=== PATIENT | female | born 1975 | race Caucasian/White ===

== ENCOUNTER 2017-05-13 14:47 | Emergency (ER) | payer OTHER ==
[~2017-05-13] VITALS: Ht 170.2 cm; Wt 83.9 kg
[~2017-05-13 14:47] MED LIST: ALBIPROI; ALBIPROI INH; AMOCLA400S PO; AMOCLA500; AMOCLA500 PO; AMOCLA875 PO; BENZ100A; BETAINE; BUDE10.22 IH; BUTASPCAFT PO; Bactrim Ds Tab1 EACH PO; CEFU500; CHLCLI; CHLO10 PO; CHLO25; CHLO25 PO; CHLO5 PO; CIPR500 PO; CITA20; CLAR500 PO; CLIN300; CLON.1; CLON.1 PO; CLON1; CLON2; COUMADIN; CYAN500 PO; CYCL10 PO; DIAZ5; ENOX60I; FOLATE; FOLI1 PO; HYDACE10B PO; HYDACE5; HYDACE5 PO; HYDACE7.5; HYDACE7.5 PO; HYDGUAL120 PO; HYDMOR2; HYDPAM25 PO; IBUP600 PO; IBUP800 PO; LEVFLO500; LEVFLO500 PO; LORA.5 PO; LORA1; LORA2; LORA2 PO; MELO7.5 PO; METCAR500 PO; METO25 PO; METO50ER PO; MULVITA; NALT50 PO; NAPR500 PO; NYST100SU MT; Norco 5-325 Ta1 EACH PO; OXYACE5T PO; OXYACE7.5T PO; OXYCODONE 5 MG; PHENY100ER; POTPHO PO; PRAZ1 PO; PRED1; PRED20; PRED20 PO; PROM25; PROM25 PO; PYRI100 PO; PYRI50; QUET100 PO; QUET200 PO; QUET25 PO; RXHYDACE PO; RXLORA1 PO; SULTRISS PO; TRAM50; TRAM50 PO; TRAZ50; WARF10; WARF4; WARF7.5; WARFARIN; [UNRECOGNIZED DRUG - REMARK]
[2017-05-13 15:37] LABS: BASOPHILS ABSOLUTE AUTO 0.02 K/mm3 (0.00-0.23); BASOPHILS PERCENT AUTO 0 % (0-2); EOSINOPHILS ABSOLUTE AUTO 0.02 K/mm3 (0.00-0.68); EOSINOPHILS PERCENT AUTO 0 % (0-6); Hematocrit 40.6 % (33.0-51.0); Hemoglobin 14.2 g/dL (11.5-16.0); IMMATURE GRAN ABSOLUTE AUTO 0.05 K/mm3 (0.00-0.10); IMMATURE GRAN PERCENT AUTO 1 % (0-1); LYMPHOCYTES ABSOLUTE AUTO 2.45 K/mm3 (0.84-5.20); LYMPHOCYTES PERCENT AUTO 25 % (21-46); MONOCYTES ABSOLUTE AUTO 0.57 K/mm3 (0.16-1.47); MONOCYTES PERCENT AUTO 6 % (4-13); Mean Corpuscular HGB 36.7 pg (26.0-34.0); Mean Corpuscular Volume 105 fL (80-100); Mean Platelet Volume 9.4 fL (9.1-12.4); NEUTROPHILS ABSOLUTE AUTO 6.84 K/mm3 (1.96-9.15); NEUTROPHILS PERCENT AUTO 69 % (41-73); Platelet Count 154 K/mm3 (150-400); RDW Coefficient Variation 12.9 % (11.7-14.2); RDW Standard Deviation 49.6 fL (35.1-46.3); Red Blood Cell Count 3.87 M/mm3 (3.80-5.20); White Blood Cell Count 9.95 K/mm3 (4.00-11.30)
[2017-05-13 15:56] LABS: Alanine Aminotransfer (ALT/SGP 49 U/L (12-78); Albumin, Blood 3.9 g/dL (3.4-5.0); Albumin/Globulin Ratio 1.3 (0.8-1.8); Alk Phos 91 U/L (50-136); Anion Gap 9 mmol/L (6-16); Aspartate Aminotrans (AST/SGOT 25 U/L (12-37); Bilirubin, Total 0.5 mg/dL (0.1-1.0); Blood Urea Nitrogen 11 mg/dL (8-24); CO2, Blood 24 mmol/L (21-32); Calcium, Blood 8.7 mg/dL (8.5-10.1); Chloride, Blood 103 mmol/L (98-108); Creatinine, Blood 0.65 mg/dL (0.40-1.00); Ethanol (Alcohol), Blood, Med <3 mg/dL; Globulin, Blood 3.1 g/dL (2.2-4.0); Glomerular Filtration Rate >60 (60-); Glucose, Blood 102 mg/dL (70-99); Potassium, Blood 3.7 mmol/L (3.5-5.5); Sodium, Blood 136 mmol/L (136-145)
[2017-05-13] MEDS ORDERED: CHLO25 PO (17:43)
[2018-04-12] MEDS ORDERED: Amox Tr-K Clv1 EAC2 PO (14:10)
[2018-04-12] MEDS ORDERED: FLUC150A PO (14:10)
[2018-04-12] MEDS ORDERED: NYST100000 (14:10)
[2018-04-12] MEDS ORDERED: CHLO25 PO (15:51)
[2018-04-12] MEDS ORDERED: Zofran8 MG PO (15:51)
== END 2017-05-13 17:56 | disposition home or self-care (01) ==
LOC: ER 14:47
PROVIDERS: Emergency Medicine
DX: F10.239 Alcohol dependence with withdrawal, unspecified (principal); F43.10 Post-traumatic stress disorder, unspecified; F17.200 Nicotine dependence, unspecified, uncomplicated; F41.9 Anxiety disorder, unspecified; F32.9 Major depressive disorder, single episode, unspecified; Z88.8 Allergy status to other drugs, medicaments and biological substances; Z88.5 Allergy status to narcotic agent; Z79.899 Other long term (current) drug therapy
CPT/HCPCS: 36415; 80053; 85025; 96374; 96375; 99283; G0480; J2060; J2405

== ENCOUNTER 2018-02-07 12:16 | Emergency (ER) | payer OTHER ==
[~2018-02-07] VITALS: Ht 170.2 cm; Wt 86.2 kg
[2018-02-07 13:36] LABS: BASOPHILS ABSOLUTE AUTO 0.03 K/mm3 (0.00-0.23); BASOPHILS PERCENT AUTO 0 % (0-2); EOSINOPHILS ABSOLUTE AUTO 0.02 K/mm3 (0.00-0.68); EOSINOPHILS PERCENT AUTO 0 % (0-6); Hemoglobin 14.1 g/dL (11.5-16.0); IMMATURE GRAN ABSOLUTE AUTO 0.02 K/mm3 (0.00-0.10); IMMATURE GRAN PERCENT AUTO 0 % (0-1); LYMPHOCYTES ABSOLUTE AUTO 2.74 K/mm3 (0.84-5.20); LYMPHOCYTES PERCENT AUTO 37 % (21-46); MONOCYTES ABSOLUTE AUTO 0.53 K/mm3 (0.16-1.47); MONOCYTES PERCENT AUTO 7 % (4-13); Mean Corpuscular HGB 37.9 pg (26.0-34.0); Mean Corpuscular HGB Conc 35.3 g/dL (31.5-36.5); Mean Corpuscular Volume 108 fL (80-100); Mean Platelet Volume 9.3 fL (9.1-12.4); NEUTROPHILS ABSOLUTE AUTO 4.02 K/mm3 (1.96-9.15); NEUTROPHILS PERCENT AUTO 55 % (41-73); Platelet Count 159 K/mm3 (150-400); RDW Coefficient Variation 12.2 % (11.7-14.2); RDW Standard Deviation 48.1 fL (35.1-46.3); Red Blood Cell Count 3.72 M/mm3 (3.80-5.20); White Blood Cell Count 7.36 K/mm3 (4.00-11.30)
[2018-02-07 13:57] LABS: Alanine Aminotransfer (ALT/SGP 81 U/L (12-78); Albumin, Blood 3.7 g/dL (3.4-5.0); Albumin/Globulin Ratio 1.2 (0.8-1.8); Alk Phos 84 U/L (50-136); Anion Gap 8 mmol/L (6-16); Aspartate Aminotrans (AST/SGOT 49 U/L (12-37); Bilirubin, Total 0.6 mg/dL (0.1-1.0); Blood Urea Nitrogen 10 mg/dL (8-24); Bun/Creatinine Ratio 17.5 (12.0-20.0); CO2, Blood 24 mmol/L (21-32); Chloride, Blood 107 mmol/L (98-108); Creatinine, Blood 0.57 mg/dL (0.40-1.00); Ethanol (Alcohol), Blood, Med <3 mg/dL; Globulin, Blood 3.2 g/dL (2.2-4.0); Glomerular Filtration Rate >60 (60-); Glucose, Blood 98 mg/dL (70-99); Potassium, Blood 3.7 mmol/L (3.5-5.5); Sodium, Blood 139 mmol/L (136-145); Total Protein, Blood 6.9 g/dL (6.4-8.2)
[2018-02-07] MEDS ORDERED: CHLO25 PO (14:49)
== END 2018-02-07 15:07 | disposition home or self-care (01) ==
LOC: ER 12:16
PROVIDERS: Physician Assistant
DX: F10.239 Alcohol dependence with withdrawal, unspecified (principal); Z71.41 Alcohol abuse counseling and surveillance of alcoholic; F41.9 Anxiety disorder, unspecified; F32.9 Major depressive disorder, single episode, unspecified; F17.210 Nicotine dependence, cigarettes, uncomplicated; Z79.899 Other long term (current) drug therapy; Y90.0 Blood alcohol level of less than 20 mg/100 ml
CPT/HCPCS: 80053; 82607; 82746; 85025; 99284; G0480

== ENCOUNTER → 2018-12-05 | Outpatient (CLI) | payer OTHER ==
[~2018-12-05] MED LIST changes: +Amox Tr-K Clv1 EAC2 PO; +FLUC150A PO; +NYST100000; +Zofran8 MG PO
[2018-12-09 15:07] LABS: HPV 16 Negative (Negative); HPV 18 Negative (Negative); HPV OTHER HR TYPES Negative (Negative)
== END | disposition home or self-care (01) ==
LOC: LAB 13:05 → LAB SHORT 13:05
PROVIDERS: Nurse Practitioner Women's Health
DX: Z12.72 Encounter for screening for malignant neoplasm of vagina (principal); N89.8 Other specified noninflammatory disorders of vagina; Z91.89 Other specified personal risk factors, not elsewhere classified
CPT/HCPCS: 87070; 87205; 87624; G0123

== ENCOUNTER 2019-03-28 12:28 | Emergency (ER) | payer OTHER ==
[~2019-03-28] VITALS: Ht 167.6 cm; Wt 77.1 kg
[~2019-03-28 12:28] MED LIST changes: -CYCL10 PO; -METO50ER PO
[2019-03-28 15:10] LABS: BASOPHILS ABSOLUTE AUTO 0.03 K/mm3 (0.00-0.23); BASOPHILS PERCENT AUTO 0 % (0-2); EOSINOPHILS ABSOLUTE AUTO 0.01 K/mm3 (0.00-0.68); EOSINOPHILS PERCENT AUTO 0 % (0-6); Hematocrit 45.2 % (33.0-51.0); Hemoglobin 15.6 g/dL (11.5-16.0); IMMATURE GRAN ABSOLUTE AUTO 0.03 K/mm3 (0.00-0.10); IMMATURE GRAN PERCENT AUTO 0 % (0-1); LYMPHOCYTES PERCENT AUTO 25 % (21-46); MONOCYTES ABSOLUTE AUTO 0.61 K/mm3 (0.16-1.47); MONOCYTES PERCENT AUTO 6 % (4-13); Mean Corpuscular HGB 37.1 pg (26.0-34.0); Mean Corpuscular HGB Conc 34.5 g/dL (31.5-36.5); Mean Corpuscular Volume 107 fL (80-100); Mean Platelet Volume 9.5 fL (9.1-12.4); NEUTROPHILS PERCENT AUTO 68 % (41-73); Platelet Count 172 K/mm3 (150-400); RDW Standard Deviation 47.9 fL (35.1-46.3); Red Blood Cell Count 4.21 M/mm3 (3.80-5.20); White Blood Cell Count 9.58 K/mm3 (4.00-11.30)
[2019-03-28 15:25] LABS: Alanine Aminotransfer (ALT/SGP 87 U/L (12-78); Albumin, Blood 3.6 g/dL (3.4-5.0); Albumin/Globulin Ratio 1.1 (0.8-1.8); Alk Phos 115 U/L (50-136); Anion Gap 5 mmol/L (6-16); Aspartate Aminotrans (AST/SGOT 54 U/L (12-37); Bilirubin, Total 0.9 mg/dL (0.1-1.0); Blood Urea Nitrogen 7 mg/dL (8-24); CO2, Blood 26 mmol/L (21-32); Chloride, Blood 106 mmol/L (98-108); Creatinine, Blood 0.64 mg/dL (0.40-1.00); Ethanol (Alcohol), Blood, Med <3 mg/dL; Globulin, Blood 3.2 g/dL (2.2-4.0); Glomerular Filtration Rate >60 (60-); Glucose, Blood 101 mg/dL (70-99); Potassium, Blood 4.9 mmol/L (3.5-5.5); Sodium, Blood 137 mmol/L (136-145); Total Protein, Blood 6.8 g/dL (6.4-8.2)
[2019-03-28] MEDS ORDERED: Vitamin B-150 MG PO (16:23)
[2019-03-28] MEDS ORDERED: MELO7.5 PO (16:24)
[2019-03-28] MEDS ORDERED: CYCL10 PO (16:25)
[2019-03-28] MEDS ORDERED: ACYC800 PO (16:27)
[2019-03-28 17:06] LABS: Appearance, Urine Hazy (Clear); Bilirubin, Urine Neg (Neg); Blood, Urine 2+ (Neg); Color, Urine Yellow (P-Yellow); Glucose Qualitative, Urine Neg (Neg); Ketones, Urine Neg (Neg); Leukocyte Esterase, Urine 1+ (Neg); Nitrite, Urine Neg (Neg); Protein, Urine Neg (Neg); Urobilinogen, Urine NORM (Normal)
[2019-03-28 17:09] LABS: Source, Urine Clean Catch
[2019-03-28 17:16] LABS: Bacteria Many /hpf; Squamous Epithelial Cells Mod /hpf (Few)
[2019-03-28] MEDS ORDERED: CHLO25 PO (17:17)
[2019-03-28] MEDS ORDERED: ONDA4ODT MM (17:17)
[2019-03-28 17:33] LABS: U Amphetamine Screen Not Detected; U Barbituate Screen Not Detected; U Benzodiazapine Screen DETECTED; U Buprenorphine Screen Not Detected; U Cannabinoids Screen Not Detected; U Cocaine Screen Not Detected; U Methadone Screen Not Detected; U Methamphetamine Screen Not Detected; U Opiates Screen Not Detected; U Oxycodone Screen Not Detected; U Phencyclidine Screen Not Detected; U Propoxyphene Screen Not Detected
== END 2019-03-28 17:39 | disposition home or self-care (01) ==
LOC: ER 12:28
PROVIDERS: Emergency Medicine
DX: F10.239 Alcohol dependence with withdrawal, unspecified (principal); R74.8 Abnormal levels of other serum enzymes; F41.9 Anxiety disorder, unspecified; F43.10 Post-traumatic stress disorder, unspecified; F32.9 Major depressive disorder, single episode, unspecified; F17.210 Nicotine dependence, cigarettes, uncomplicated; Z86.711 Personal history of pulmonary embolism; Z88.1 Allergy status to other antibiotic agents; Z88.5 Allergy status to narcotic agent; Z88.8 Allergy status to other drugs, medicaments and biological substances; Z79.899 Other long term (current) drug therapy
CPT/HCPCS: 36415; 80053; 81001; 83690; 85025; 87077; 87086; 87186; 93005; 93010; 96365; 96366; 96375; 99285-25; G0480; J2060; J2405; J3411; J3475; J7030; J7042

== ENCOUNTER 2019-06-02 18:07 | Emergency (ER) | payer OTHER ==
[~2019-06-02] VITALS: Ht 167.6 cm; Wt 77.1 kg
[~2019-06-02 18:07] MED LIST changes: +ACYC800 PO; +CYCL10 PO; +ONDA4ODT MM; +Vitamin B-150 MG PO
[2019-06-02 19:02] LABS: Source, Urine Clean Catch
[2019-06-02 19:05] LABS: Bilirubin, Urine Neg (Neg); Blood, Urine 3+ (Neg); Glucose Qualitative, Urine Neg (Neg); Ketones, Urine Neg (Neg); Leukocyte Esterase, Urine Neg (Neg); Nitrite, Urine Neg (Neg); Protein, Urine Neg (Neg); Specific Gravity, Urine 1.005 (1.003-1.022); Urobilinogen, Urine NORM (Normal)
[2019-06-02 19:13] LABS: Appearance, Urine Clear (Clear); Color, Urine Yellow (P-Yellow)
[2019-06-02 19:14] LABS: Bacteria Few /hpf; Red Blood Cells, Urine 0-2 /hpf (0-2); Squamous Epithelial Cells Few /hpf (Few); White Blood Cells, Urine Not Seen /hpf (0-5)
[2019-06-02 19:16] LABS: U Amphetamine Screen Not Detected; U Barbituate Screen Not Detected; U Benzodiazapine Screen DETECTED; U Cocaine Screen Not Detected; U Methadone Screen Not Detected; U Methamphetamine Screen Not Detected
[2019-06-02 19:17] LABS: U Buprenorphine Screen Not Detected; U Cannabinoids Screen Not Detected; U Opiates Screen Not Detected; U Oxycodone Screen Not Detected; U Phencyclidine Screen Not Detected; U Propoxyphene Screen Not Detected
[2019-06-02 19:26] LABS: Ethanol (Alcohol), Blood, Med 197 mg/dL; Magnesium, Blood 1.5 mg/dL (1.6-2.4)
[2019-06-02 19:30] LABS: Alanine Aminotransfer (ALT/SGP 156 U/L (12-78); Albumin/Globulin Ratio 1.1 (0.8-1.8); Alk Phos 158 U/L (50-136); Anion Gap 8 mmol/L (6-16); Aspartate Aminotrans (AST/SGOT 175 U/L (12-37); Bilirubin, Total 0.7 mg/dL (0.1-1.0); Blood Urea Nitrogen 6 mg/dL (8-24); Bun/Creatinine Ratio 10.4 (12.0-20.0); CO2, Blood 24 mmol/L (21-32); Calcium, Blood 8.8 mg/dL (8.5-10.1); Chloride, Blood 107 mmol/L (98-108); Creatinine, Blood 0.58 mg/dL (0.40-1.00); Globulin, Blood 3.5 g/dL (2.2-4.0); Glomerular Filtration Rate >60 (60-); Glucose, Blood 101 mg/dL (70-99); Potassium, Blood 3.7 mmol/L (3.5-5.5); Sodium, Blood 139 mmol/L (136-145); Total Protein, Blood 7.5 g/dL (6.4-8.2)
[2019-06-02 19:39] LABS: BASOPHILS ABSOLUTE AUTO 0.02 K/mm3 (0.00-0.23); BASOPHILS PERCENT AUTO 0 % (0-2); EOSINOPHILS ABSOLUTE AUTO 0.01 K/mm3 (0.00-0.68); EOSINOPHILS PERCENT AUTO 0 % (0-6); Hematocrit 43.7 % (33.0-51.0); Hemoglobin 15.8 g/dL (11.5-16.0); IMMATURE GRAN ABSOLUTE AUTO 0.01 K/mm3 (0.00-0.10); IMMATURE GRAN PERCENT AUTO 0 % (0-1); LYMPHOCYTES ABSOLUTE AUTO 2.99 K/mm3 (0.84-5.20); LYMPHOCYTES PERCENT AUTO 44 % (21-46); MONOCYTES ABSOLUTE AUTO 0.39 K/mm3 (0.16-1.47); MONOCYTES PERCENT AUTO 6 % (4-13); Mean Corpuscular HGB 38.3 pg (26.0-34.0); Mean Corpuscular HGB Conc 36.2 g/dL (31.5-36.5); Mean Corpuscular Volume 106 fL (80-100); Mean Platelet Volume 9.7 fL (9.1-12.4); NEUTROPHILS ABSOLUTE AUTO 3.36 K/mm3 (1.96-9.15); NEUTROPHILS PERCENT AUTO 50 % (41-73); Platelet Count 141 K/mm3 (150-400); RDW Coefficient Variation 12.3 % (11.7-14.2); RDW Standard Deviation 48.5 fL (35.1-46.3); Red Blood Cell Count 4.12 M/mm3 (3.80-5.20); White Blood Cell Count 6.78 K/mm3 (4.00-11.30)
[2019-06-02] MEDS ORDERED: CHLO25 PO (20:53)
== END 2019-06-02 22:10 | disposition home or self-care (01) ==
LOC: ER 18:07
PROVIDERS: Physician Assistant
DX: F10.239 Alcohol dependence with withdrawal, unspecified (principal); Y90.6 Blood alcohol level of 120-199 mg/100 ml; F41.9 Anxiety disorder, unspecified; F32.9 Major depressive disorder, single episode, unspecified; F17.210 Nicotine dependence, cigarettes, uncomplicated; Z88.1 Allergy status to other antibiotic agents; Z88.5 Allergy status to narcotic agent; Z88.8 Allergy status to other drugs, medicaments and biological substances; Z79.899 Other long term (current) drug therapy
CPT/HCPCS: 36415; 80053; 81001; 83735; 85025; 93005; 93010; 96361; 96374; 99284-25; G0480; J2405; J7030

== ENCOUNTER → 2019-07-20 | Outpatient (CLI) | payer OTHER | END | disposition home or self-care (01) | LOC: LAB EV 14:27 → LAB SHORT 14:27 | DX: N39.0 Urinary tract infection, site not specified (principal) | CPT/HCPCS: 87077; 87086; 87186 ==

== ENCOUNTER 2019-08-24 08:49 | Emergency (ER) | payer OTHER ==
[~2019-08-24] VITALS: Ht 167.6 cm; Wt 69.8 kg
[2019-08-24 09:45] LABS: BASOPHILS ABSOLUTE AUTO 0.05 K/mm3 (0.00-0.23); BASOPHILS PERCENT AUTO 1 % (0-2); EOSINOPHILS ABSOLUTE AUTO 0.07 K/mm3 (0.00-0.68); EOSINOPHILS PERCENT AUTO 1 % (0-6); Hematocrit 43.3 % (33.0-51.0); Hemoglobin 15.2 g/dL (11.5-16.0); IMMATURE GRAN ABSOLUTE AUTO 0.04 K/mm3 (0.00-0.10); IMMATURE GRAN PERCENT AUTO 0 % (0-1); LYMPHOCYTES ABSOLUTE AUTO 1.68 K/mm3 (0.84-5.20); LYMPHOCYTES PERCENT AUTO 18 % (21-46); MONOCYTES ABSOLUTE AUTO 0.87 K/mm3 (0.16-1.47); MONOCYTES PERCENT AUTO 9 % (4-13); Mean Corpuscular HGB 39.9 pg (26.0-34.0); Mean Corpuscular HGB Conc 35.1 g/dL (31.5-36.5); Mean Corpuscular Volume 114 fL (80-100); Mean Platelet Volume 10.1 fL (9.1-12.4); NEUTROPHILS ABSOLUTE AUTO 6.68 K/mm3 (1.96-9.15); NEUTROPHILS PERCENT AUTO 71 % (41-73); Platelet Count 255 K/mm3 (150-400); RDW Coefficient Variation 12.7 % (11.7-14.2); Red Blood Cell Count 3.81 M/mm3 (3.80-5.20); White Blood Cell Count 9.39 K/mm3 (4.00-11.30)
[2019-08-24 10:11] LABS: Alanine Aminotransfer (ALT/SGP 124 U/L (12-78); Albumin, Blood 3.7 g/dL (3.4-5.0); Albumin/Globulin Ratio 1.1 (0.8-1.8); Alk Phos 324 U/L (50-136); Anion Gap 8 mmol/L (6-16); Aspartate Aminotrans (AST/SGOT 189 U/L (12-37); Bilirubin, Total 1.5 mg/dL (0.1-1.0); Blood Urea Nitrogen 9 mg/dL (8-24); Bun/Creatinine Ratio 13.8 (12.0-20.0); CO2, Blood 30 mmol/L (21-32); Calcium, Blood 9.3 mg/dL (8.5-10.1); Chloride, Blood 97 mmol/L (98-108); Creatinine, Blood 0.65 mg/dL (0.40-1.00); Globulin, Blood 3.5 g/dL (2.2-4.0); Glomerular Filtration Rate >60 (60-); Glucose, Blood 149 mg/dL (70-99); Magnesium, Blood 1.8 mg/dL (1.6-2.4); Potassium, Blood 3.5 mmol/L (3.5-5.5); Sodium, Blood 135 mmol/L (136-145); Total Protein, Blood 7.2 g/dL (6.4-8.2)
[2019-08-24] MEDS ORDERED: CHLO25 PO (10:38)
[2019-08-24] MEDS ORDERED: Diflucan150 MG PO (10:38)
[2019-08-24] MEDS ORDERED: PROM25 PO (10:38)
[2019-08-24] MEDS ORDERED: NYST100000 SS (10:38)
== END 2019-08-24 11:10 | disposition home or self-care (01) ==
LOC: ER 08:49
PROVIDERS: Emergency Medicine
DX: B37.0 Candidal stomatitis (principal); F10.10 Alcohol abuse, uncomplicated; Y90.0 Blood alcohol level of less than 20 mg/100 ml; F17.210 Nicotine dependence, cigarettes, uncomplicated; F43.10 Post-traumatic stress disorder, unspecified; F41.9 Anxiety disorder, unspecified; F32.9 Major depressive disorder, single episode, unspecified; Z88.1 Allergy status to other antibiotic agents; Z88.5 Allergy status to narcotic agent; Z88.8 Allergy status to other drugs, medicaments and biological substances; Z79.899 Other long term (current) drug therapy
CPT/HCPCS: 36415; 80053; 83690; 83735; 85025; 96361; 96374; 99284-25; A9270-GY; G0480; J2405; J7120

== ENCOUNTER 2019-09-23 21:08 | Inpatient (IN) | payer OTHER ==
[~2019-09-23] VITALS: Ht 167.6 cm; Wt 76.2 kg
[~2019-09-23 21:08] MED LIST changes: +Diflucan150 MG PO; +NYST100000 SS
[2019-09-23 21:51] LABS: BASOPHILS ABSOLUTE AUTO 0.04 K/mm3 (0.00-0.23); BASOPHILS PERCENT AUTO 0 % (0-2); EOSINOPHILS ABSOLUTE AUTO 0.01 K/mm3 (0.00-0.68); EOSINOPHILS PERCENT AUTO 0 % (0-6); Hematocrit 43.6 % (33.0-51.0); Hemoglobin 15.2 g/dL (11.5-16.0); IMMATURE GRAN ABSOLUTE AUTO 0.16 K/mm3 (0.00-0.10); IMMATURE GRAN PERCENT AUTO 1 % (0-1); LYMPHOCYTES ABSOLUTE AUTO 1.85 K/mm3 (0.84-5.20); LYMPHOCYTES PERCENT AUTO 11 % (21-46); MONOCYTES ABSOLUTE AUTO 0.78 K/mm3 (0.16-1.47); MONOCYTES PERCENT AUTO 5 % (4-13); Mean Corpuscular HGB 40.2 pg (26.0-34.0); Mean Corpuscular HGB Conc 34.9 g/dL (31.5-36.5); Mean Corpuscular Volume 115 fL (80-100); Mean Platelet Volume 9.7 fL (9.1-12.4); NEUTROPHILS PERCENT AUTO 84 % (41-73); Platelet Count 419 K/mm3 (150-400); RDW Coefficient Variation 13.8 % (11.7-14.2); RDW Standard Deviation 59.4 fL (35.1-46.3); Red Blood Cell Count 3.78 M/mm3 (3.80-5.20); White Blood Cell Count 17.44 K/mm3 (4.00-11.30)
[2019-09-23 22:06] LABS: Alanine Aminotransfer (ALT/SGP 203 U/L (12-78); Albumin, Blood 2.8 g/dL (3.4-5.0); Albumin/Globulin Ratio 0.8 (0.8-1.8); Alk Phos 373 U/L (50-136); Anion Gap 12 mmol/L (6-16); Aspartate Aminotrans (AST/SGOT 286 U/L (12-37); Bilirubin, Total 0.9 mg/dL (0.1-1.0); Blood Urea Nitrogen 7 mg/dL (8-24); Bun/Creatinine Ratio 13.9 (12.0-20.0); CO2, Blood 28 mmol/L (21-32); Chloride, Blood 96 mmol/L (98-108); Globulin, Blood 3.7 g/dL (2.2-4.0); Glomerular Filtration Rate >60 (60-); Glucose, Blood 174 mg/dL (70-99); Salicylate <1.7 mg/dL (2.8-20.0); Sodium, Blood 136 mmol/L (136-145); Total Protein, Blood 6.5 g/dL (6.4-8.2); Troponin I <0.015 ng/mL (0.000-0.040)
[2019-09-23 22:13] LABS: Ethanol (Alcohol), Blood, Med <3 mg/dL
[2019-09-23 22:14] LABS: Acetaminophen, Random <2.0 ug/mL (10.0-30.0)
[2019-09-23 23:21] LABS: Source, Urine Clean Catch
[2019-09-23 23:24] LABS: Bilirubin, Urine Neg (Neg); Blood, Urine 4+ (Neg); Glucose Qualitative, Urine Neg (Neg); Ketones, Urine 1+ (Neg); Leukocyte Esterase, Urine 1+ (Neg); Nitrite, Urine Neg (Neg); Protein, Urine 1+ (Neg); Specific Gravity, Urine 1.015 (1.003-1.022); Urobilinogen, Urine NORM (Normal)
[2019-09-23 23:26] LABS: Appearance, Urine Clear (Clear); Color, Urine Amber (P-Yellow)
[2019-09-23 23:31] LABS: Bacteria Few /hpf; Red Blood Cells, Urine 50-100 /hpf (0-2); Squamous Epithelial Cells Few /hpf (Few); Transitional Epithelial Cells Few /hpf (0-Rare); White Blood Cells, Urine 0-2 /hpf (0-5)
[2019-09-23 23:33] LABS: U Amphetamine Screen Not Detected; U Barbituate Screen Not Detected; U Benzodiazapine Screen DETECTED; U Buprenorphine Screen Not Detected; U Cannabinoids Screen Not Detected; U Cocaine Screen Not Detected; U Methadone Screen Not Detected; U Methamphetamine Screen Not Detected; U Opiates Screen Not Detected; U Oxycodone Screen Not Detected; U Phencyclidine Screen Not Detected; U Propoxyphene Screen Not Detected
--- NOTE | 2019-09-24 02:22 | NUR ---
SEIZURE PADS PLACED ON BED PER ORDERS. PT REFUSING SCD'S AT THIS TIME.
--- NOTE | 2019-09-24 04:30 | NUR ---
SHIFT SUMMARY PT NEW ED ADMIT THIS EVENING. PT VERY UNCOMFORTABLE WHEN FIRST REACHING HER ROOM FROM ED. COMPLAINING OF UPPER EPIGASTRIC PAIN 9/10 AND NAUSEA. MEDICATED W/ 0.5 MG DILAUDID AND 4 MG ZOFRAN. SHORTLY AFTER PT REPORTED FEELING SHAKEY, SWEATY, AND ANXIOUS. SHE ALSO HAD A HEADACHE. CIWA SCORE 12. MEDICATED WITH 2 MG ATIVAN. PT RESTED FOR A SHORT WHILE FOLLOWING. PT REPORTED THAT SHE HAD HER LAST DRINK DAY BEFORE YESTERDAY AND WAS DRINKING APPROX 1/2 GALLON OF VODKA EVERY 2 DAYS. VITAL SIGNS STABLE. BANANA BAG RUNNING AT THIS TIME. WILL CONTINUE TO MONITOR AND REPORT TO DAY RN.
--- NOTE | 2019-09-24 18:08 | NUR ---
NICOTINE PATCH PATIENT REQUESTING NICOTINE PATCH. INFORMED DR. PAGAN, ORDER RECEIVED FOR 7MG PATCH DAILY.
--- NOTE | 2019-09-24 18:43 | NUR ---
Shift Summary A/Ox3, very emotional but cooperative and pleasant lady. Patient has been tearful when discussing her health status as she feels she "did this to myself" referring to dx of acute pancreatitis and her alcohol addiction. C/o pain and nausea, medicated per EMAR with poor results per patient report. CIWA ranged from 10-14, medicated per EMAR. Up to bathroom independently. Able to make needs known by using call light appropriately. Seizure pads in place, no seizure-like activity this shift.
[2019-09-25 04:11] LABS: BASOPHILS ABSOLUTE AUTO 0.03 K/mm3 (0.00-0.23); BASOPHILS PERCENT AUTO 0 % (0-2); EOSINOPHILS ABSOLUTE AUTO 0.12 K/mm3 (0.00-0.68); EOSINOPHILS PERCENT AUTO 1 % (0-6); Hematocrit 33.2 % (33.0-51.0); Hemoglobin 11.3 g/dL (11.5-16.0); IMMATURE GRAN ABSOLUTE AUTO 0.12 K/mm3 (0.00-0.10); IMMATURE GRAN PERCENT AUTO 1 % (0-1); LYMPHOCYTES ABSOLUTE AUTO 2.61 K/mm3 (0.84-5.20); LYMPHOCYTES PERCENT AUTO 19 % (21-46); MONOCYTES ABSOLUTE AUTO 0.76 K/mm3 (0.16-1.47); MONOCYTES PERCENT AUTO 6 % (4-13); Mean Corpuscular HGB 40.6 pg (26.0-34.0); Mean Platelet Volume 9.6 fL (9.1-12.4); NEUTROPHILS ABSOLUTE AUTO 10.05 K/mm3 (1.96-9.15); NEUTROPHILS PERCENT AUTO 73 % (41-73); Platelet Count 160 K/mm3 (150-400); RDW Coefficient Variation 13.9 % (11.7-14.2); RDW Standard Deviation 61.8 fL (35.1-46.3); Red Blood Cell Count 2.78 M/mm3 (3.80-5.20); White Blood Cell Count 13.69 K/mm3 (4.00-11.30)
[2019-09-25 04:14] LABS: Mean Corpuscular Volume 119 fL (80-100)
[2019-09-25 04:35] LABS: Alanine Aminotransfer (ALT/SGP 98 U/L (12-78); Albumin, Blood 2.2 g/dL (3.4-5.0); Albumin/Globulin Ratio 0.8 (0.8-1.8); Alk Phos 227 U/L (50-136); Anion Gap 10 mmol/L (6-16); Aspartate Aminotrans (AST/SGOT 109 U/L (12-37); Bilirubin, Total 1.4 mg/dL (0.1-1.0); Blood Urea Nitrogen 8 mg/dL (8-24); Bun/Creatinine Ratio 13.4 (12.0-20.0); CO2, Blood 27 mmol/L (21-32); Calcium, Blood 7.8 mg/dL (8.5-10.1); Chloride, Blood 99 mmol/L (98-108); Globulin, Blood 2.9 g/dL (2.2-4.0); Glomerular Filtration Rate >60 (60-); Glucose, Blood 77 mg/dL (70-99); Sodium, Blood 136 mmol/L (136-145); Total Protein, Blood 5.1 g/dL (6.4-8.2)
--- NOTE | 2019-09-25 06:34 | NUR ---
INCREASED HEART RATE NATUROPATHIC DOCTOR ALANNA MILLIGAN NOTIFIED THIS RN OF HEART RATE INCREASING. HEART RATE HAD BEEN SLOWLY CLIMBING THROUGHOUT THE SHIFT. PT WAS NOW IN THE 120'S-130'S. NOTIFIED DR. WHITLOCK. NEW ORDERS TO RESTART PT'S HOME MED METOPROLOL TARTRATE 75 MG BID AND TO START NOW. FIRST DOSE GIVEN.
--- NOTE | 2019-09-25 06:36 | NUR ---
SHIFT SUMMARY PT CONTINUED TO HAVE UPPER ABD PAIN AND NAUSEA. MEDICATED PT PER EMAR. CIWA'S ALSO CONTINUE TO BE ELEVATED AT 10-14 BEFORE MEDICATION. ATIVAN 2 MG IV GIVEN THROUGHOUT THE SHIFT. PT REPORTED THAT SHE WAS HAVING DIFFICULTY VOIDING, ONLY VOIDING APPROX 5 ML WHEN ATTEMPTING. BLADDER SCAN DONE WITH 778 ML POST VOID. NOTIFIED AMERICA MOCK. NEW ORDER TO BLADDER SCAN PRN AND STRAIGHT CATH < 350 ML. STRAIGHT CATH'D PT WITH 750 ML OUT. PT STILL COULD NOT VOID THE REMAINDER OF THE NIGHT. ATTEMPTING AGAIN THIS AM BUT WAS UNABLE. BLADDER SCAN THIS AM 227 ML. WILL PASS ON TO DAY RN TO MONITOR. HEART RATE SLOWLY CLIMBING UP THIS SHIFT. RATE IN THE 120'S-130'S THIS AM. METOPROLOL TARTRATE GIVEN. SEE PREVIOUS NOTE. PT ANXIOUS AND EMOTIONAL AT TIMES. REASSURED PT NEEDED. ASIDE FROM ELEVATED HEART RATE THIS EVENING, VITAL SIGNS HAVE BEEN STABLE. PT RESTING IN BED AT THIS TIME. WILL CONTINUE TO MONITOR AND REPORT TO DAY RN.
--- NOTE | 2019-09-25 12:10 | NUR ---
BLADDER SCAN 467 CC BLADDER SCAN SHOWED 467 CC POST VOID, STRAIGHT CATH DONE. OUTPUT VIA STRAIGHT CATH WAS 600 CC.
--- NOTE | 2019-09-25 16:42 | NUR ---
Shift Summary A/O x 2-3 with mild confusion. In the AM, patient stepped out of her room with a confused look. When asked if patient needed help, she replied "I am looking for my mom." Patient was reminded about No Visitor Policy. Patient then stated "I'm looking for my son. He works here." referring to John Robbins. Afterward, patient became aware she was confused and went to lay down in bed. C/O headache, abdominal and back pain; medicated per EMAR x 4 this shift. Medicated for nausea x 1. CIWA has been 7-8. Straight cath x 1 this shift after post void showed 467cc, drained 600cc. Dr. Beaver notified and aware. Will continue to monitor and update tomorrow. Tele: SR leone occassional PVC's.
[2019-09-26 05:04] LABS: BASOPHILS ABSOLUTE AUTO 0.04 K/mm3 (0.00-0.23); BASOPHILS PERCENT AUTO 0 % (0-2); EOSINOPHILS ABSOLUTE AUTO 0.14 K/mm3 (0.00-0.68); EOSINOPHILS PERCENT AUTO 1 % (0-6); Hematocrit 32.1 % (33.0-51.0); Hemoglobin 10.8 g/dL (11.5-16.0); IMMATURE GRAN ABSOLUTE AUTO 0.08 K/mm3 (0.00-0.10); IMMATURE GRAN PERCENT AUTO 1 % (0-1); LYMPHOCYTES ABSOLUTE AUTO 2.72 K/mm3 (0.84-5.20); LYMPHOCYTES PERCENT AUTO 23 % (21-46); MONOCYTES ABSOLUTE AUTO 0.74 K/mm3 (0.16-1.47); MONOCYTES PERCENT AUTO 6 % (4-13); Mean Corpuscular HGB 39.7 pg (26.0-34.0); Mean Corpuscular HGB Conc 33.6 g/dL (31.5-36.5); Mean Corpuscular Volume 118 fL (80-100); NEUTROPHILS PERCENT AUTO 69 % (41-73); Platelet Count 168 K/mm3 (150-400); RDW Coefficient Variation 13.6 % (11.7-14.2); RDW Standard Deviation 58.4 fL (35.1-46.3); Red Blood Cell Count 2.72 M/mm3 (3.80-5.20); White Blood Cell Count 11.82 K/mm3 (4.00-11.30)
[2019-09-26 05:30] LABS: Alanine Aminotransfer (ALT/SGP 102 U/L (12-78); Albumin, Blood 2.3 g/dL (3.4-5.0); Albumin/Globulin Ratio 0.8 (0.8-1.8); Alk Phos 272 U/L (50-136); Anion Gap 7 mmol/L (6-16); Aspartate Aminotrans (AST/SGOT 161 U/L (12-37); Blood Urea Nitrogen 5 mg/dL (8-24); Bun/Creatinine Ratio 9.8 (12.0-20.0); CO2, Blood 27 mmol/L (21-32); Calcium, Blood 8.2 mg/dL (8.5-10.1); Chloride, Blood 102 mmol/L (98-108); Creatinine, Blood 0.51 mg/dL (0.40-1.00); Glomerular Filtration Rate >60 (60-); Glucose, Blood 59 mg/dL (70-99); Phosphorus, Blood 3.1 mg/dL (2.5-4.9); Potassium, Blood 3.8 mmol/L (3.5-5.5); Sodium, Blood 136 mmol/L (136-145); Total Protein, Blood 5.3 g/dL (6.4-8.2)
--- NOTE | 2019-09-26 06:48 | NUR ---
SHIFT SUMMARY PATIENT ALERT AND ORIENTED X3, HAD CLOUDED THINKING AT TIMES. PATIENT HAD NO SYMPTOMS THAT WARRANTED A PRN BLADDER SCAN. PATIENT MEDICATED OVERNIGHT PER EMAR FOR PAIN, NAUSEA, AND ETOH WITHDRAWL. IV PATENT AND FLUSHED. BED IN LOWEST POSITION WITH WHEELS LOCKED. CALL LIGHT WITHIN REACH. REPORT GIVEN TO ONCOMING RN.
--- NOTE | 2019-09-26 17:26 | NUR ---
PT HAS BEEN RESTING ALL DAY. CIWAS CHECKED Q4. PT IS CALM AND ABLE TO SELF SOOTHE NEEDED. PT INDEPENDENT IN THE ROOM. PAIN IS CONTROLLED WITH PAIN MEDS ORDERED. NO ACUTE CHAGNES.
--- NOTE | 2019-09-27 07:14 | NUR ---
SHIFT SUMMARY PATIENT ALERT AND ORIENTED HAD SOME ANXIETY OVERNIGHT BUT OTHERWISE HAD NO ISSUES. PATIENT MEDICATED PER EMAR FOR PAIN. IV PATENT BUT LEAKS UPON FLUSHING. BED IN LOWEST POSITION WITH WHEELS LOCKED. CALL LIGHT WITHIN REACH. REPORT GIVEN TO ONCOMING RN.
[2019-09-27 07:25] LABS: BASOPHILS ABSOLUTE AUTO 0.02 K/mm3 (0.00-0.23); BASOPHILS PERCENT AUTO 0 % (0-2); EOSINOPHILS ABSOLUTE AUTO 0.05 K/mm3 (0.00-0.68); EOSINOPHILS PERCENT AUTO 1 % (0-6); Hemoglobin 9.8 g/dL (11.5-16.0); IMMATURE GRAN ABSOLUTE AUTO 0.05 K/mm3 (0.00-0.10); IMMATURE GRAN PERCENT AUTO 1 % (0-1); LYMPHOCYTES ABSOLUTE AUTO 1.97 K/mm3 (0.84-5.20); LYMPHOCYTES PERCENT AUTO 28 % (21-46); MONOCYTES ABSOLUTE AUTO 0.64 K/mm3 (0.16-1.47); MONOCYTES PERCENT AUTO 9 % (4-13); Mean Corpuscular HGB 41.4 pg (26.0-34.0); Mean Corpuscular Volume 118 fL (80-100); NEUTROPHILS ABSOLUTE AUTO 4.28 K/mm3 (1.96-9.15); NEUTROPHILS PERCENT AUTO 61 % (41-73); Platelet Count 146 K/mm3 (150-400); RDW Coefficient Variation 14.1 % (11.7-14.2); RDW Standard Deviation 60.2 fL (35.1-46.3); Red Blood Cell Count 2.37 M/mm3 (3.80-5.20); White Blood Cell Count 7.01 K/mm3 (4.00-11.30)
[2019-09-27 07:43] LABS: Alanine Aminotransfer (ALT/SGP 130 U/L (12-78); Albumin, Blood 2.1 g/dL (3.4-5.0); Albumin/Globulin Ratio 0.7 (0.8-1.8); Alk Phos 325 U/L (50-136); Anion Gap 8 mmol/L (6-16); Aspartate Aminotrans (AST/SGOT 251 U/L (12-37); Bilirubin, Direct 1.1 mg/dL (0.0-0.3); Bilirubin, Indirect 0.5 mg/dL (0.1-0.7); Bilirubin, Total 1.6 mg/dL (0.1-1.0); Blood Urea Nitrogen 4 mg/dL (8-24); Bun/Creatinine Ratio 8.8 (12.0-20.0); CO2, Blood 24 mmol/L (21-32); Calcium, Blood 8.2 mg/dL (8.5-10.1); Chloride, Blood 107 mmol/L (98-108); Creatinine, Blood 0.46 mg/dL (0.40-1.00); Globulin, Blood 3.2 g/dL (2.2-4.0); Glomerular Filtration Rate >60 (60-); Glucose, Blood 76 mg/dL (70-99); Magnesium, Blood 1.9 mg/dL (1.6-2.4); Phosphorus, Blood 3.6 mg/dL (2.5-4.9); Potassium, Blood 3.8 mmol/L (3.5-5.5); Sodium, Blood 139 mmol/L (136-145); Total Protein, Blood 5.3 g/dL (6.4-8.2)
[2019-09-27] MEDS ORDERED: Nicoderm Cq1 EACH TOP (13:53)
--- NOTE | 2019-09-27 14:52 | NUR ---
PT TO DISCHARGE HOME. SHIRAZ REMOVED NO SS OF INFECTION NOTED. PT EDUCATED REGARDING NEW MEDS. MEDS FAXED INTO [facility]. WHEELED DOWN TO CAR.
== END 2019-09-27 14:04 | disposition home or self-care (01) | DRG 896 ==
LOC: ER 21:08 → MEDS 09-24 00:42
PROVIDERS: Emergency Medicine; Family Medicine; Student in an Organized Health Care Education/Training Program; ADMIT Internal Medicine
DX: F10.239 Alcohol dependence with withdrawal, unspecified (principal); K85.20 Alcohol induced acute pancreatitis without necrosis or infection; F32.9 Major depressive disorder, single episode, unspecified; K76.0 Fatty (change of) liver, not elsewhere classified; F43.10 Post-traumatic stress disorder, unspecified; R33.9 Retention of urine, unspecified; F17.210 Nicotine dependence, cigarettes, uncomplicated; Z88.1 Allergy status to other antibiotic agents; Z88.5 Allergy status to narcotic agent; Z88.8 Allergy status to other drugs, medicaments and biological substances; Z86.711 Personal history of pulmonary embolism
CPT/HCPCS: 36415; 74176; 76770; 80048; 80053; 80076; 81001; 82947; 83690; 83735; 84100; 84484; 85025; 87086; 93005; 93010; 96361-59; 96365; 96374-59; 96375-59; 96376-59; 99285-25; A9270-GY; G0480; J1170; J1650; J2060; J2405; J3010; J3411; J3475; J7030; J7042; J7120; P9612

== ENCOUNTER → 2020-03-09 | Outpatient (CLI) | payer OTHER ==
[~2020-03-09] MED LIST changes: +Naltrexone HCl50 MG PO; +Nicoderm Cq1 EACH TOP
== END | disposition home or self-care (01) ==
LOC: LAB SHORT 13:35 → LAB EV 13:35
DX: R35.0 Frequency of micturition (principal)
CPT/HCPCS: 87077; 87086; 87186

== ENCOUNTER → 2020-04-13 | Outpatient (CLI) | payer OTHER ==
[~2020-04-13] MED LIST changes: +B-1100 M1 PO; +Vitamin B-650 MG PO
== END | disposition home or self-care (01) ==
LOC: PLD 15:21
DX: N12 Tubulo-interstitial nephritis, not specified as acute or chronic (principal)
CPT/HCPCS: 87077; 87086; 87186

== ENCOUNTER 2020-04-25 09:26 | Emergency (ER) | payer OTHER ==
[~2020-04-25] VITALS: Ht 167.6 cm; Wt 68.0 kg
[~2020-04-25 09:26] MED LIST changes: -B-1100 M1 PO; -Vitamin B-650 MG PO
[2020-04-25 14:35] LABS: Influenza A, PCR Negative (NEGATIVE); Influenza B, PCR Negative (NEGATIVE); Resp Syncytial Virus, PCR Negative (NEGATIVE); SARS-Cov-2 (COVID-19) PCR, MMC Negative (NEGATIVE)
[2020-04-25 15:08] LABS: Anion Gap 6 mmol/L (6-16); Blood Urea Nitrogen 11 mg/dL (8-24); Bun/Creatinine Ratio 20.4 (12.0-20.0); CO2, Blood 28 mmol/L (21-32); Chloride, Blood 106 mmol/L (98-108); Creatinine, Blood 0.54 mg/dL (0.40-1.00); Glomerular Filtration Rate >60 (60-); Glucose, Blood 100 mg/dL (70-99); Potassium, Blood 4.3 mmol/L (3.5-5.5); Sodium, Blood 140 mmol/L (136-145)
[2020-04-25 15:11] LABS: Source, Urine Clean Catch
[2020-04-25 15:13] LABS: Appearance, Urine Clear (Clear); Bilirubin, Urine Neg (Neg); Blood, Urine 3+ (Neg); Color, Urine Yellow (P-Yellow); Glucose Qualitative, Urine Neg (Neg); Ketones, Urine Neg (Neg); Leukocyte Esterase, Urine Neg (Neg); Nitrite, Urine Neg (Neg); Protein, Urine 2+ (Neg); Urobilinogen, Urine NORM (Normal)
[2020-04-25 15:25] LABS: Bacteria Few /hpf; Squamous Epithelial Cells Few /hpf (Few); White Blood Cells, Urine 0-2 /hpf (0-5)
[2020-04-25] MEDS ORDERED: CHLO25 PO (15:46)
[2020-04-25] MEDS ORDERED: ONDA4ODT MM (15:46)
== END 2020-04-25 16:00 | disposition home or self-care (01) ==
LOC: ER 09:26
PROVIDERS: Emergency Medicine; Physician Assistant
DX: F10.10 Alcohol abuse, uncomplicated (principal); F41.9 Anxiety disorder, unspecified; F32.9 Major depressive disorder, single episode, unspecified; F43.10 Post-traumatic stress disorder, unspecified; F17.210 Nicotine dependence, cigarettes, uncomplicated; Z20.828 Contact with and (suspected) exposure to other viral communicable diseases; Z79.899 Other long term (current) drug therapy; Z88.5 Allergy status to narcotic agent; Z88.6 Allergy status to analgesic agent; Z88.8 Allergy status to other drugs, medicaments and biological substances; Z88.1 Allergy status to other antibiotic agents
CPT/HCPCS: 0241U; 36415; 80048; 81001; 87081; 87430; 96374; 99284-25; J2405

== ENCOUNTER 2020-06-21 22:15 | Inpatient (IN) | payer OTHER ==
[~2020-06-21] VITALS: Ht 167.6 cm; Wt 71.1 kg
[~2020-06-21 22:15] MED LIST changes: -CYAN500 PO; -CYCL10 PO; -FOLI1 PO; -Naltrexone HCl50 MG PO
[2020-06-21 22:39] LABS: BASOPHILS ABSOLUTE AUTO 0.04 K/mm3 (0.00-0.23); BASOPHILS PERCENT AUTO 0 % (0-2); EOSINOPHILS ABSOLUTE AUTO 0.03 K/mm3 (0.00-0.68); EOSINOPHILS PERCENT AUTO 0 % (0-6); Hematocrit 41.5 % (33.0-51.0); Hemoglobin 14.5 g/dL (11.5-16.0); IMMATURE GRAN ABSOLUTE AUTO 0.04 K/mm3 (0.00-0.10); IMMATURE GRAN PERCENT AUTO 0 % (0-1); LYMPHOCYTES ABSOLUTE AUTO 7.06 K/mm3 (0.84-5.20); LYMPHOCYTES PERCENT AUTO 56 % (21-46); MONOCYTES PERCENT AUTO 6 % (4-13); Mean Corpuscular HGB 37.2 pg (26.0-34.0); Mean Corpuscular HGB Conc 34.9 g/dL (31.5-36.5); Mean Corpuscular Volume 106 fL (80-100); Mean Platelet Volume 9.6 fL (9.1-12.4); NEUTROPHILS ABSOLUTE AUTO 4.57 K/mm3 (1.96-9.15); NEUTROPHILS PERCENT AUTO 37 % (41-73); NRBC ABSOLUTE 0.03 K/mm3 (0.00-0.02); NRBC Auto 0.2 /100 WBC (0.0-0.2); Platelet Count 155 K/mm3 (150-400); RDW Coefficient Variation 12.8 % (11.7-14.2); RDW Standard Deviation 49.3 fL (35.1-46.3); White Blood Cell Count 12.54 K/mm3 (4.00-11.30)
[2020-06-21 23:00] LABS: Alanine Aminotransfer (ALT/SGP 92 U/L (12-78); Albumin, Blood 4.5 g/dL (3.4-5.0); Albumin/Globulin Ratio 1.2 (0.8-1.8); Alk Phos 174 U/L (50-136); Anion Gap 10 mmol/L (6-16); Aspartate Aminotrans (AST/SGOT 138 U/L (12-37); Bilirubin, Total 0.4 mg/dL (0.1-1.0); Blood Urea Nitrogen 8 mg/dL (8-24); Bun/Creatinine Ratio 15.6 (12.0-20.0); CO2, Blood 28 mmol/L (21-32); Calcium, Blood 9.1 mg/dL (8.5-10.1); Chloride, Blood 106 mmol/L (98-108); Creatinine, Blood 0.51 mg/dL (0.40-1.00); Globulin, Blood 3.8 g/dL (2.2-4.0); Glomerular Filtration Rate >60 (60-); Glucose, Blood 121 mg/dL (70-99); Magnesium, Blood 1.6 mg/dL (1.6-2.4); Potassium, Blood 3.6 mmol/L (3.5-5.5); Sodium, Blood 144 mmol/L (136-145); Total Protein, Blood 8.3 g/dL (6.4-8.2); Troponin I <0.015 ng/mL (0.000-0.040)
[2020-06-21 23:48] LABS: Source, Urine Clean Catch
[2020-06-21 23:55] LABS: Appearance, Urine Clear (Clear); Bilirubin, Urine Neg (Neg); Blood, Urine 4+ (Neg); Color, Urine Yellow (P-Yellow); Glucose Qualitative, Urine Neg (Neg); Ketones, Urine Neg (Neg); Leukocyte Esterase, Urine 2+ (Neg); Nitrite, Urine Neg (Neg); Protein, Urine 2+ (Neg); Urobilinogen, Urine NORM (Normal)
[2020-06-22 00:05] LABS: Bacteria Many /hpf; Squamous Epithelial Cells Few /hpf (Few)
[2020-06-22 00:08] LABS: U Amphetamine Screen Not Detected; U Barbituate Screen Not Detected; U Benzodiazapine Screen Not Detected; U Buprenorphine Screen Not Detected; U Cannabinoids Screen Not Detected; U Cocaine Screen Not Detected; U Methadone Screen Not Detected; U Methamphetamine Screen Not Detected; U Opiates Screen Not Detected; U Oxycodone Screen Not Detected; U Phencyclidine Screen Not Detected; U Propoxyphene Screen Not Detected
[2020-06-22 04:40] LABS: BASOPHILS ABSOLUTE AUTO 0.03 K/mm3 (0.00-0.23); BASOPHILS PERCENT AUTO 0 % (0-2); EOSINOPHILS ABSOLUTE AUTO 0.02 K/mm3 (0.00-0.68); EOSINOPHILS PERCENT AUTO 0 % (0-6); Hematocrit 35.5 % (33.0-51.0); Hemoglobin 12.3 g/dL (11.5-16.0); IMMATURE GRAN ABSOLUTE AUTO 0.02 K/mm3 (0.00-0.10); IMMATURE GRAN PERCENT AUTO 0 % (0-1); LYMPHOCYTES ABSOLUTE AUTO 4.81 K/mm3 (0.84-5.20); LYMPHOCYTES PERCENT AUTO 60 % (21-46); MONOCYTES ABSOLUTE AUTO 0.63 K/mm3 (0.16-1.47); MONOCYTES PERCENT AUTO 8 % (4-13); Mean Corpuscular HGB 36.8 pg (26.0-34.0); Mean Corpuscular HGB Conc 34.6 g/dL (31.5-36.5); Mean Corpuscular Volume 106 fL (80-100); Mean Platelet Volume 9.7 fL (9.1-12.4); NEUTROPHILS ABSOLUTE AUTO 2.55 K/mm3 (1.96-9.15); NEUTROPHILS PERCENT AUTO 32 % (41-73); Platelet Count 104 K/mm3 (150-400); RDW Coefficient Variation 12.8 % (11.7-14.2); RDW Standard Deviation 49.4 fL (35.1-46.3); Red Blood Cell Count 3.34 M/mm3 (3.80-5.20); White Blood Cell Count 8.06 K/mm3 (4.00-11.30)
[2020-06-22 05:03] LABS: Alanine Aminotransfer (ALT/SGP 81 U/L (12-78); Albumin, Blood 3.7 g/dL (3.4-5.0); Albumin/Globulin Ratio 1.2 (0.8-1.8); Alk Phos 140 U/L (50-136); Anion Gap 9 mmol/L (6-16); Aspartate Aminotrans (AST/SGOT 122 U/L (12-37); Bilirubin, Total 0.5 mg/dL (0.1-1.0); Blood Urea Nitrogen 8 mg/dL (8-24); Bun/Creatinine Ratio 15.7 (12.0-20.0); CO2, Blood 25 mmol/L (21-32); Calcium, Blood 8.5 mg/dL (8.5-10.1); Chloride, Blood 108 mmol/L (98-108); Creatinine, Blood 0.51 mg/dL (0.40-1.00); Globulin, Blood 3.1 g/dL (2.2-4.0); Glomerular Filtration Rate >60 (60-); Glucose, Blood 98 mg/dL (70-99); Potassium, Blood 3.7 mmol/L (3.5-5.5); Sodium, Blood 142 mmol/L (136-145); Total Protein, Blood 6.8 g/dL (6.4-8.2)
--- NOTE | 2020-06-22 12:50 | NUR ---
WENT TO COMPLETE NURSE ROUNDING ON PT, PT REPORT SOME MILD SWEATING, ANXIETY, HEADACHE AND NAUSEA. CIWA SCORE CAME TO 7 AND PT WAS TREATED WITH 2 MG OF ATIVAN PER EMAR. REASSESSED PT SHORTLY AFTER AND SHE STATED SHE FELT MUCH BETTER. WILL CONTINUE TO MONITOR PT AND TREAT PRN. NEXT LIBRIUM DOSE AVAILABLE @ 1320, WILL ADMINISTER THEN.
--- NOTE | 2020-06-22 16:47 | NUR ---
SHIFT SUMMARY PT ARRIVED FROM ED THIS AM FOR ALCOHOL WITHDRAWAL. PT HAS BEEN CALM AND COOPERATIVE WITH CARE AND A&Ox4 THROUGHOUT SHIFT. HIGHEST CIWA TODAY WAS 7. PT WAS TREATED WITH ATIVAN AND LIBRIUM PER EMAR AND WITHDRAWAL SYMPTOMS PRN . SYMPTOMS PRIMARLY INCLUDE NAUSEA, SWEATS, HEADACHE, AND ANXIETY. PT WAS ALSO TREATED WITH ZOFRAN PRN. NO SEIZURES THIS SHIFT. SEIZURE PADS IN PLACE PER PROTOCOL. PT IS AWARE OF ALCOHOL WITHDRAWAL SYMPTOMS AND CALLS IF SHE NOTICES ANY WORSENING IN THESE SYMPTOMS. PT IS ON RA AND VITALS ARE STABLE. PT WAS ADVANCED TO A FULL LIQUID DIET AND IS TOLERATING IT WELL. NS RUNNING 75 ML/HR. PT IS CURRENTLY SITTING IN BED VISITING WITH HER MOTHER.
--- NOTE | 2020-06-23 04:14 | NUR ---
SHIFT SUMMARY PATIENT HAD NO ACUTE CHANGES. CIWA SCORE 6 THROUGHOUT SHIFT WITH MILD TREMORS, ANXIETY, CHRISTIAN, AND SWEATS. LIBRIUM 50 MG GIVEN X TWO AND IV ATIVAN 2 MG GIVEN FOR WITHDRAWAL SYMPTOMS. AXOX 4 AND SBA TO BR. PIV REMAINS INTACT. NS INFUSING AT 75mL/HR. EXERCISE PHYSIOLOGIST REPORTS NSR 92. PATIENT ABLE TO SLEEP AFTER IV ATIVAN GIVEN. VSS/AFEBRILE. DENIES SOB AND N/V. COOPERATIVE WITH CARE. CALL LIGHT IN REACH. BED IN LOWEST POSITION. WILL CONTINUE TO MONITOR UNTIL DAY SHIFT NURSE ASSUMES CARE.
[2020-06-23 05:44] LABS: Magnesium, Blood 1.6 mg/dL (1.6-2.4)
--- NOTE | 2020-06-23 14:11 | NUR ---
DISCHARGE SUMMARY PT LEAVING WITH BOYFRIEND BY ALF. GOT IV ATIVAN X1 THIS SHIFT AND PO LIBRIUM X1. SENT HOME WITH PAPER PRESCRIPTION FOR LIBRIUM. MEDS FAXED TO [facility] IN [place]. PAPERWORK REVIEWED WITH PT, PIV REMOVED. AWAITING RIDE
--- NOTE | 2020-06-23 17:29 | NUR ---
ADMIT:06/22/20 DISCHARGE:06/23/20 DX: Alcohol abuse CC: cpeabody ADMIT: 09/23/19 DISCHARGE: 09/27/19 DX: alchoholic pancreatitis CC: cpeabody ZAIDA CALL: Met with Beth, call her at home for zaida - 1 week follow up ZAIDA [address] BARTLETT RESIDENCE: Home CAREGIVER: self Hippa:[employer] (PARENT) DX: AlcohoI, Anxiety, see list) DME: NOT INTERESTED AT THIS TIME CCM: None HOME HEALTH:None Admit: 06/22/20- LEFT CHANGE OF PROVIDER FORM WITH PATIENT. 06/23/20 DISCHARGE HOME, LIVES WITH HER FIANCE'. HE WILL PICK HER UP AND TAKE HER TO PHARMACY NEEDED. MICHAEL IS MOBILE WITHIN HER HOME AND CAN PROVIDE ALL SELF CARE. SHE WILL REFER TO [facility] OR [facility] FOR SUPPORT AND RESOURCES. EXPECT ZAIDA CALL FROM [facility] TO FOLLOW UP IN 1 WEEK TO SEE ZAIDA ASSESSMENT: 1. 44-year-old female coming in with alcohol withdrawal seizures and alcohol withdrawal. 2. Alcohol dependence and chronic alcoholism. 3. History of posttraumatic stress disorder, anxiety, and depression. 4. History of pulmonary embolism. 5. Hyperhomocystinemia. PLAN: 1. CIWA scale with Ativan and Librium p.r.n. 2. Banana bag, then normal saline hydration. 3. Supportive measures. Ativan p.r.n. for seizures.
[2020-06-26 07:08] LABS: TRICYCLIC ANTIDEP Negative ng/mL (Cutoff=100)
== END 2020-06-23 14:29 | disposition home or self-care (01) | DRG 897 ==
LOC: ER 22:15 → ERHOLD 22:16 → MEDS 06-22 00:38
PROVIDERS: Emergency Medicine; Internal Medicine; ADMIT Internal Medicine
DX: F10.239 Alcohol dependence with withdrawal, unspecified (principal); E72.11 Homocystinuria; K70.10 Alcoholic hepatitis without ascites; F41.8 Other specified anxiety disorders; F43.10 Post-traumatic stress disorder, unspecified; D69.6 Thrombocytopenia, unspecified; F17.210 Nicotine dependence, cigarettes, uncomplicated; Z87.440 Personal history of urinary (tract) infections; Z86.718 Personal history of other venous thrombosis and embolism
CPT/HCPCS: 36415; 71045; 80053; 81001; 83690; 83735; 83880; 84075; 84484; 85025; 87077; 87086; 87186; 93005; 93010; 96365; 96372; 96375; 96376; 99285-25; A9270; G0480; G0481; J1650; J2060; J2405; J3411; J3475; J7030; J7042

== ENCOUNTER 2020-07-03 20:16 | Emergency (ER) | payer OTHER ==
[~2020-07-03] VITALS: Ht 175.3 cm; Wt 77.1 kg
[2020-07-03 20:30] LABS: BASOPHILS ABSOLUTE AUTO 0.08 K/mm3 (0.00-0.23); BASOPHILS PERCENT AUTO 1 % (0-2); EOSINOPHILS ABSOLUTE AUTO 0.02 K/mm3 (0.00-0.68); EOSINOPHILS PERCENT AUTO 0 % (0-6); Hematocrit 40.5 % (33.0-51.0); Hemoglobin 14.3 g/dL (11.5-16.0); IMMATURE GRAN ABSOLUTE AUTO 0.04 K/mm3 (0.00-0.10); IMMATURE GRAN PERCENT AUTO 0 % (0-1); LYMPHOCYTES ABSOLUTE AUTO 6.56 K/mm3 (0.84-5.20); LYMPHOCYTES PERCENT AUTO 57 % (21-46); MONOCYTES ABSOLUTE AUTO 0.91 K/mm3 (0.16-1.47); MONOCYTES PERCENT AUTO 8 % (4-13); Mean Corpuscular HGB 38.1 pg (26.0-34.0); Mean Corpuscular HGB Conc 35.3 g/dL (31.5-36.5); Mean Corpuscular Volume 108 fL (80-100); Mean Platelet Volume 8.8 fL (9.1-12.4); NEUTROPHILS ABSOLUTE AUTO 4.01 K/mm3 (1.96-9.15); NEUTROPHILS PERCENT AUTO 35 % (41-73); Platelet Count 265 K/mm3 (150-400); RDW Coefficient Variation 13.6 % (11.7-14.2); RDW Standard Deviation 54.2 fL (35.1-46.3); Red Blood Cell Count 3.75 M/mm3 (3.80-5.20); White Blood Cell Count 11.62 K/mm3 (4.00-11.30)
[2020-07-03 20:49] LABS: Alanine Aminotransfer (ALT/SGP 187 U/L (12-78); Albumin, Blood 4.5 g/dL (3.4-5.0); Albumin/Globulin Ratio 1.3 (0.8-1.8); Alk Phos 180 U/L (50-136); Anion Gap 9 mmol/L (6-16); Aspartate Aminotrans (AST/SGOT 222 U/L (12-37); Bilirubin, Total 0.4 mg/dL (0.1-1.0); Blood Urea Nitrogen 5 mg/dL (8-24); CO2, Blood 28 mmol/L (21-32); Chloride, Blood 109 mmol/L (98-108); Globulin, Blood 3.5 g/dL (2.2-4.0); Glomerular Filtration Rate >60 (60-); Glucose, Blood 115 mg/dL (70-99); Magnesium, Blood 2.2 mg/dL (1.6-2.4); Potassium, Blood 3.6 mmol/L (3.5-5.5); Sodium, Blood 146 mmol/L (136-145)
[2020-07-03] MEDS ORDERED: CHLO25 PO ×2 (20:50→22:52)
[2020-07-03] MEDS ORDERED: B-1100 M1 PO (20:51)
[2020-07-03] MEDS ORDERED: QUET200 PO (20:51)
[2020-07-03] MEDS ORDERED: METO25 PO (20:52)
[2020-07-03] MEDS ORDERED: MELO7.5 PO (20:52)
[2020-07-03] MEDS ORDERED: CYCL10 PO (20:52)
[2020-07-03] MEDS ORDERED: Naltrexone HCl50 MG PO (20:53)
[2020-07-03 21:13] LABS: Ethanol (Alcohol), Blood, Med 447 mg/dL
[2020-07-03] MEDS ORDERED: FOLI1 PO (21:29)
[2020-07-03] MEDS ORDERED: CYAN500 PO (21:30)
[2020-07-03] MEDS ORDERED: Vitamin B-650 MG PO (21:32)
[2020-07-03 21:39] LABS: U Amphetamine Screen Not Detected; U Barbituate Screen Not Detected; U Benzodiazapine Screen DETECTED; U Buprenorphine Screen Not Detected; U Cannabinoids Screen Not Detected; U Cocaine Screen Not Detected; U Methadone Screen Not Detected; U Methamphetamine Screen Not Detected; U Opiates Screen Not Detected; U Oxycodone Screen Not Detected; U Phencyclidine Screen Not Detected; U Propoxyphene Screen Not Detected
== END 2020-07-03 23:43 | disposition home or self-care (01) ==
LOC: ER 20:16
PROVIDERS: Emergency Medicine
DX: F10.129 Alcohol abuse with intoxication, unspecified (principal); K70.10 Alcoholic hepatitis without ascites; F17.210 Nicotine dependence, cigarettes, uncomplicated; Z88.1 Allergy status to other antibiotic agents; Z88.5 Allergy status to narcotic agent
CPT/HCPCS: 36415; 80053; 83735; 84703; 85025; 93005; 93010; 96374; 99285-25; A9270; G0480; J2060

== ENCOUNTER 2020-08-20 18:16 | Emergency (ER) | payer OTHER ==
[~2020-08-20] VITALS: Ht 167.6 cm; Wt 72.6 kg
[~2020-08-20 18:16] MED LIST changes: +B-1100 M1 PO; +CYAN500 PO; +CYCL10 PO; +FOLI1 PO; +Naltrexone HCl50 MG PO; +Vitamin B-650 MG PO
[2020-08-20 21:04] LABS: BASOPHILS ABSOLUTE AUTO 0.03 K/mm3 (0.00-0.23); BASOPHILS PERCENT AUTO 0 % (0-2); EOSINOPHILS PERCENT AUTO 0 % (0-6); Hematocrit 41.1 % (33.0-51.0); Hemoglobin 14.2 g/dL (11.5-16.0); IMMATURE GRAN ABSOLUTE AUTO 0.04 K/mm3 (0.00-0.10); IMMATURE GRAN PERCENT AUTO 1 % (0-1); LYMPHOCYTES ABSOLUTE AUTO 4.43 K/mm3 (0.84-5.20); LYMPHOCYTES PERCENT AUTO 64 % (21-46); MONOCYTES ABSOLUTE AUTO 0.34 K/mm3 (0.16-1.47); MONOCYTES PERCENT AUTO 5 % (4-13); Mean Corpuscular HGB 37.4 pg (26.0-34.0); Mean Corpuscular HGB Conc 34.5 g/dL (31.5-36.5); Mean Corpuscular Volume 108 fL (80-100); Mean Platelet Volume 9.4 fL (9.1-12.4); NEUTROPHILS ABSOLUTE AUTO 2.06 K/mm3 (1.96-9.15); NEUTROPHILS PERCENT AUTO 30 % (41-73); Platelet Count 133 K/mm3 (150-400); RDW Coefficient Variation 13.2 % (11.7-14.2); RDW Standard Deviation 52.8 fL (35.1-46.3)
[2020-08-20 21:17] LABS: Alanine Aminotransfer (ALT/SGP 55 U/L (12-78); Albumin, Blood 4.2 g/dL (3.4-5.0); Albumin/Globulin Ratio 1.1 (0.8-1.8); Alk Phos 134 U/L (50-136); Anion Gap 3 mmol/L (6-16); Aspartate Aminotrans (AST/SGOT 48 U/L (12-37); Bilirubin, Total 0.3 mg/dL (0.1-1.0); Blood Urea Nitrogen 9 mg/dL (8-24); Bun/Creatinine Ratio 15.4 (12.0-20.0); CO2, Blood 27 mmol/L (21-32); Calcium, Blood 9.1 mg/dL (8.5-10.1); Chloride, Blood 114 mmol/L (98-108); Creatinine, Blood 0.58 mg/dL (0.40-1.00); Globulin, Blood 3.7 g/dL (2.2-4.0); Glomerular Filtration Rate >60 (60-); Glucose, Blood 91 mg/dL (70-99); Potassium, Blood 4.5 mmol/L (3.5-5.5); Salicylate 3.9 mg/dL (2.8-20.0); Sodium, Blood 144 mmol/L (136-145); Total Protein, Blood 7.9 g/dL (6.4-8.2)
[2020-08-20 21:34] LABS: Acetaminophen, Random <2.0 ug/mL (10.0-30.0); Ethanol (Alcohol), Blood, Med 317 mg/dL
[2020-08-20] MEDS ORDERED: CHLO25 PO (22:04)
== END 2020-08-20 22:15 | disposition home or self-care (01) ==
LOC: ER 18:16
PROVIDERS: Emergency Medicine
DX: F10.229 Alcohol dependence with intoxication, unspecified (principal); F17.210 Nicotine dependence, cigarettes, uncomplicated; Z88.1 Allergy status to other antibiotic agents; Z88.5 Allergy status to narcotic agent; Z79.899 Other long term (current) drug therapy
CPT/HCPCS: 36415; 80053; 85025; 93005; 93010; 99285-25; G0480

== ENCOUNTER 2021-02-25 11:39 | Inpatient (IN) | payer OTHER ==
[~2021-02-25] VITALS: Ht 167.6 cm; Wt 74.5 kg
[2021-02-25 12:22] LABS: BASOPHILS ABSOLUTE AUTO 0.04 K/mm3 (0.00-0.23); BASOPHILS PERCENT AUTO 0 % (0-2); EOSINOPHILS ABSOLUTE AUTO 0.07 K/mm3 (0.00-0.68); EOSINOPHILS PERCENT AUTO 1 % (0-6); Hematocrit 39.8 % (33.0-51.0); Hemoglobin 14.4 g/dL (11.5-16.0); IMMATURE GRAN ABSOLUTE AUTO 0.08 K/mm3 (0.00-0.10); IMMATURE GRAN PERCENT AUTO 1 % (0-1); LYMPHOCYTES ABSOLUTE AUTO 1.73 K/mm3 (0.84-5.20); LYMPHOCYTES PERCENT AUTO 16 % (21-46); MONOCYTES ABSOLUTE AUTO 0.96 K/mm3 (0.16-1.47); MONOCYTES PERCENT AUTO 9 % (4-13); Mean Corpuscular HGB Conc 36.2 g/dL (31.5-36.5); Mean Corpuscular Volume 108 fL (80-100); Mean Platelet Volume 9.7 fL (9.1-12.4); NEUTROPHILS ABSOLUTE AUTO 8.04 K/mm3 (1.96-9.15); NEUTROPHILS PERCENT AUTO 74 % (41-73); Platelet Count 161 K/mm3 (150-400); RDW Coefficient Variation 14.6 % (11.7-14.2); RDW Standard Deviation 59.1 fL (35.1-46.3); Red Blood Cell Count 3.69 M/mm3 (3.80-5.20); White Blood Cell Count 10.92 K/mm3 (4.00-11.30)
[2021-02-25 12:41] LABS: Alanine Aminotransfer (ALT/SGP 184 U/L (12-78); Albumin, Blood 3.9 g/dL (3.4-5.0); Albumin/Globulin Ratio 1.1 (0.8-1.8); Alk Phos 219 U/L (50-136); Anion Gap 10 mmol/L (6-16); Aspartate Aminotrans (AST/SGOT 234 U/L (12-37); Bilirubin, Total 0.6 mg/dL (0.1-1.0); Blood Urea Nitrogen 6 mg/dL (8-24); Bun/Creatinine Ratio 10.8 (12.0-20.0); CO2, Blood 23 mmol/L (21-32); Calcium, Blood 9.3 mg/dL (8.5-10.1); Chloride, Blood 104 mmol/L (98-108); Creatinine, Blood 0.56 mg/dL (0.40-1.00); Ethanol (Alcohol), Blood, Med 56 mg/dL; Globulin, Blood 3.6 g/dL (2.2-4.0); Glomerular Filtration Rate >60 (60-); Glucose, Blood 157 mg/dL (70-99); Potassium, Blood 3.7 mmol/L (3.5-5.5); Sodium, Blood 137 mmol/L (136-145); Total Protein, Blood 7.5 g/dL (6.4-8.2)
[2021-02-26 04:55] LABS: BASOPHILS ABSOLUTE AUTO 0.03 K/mm3 (0.00-0.23); BASOPHILS PERCENT AUTO 0 % (0-2); EOSINOPHILS ABSOLUTE AUTO 0.02 K/mm3 (0.00-0.68); EOSINOPHILS PERCENT AUTO 0 % (0-6); Hematocrit 35.5 % (33.0-51.0); Hemoglobin 12.7 g/dL (11.5-16.0); IMMATURE GRAN ABSOLUTE AUTO 0.07 K/mm3 (0.00-0.10); IMMATURE GRAN PERCENT AUTO 1 % (0-1); LYMPHOCYTES ABSOLUTE AUTO 1.29 K/mm3 (0.84-5.20); LYMPHOCYTES PERCENT AUTO 15 % (21-46); MONOCYTES ABSOLUTE AUTO 0.54 K/mm3 (0.16-1.47); MONOCYTES PERCENT AUTO 6 % (4-13); Mean Corpuscular HGB 38.6 pg (26.0-34.0); Mean Corpuscular HGB Conc 35.8 g/dL (31.5-36.5); Mean Corpuscular Volume 108 fL (80-100); Mean Platelet Volume 9.7 fL (9.1-12.4); NEUTROPHILS ABSOLUTE AUTO 6.67 K/mm3 (1.96-9.15); NEUTROPHILS PERCENT AUTO 77 % (41-73); Platelet Count 111 K/mm3 (150-400); RDW Coefficient Variation 14.6 % (11.7-14.2); RDW Standard Deviation 58.3 fL (35.1-46.3); Red Blood Cell Count 3.29 M/mm3 (3.80-5.20); White Blood Cell Count 8.62 K/mm3 (4.00-11.30)
[2021-02-26 05:19] LABS: Anion Gap 11 mmol/L (6-16); Blood Urea Nitrogen 7 mg/dL (8-24); Bun/Creatinine Ratio 18.1 (12.0-20.0); CO2, Blood 24 mmol/L (21-32); Calcium, Blood 8.2 mg/dL (8.5-10.1); Chloride, Blood 98 mmol/L (98-108); Creatinine, Blood 0.39 mg/dL (0.40-1.00); Glomerular Filtration Rate >60 (60-); Glucose, Blood 91 mg/dL (70-99); Potassium, Blood 3.8 mmol/L (3.5-5.5); Sodium, Blood 133 mmol/L (136-145)
--- NOTE | 2021-02-26 05:43 | NUR ---
SHIFT SUMMARY PT IS A&OX4. INDEPENDENT IN ROOM. PT HAS FREQUENT C/O ABDOMINAL PAIN. DILAUDID 1MG GIVEN X3 WITH MODERATE RELIEF. DR. BACH NOTIFIED. FENTANYL 25-50MG ORDERED FOR BREAKTHROUGH PAIN PER DR. BACH. PT WAS RESTLESS AND ANXIOUS MOST OF THE SHIFT. TREMORS NOTED ON BOTH ARMS. ATIVAN 2MG ADMINISTERED PER EMAR WITH GOOD EFFECTS. ADLS PROVIDED, SAFETY MEASURES IN PLACE. WILL CONTINUE TO MONITOR.
--- NOTE | 2021-02-26 16:31 | NUR ---
SHIFT SUMMARY PATIENT IS AOX4. PATIENT IS INDEPENDENT IN ROOM. PATIENT IS WITHDRAWALING FROM ATOH. PATIENT HAS FREQUENT REQUESTS FOR PAIN MEDICATIONS WHICH HAS BEEN ALTERNATED FROM FENTANYL AND IS CURRENTLY BEING MANAGED THROUGH TORADOL Q6. PATIENT HAS BEEN RESTING AND HAS BEEN OCCASIONALLY ANXIOUS. FREQUENT DEXTOX ASSESSMENTS HAVE BEEN DONE AND MEDICATED ACCORDINGLY. PATIENT HAS BEEN PLEASENT AND COOPERATIVE WITH CARE. VITAL SIGNS REVIEWED. WILL CONTINUE TO MONITOR UNTIL END OF SHIFT.
--- NOTE | 2021-02-27 04:49 | NUR ---
PATIENT ALERTAN ORIENTED. PATIENT WAS ADMITTED FOR ACUTE ALCOHOLIC PANCREATITIS. PATIENT IS MANIFESTING WITHDRAWAL SYMPTOMS. PATIENT'S HEART RATE HAS BEEN ELEVATED AND HAS BEEN REQUIRING CONTROL OF THE HEART RATE WITH USE OF MEDICATION. DOCTOR KERRY WAS CALLED AND GOT A NOW ORDER FOR METOPROLOL 5MG IV. PATIENT WAS MEDICATED WITH METOPROLOL 5MG ORDERED BY THE DOCTOR FOR ELEVATED HEART RATE. PATIENT BLOOD PRESSURE WAS NOTED TO BE LOW AND DOCTOR APRYL WAS CALLED REPORTED, HE ORDERED THE METOPROLOL BE GIVEN, ANOTHER DOSE AFTER 30 MINUTES IF THE HEART RATES REMAINS ELEVATED. METOPROLOL WAS NOT GIVEN AFTER 30 MINUTES BLOOD PRESSURE WAS LOW. PATIENT WAS MEDICATED WITH ATIVAN 1MG IV AND CIWA SCORES HAS BEEN ELEVATED WELL. PATENT WAS MEDICATED WITH ATIVAN 2MG IV EVERY 2 HOURS FOR ELEVAED CIWA SCORE. PATIENT WAS MEDICATED WITH LIBRIUM 25 MG FOR WITH DRAWAL SYMPTOMS. PATIENTS HEART RATE CONTINUE TO REMAIN ELEVATED DESPITE ALL THE INTERVENTIONS RELATED TO WITHDRAWAL SYMTOMS. PRESSER COTTON GINNING CALELED TO REPORT ELEVATED SNR MULTIPLE TIMES, APPROPRIATE INTERVENTIONS ADMINISTERED OREDERED. FOR ANXIETY
[2021-02-27 08:35] LABS: Hematocrit 31.6 % (33.0-51.0); Hemoglobin 11.2 g/dL (11.5-16.0); Mean Corpuscular HGB 38.6 pg (26.0-34.0); Mean Corpuscular HGB Conc 35.4 g/dL (31.5-36.5); Mean Corpuscular Volume 109 fL (80-100); Mean Platelet Volume 10.8 fL (9.1-12.4); Platelet Count 86 K/mm3 (150-400); RDW Coefficient Variation 15.4 % (11.7-14.2); RDW Standard Deviation 61.7 fL (35.1-46.3); White Blood Cell Count 8.94 K/mm3 (4.00-11.30)
[2021-02-27 08:51] LABS: Alanine Aminotransfer (ALT/SGP 87 U/L (12-78); Albumin, Blood 2.5 g/dL (3.4-5.0); Albumin/Globulin Ratio 0.8 (0.8-1.8); Alk Phos 143 U/L (50-136); Anion Gap 8 mmol/L (6-16); Aspartate Aminotrans (AST/SGOT 90 U/L (12-37); Bilirubin, Total 1.8 mg/dL (0.1-1.0); Blood Urea Nitrogen 9 mg/dL (8-24); Bun/Creatinine Ratio 17.2 (12.0-20.0); CO2, Blood 27 mmol/L (21-32); Chloride, Blood 97 mmol/L (98-108); Creatinine, Blood 0.52 mg/dL (0.40-1.00); Globulin, Blood 3.2 g/dL (2.2-4.0); Glomerular Filtration Rate >60 (60-); Glucose, Blood 79 mg/dL (70-99); Magnesium, Blood 1.4 mg/dL (1.6-2.4); Phosphorus, Blood 2.6 mg/dL (2.5-4.9); Potassium, Blood 3.7 mmol/L (3.5-5.5); Sodium, Blood 132 mmol/L (136-145); Total Protein, Blood 5.7 g/dL (6.4-8.2)
[2021-02-27 09:15] LABS: BAND PERCENT MAN 8 % (0-8); BASOPHILS PERCENT MAN 0 % (0-2); EOSINOPHILS PERCENT MAN 0 % (0-6); LYMPHOCYTES ABSOLUTE MAN 1.07 K/mm3 (0.84-5.20); LYMPHOCYTES PERCENT MAN 12 % (21-46); MONOCYTES ABSOLUTE MAN 0.71 K/mm3 (0.16-1.47); MONOCYTES PERCENT MAN 8 % (4-13); NEUTROPHILS ABSOLUTE MAN 7.15 K/mm3 (1.96-9.15); SEG NEUTROPHILS PERCENT MAN 72 % (41-73); TOTAL CELLS COUNTED 100
[2021-02-27 09:53] LABS: Source, Urine Catheter
[2021-02-27 10:12] LABS: Appearance, Urine Hazy (Clear); Blood, Urine 3+ (Neg); Color, Urine Amber (P-Yellow); Glucose Qualitative, Urine Neg (Neg); Ketones, Urine 1+ (Neg); Leukocyte Esterase, Urine 1+ (Neg); Nitrite, Urine Neg (Neg); Protein, Urine 2+ (Neg); Urobilinogen, Urine 1+ (Normal)
[2021-02-27 10:50] LABS: Bacteria Many /hpf; Bilirubin, Urine 1+ (Neg); Red Blood Cells, Urine 0-2 /hpf (0-2); Squamous Epithelial Cells Few /hpf (Few); White Blood Cells, Urine 0-2 /hpf (0-5)
[2021-02-27 10:52] LABS: Transitional Epithelial Cells Rare /hpf (0-Rare)
--- NOTE | 2021-02-27 11:06 | NUR ---
Transfer, The patient is X/OX3 to person, time and place she did not know whty she was in the hospital. The patient had pulse 140 sinus tachy per television program director. He temp was 103 temporal. The patient was withdrawn but would answere questions. tHE PROVIDER WAS contacted about the pulse, temp and CIWA score, and He was informed that her last labs were taken yesterday morning. She stated she had nausea and was given zofran po. She had a CIWA score of 12 and recieved 2mg IV Atavan. The patient was transported via [facility] to PCU and report was given to the RN.
--- NOTE | 2021-02-27 15:31 | NUR ---
TRANSFER TO PCU: PATIENT ALERT AND ORIENTED X2-3. INTERMITTENT CONFUSION, ASKING WHERE SHE IS AND WHAT IS GOING ON. DENIES NUMBNESS/TINGLING. PERRLA. ABLE TO MOVE ALL EXTREMITIES IN BED. ON ROOM AIR SATING LOW 90'S. PATIENT FELL ASLEEP AND WAS SATING 87%, 1-2L O2 VIA NC IN PLACE WHEN SLEEPING. LUNGS SOUNDING CLEAR AND DIM IN BASES. NO COUGH AT THIS TIME. TELE SHOWING SINUS TACH WITH HR 120'S. DENIES CHEST PAIN/PRESSURE. BP SOFT. PPP. NO SIGNS OF EDEMA. BOWEL TONES PRESENT. ABDOMINAL PAIN WITH INTERMITTENT NAUSEA. MEDICATED PER EMAR. TEMP TRENDING IN RIGHT DIRECTION, TYLENOL VA GIVEN. POTASSIUM, MAG, AND ANTIBIOTICS INFUSED. NS RUNNING AT 150ML/HR. 1 L BOLUS GIVEN THIS AM. CAMERA AND BED ALARM ON FOR SAFETY. GREENE CATH IN PLACE DRAINING NEIL URINE. PER PATIENT MOTHER - PATIENT RECENTLY PASSED SOME KIDNEY STONES AND HAS BEEN DEALING WITH UTI'S. CALL LIGHT IN REACH, PATIENT NOT USING CALL LIGHT. WILL CONTINUE TO MONITOR.
--- NOTE | 2021-02-27 18:10 | NUR ---
SHIFT SUMMARY: PT SLEEPING AT THIS TIME. INTERMITTENT CONFUSION AND ANXIETY. MOST RECENT CIWA SCORE 6. MEDICATED ONCE WITH ATIVAN AND LIBRIUM. TELE REMAINS UNCHANGED SINUS TACH WITH HR 110-120'S. GREENE CATH DRAINING NEIL URINE, PATIENT EXPRESSING UTI SYMPTOMS OF BURNING AND URGENCY. BED ALARM AND CAMERA REMAIN ON. AT TIMES PATIENT PULLING AT GREENE. FIANCE IN TO VISIT. REMAINS ON RA. AT THIS TIME THIAMINE INFUSING. NS INFUSING AT 150 ML/HR. CALL LIGHT IN REACH. WILL CONTINUE TO MONITOR AND REPORT OFF TO ONCOMING RN.
[2021-02-28 04:21] LABS: BASOPHILS ABSOLUTE AUTO 0.01 K/mm3 (0.00-0.23); BASOPHILS PERCENT AUTO 0 % (0-2); EOSINOPHILS ABSOLUTE AUTO 0.12 K/mm3 (0.00-0.68); EOSINOPHILS PERCENT AUTO 3 % (0-6); Hematocrit 25.3 % (33.0-51.0); Hemoglobin 8.8 g/dL (11.5-16.0); IMMATURE GRAN ABSOLUTE AUTO 0.04 K/mm3 (0.00-0.10); IMMATURE GRAN PERCENT AUTO 1 % (0-1); LYMPHOCYTES ABSOLUTE AUTO 1.13 K/mm3 (0.84-5.20); LYMPHOCYTES PERCENT AUTO 23 % (21-46); MONOCYTES ABSOLUTE AUTO 0.51 K/mm3 (0.16-1.47); MONOCYTES PERCENT AUTO 11 % (4-13); Mean Corpuscular HGB 38.4 pg (26.0-34.0); Mean Corpuscular HGB Conc 34.8 g/dL (31.5-36.5); Mean Corpuscular Volume 111 fL (80-100); Mean Platelet Volume 10.4 fL (9.1-12.4); NEUTROPHILS ABSOLUTE AUTO 3.04 K/mm3 (1.96-9.15); NEUTROPHILS PERCENT AUTO 63 % (41-73); Platelet Count 69 K/mm3 (150-400); RDW Coefficient Variation 15.5 % (11.7-14.2); RDW Standard Deviation 62.3 fL (35.1-46.3); Red Blood Cell Count 2.29 M/mm3 (3.80-5.20); White Blood Cell Count 4.85 K/mm3 (4.00-11.30)
[2021-02-28 05:02] LABS: Albumin, Blood 1.9 g/dL (3.4-5.0); Anion Gap 6 mmol/L (6-16); Blood Urea Nitrogen 12 mg/dL (8-24); Bun/Creatinine Ratio 12.3 (12.0-20.0); CO2, Blood 25 mmol/L (21-32); Chloride, Blood 106 mmol/L (98-108); Creatinine, Blood 0.97 mg/dL (0.40-1.00); Glomerular Filtration Rate >60 (60-); Glucose, Blood 82 mg/dL (70-99); Phosphorus, Blood 2.3 mg/dL (2.5-4.9); Potassium, Blood 3.3 mmol/L (3.5-5.5); Sodium, Blood 137 mmol/L (136-145)
--- NOTE | 2021-02-28 05:59 | NUR ---
LOGISTICS ANALYTICS MANAGER SUMMARY PT HAS REMAINED AXO X3-4 THIS SHIFT W MOMENTS OF DISORIENTATION ABOUT TIME OR SITUATION. CIWA'S 4-9 THIS SHIFT AND PT GIVEN LIBRIUM X2 THIS SHIFT. PT REPORTING PAIN IN ABDOMEN THROUGHOUT THE SHIFT AND GIVEN PAIN MEDICATION PER EMAR. TELE SHOWING ST AT 140 SO PROVIDER CONTACTED AND IV LOPRESSOR GIVEN X1 BRINGING HR DOWN TO THE 100'S THE REMAINDER OF THE SHIFT. PT DENIED ANY NAUSEA THIS SHIFT. PEAK TEMP 100.3 THIS SHIFT. PT ONLY HAD 375ML URINE OUT PER GREENE THIS SHIFT.
[2021-02-28 10:33] LABS: Vancomycin, Trough 25.9 ug/mL (5.0-10.0)
[2021-02-28 15:38] LABS: BASOPHILS ABSOLUTE AUTO 0.01 K/mm3 (0.00-0.23); BASOPHILS PERCENT AUTO 0 % (0-2); EOSINOPHILS PERCENT AUTO 2 % (0-6); Hematocrit 26.4 % (33.0-51.0); Hemoglobin 9.3 g/dL (11.5-16.0); IMMATURE GRAN ABSOLUTE AUTO 0.02 K/mm3 (0.00-0.10); IMMATURE GRAN PERCENT AUTO 1 % (0-1); LYMPHOCYTES ABSOLUTE AUTO 0.71 K/mm3 (0.84-5.20); LYMPHOCYTES PERCENT AUTO 17 % (21-46); MONOCYTES ABSOLUTE AUTO 0.47 K/mm3 (0.16-1.47); MONOCYTES PERCENT AUTO 11 % (4-13); Mean Corpuscular HGB 39.2 pg (26.0-34.0); Mean Corpuscular HGB Conc 35.2 g/dL (31.5-36.5); Mean Corpuscular Volume 111 fL (80-100); Mean Platelet Volume 10.3 fL (9.1-12.4); NEUTROPHILS ABSOLUTE AUTO 2.99 K/mm3 (1.96-9.15); NEUTROPHILS PERCENT AUTO 70 % (41-73); Platelet Count 79 K/mm3 (150-400); RDW Coefficient Variation 15.6 % (11.7-14.2); RDW Standard Deviation 63.9 fL (35.1-46.3); Red Blood Cell Count 2.37 M/mm3 (3.80-5.20)
[2021-02-28 16:00] LABS: Anion Gap 7 mmol/L (6-16); Blood Urea Nitrogen 12 mg/dL (8-24); Bun/Creatinine Ratio 8.3 (12.0-20.0); CO2, Blood 21 mmol/L (21-32); Calcium, Blood 6.9 mg/dL (8.5-10.1); Chloride, Blood 107 mmol/L (98-108); Creatinine, Blood 1.45 mg/dL (0.40-1.00); Glomerular Filtration Rate 39 (60-); Glucose, Blood 86 mg/dL (70-99); Potassium, Blood 3.6 mmol/L (3.5-5.5); Sodium, Blood 135 mmol/L (136-145)
[2021-02-28 16:04] LABS: Phosphorus, Blood 5.4 mg/dL (2.5-4.9)
--- NOTE | 2021-02-28 17:27 | NUR ---
SHIFT SUMMARY PT ALERT AND ORIENTED X 4. PT REPORTED FEELINGS OF ANXIETY AND AGITATION DURING SHIFT. NO VISIBLE TREMORS NOTED BUT PATIENT REPORTED FEELING LIKE SHE IS "SHAKING INSIDEM," WAS MEDICATED PER EMAR AFTER CIWA SCORE COMPLETED. SHE IS PLEASANT AND COOPERATIVE W/ CARE, HAS SLEPT FOR MAJORITY OF SHIFT BUT WAKES EASILY UPON VERBAL STIMULI. PT HR HAS BEEN ST LOW 100'S (106) PER TELE REPORT, VITAL SIGNS OTHERWISE STABLE. PT HAS REPORTED PAIN DURING SHIFT IN ABD THAT RADIATES TO BACK, MEDICATED PER EMAR. PT HAS DENIED CHEST PAIN/PRESSURE. PHYSIICAL THERAPY SAW PT TODAY AND PT REPORTED THAT IT "FELT GOOD TO WALK AROUND." THIS AM PATIENT REPORTED CATHETER DISCOMFORT. THIS NURSE AND NURSE JEREMIAH Bella REPOSITIONED CATHETER WHILE AND PATIENT REPORTED IMMEDIATE RELIEF. NO OTHER ACUTE CHANGES NOTED. CALL LIGHT IN REACH. BED ALARM ON. WILL CONTINUE TO MONITOR UNTIL REPORT GIVEN.
--- NOTE | 2021-02-28 19:33 | NUR ---
Update 02/28/21: Per chart review with Dr. Siegel pt. not yet appropriate for discharge. Patient living with fiance prior to admit. Single story home with 5-6 steps to entry. Reports having some difficulty walking up steps recently. Does use hand rails for safety and support. Parents seem to be very involved in patient's care. PT recommending HH. Pt. denied previous need for home health. Plan to discuss preference of HH provider tomorrow with pt. Anticipate needs at time of discharge to include: HH referral, 4 wheeled walker (will order through [facility] if pt. is agreeable and have delivered to hospital) , and hospital F/U within 5-7 days post discharge. Plan to offer patient assistance with outpatient rehab to address alcohol addiction. Will assist as much as patient allows. At time of discharge, patient states her fiance will provide transportation.
--- NOTE | 2021-02-28 20:08 | NUR ---
PATIENT REQUESTING FLEXARIL AND MOBIC WHICH SHE STATES SHE TAKES AT HOME PRN FOR NECK PAIN. WILL CONTACT HOSPITALIST IF CURRENT DOSE OF MEDICATION ON JUL IS NOT ADEQUATE FOR HER COMFORT
--- NOTE | 2021-02-28 21:48 | NUR ---
PATIENT REQUESTING GREENE BE REMOVED TOMORROW. WILL INFORM DAYSHIFT RN
--- NOTE | 2021-03-01 04:06 | NUR ---
PATIENT BEGAN EVENING FAIRLY CALM WITHOUT COMPLAINT OF ANXIETY OR NOTED HALLUCINATIONS. THEN THE EVENING PASSED, CRYSTAL BEGAN HAVING AUDITORY AND VISUAL HALLUCINATIONS THAT SHE WAS PARTICIPATING IN BY CRAWLING REPEATEDLY OVER THE RAILS DESPITE THE ALARMS AND MEDICATION SHE HAD BEEN PRESCRIBED. FOUR RAILS AND A SYLVIA VEST WERE REQUESTED AND ORDER RECEIVED AND COMPLETED WITH THE UTMOST CARE AND EXPLANATION POSSIBLE TO REASSURE THE PATIENT THAT THE INTENTION IS HER SAFETY. OTHER THAN HER LOWER ABDOMINAL PAIN, THE PATIENT HAS BEEN COMFORTABLE ALL NIGHT. ATIVAN AND LIBRIUM HAVE BOTH BEEN GIVEN TO TREAT WITHDRAWEL AND HER BASELINE ANXIETY
[2021-03-01 05:39] LABS: BASOPHILS ABSOLUTE AUTO 0.01 K/mm3 (0.00-0.23); BASOPHILS PERCENT AUTO 0 % (0-2); EOSINOPHILS ABSOLUTE AUTO 0.05 K/mm3 (0.00-0.68); EOSINOPHILS PERCENT AUTO 2 % (0-6); Hematocrit 24.1 % (33.0-51.0); Hemoglobin 8.5 g/dL (11.5-16.0); IMMATURE GRAN ABSOLUTE AUTO 0.04 K/mm3 (0.00-0.10); IMMATURE GRAN PERCENT AUTO 1 % (0-1); LYMPHOCYTES ABSOLUTE AUTO 0.53 K/mm3 (0.84-5.20); LYMPHOCYTES PERCENT AUTO 18 % (21-46); MONOCYTES ABSOLUTE AUTO 0.43 K/mm3 (0.16-1.47); MONOCYTES PERCENT AUTO 14 % (4-13); Mean Corpuscular HGB Conc 35.3 g/dL (31.5-36.5); Mean Corpuscular Volume 111 fL (80-100); Mean Platelet Volume 10.1 fL (9.1-12.4); NEUTROPHILS ABSOLUTE AUTO 1.97 K/mm3 (1.96-9.15); NEUTROPHILS PERCENT AUTO 65 % (41-73); Platelet Count 71 K/mm3 (150-400); RDW Coefficient Variation 15.7 % (11.7-14.2); RDW Standard Deviation 63.7 fL (35.1-46.3); Red Blood Cell Count 2.18 M/mm3 (3.80-5.20); White Blood Cell Count 3.03 K/mm3 (4.00-11.30)
[2021-03-01 05:56] LABS: Albumin, Blood 1.8 g/dL (3.4-5.0); Anion Gap 6 mmol/L (6-16); Blood Urea Nitrogen 11 mg/dL (8-24); Bun/Creatinine Ratio 6.8 (12.0-20.0); CO2, Blood 21 mmol/L (21-32); Chloride, Blood 112 mmol/L (98-108); Creatinine, Blood 1.61 mg/dL (0.40-1.00); Glomerular Filtration Rate 35 (60-); Glucose, Blood 65 mg/dL (70-99); Phosphorus, Blood 4.4 mg/dL (2.5-4.9); Potassium, Blood 3.3 mmol/L (3.5-5.5); Sodium, Blood 139 mmol/L (136-145)
[2021-03-01 07:43] LABS: BASOPHILS ABSOLUTE AUTO 0.01 K/mm3 (0.00-0.23); BASOPHILS PERCENT AUTO 0 % (0-2); EOSINOPHILS ABSOLUTE AUTO 0.09 K/mm3 (0.00-0.68); EOSINOPHILS PERCENT AUTO 3 % (0-6); Hemoglobin 8.7 g/dL (11.5-16.0); IMMATURE GRAN ABSOLUTE AUTO 0.03 K/mm3 (0.00-0.10); IMMATURE GRAN PERCENT AUTO 1 % (0-1); LYMPHOCYTES ABSOLUTE AUTO 0.66 K/mm3 (0.84-5.20); LYMPHOCYTES PERCENT AUTO 21 % (21-46); MONOCYTES ABSOLUTE AUTO 0.49 K/mm3 (0.16-1.47); MONOCYTES PERCENT AUTO 15 % (4-13); Mean Corpuscular HGB 38.8 pg (26.0-34.0); Mean Corpuscular HGB Conc 34.8 g/dL (31.5-36.5); Mean Corpuscular Volume 112 fL (80-100); Mean Platelet Volume 10.1 fL (9.1-12.4); NEUTROPHILS ABSOLUTE AUTO 1.94 K/mm3 (1.96-9.15); NEUTROPHILS PERCENT AUTO 60 % (41-73); Platelet Count 74 K/mm3 (150-400); RDW Coefficient Variation 15.9 % (11.7-14.2); RDW Standard Deviation 65.6 fL (35.1-46.3); Red Blood Cell Count 2.24 M/mm3 (3.80-5.20); White Blood Cell Count 3.22 K/mm3 (4.00-11.30)
--- NOTE | 2021-03-01 10:54 | NUR ---
PT SETS OFF BED ALARM, PT FOUND WITH LEGS IN BETWEEN RAILS. PT CONFUSED AND SHOUTING OUT. PT STS THAT SHE IS ATTEMPTING TO EXIT THE BED SO SHE CAN GO OUTSIDE TO SMOKE. PT ANSWERS MOST QUESTIONS APPROPRIATELY BUT WHEN ASKED A FEW MINUTES LATER WHY SHE WAS EXITING THE BED STS "I WAS LOOKING FOR MY PHONE" AND CALLS THIS RN A LIAR WHEN REMINDED THAT SHE TOLD ME THAT SHE WAS ATTEMPTING TO GO SMOKE. PT IS MEDICATED FOR CIWA OF 14. PT ASKED TO CALL HER MOTHER PT ON PHONE WITH MOTHER STS THAT "THEY HAVE ME IN SENIOR CARE IN HERE AND THEY ARE PUTTING PILLS IN MY BUTT" IT SHOULD BE MENTIONED THAT PT HAS NOT HAD ANY MEDICATIONS OR PROCEDURES RECTALLY. PT TEARFUL AND FORGETFUL. PT PROVIDED WITH HER ENSURE PER REQUEST AND WATER. PT STS "I HAVE BEEN ADMITTED MANY MANY TIMES FOR THIS AND HAVE NEVER BEEN RESTRAINED" PT CONTINUES TO PULL AGAINST SYLVIA AND CURSING. DR DAILEY BEING CALLED NOW FOR NICOTENE PATCH AND TO ALERT HIM THAT PT HAS HAD A TOTAL OF 21MG ATIVAN IN 24HRS THAT PRECEDEX WILL BE STARTED SOON IF CIWA DOES NOT DECREASE.
--- NOTE | 2021-03-01 11:46 | NUR ---
REMOTE MONITORING CALLED THAT PT PULLING AT LINES AND ATTEMPTING TO EXIT BED. THIS RN AND CAP COVERER TO ROOM, PT ON PHONE STS THAT SHE NEEDS SCISSORS TO REMOVE HER BRIEF, PT HAS ALREADY REMOVED BRIEF BUT BELIEVES IT IS STILL IN PLACE. NICOTENE PATCH IS APPLIED, PT STS 5-6 CIGARETTES A DAY. PT IS VERY AGITATED ABOUT THE BRIEF SHE WAS WEARING WHICH WILL REMAIN OFF PT. PT STILL CONFUSED WHEN TALKING WITH MOTHER STATING THAT STAFF HAS HER IN SENIOR CARE AND WILL NOT ALLOW HER TO MAKE PHONE CALLS... SHE IS CURRENTLY TALKING ON PHONE. PT PROVIDED WITH LUNCH TRAY. WILL ATTMEPT ADMINISTRATION OF PHENOBARDITOL TO DELAY THE USE OF PRECEDEX
--- NOTE | 2021-03-01 11:58 | NUR ---
PT AGITATED AND PARANOID STS THAT STAFF IS TRYING TO MANIPULATE HER AND IS "JUST TRYING TO KEEP MY ASS DRUGGED WHEN YOU DON'T GET THE ANSWERS YOU WANT TO HEAR" STS THAT STAFF IS "TALKING OVER ME" WHEN GIVEN MANY CHANCES TO SPEAK WHILE THIS RN AND MD ARE IN THE ROOM PT WOULD NOT SPEAK. PT IS RECIEVING PHENOBARBITOL AT THIS TIME OVER 5 MINUTES VIA IVPB, SHE CONTINUES PULLING AT LINES.
--- NOTE | 2021-03-01 14:05 | NUR ---
PT AWAKENS TO VERBAL STIMULI, PT IS CONFUSED CHANGES HER ANSWERS TO QUESTIONS. PT DEMANDS TO KNOW WHY SHE IS BEING MEDICATED BUT WHEN SHE IS EDUCATED THAT SHE IS BEING MEDICATED BECAUSE SHE IS REMOVING MONITORING EQUIPMENT, GREENE STAT LOCK, AND PULLING AT GREENE SHE BEGINS SHOUTING AT THIS RN FOR "BARKING ORDERS". NO EDUCATION IS SUCCESSFUL AT PT CONTINUES TO ESCILATE AND BECOME MORE ARGUMENATIVE. MD TO ROOM DURING REPEAT MEDICATIONS ADMINISTRATION. THERE IS MORE ABD DISTENTION NOTED THIS EVENING THAN DURING MORNING ASSESSMENT, MD IS NOTIFIED AND V/O IS OBTAINED FOR SIMETHICONE
--- NOTE | 2021-03-01 14:53 | NUR ---
PT IS MEDICATED AGAIN FOR AGITATION AND CONTINUED CIWA OF 14, UPON WAKING PT PULLING GREENE, ATTEMPTS ARE BEING MADE TO NOT RETURN TO SWB BUT THEY MIGHT NEED REPLACED IF PT COTNINUES TO PULL AT LINES. IS AWARE OF CIWA
--- NOTE | 2021-03-01 15:01 | NUR ---
PT AWAKES CONTINUES TO PULL AT GREENE DECISION WAS MADE TO REPLACE THE SWB. PT STS "I DON'T UNDERSTAND WHY YOU ARE DOING THIS" PT IS EDUCATED NUMEROUS TIMES WHY THE WRIST RESTRAINTS ARE BEING REPLACED PT STS "YOU DON'T UNDERSTAND YOU GET TO GO HOME TO YOUR FAMILY AT NIGHT" BEGINS SOBBING WILDLY. PT IS ON CAMERA MONITORING, CENTRAL MONITORING ALSO CALLED TO LET THIS RN KNOW THAT PT WAS PULLING AT CATHETER, PT IS ALSO REMINDED THAT SHE WAS WITNESSED ON CAMERA PULLING AT LINES WHEN SHE STS "THIS ISN'T FAIR"
--- NOTE | 2021-03-01 18:04 | NUR ---
SHIFT NOTE PT WITH END OF SHIFT CIWA OF 8, WITH CONTINUED MEDICATION TO MANAGE CIWA. PT ENDED SHIFT WITH SWB AND POSEXY VEST IN PLACE. SWB IN PLACE PT PULLING AT GREENE, VEST IN PLACE PT ATTEMPTING TO EXIST THE GURNEY. PT IS ALERT, SHE OCCASIONALLY ANSWERS QUESTIONS APPROPRIATELY, PARANOID AND ARGUMENTIVE. AT THE BEGINING AND END OF THE SHIFT PT C/O LOW BACK PAIN WHICH WAS TREATED WITH DILAUDID. PT WAS ALTERNATED WITH ATIVAN AND PHENOBARBITOL TO CONTROL AGITATION AND ANXIETY. PT'S MOTHER WAS IN TO SEE HER TODAY AND WAS UPDATED. MOTHER ALSO STATED THAT PT'S RASH TO HER CHEST IS NOT NEW AND DOES WORSEN WITH HER ANXIETY PT ALSO CONFIRMED.
--- NOTE | 2021-03-01 22:18 | NUR ---
Assumed care of pt at 1900. Patient is alert and oriented to self, location, but confused about why she is here and the year it is. Initial CIWA was 15. Medicated with PO Librium which she took with applesauce. VSS. Bilateral SWR and christophe noted d/t patient confusion and agitation. Camera on, bed in low position, and bed alarm on, call light within reach.
--- NOTE | 2021-03-02 01:16 | NUR ---
Called Dr. Gaviria regarding patient's spreading rash, which now includes the the whole upper body down to the groin region. Discussed with Dr. Gaviria the reasoning that was placed for the patient being on Linezolid (Urosepsis), and decision was made to DC the antibiotic.
[2021-03-02 04:03] LABS: Hemoglobin 9.1 g/dL (11.5-16.0); Mean Corpuscular HGB 38.4 pg (26.0-34.0); Mean Corpuscular Volume 110 fL (80-100); Mean Platelet Volume 10.2 fL (9.1-12.4); Platelet Count 92 K/mm3 (150-400); RDW Coefficient Variation 15.5 % (11.7-14.2); RDW Standard Deviation 62.2 fL (35.1-46.3); Red Blood Cell Count 2.37 M/mm3 (3.80-5.20); White Blood Cell Count 3.48 K/mm3 (4.00-11.30)
[2021-03-02 04:15] LABS: Albumin, Blood 1.8 g/dL (3.4-5.0); Anion Gap 6 mmol/L (6-16); Blood Urea Nitrogen 9 mg/dL (8-24); Bun/Creatinine Ratio 6.1 (12.0-20.0); CO2, Blood 21 mmol/L (21-32); Chloride, Blood 111 mmol/L (98-108); Creatinine, Blood 1.47 mg/dL (0.40-1.00); Glomerular Filtration Rate 39 (60-); Glucose, Blood 70 mg/dL (70-99); Magnesium, Blood 1.8 mg/dL (1.6-2.4); Phosphorus, Blood 3.6 mg/dL (2.5-4.9); Potassium, Blood 3.3 mmol/L (3.5-5.5); Sodium, Blood 138 mmol/L (136-145)
--- NOTE | 2021-03-02 04:27 | NUR ---
PATIENT REMAINS A/O TO SELF/PLACE BUT NOTHING ELSE. INTERMITTENT CONFUSION/AGITATION. CIWA REMAINS FLUCTUATING BETWEEN 8-15. ST AT LOW 100'S. RASH TO UPPER BODY AND STOPS ABOUT PUBIC LINE. SYLVIA AND VARUN SWR D/T PATIENT PULLING AT LINES/CATHETER. WILL REPORT TO SUNDAY MEDINA.
[2021-03-02 04:48] LABS: BAND PERCENT MAN 24 % (0-8); BASOPHILS PERCENT MAN 0 % (0-2); EOSINOPHILS ABSOLUTE MAN 0.06 K/mm3 (0.00-0.68); EOSINOPHILS PERCENT MAN 2 % (0-6); LYMPHOCYTES % ATYPICAL MANUAL 1 % (0-0); LYMPHOCYTES ABSOLUTE MAN 0.69 K/mm3 (0.84-5.20); LYMPHOCYTES PERCENT MAN 19 % (21-46); MONOCYTES ABSOLUTE MAN 0.41 K/mm3 (0.16-1.47); MONOCYTES PERCENT MAN 12 % (4-13); NEUTROPHILS ABSOLUTE MAN 2.29 K/mm3 (1.96-9.15); SEG NEUTROPHILS PERCENT MAN 42 % (41-73); TOTAL CELLS COUNTED 100
--- NOTE | 2021-03-02 19:26 | NUR ---
SHIFT SUMMARY 0720-Rec'd pt this morning, aox2-3, calm and cooperative. VSS, afebrile, on RA lungs clear to diminished. Pt tolerated christophe and bilateral soft restraints well, left wrist was taken off for comfort and eating, pt remained calm. All medications administered as ordered. CIWA score of 3-6 charted. Bed in low position, call light and cell phone within her reach, pt is sleeping now, endorsed pt care to shift engineer RN.
--- NOTE | 2021-03-02 22:12 | NUR ---
PT UPDATE PT C/O PAIN AT URETHRA AND IN BLADDER. STATES IT FEELS LIKE SHE HAS A SEVERE URGE TO URINATE AND CAN'T. ON BLADDER SCAN ONLY 40-80 MLS SEEN. 900 MLS OF URINE EMPTIED FROM BAG. THIS RN FLUSHES GREENE WITH 25 MLS OF STERILE WATER. GREENE DRAINING. PT APPEARS TO FALL BACK TO SLEEP AT THIS TIME.
[2021-03-03 04:06] LABS: Hematocrit 24.8 % (33.0-51.0); Hemoglobin 8.5 g/dL (11.5-16.0); Mean Corpuscular HGB 38.3 pg (26.0-34.0); Mean Corpuscular HGB Conc 34.3 g/dL (31.5-36.5); Mean Corpuscular Volume 112 fL (80-100); Platelet Count 109 K/mm3 (150-400); RDW Coefficient Variation 15.3 % (11.7-14.2); Red Blood Cell Count 2.22 M/mm3 (3.80-5.20); White Blood Cell Count 3.36 K/mm3 (4.00-11.30)
[2021-03-03 04:21] LABS: Albumin, Blood 1.7 g/dL (3.4-5.0); Anion Gap 5 mmol/L (6-16); Blood Urea Nitrogen 7 mg/dL (8-24); Bun/Creatinine Ratio 5.3 (12.0-20.0); CO2, Blood 20 mmol/L (21-32); Calcium, Blood 7.6 mg/dL (8.5-10.1); Chloride, Blood 115 mmol/L (98-108); Creatinine, Blood 1.31 mg/dL (0.40-1.00); Glomerular Filtration Rate 44 (60-); Glucose, Blood 78 mg/dL (70-99); Magnesium, Blood 2.2 mg/dL (1.6-2.4); Phosphorus, Blood 2.8 mg/dL (2.5-4.9); Potassium, Blood 3.9 mmol/L (3.5-5.5); Sodium, Blood 140 mmol/L (136-145)
[2021-03-03 04:28] LABS: BAND PERCENT MAN 13 % (0-8); BASOPHILS PERCENT MAN 0 % (0-2); EOSINOPHILS ABSOLUTE MAN 0.06 K/mm3 (0.00-0.68); EOSINOPHILS PERCENT MAN 2 % (0-6); LYMPHOCYTES ABSOLUTE MAN 0.67 K/mm3 (0.84-5.20); LYMPHOCYTES PERCENT MAN 20 % (21-46); METAMYELOCYTE ABSOLUTE MAN 0.03 K/mm3 (0.00-0.00); METAMYELOCYTE PERCENT MAN 1 % (0-0); MONOCYTES ABSOLUTE MAN 0.57 K/mm3 (0.16-1.47); MONOCYTES PERCENT MAN 17 % (4-13); NEUTROPHILS ABSOLUTE MAN 2.01 K/mm3 (1.96-9.15); SEG NEUTROPHILS PERCENT MAN 47 % (41-73); TOTAL CELLS COUNTED 100
--- NOTE | 2021-03-03 04:38 | NUR ---
SHIFT SUMMARY PATIENT ALERT AND ORIENTED TO SELF AND TIME T/O SHIFT. CIWA 8-15 DURING NIGHT, MEDICATED WITH LIBRIUM AND ATIVAN PER EMAR. PATIENT ANXIOUS BUT EASILY DIRECTABLE. SOFT WRIST RESTRAINT REMOVED AROUND 0000 FOR TRIAL RUN, PATIENT DOING WELL UNRESTRAINED WITH GENTLE REMINDERS. PATIENT VERY COMPLIANT WHILE NOT RESTRAINED. VSS THROUGH SHIFT. PATIENT WEARING 2L NC WHEN SLEEPING, OXYGEN SATURATION ABOVE 90%. GREENE IN PLACE DRAINING YELLOW URINE. NO OTHER SIGNIFICANT CHANGES, WILL REPORT TO DAY SHIFT.
--- NOTE | 2021-03-03 14:45 | NUR ---
Visited pt. this afternoon to discuss her living situation prior to admit and plan post discharge. Pt. very lethargic and confused throughout the conversation. She did agree to services. Also agreeable to ordering a walker (placed order through [facility] and will be delivered to her sister Yaritza's house for now). Contacted patient's mother Noemi who is listed as her next of kin. We discussed previous inpatient rehab stays for alcohol treatment. Per her mother, patient has not been successful at rehab facilities locally including [facility] and [facility]. She did receive rehab several years ago at a facility in [facility]. She was sober for 3 years post discharge from facility. Her mother would love for her to go back there, but has concerns that [facility] would not approve prior auth. She also mentioned [facility] as an option. Noemi has offered Beth a room in her home as long as she is willing to stay sober. She says that offer still stands. She does not believe that her current living situation is the best for her at this point. I have reached out to Selam Wright with [facility] case management to talk about options for rehab. Alternative rehab facilities have been considered for other patients if certain criteria has been met prior to approval. I am wondering if we might be able to meet some of that criteria while patient is hospitalized. Plan to keep working on this. Patient's mother is hopeful that pt. will begin to think more clearly over the next few days. Plan to provide updates on treatment options when available.
--- NOTE | 2021-03-03 18:27 | NUR ---
SHIFT NOTES 0720-Rec'd pt this morning, calm and communicative, restraints off per nigh shift RN, pt behavior appropriate and limitations set for this shift. Pt's vital signs stable, afebrile and on RA. Energy [employer] Laboratory Director rounded with Dr. Lance on pt and plan of care for the day revised. 1730-Nursing report given to Roderick-RN, pt waiting to be transfered to meddical floor.
--- NOTE | 2021-03-03 19:41 | NUR ---
REGARDING PT'S FALL 1827-Sail Repairer noted PCT hurrying into pt's room and followed her, we both found pt with her knees on the floor, bed alarm did not go off though it was set on. Pt was last seen by publicity writer, sitting in bed with both legs crossed watching TV at 1814 when i checked on her IV Thaimine infusion. Pt was assisted to the chair by other staff, assessed VS which were stable, assessed skin for injuries which she had no injuries. Pt denies any pain or injury. Sail Repairer called Dr. Lance and made him aware of pt's fall, no orders rec'd. Informed receiving CAROL Vaughn about the fall, pt was transfered to room 350 via wheelchair with all her personal items.
[2021-03-04 04:59] LABS: BASOPHILS ABSOLUTE AUTO 0.01 K/mm3 (0.00-0.23); BASOPHILS PERCENT AUTO 0 % (0-2); EOSINOPHILS ABSOLUTE AUTO 0.09 K/mm3 (0.00-0.68); EOSINOPHILS PERCENT AUTO 3 % (0-6); Hemoglobin 8.6 g/dL (11.5-16.0); IMMATURE GRAN ABSOLUTE AUTO 0.05 K/mm3 (0.00-0.10); IMMATURE GRAN PERCENT AUTO 1 % (0-1); LYMPHOCYTES ABSOLUTE AUTO 0.84 K/mm3 (0.84-5.20); LYMPHOCYTES PERCENT AUTO 23 % (21-46); MONOCYTES ABSOLUTE AUTO 0.67 K/mm3 (0.16-1.47); MONOCYTES PERCENT AUTO 18 % (4-13); Mean Corpuscular HGB 37.9 pg (26.0-34.0); Mean Corpuscular HGB Conc 34.4 g/dL (31.5-36.5); Mean Corpuscular Volume 110 fL (80-100); Mean Platelet Volume 10.1 fL (9.1-12.4); NEUTROPHILS PERCENT AUTO 55 % (41-73); Platelet Count 125 K/mm3 (150-400); RDW Coefficient Variation 15.3 % (11.7-14.2); RDW Standard Deviation 61.6 fL (35.1-46.3); Red Blood Cell Count 2.27 M/mm3 (3.80-5.20); White Blood Cell Count 3.66 K/mm3 (4.00-11.30)
[2021-03-04 05:31] LABS: Albumin, Blood 1.8 g/dL (3.4-5.0); Anion Gap 5 mmol/L (6-16); Blood Urea Nitrogen 6 mg/dL (8-24); CO2, Blood 21 mmol/L (21-32); Calcium, Blood 8.1 mg/dL (8.5-10.1); Chloride, Blood 113 mmol/L (98-108); Glomerular Filtration Rate 49 (60-); Glucose, Blood 79 mg/dL (70-99); Magnesium, Blood 1.7 mg/dL (1.6-2.4); Phosphorus, Blood 3.6 mg/dL (2.5-4.9); Potassium, Blood 3.6 mmol/L (3.5-5.5); Sodium, Blood 139 mmol/L (136-145)
--- NOTE | 2021-03-04 06:16 | NUR ---
PATIENT IS ASLEEP LYING IN BED. PT HAS HAD LOOSE/WATERY STOOLS THROUGHOUT SHIFT. NO OTHER ACUTE CHNAGES OVERNIGHT. BED ALARM ON, BED IN LOW POSITION AND CALL LIGHT WITHIN REACH.
--- NOTE | 2021-03-04 17:25 | NUR ---
PT IS A/OX2. PERSON AND SURROUNDINGS. THE PT THOUGHT THAT SHE WAS AT [facility] THIS AFTERNOON. THE PT APPEARS TO BE BREATHING EASILY ON RA. THE PT HAS MILD WITHDRAWL SYMPTOMS AT THIS TIME. THE PT WORKED WITH THE PHYSICAL THERAPIST TODAY. SHORTLY AFTER WORKING WITH THE THERAPIST THE PT TRIED TO GET UP FROM THE CHAIR WITHOUT ASSISTANCE AND FELL BACK UP AGAINST THE WALL AND TO THE FLOOR, THE SOIL AND PLANT SCIENTIST ATTEMPTED TO CATCH AND ASSIST HER DOWN. DR. DAILEY WAS NOTIFIED. THE PT HAD NO INJURIES REPORTED OR NOTICED. THE PTS MOTHER WAS IN TO VISIT WITH HER THIS AFTERNOON. CALL LIGHT IN REACH. WILL CONTINUE TO MONITOR AND ASSESS FOR CHANGES
--- NOTE | 2021-03-05 01:41 | NUR ---
WATER PUMP OPERATOR ALERTED PT WAS ATTEMPTING TO GET OUT OF BED. ENTERED ROOM WITH OTHER RN DHARMESH, PT IS SITTING ON THE SIDE OF BED ASKING FOR HER . PT EDU IS NOT HERE. UPON ATTEMPTING TO GET PT BACK IN BED PRESCRITION BOTTLE FOR SEROQUEL OBSERVED ON BED. PER PT SHE HAS NOT TAKEN ANY OF THE PILLS. WATER PUMP OPERATOR IS UNSURE IF PT SELF-MEDICATED. 5 PILLS FELL ON THE FLOOR WHEN ATTEMPTING TO COVER PT WITH BLANKET. PILLS, PRESCRIPTION BOTTLE AND INHALER PLACED IN LOCKED CABINET OUTSIDE PT'S ROOM. PT EDUCATED ON THE DANGERS OF SELF MEDICATING WHILE IN THE HOSPITAL. INFORMED PT MEDS WILL BE RETURNED UPON DISCHARGE
--- NOTE | 2021-03-05 04:57 | NUR ---
VITAL SIGNS STABLE. A+O*2. PT IS CONFUSED AND FORGETFUL. FRQUENTLY ATTEMPTS TO GET OUT OF BED WITHOUT CALLING FOR ASSISTANCE.PT HOME MEDICATION FOUND AT BEDSIDE PLACED IN LOCKED BIN. PILLS FOUND ON BED AND FLOOR UNSURE IF PT SELF MEDICATED. PT EDUCATED THAT FACILITY WILL PROVIDE MEDS WHILE ADMITTED AND SAFTEY CONCERNS EXPLAINED.NO OTHER ISSUES NOTED. SAFETY MEASURES IN PLACE
[2021-03-05 05:09] LABS: BASOPHILS ABSOLUTE AUTO 0.02 K/mm3 (0.00-0.23); BASOPHILS PERCENT AUTO 1 % (0-2); EOSINOPHILS PERCENT AUTO 3 % (0-6); Hematocrit 25.1 % (33.0-51.0); Hemoglobin 8.8 g/dL (11.5-16.0); IMMATURE GRAN ABSOLUTE AUTO 0.02 K/mm3 (0.00-0.10); IMMATURE GRAN PERCENT AUTO 1 % (0-1); LYMPHOCYTES ABSOLUTE AUTO 0.97 K/mm3 (0.84-5.20); LYMPHOCYTES PERCENT AUTO 28 % (21-46); MONOCYTES ABSOLUTE AUTO 0.51 K/mm3 (0.16-1.47); MONOCYTES PERCENT AUTO 15 % (4-13); Mean Corpuscular HGB 38.1 pg (26.0-34.0); Mean Corpuscular HGB Conc 35.1 g/dL (31.5-36.5); Mean Corpuscular Volume 109 fL (80-100); NEUTROPHILS ABSOLUTE AUTO 1.86 K/mm3 (1.96-9.15); NEUTROPHILS PERCENT AUTO 53 % (41-73); Platelet Count 142 K/mm3 (150-400); RDW Coefficient Variation 15.4 % (11.7-14.2); RDW Standard Deviation 61.4 fL (35.1-46.3); Red Blood Cell Count 2.31 M/mm3 (3.80-5.20); White Blood Cell Count 3.48 K/mm3 (4.00-11.30)
[2021-03-05 05:29] LABS: Albumin, Blood 1.9 g/dL (3.4-5.0); Anion Gap 7 mmol/L (6-16); Blood Urea Nitrogen 7 mg/dL (8-24); Bun/Creatinine Ratio 5.6 (12.0-20.0); CO2, Blood 20 mmol/L (21-32); Calcium, Blood 8.2 mg/dL (8.5-10.1); Chloride, Blood 114 mmol/L (98-108); Creatinine, Blood 1.26 mg/dL (0.40-1.00); Glomerular Filtration Rate 46 (60-); Glucose, Blood 71 mg/dL (70-99); Magnesium, Blood 1.7 mg/dL (1.6-2.4); Phosphorus, Blood 4.4 mg/dL (2.5-4.9); Potassium, Blood 3.5 mmol/L (3.5-5.5); Sodium, Blood 141 mmol/L (136-145)
--- NOTE | 2021-03-05 17:52 | NUR ---
PT IS A/OX3, PLEASANT AND COOPERATIVE. CAN FORGET HER LIMITATIONS AT TIMES AND BECOME IRRIATABLE FROM THE SAFTEY ALARMS. PT HAD SOME N/V THIS AM WAS MEDICATED WITH ZOFRAN. PT WAS ABLE TO TAKE HER AM MEDS AFTER VOMITING. THE PT APPEARS TO BE BREATHING EASILY ON RA AT THIS TIME. PT CONTINUES TO HAVE AN UNSTEADY BALANCE WHEN UP UNASSISTED. PTS HOME SERQUEL AND INHALER MEDICATION WAS SENT HOME WITH HER MOTHER PER THE PT'S REQUEST. PTS MOTHER WAS IN TO VISIT WITH HER THIS AFTERNOON. CALL LIGHT IN REACH, WILL CONTINUE TO MONITOR FOR CHANGES
[2021-03-06 05:30] LABS: BASOPHILS ABSOLUTE AUTO 0.03 K/mm3 (0.00-0.23); BASOPHILS PERCENT AUTO 1 % (0-2); EOSINOPHILS ABSOLUTE AUTO 0.13 K/mm3 (0.00-0.68); EOSINOPHILS PERCENT AUTO 2 % (0-6); Hematocrit 26.7 % (33.0-51.0); Hemoglobin 9.3 g/dL (11.5-16.0); IMMATURE GRAN ABSOLUTE AUTO 0.04 K/mm3 (0.00-0.10); IMMATURE GRAN PERCENT AUTO 1 % (0-1); LYMPHOCYTES ABSOLUTE AUTO 1.21 K/mm3 (0.84-5.20); LYMPHOCYTES PERCENT AUTO 23 % (21-46); MONOCYTES ABSOLUTE AUTO 0.57 K/mm3 (0.16-1.47); MONOCYTES PERCENT AUTO 11 % (4-13); Mean Corpuscular HGB 38.6 pg (26.0-34.0); Mean Corpuscular HGB Conc 34.8 g/dL (31.5-36.5); Mean Corpuscular Volume 111 fL (80-100); Mean Platelet Volume 9.9 fL (9.1-12.4); NEUTROPHILS PERCENT AUTO 63 % (41-73); Platelet Count 168 K/mm3 (150-400); RDW Coefficient Variation 15.7 % (11.7-14.2); RDW Standard Deviation 64.4 fL (35.1-46.3); Red Blood Cell Count 2.41 M/mm3 (3.80-5.20); White Blood Cell Count 5.38 K/mm3 (4.00-11.30)
[2021-03-06 06:04] LABS: Albumin, Blood 2.2 g/dL (3.4-5.0); Anion Gap 5 mmol/L (6-16); Blood Urea Nitrogen 6 mg/dL (8-24); CO2, Blood 23 mmol/L (21-32); Calcium, Blood 8.9 mg/dL (8.5-10.1); Chloride, Blood 111 mmol/L (98-108); Creatinine, Blood 1.21 mg/dL (0.40-1.00); Glomerular Filtration Rate 48 (60-); Glucose, Blood 85 mg/dL (70-99); Magnesium, Blood 2.1 mg/dL (1.6-2.4); Phosphorus, Blood 4.6 mg/dL (2.5-4.9); Potassium, Blood 3.9 mmol/L (3.5-5.5); Sodium, Blood 139 mmol/L (136-145)
--- NOTE | 2021-03-06 06:11 | NUR ---
VSS. A/OX4. PT RESISTANT TO FALL PREVENTION EDUCATING/ETOH EDUCATION. PT REFUSED NON-SLIP SOCKS THROUGHOUT ENTIRE SHIFT. PT NONCOMPLIANT WITH USING CALL MOCK AND OCCASSIONALLY USING WALKER TO AMBULATE TO BR WITH ASSISTANCE. BED ALARM IN PLACE. CAMERA MONITORING UTILIZED. POC HOME W/ FAMILY VS REHAB AT DISCHARGE.
--- NOTE | 2021-03-06 09:47 | NUR ---
Update 03/06/21: Day 9 of hospital stay. 45 YOF with history of alcoholism admitted due to alcoholic pancreatitis. As mentioned in previous notes, pt. living with her fiance in [place] prior to admit. Some concerns recently with navigating the 5 steps into the home. Per patient's mother, current living situation is not helpful for patient's sobriety and she does not believe that she is well supported by fiance. Patient's mother has offered pt. a room in her home in [place], with the only stipulation being that she is not allowed to drink alcohol while living there. Patient's mother Noemi is hopeful that pt. might be willing to try inpatient rehab again with a preference of [facility] in [place]. Concern that [facility] might only allow [facility] or [facility], both facilities in which Noemi has said Beth has not been successful at. After stay at [facility], pt. was sober for 3 years. I have reached out to case management at [facility] to request assistance in the prior auth process to determine if pt. would be allowed to choose the inpatient rehab facility. All involved in patient's care agree that she is in need of inpatient rehab. Advised [facility] staff that pt. is extremely high risk for further chronic illness and/or injury relating to alcoholism. Hopeful that we will hear back today from [facility].
--- NOTE | 2021-03-06 16:18 | NUR ---
SHIFT SUMMARY PT AWAKE SINCE START OF SHIFT. A&O, SITTING UP TO EOB SETTING BED ALARM OFF. PT VERY UPSET ABOUT HAVING BED ALARM ON. ATTEMPTED TO EDU PT R/T FALL RISK AND RECENT FALL WHILE HERE. DR MINER UPDATED ON PT'S CONCERN ABOUT THE BED ALARM. P/T TO EVALUATE PT AND GIVE RECOMMENDATIONS. P/T IN TO SEE PT, REPORTING PT BEING STABLE AND ABLE TO BE INDEPENDENT IN RM. BED ALARM ON HOLD AT THIS TIME. EDU PT THAT ALARM MAY BE PUT BACK ON FOR NOC SHIFT FOR SAFETY. VERBALIZED UNDERSTANDING. PT IMPROVING, SOME MEDS BEING DECREASED. UP TO SHOWER THIS AFTERNOON. AMBULATING IN RM AT THIS TIME. CALL LT IN REACH.
--- NOTE | 2021-03-06 16:34 | NUR ---
Per case management at [facility], they will approve pt. for [facility] in [place] if pt. is willing to go and facility is able to accepted. Per chart review this am with Dr. Bobo, patient has continued to improve over the weekend and is far less confused today. Attempted to contact patient's mother Noemi to provide update regarding inpatient rehab. Left message for her to return my call. It might be best to have mother present for discussion regarding rehab with patient if possible. Alternative dischare option would be home with her mother. Patient is agreeable to that option. She advised Dr. Kaufman this am that she feels her living enviroment prior to hospital admit is not ideal for recovery. Plan to try and meet with Noemi and Beth together tomorrow to discuss discharge planning.
--- NOTE | 2021-03-07 06:23 | NUR ---
PT VSS. NO COMPLAINT OF PAIN.CALM AND COPERATIVE.NO EPISODES OF INCONTINENCE. SAFETY MEASURES IN PLACE. CALL LIGHT IN REACH
[2021-03-07 08:09] LABS: BASOPHILS ABSOLUTE AUTO 0.03 K/mm3 (0.00-0.23); BASOPHILS PERCENT AUTO 0 % (0-2); EOSINOPHILS ABSOLUTE AUTO 0.12 K/mm3 (0.00-0.68); EOSINOPHILS PERCENT AUTO 2 % (0-6); Hematocrit 26.7 % (33.0-51.0); Hemoglobin 9.2 g/dL (11.5-16.0); IMMATURE GRAN ABSOLUTE AUTO 0.05 K/mm3 (0.00-0.10); IMMATURE GRAN PERCENT AUTO 1 % (0-1); LYMPHOCYTES ABSOLUTE AUTO 1.72 K/mm3 (0.84-5.20); LYMPHOCYTES PERCENT AUTO 25 % (21-46); MONOCYTES ABSOLUTE AUTO 0.56 K/mm3 (0.16-1.47); MONOCYTES PERCENT AUTO 8 % (4-13); Mean Corpuscular HGB 38.2 pg (26.0-34.0); Mean Corpuscular HGB Conc 34.5 g/dL (31.5-36.5); Mean Corpuscular Volume 111 fL (80-100); Mean Platelet Volume 10.4 fL (9.1-12.4); NEUTROPHILS ABSOLUTE AUTO 4.52 K/mm3 (1.96-9.15); NEUTROPHILS PERCENT AUTO 65 % (41-73); Platelet Count 191 K/mm3 (150-400); RDW Coefficient Variation 15.6 % (11.7-14.2); RDW Standard Deviation 63.7 fL (35.1-46.3); Red Blood Cell Count 2.41 M/mm3 (3.80-5.20)
[2021-03-07 08:38] LABS: Albumin, Blood 2.3 g/dL (3.4-5.0); Albumin/Globulin Ratio 0.6 (0.8-1.8); Bilirubin, Total 0.4 mg/dL (0.1-1.0); Bun/Creatinine Ratio 6.7 (12.0-20.0); Calcium, Blood 8.8 mg/dL (8.5-10.1); Creatinine, Blood 1.2 mg/dL (0.40-1.00); Globulin, Blood 3.8 g/dL (2.2-4.0); Magnesium, Blood 1.5 mg/dL (1.6-2.4); Phosphorus, Blood 4.9 mg/dL (2.5-4.9); Potassium, Blood 4.5 mmol/L (3.5-5.5); Total Protein, Blood 6.1 g/dL (6.4-8.2)
[2021-03-07] MEDS ORDERED: CHLO25 PO (11:39)
[2021-03-07] MEDS ORDERED: Nicoderm Cq1 EAC1 TOP (11:41)
[2021-03-07] MEDS ORDERED: Naltrexone HCl50 MG PO (11:41)
[2021-03-07] MEDS ORDERED: MULVITA PO (11:42)
--- NOTE | 2021-03-07 13:32 | NUR ---
PT AWAKE AT START OF SHIFT, UP IN RM TO BTHRM. PT CONTINUES TO IMPROVE. P/T IN TO SEE PT, TAKING A WALK AROUND HALLS AND ENTIRE 3RD FLOOR. PT ABLE TO BE INDEPENDENT ON HER OWN IN RM AND OUTER NIEVES. DR MINER IN TO SEE PT, DISCUSSED PLAN OF CARE. PT OK TO D/C HOME AND THEN ENTER OUTPT ALCOHOL REHAB; EVEREEN MINE ENGINEERING SUPERVISOR ARRANGING DETAILS. PT TO STAY AT HER MOMS UNTIL GOING OVER TO REHAB. D/C ORDERS PLACED. MEDS FAXED TO [facility] IN [place], PER PT REQUEST. D/C INSTRUCTIONS DISCUSSED WITH PT; VERBALIZED UNDERSTANDING. ASSISTED PT OUT TO S/O FOR RIDE HOME.
== END 2021-03-07 13:36 | disposition home health service (06) | DRG 871 ==
LOC: ER 11:39 → MEDS 17:12 → PCU 02-27 08:18 → MEDS 03-03 19:00
PROVIDERS: Family Medicine; Hospitalist; Pharmacist; Physician Assistant; ADMIT Internal Medicine
DX: A41.9 Sepsis, unspecified organism (principal); K85.20 Alcohol induced acute pancreatitis without necrosis or infection; N17.9 Acute kidney failure, unspecified; N39.0 Urinary tract infection, site not specified; F10.231 Alcohol dependence with withdrawal delirium; K21.9 Gastro-esophageal reflux disease without esophagitis; K70.30 Alcoholic cirrhosis of liver without ascites; D64.9 Anemia, unspecified; Z86.711 Personal history of pulmonary embolism; Z88.1 Allergy status to other antibiotic agents; Z88.5 Allergy status to narcotic agent; Z88.8 Allergy status to other drugs, medicaments and biological substances; F32.A Depression, unspecified; F41.9 Anxiety disorder, unspecified; Z90.710 Acquired absence of both cervix and uterus; Z98.890 Other specified postprocedural states; Z79.899 Other long term (current) drug therapy; K76.0 Fatty (change of) liver, not elsewhere classified
CPT/HCPCS: 36415; 71045; 76705; 80048; 80053; 80069; 80202; 81001; 82607; 82746; 83605; 83690; 83735; 84100; 85025; 87040; 93005; 93010; 96365; 96368; 96375; 97110; 97116; 97129; 97162; 97165; 97530; 97535; 99285-25; A9270; C1751; G0480; J1170; J1650; J1885; J2020; J2060; J2405; J2543; J2550; J2560; J3370; J3411; J3475; J3480; J7030; J7050; J7060; J7120

== ENCOUNTER → 2021-03-28 | Outpatient (CLI) | payer OTHER ==
[~2021-03-28] MED LIST changes: +MULVITA PO; +Nicoderm Cq1 EAC1 TOP
== END | disposition home or self-care (01) ==
LOC: LAB SHORT 12:46
DX: R30.9 Painful micturition, unspecified (principal)
CPT/HCPCS: 87077; 87086; 87186

== ENCOUNTER 2021-08-16 15:37 | Inpatient (IN) | payer OTHER ==
[~2021-08-16] VITALS: Ht 167.6 cm; Wt 73.3 kg
[~2021-08-16 15:37] MED LIST changes: +METO50 PO
[2021-08-16 16:12] LABS: PCO2 Arterial 36.6 mmHg (35-45); PO2 Arterial 90.6 mmHg (80-100); pH Blood Arterial 7.36 (7.35-7.45)
[2021-08-16 16:31] LABS: Alanine Aminotransfer (ALT/SGP 142 U/L (12-78); Albumin, Blood 3.2 g/dL (3.4-5.0); Alk Phos 188 U/L (50-136); Anion Gap 11 mmol/L (6-16); Aspartate Aminotrans (AST/SGOT 314 U/L (12-37); Bilirubin, Total 0.3 mg/dL (0.1-1.0); Blood Urea Nitrogen 7 mg/dL (8-24); CO2, Blood 23 mmol/L (21-32); Calcium, Blood 8.3 mg/dL (8.5-10.1); Chloride, Blood 108 mmol/L (98-108); Creatinine, Blood 0.63 mg/dL (0.40-1.00); Globulin, Blood 3.2 g/dL (2.2-4.0); Glomerular Filtration Rate >60 (60-); Glucose, Blood 165 mg/dL (70-99); Potassium, Blood 3.7 mmol/L (3.5-5.5); Sodium, Blood 142 mmol/L (136-145); Total Protein, Blood 6.4 g/dL (6.4-8.2)
[2021-08-16 16:40] LABS: Ethanol (Alcohol), Blood, Med 426 mg/dL
[2021-08-16 16:50] LABS: BASOPHILS ABSOLUTE AUTO 0.04 K/mm3 (0.00-0.23); BASOPHILS PERCENT AUTO 1 % (0-2); EOSINOPHILS ABSOLUTE AUTO 0.04 K/mm3 (0.00-0.68); EOSINOPHILS PERCENT AUTO 1 % (0-6); Hematocrit 33.7 % (33.0-51.0); Hemoglobin 11.5 g/dL (11.5-16.0); IMMATURE GRAN ABSOLUTE AUTO 0.03 K/mm3 (0.00-0.10); IMMATURE GRAN PERCENT AUTO 0 % (0-1); LYMPHOCYTES ABSOLUTE AUTO 4.46 K/mm3 (0.84-5.20); LYMPHOCYTES PERCENT AUTO 57 % (21-46); MONOCYTES PERCENT AUTO 6 % (4-13); Mean Corpuscular HGB 36.7 pg (26.0-34.0); Mean Corpuscular HGB Conc 34.1 g/dL (31.5-36.5); Mean Corpuscular Volume 108 fL (80-100); Mean Platelet Volume 10.2 fL (9.1-12.4); NEUTROPHILS ABSOLUTE AUTO 2.77 K/mm3 (1.96-9.15); NEUTROPHILS PERCENT AUTO 35 % (41-73); Platelet Count 107 K/mm3 (150-400); RDW Coefficient Variation 13.4 % (11.7-14.2); RDW Standard Deviation 53.1 fL (35.1-46.3); Red Blood Cell Count 3.13 M/mm3 (3.80-5.20); White Blood Cell Count 7.84 K/mm3 (4.00-11.30)
[2021-08-16] MEDS ORDERED: METO50 PO (16:54)
[2021-08-16] MEDS ORDERED: ACYCLOVIR400 MG PO (16:55)
[2021-08-16] MEDS ORDERED: LORA.5 PO (16:55)
[2021-08-16] MEDS ORDERED: MELO7.5 PO (16:55)
[2021-08-16 17:00] LABS: U Amphetamine Screen Not Detected; U Barbituate Screen Not Detected; U Benzodiazapine Screen Not Detected; U Buprenorphine Screen Not Detected; U Cannabinoids Screen Not Detected; U Cocaine Screen Not Detected; U Methadone Screen Not Detected; U Methamphetamine Screen Not Detected; U Opiates Screen Not Detected; U Oxycodone Screen Not Detected; U Phencyclidine Screen Not Detected; U Propoxyphene Screen Not Detected
[2021-08-16 18:30] LABS: Acetaminophen, Random 3.1 ug/mL (10.0-30.0); Magnesium, Blood 1.6 mg/dL (1.6-2.4)
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
--- NOTE | 2021-08-16 21:08 | NUR ---
PT SEDATED AND INTUBATED AT THIS TIME
[2021-08-16 22:42] LABS: Alanine Aminotransfer (ALT/SGP 116 U/L (12-78); Albumin, Blood 2.8 g/dL (3.4-5.0); Alk Phos 165 U/L (50-136); Anion Gap 12 mmol/L (6-16); Aspartate Aminotrans (AST/SGOT 247 U/L (12-37); Bilirubin, Total 0.3 mg/dL (0.1-1.0); Blood Urea Nitrogen 7 mg/dL (8-24); Bun/Creatinine Ratio 12.7 (12.0-20.0); CO2, Blood 18 mmol/L (21-32); Calcium, Blood 7.1 mg/dL (8.5-10.1); Chloride, Blood 114 mmol/L (98-108); Creatinine, Blood 0.55 mg/dL (0.40-1.00); Globulin, Blood 2.8 g/dL (2.2-4.0); Glomerular Filtration Rate >60 (60-); Glucose, Blood 108 mg/dL (70-99); Salicylate 1.9 mg/dL (2.8-20.0); Sodium, Blood 144 mmol/L (136-145); Total Protein, Blood 5.6 g/dL (6.4-8.2)
[2021-08-17 00:48] LABS: Source, Urine Foley catheter
[2021-08-17 00:56] LABS: Bilirubin, Urine Neg (Neg); Blood, Urine 1+ (Neg); Glucose Qualitative, Urine Neg (Neg); Ketones, Urine Neg (Neg); Leukocyte Esterase, Urine Neg (Neg); Nitrite, Urine Neg (Neg); Protein, Urine 1+ (Neg); Specific Gravity, Urine 1.005 (1.003-1.022); Urobilinogen, Urine NORM (Normal); pH, Urine 6.5 (5.0-8.0)
[2021-08-17 01:06] LABS: Appearance, Urine Clear (Clear); Color, Urine Pale Yellow (P-Yellow)
[2021-08-17 01:07] LABS: Bacteria Not Seen /hpf; Red Blood Cells, Urine 0-2 /hpf (0-2); Squamous Epithelial Cells Not Seen /hpf (Few); White Blood Cells, Urine Not Seen /hpf (0-5)
[2021-08-17 04:35] LABS: BASOPHILS ABSOLUTE AUTO 0.01 K/mm3 (0.00-0.23); BASOPHILS PERCENT AUTO 0 % (0-2); EOSINOPHILS ABSOLUTE AUTO 0.01 K/mm3 (0.00-0.68); EOSINOPHILS PERCENT AUTO 0 % (0-6); Hematocrit 28.3 % (33.0-51.0); Hemoglobin 9.3 g/dL (11.5-16.0); IMMATURE GRAN ABSOLUTE AUTO 0.01 K/mm3 (0.00-0.10); IMMATURE GRAN PERCENT AUTO 0 % (0-1); LYMPHOCYTES ABSOLUTE AUTO 1.19 K/mm3 (0.84-5.20); LYMPHOCYTES PERCENT AUTO 26 % (21-46); MONOCYTES ABSOLUTE AUTO 0.26 K/mm3 (0.16-1.47); MONOCYTES PERCENT AUTO 6 % (4-13); Mean Corpuscular HGB 36.2 pg (26.0-34.0); Mean Corpuscular HGB Conc 32.9 g/dL (31.5-36.5); Mean Corpuscular Volume 110 fL (80-100); Mean Platelet Volume 9.5 fL (9.1-12.4); NEUTROPHILS ABSOLUTE AUTO 3.11 K/mm3 (1.96-9.15); NEUTROPHILS PERCENT AUTO 68 % (41-73); Platelet Count 65 K/mm3 (150-400); RDW Coefficient Variation 13.4 % (11.7-14.2); RDW Standard Deviation 53.5 fL (35.1-46.3); Red Blood Cell Count 2.57 M/mm3 (3.80-5.20); White Blood Cell Count 4.59 K/mm3 (4.00-11.30)
[2021-08-17 04:59] LABS: Alanine Aminotransfer (ALT/SGP 97 U/L (12-78); Albumin, Blood 2.6 g/dL (3.4-5.0); Albumin/Globulin Ratio 1.1 (0.8-1.8); Alk Phos 143 U/L (50-136); Anion Gap 11 mmol/L (6-16); Aspartate Aminotrans (AST/SGOT 181 U/L (12-37); Bilirubin, Total 0.4 mg/dL (0.1-1.0); Blood Urea Nitrogen 6 mg/dL (8-24); Bun/Creatinine Ratio 12.4 (12.0-20.0); CO2, Blood 17 mmol/L (21-32); Calcium, Blood 6.7 mg/dL (8.5-10.1); Chloride, Blood 114 mmol/L (98-108); Creatinine, Blood 0.48 mg/dL (0.40-1.00); Globulin, Blood 2.4 g/dL (2.2-4.0); Glomerular Filtration Rate >60 (60-); Glucose, Blood 142 mg/dL (70-99); Potassium, Blood 3.6 mmol/L (3.5-5.5); Sodium, Blood 142 mmol/L (136-145)
--- NOTE | 2021-08-17 06:52 | NUR ---
SHIFT SUMMARY. PT REMAINED IN BED THROUGHOUT SHIFT, SEDATED AND VENTILATED VIA ETT. VENT SETTINGS CURRENTLY 14/400/5/30%. POWERGLIDE PLACED IN PHILL DURING SHIFT, PERIPHERAL SITES REMAIN WNL. IV PUMP SETTINGS: PROPOFOL 70 MCG/KG/MIN, NS 100 MLS/HR. PRN ATIVAN AND FENTANYL REQUIRED FOR ADJUNCT SEDATION DUE TO AGITATION/RESTLESS MOVEMENT. GREENE IN PLACE, 650 MLS URINE OUT DURING SHIFT. VS STABLE, SEE SHIFT ASSESSMENT FOR FURTHER DETAILS. WILL CONTINUE TO MONITOR AND REPORT OFF TO DAYSHIFT RN.
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
--- NOTE | 2021-08-17 18:10 | NUR ---
SHIFT SUMMARY NO ACUTE EVENTS THIS SHIFT. THROUGHOUT DAY PT WAKES SPONTANEOUSLY AND WITH STIMULATION. BECAME EXTREMELY AGITATED, THRASHING IN BED, COUGHING AND GAGGING. DOES NOT FOLLOW COMMANDS. PT WAS TREATED WITH PRN FENTANYL AND ATIVAN WHICH WERE EFFECTIVE FOR SHORT PERIODS. PRECEDEX ADDED THIS AFTERNOON RESULTING IN APPROPRIATE SEDATION. MECAHINCAL VENTILATION WITH FIO2 30%, PEEP 5. SMALL AMOUNT OF LEE SECRETIONS, SPUTUM SENT. SINUS TACH TO 120S, DECREASED TO 90S WITH METOPROLOL. FEBRILE. SEE VITALS FOR TEMPERATURE TREND. 750 CC UOP THIS SHIFT. OGT TO LOW INTERMITTENT SUCTION.
--- NOTE | 2021-08-17 22:19 | NUR ---
SHIFT ASSESSMENT PT INTUBATED AND SEDATED. VENT SETTINGS- VC:16/400/30%/ PEEP-5 c O2 SATS >95%. CURRENTLY SEDATED c PROPOFOL @ 45MC/KG/MIN AND PRECEDEX @ 0.5MCG/KG/HR. DURING SEDATION VACATION PT WOULD OPEN EYES, COUGH VIGOROUSLY AND PULL ON RESTRAINTS, DID NOT FOLLOW COMMANDS. NSR ON THE CEMENT SIDE LASTER. Q6 QTC MEASUREMENTS, MOST RECENT MEASUREMENT WAS 0.49, SEE NOTES FOR UPLOADED RYTHM STRIPS. OGT TO LIS. TEMP PROBE GREENE DRAINING YELLOW/ GREEN URINE WITH SEDIMENT, CURRENT TEMP 100.7, ICE PACKS TO AXILLA ALONG WITH BEDSIDE FAN. THIS NURSE UPDATED POISON CONTROL, NO DIFFERING RECOMMENDATIONS.
[2021-08-18 03:53] LABS: Hematocrit 28.7 % (33.0-51.0); Hemoglobin 9.8 g/dL (11.5-16.0); Mean Corpuscular HGB 37.8 pg (26.0-34.0); Mean Corpuscular HGB Conc 34.1 g/dL (31.5-36.5); Mean Corpuscular Volume 111 fL (80-100); Mean Platelet Volume 10.1 fL (9.1-12.4); RDW Coefficient Variation 13.2 % (11.7-14.2); RDW Standard Deviation 52.8 fL (35.1-46.3); Red Blood Cell Count 2.59 M/mm3 (3.80-5.20); White Blood Cell Count 6.31 K/mm3 (4.00-11.30)
[2021-08-18 03:58] LABS: Platelet Count 38 K/mm3 (150-400)
[2021-08-18 04:07] LABS: Anion Gap 8 mmol/L (6-16); Blood Urea Nitrogen 4 mg/dL (8-24); Bun/Creatinine Ratio 9.2 (12.0-20.0); CO2, Blood 21 mmol/L (21-32); Calcium, Blood 6.4 mg/dL (8.5-10.1); Chloride, Blood 111 mmol/L (98-108); Creatinine, Blood 0.44 mg/dL (0.40-1.00); Glomerular Filtration Rate >60 (60-); Glucose, Blood 84 mg/dL (70-99); Potassium, Blood 3.8 mmol/L (3.5-5.5); Sodium, Blood 140 mmol/L (136-145)
--- NOTE | 2021-08-18 06:19 | NUR ---
SHIFT SUMMARY PT REMAINS INTUBATED, CURRENTLY ON SBT c VENT SETTINGS-SPONT:02/14 @ 30% c O2 SATS >95%. PROPOFOL ON SB. PRECEDEX @ 0.5MCG/KG/HR. PT AWAKENS WITH STIMULI, OPENS EYES AND SHAKES HER HEAD. UNABLE TO DETERMINE IF HEAD MOVEMENT IS IN RESPONSE TO QUESTIONS. PULLING AT RESTRAINTS BUT CALMS DOWN WITH VERBAL REDIRECTION. PT BECOMING FEBRILE WITH DECREASE IN SEDATION, MEDICATED WITH PT TYLENOL, FAN AND ICE PACKS ON PT. AM LABS c CRITICAL PLT, DR WOODS NOTIFIED. DC'D LOVENOX, RECHECK PLT SCHEDULED FOR NOON TODAY. NO OBVIOUS SIGNS OF BLEEDING. TEMP PROBE GREENE DRAINING NEIL URINE. NO BM THIS SHIFT. WILL MONITOR CLOSELY, REPORT TO BE GIVEN TO ONCOMING NURSE.
--- NOTE | 2021-08-18 07:15 | NUR ---
ASSUMED CARE OF PT, REPORT RCV'D FROM CAROL ROQUE. PT INTUBATED AND SEDATED. VENT SETTING AC 16/400/5/30%. PROPOFOL @30 MCG/KG/MIN, PRECEDEX @ 0.5 MCG/KG/HR. PT OPENS EYES TO VERBAL COMMAND. VSS. SEE FULL SHIFT ASSESSMENT.
[2021-08-18 07:33] LABS: BAND PERCENT MAN 16 % (0-8); BASOPHILS ABSOLUTE MAN 0.06 K/mm3 (0.00-0.23); BASOPHILS PERCENT MAN 1 % (0-2); EOSINOPHILS ABSOLUTE MAN 0.18 K/mm3 (0.00-0.68); EOSINOPHILS PERCENT MAN 3 % (0-6); LYMPHOCYTES ABSOLUTE MAN 1.89 K/mm3 (0.84-5.20); LYMPHOCYTES PERCENT MAN 30 % (21-46); MONOCYTES ABSOLUTE MAN 0.56 K/mm3 (0.16-1.47); MONOCYTES PERCENT MAN 9 % (4-13); NEUTROPHILS ABSOLUTE MAN 3.59 K/mm3 (1.96-9.15); SEG NEUTROPHILS PERCENT MAN 41 % (41-73); TOTAL CELLS COUNTED 100
--- NOTE | 2021-08-18 09:37 | NUR ---
PT PLACED ON SPONTANEOUS VENT SETTINGS @0800, SEDATION PLACED ON STANDBY. PT TOLERATING SBT WELL, EXTUBATED TO 2LNC 0920. PLAN TO INITIATE 2-MD HOLD AND GET PSYCH CONSULTATION.
[2021-08-18 12:26] LABS: Mean Platelet Volume 10.7 fL (9.1-12.4)
[2021-08-18 12:37] LABS: Platelet Count 34 K/mm3 (150-400)
--- NOTE | 2021-08-18 12:53 | NUR ---
BEDSIDE SWALLOW EVAL COMPLETED, NO COMPLICATIONS. PT TEARFUL, ALERT AND ORIENTEDX4. PT DENIES SI BUT STATES THAT SHE "WANTED THE PAIN TO GO AWAY", SHE REPORTS FEELING "STRESSED" DUE TO "PLAMMOMG SONS WEDDING". PT REPORTS THAT SHE TOOK UNKNOWN AMOUNT OF "SEROQUEL, CYCLOBENZAPRINE, METOPROLOL, MELOXICAM" BUT DID NOT WANT TO "KILL HERSELF", PT STATES "I KNOW MY MEDICATIONS AND IF I WANTED TO KILL MYSELF I KNOW HOW". EXPLAINED 2-MD HOLD AND NEED FOR PSYCH CONSULT. PT AGREEABLE, 1:1 SITTER REMAINS AT DOORWAY. PT'S MOTHER AT BEDSIDE, PER MOTHER, PT SEEKING ADMISSION TO [facility] FOR ETOH DETOX-NEEDS PSYCH EVAL BEFORE ACCEPTANCE.
[2021-08-18 15:19] LABS: Source, Urine Foley catheter
[2021-08-18 15:51] LABS: Appearance, Urine Clear (Clear); Bilirubin, Urine Neg (Neg); Blood, Urine 5+ (Neg); Color, Urine Yellow (P-Yellow); Glucose Qualitative, Urine Neg (Neg); Ketones, Urine 2+ (Neg); Leukocyte Esterase, Urine Neg (Neg); Nitrite, Urine Neg (Neg); Protein, Urine 1+ (Neg); Specific Gravity, Urine 1.005 (1.003-1.022); Urobilinogen, Urine NORM (Normal); pH, Urine 6.5 (5.0-8.0)
[2021-08-18 16:11] LABS: Bacteria Few /hpf; Red Blood Cells, Urine 25-50 /hpf (0-2); Squamous Epithelial Cells Few /hpf (Few); White Blood Cells, Urine 0-2 /hpf (0-5)
--- NOTE | 2021-08-18 18:27 | NUR ---
SHIFT SUMMARY PT ALERT AND ORIENTED T/O SHIFT, PT REMAINS TEARFUL BUT COOPERATIVE WITH CARE. COMPLAINS OF INTENSE RIGHT FLANK PAIN. RENAL ULTRASOUND AND URINALYSIS SENT. TREATED WITH FENTANYL NEEDED. 1800 ML URINARY OUTPUT FROM CATHETER. TMAX 101.4, PT FLUSHED AND WARM TO THE TOUCH. FAN PLACED AND PT GIVEN PO TYLENOL. 2 MD HOLD AND SUICIDE RISK LIFTED. PT EXPRESSES DESIRE TO GO HOME. ON PHONE WITH MOTHER. ENCOURAGED TO STAY UNTIL FEVER BREAKS AND MEDICALLY TRAVON. PT AGREES FOR NOW, RESTING COMFORTABLY. WILL REPORT TO ONCOMING NURSE.
--- NOTE | 2021-08-18 19:35 | NUR ---
SHIFT ASSESSMENT ASSUMED CARE OF PT @ 1900, REPORT FROM PAOLO MEDINA. PT ALERT AND ORIENTED TO PERSON, PLACE, AND SURROUNDINGS. FOLLOWING COMMANDS BUT SLOW AT TIMES. PT VERY EMOTIONAL AND SORRY ABOUT HER ACTIONS. SHE WISHES TO GO HOME TO SEE HER KIDS. ASSISTED PT WITH MULTIPLE PHONE CALLS TO HER MOTHER. PT TEARFUL BUT REMAINS COMPLIANT WITH CARE AND APOLOGETIC FOR BEING HERE. REMAINS ON ROOM AIR WITH O2 SATS >90%. PT WITH TEMP PROBE CATH DRAINING NEIL URINE, TEMP 100.5. ST ON THE BACK PADDER. BP STABLE.
[2021-08-19 03:49] LABS: BASOPHILS ABSOLUTE AUTO 0.01 K/mm3 (0.00-0.23); BASOPHILS PERCENT AUTO 0 % (0-2); EOSINOPHILS ABSOLUTE AUTO 0.06 K/mm3 (0.00-0.68); EOSINOPHILS PERCENT AUTO 1 % (0-6); Hematocrit 27.5 % (33.0-51.0); Hemoglobin 9.5 g/dL (11.5-16.0); IMMATURE GRAN ABSOLUTE AUTO 0.11 K/mm3 (0.00-0.10); IMMATURE GRAN PERCENT AUTO 2 % (0-1); LYMPHOCYTES ABSOLUTE AUTO 1.18 K/mm3 (0.84-5.20); LYMPHOCYTES PERCENT AUTO 21 % (21-46); MONOCYTES ABSOLUTE AUTO 0.34 K/mm3 (0.16-1.47); MONOCYTES PERCENT AUTO 6 % (4-13); Mean Corpuscular HGB 37.1 pg (26.0-34.0); Mean Corpuscular HGB Conc 34.5 g/dL (31.5-36.5); Mean Corpuscular Volume 107 fL (80-100); Mean Platelet Volume 11.1 fL (9.1-12.4); NEUTROPHILS ABSOLUTE AUTO 3.96 K/mm3 (1.96-9.15); NEUTROPHILS PERCENT AUTO 70 % (41-73); RDW Coefficient Variation 12.9 % (11.7-14.2); RDW Standard Deviation 50.8 fL (35.1-46.3); Red Blood Cell Count 2.56 M/mm3 (3.80-5.20); White Blood Cell Count 5.66 K/mm3 (4.00-11.30)
[2021-08-19 03:58] LABS: Platelet Count 31 K/mm3 (150-400)
[2021-08-19 04:01] LABS: International Normalized Ratio 1.21; Prothrombin Time Results 12.5 Sec (9.7-11.5)
[2021-08-19 04:05] LABS: Alanine Aminotransfer (ALT/SGP 59 U/L (12-78); Albumin, Blood 2.2 g/dL (3.4-5.0); Albumin/Globulin Ratio 0.8 (0.8-1.8); Alk Phos 124 U/L (50-136); Anion Gap 5 mmol/L (6-16); Aspartate Aminotrans (AST/SGOT 74 U/L (12-37); Bilirubin, Direct 0.6 mg/dL (0.0-0.3); Bilirubin, Indirect 0.7 mg/dL (0.1-0.7); Bilirubin, Total 1.3 mg/dL (0.1-1.0); Blood Urea Nitrogen 2 mg/dL (8-24); Bun/Creatinine Ratio 4.8 (12.0-20.0); CO2, Blood 24 mmol/L (21-32); Calcium, Blood 7.6 mg/dL (8.5-10.1); Chloride, Blood 110 mmol/L (98-108); Creatinine, Blood 0.42 mg/dL (0.40-1.00); Globulin, Blood 2.7 g/dL (2.2-4.0); Glomerular Filtration Rate >60 (60-); Glucose, Blood 96 mg/dL (70-99); Potassium, Blood 3.3 mmol/L (3.5-5.5); Sodium, Blood 139 mmol/L (136-145); Total Protein, Blood 4.9 g/dL (6.4-8.2)
--- NOTE | 2021-08-19 06:10 | NUR ---
SHIFT SUMMARY PT REMAINS ALERT AND ORIENTED, FOLLOWING COMMANDS, ADJUSTING SELF IN BED T/O NIGHT. PT CONTINUES TO SHOW SIGNS OF ETOH WITHDRAWL, TREATED WITH PRN ATIVAN AND LIBRIUM PER ABBE. PT ON RA WHILE AWAKE, ON 2-4LPM O2 VIA NC WHILE SLEEPING. PTS SKIN COLOR IMPROVING, MUCH LESS MOTTLED THAN PREVIOUS NIGHT. TEMP PROBE GREENE REMAINS IN PLACE, DRAINING LIGHT YELLOW URINE. T-MAX 101, TREATED c PRN TYLENOL AND BEDSIDE FAN. PT CONTINUES TO C/O MODERATE R FLANK PAIN, MEDICATED c PRN PAIN MEDS. AM LAB RESULT OF LOW K+, REPLENISHING NOW. WILL CONTINUE TO MONITOR CLOSELY.
--- NOTE | 2021-08-19 07:56 | NUR ---
AM NOTE.... ASSUMED CARE OF PT AT 0700, THE PT IS A&Ox3 DROWSY AND LETHARGIC WITH SLIGHT CONFUSION AT TIMES. THE PT IS IN SINUS TACH IN THE LOW 100'S, BP IS STABLE. THE PT HAS TRACE EDEMA NOTED TO HER BUE. THE PT IS ON 2L NC WHILE SLEEPING BUT IS ON RA WHILE WAKE. L/S CLEAR T/O DIM IN THE BASES RR IN THE 20'S. BT PRESENT AND HYPOACTIVE, ABD IS FIRM AND TENDER TO PALPATION. THE PT'S GREENE IS PATENT AND DRAINING TO GRAVITY. DURING AM ASSESSMENT THE PT STARTED TO C/O OF 8/10 CHEST PAIN THAT STARTED ON THE LEFT SIDE AND RADIATED DOWN ACROSS HER SIDE AND INTO HER BACK. AN EKG WAS OBTAINED. THE PT WAS ALSO C/O OF 8/10 PAIN "ALL OVER." WILL CONTINUE TO MONITOR.
--- NOTE | 2021-08-19 08:46 | NUR ---
PT UPDATE.... PER THE PT THE CHEST PAIN IS WORSE WITH DEEP BREATHS. THIS RN REVIEWED PREVIOUS DOCUMENTATION AND PER THE PREVIOUS ASSESSMENTS THE PT HAS BEEN C/O OF LEFT RIB PAIN SINCE EXTUBATION. WILL CONTINUE TO MONITOR.
--- NOTE | 2021-08-19 17:10 | NUR ---
SHIFT SUMMARY.... NO ACUTE NEGATIVE CHANGES NOTED THIS SHIFT. THE PT'S VS HAVE BEEN STABLE. PT HAS BEEN ON RA T/O THIS SHIFT WITH O2 SATS >90%. THE PT'S MENTATION HAS SLOWLY CLEARED T/O THE DAY. THE PT'S LAST CIWA SCORE WAS 6. THE PT'S MOTHER WAS AT THE BED SIDE FOR APROX 1 HOUR TODAY, THE PT WANTED TO LEAVE AMA DURING THAT TIME AND THE MOTHER LEFT. ONCE THE MOTHER LEFT THE PT FELL BACK ASLEEP. THE PT WAS GIVEN A BEDBATH THIS SHIFT. THE PT'S GREENE WAS D/C'd PER ORDERS. SHE HAS DENIED CHEST PAIN SINCE THE FIRST ASSESSMENT THIS AM. THE PT ALSO DENIES ANY SUICIDAL IDEATIONS. CALL LIGHT IN REACH WILL CONTINUE TO MONITOR UNTIL REPORT IS GIVEN TO ONCOMING RN.
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
--- NOTE | 2021-08-19 21:39 | NUR ---
ASSUMED CARE AT 1900 PATIENT IS ALERT AND ORIENTED X3, ABLE TO STATE SELF, MONTH, AND PLACE, FOLLOWS COMMANDS. UNABLE TO STATE YEAR, PATIENT THOUGHT IT WAS 2010. PATIENT IS AGITATED AND ANXIOUS ABOUT HER SITUATION. CIWA 16, PATIENT STATES HEADACHE, NAUSEA WITH DRY HEAVING, SOME CONFUSION ABOUT THE YEAR, ANXIOUS AND AGITATED, MEDICATED PER EMAR. 02 SATS 91-93% ON RA, PT REFUSING OXYGEN. LS COARSE TO DIM, PRODUCTIVE COUGH THAT PATIENT SWALLOWS. HR SR 90s-100, BP STABLE, PATIENT NOW REFUSING TO WEAR TELE MONITOR. HOSPITALIST AWARE, DC'd TELE. DENIES CP PRESSURE. UP TO TOILET SBA AND ABLE TO URINATE. BED ALARM ON D/T FORGETFULLNESS AND IMPULSIVE BEHAVIOR. PATIENT BECAME MORE AGITATED AND STATED SHE WANTED TO LEAVE, WENT TO GET HER OTHER SCRUBS TO WEAR AND PATIENT STATED SHE WAS CALLING HER MOM, AFTER TALKING ON THE PHONE THE PATIENT LAID BACK IN BED AND STATED SHE WAS STAYING. HOSPITALIST AWARE.
--- NOTE | 2021-08-19 23:11 | NUR ---
PATIENT AGITATED WANTING TO LEAVE, CALLED MOM, WHILE ON THE PHONE WITH PATIENTS MOM PATIENT CALLED POLICE. MOM AGREED TO COME GET THE PATIENT HOWEVER PATIENT DECIDED TO WALK OUT, PATIENT REFUSED TO SIGN AMA FORM, CHARGE NURSE WITNESSED. PATIENT ALLOWED ME TO PULL OUT POWERGLIDE BEFORE WALKING OUT OF THE UNIT WITH SECURITY. LEFT AT 2305.
--- NOTE | 2021-08-19 23:18 | NUR ---
HOSPITALIST AWARE OF PATIENT LEAVING AMA
== END 2021-08-19 23:08 | disposition left against medical advice (07) | DRG 917 ==
LOC: ER 15:37 → ICUW 20:03 → ICUE 20:03
PROVIDERS: Emergency Medicine; Internal Medicine Critical Care Medicine; ADMIT Internal Medicine
PROC: 0BH18EZ Insertion of Endotracheal Airway into Trachea, Via Natural or Artificial Opening Endoscopic (ICD-10-PCS; principal; 2021-08-16)
PROC: HZ2ZZZZ Detoxification Services for Substance Abuse Treatment (ICD-10-PCS; 2021-08-16)
PROC: 5A1935Z Respiratory Ventilation, Less than 24 Consecutive Hours (ICD-10-PCS; 2021-08-16)
DX: T43.592A Poisoning by other antipsychotics and neuroleptics, intentional self-harm, initial encounter (principal); J96.00 Acute respiratory failure, unspecified whether with hypoxia or hypercapnia; J69.0 Pneumonitis due to inhalation of food and vomit; A41.9 Sepsis, unspecified organism; G92.9 Unspecified toxic encephalopathy; E72.11 Homocystinuria; F10.239 Alcohol dependence with withdrawal, unspecified; F41.9 Anxiety disorder, unspecified; K70.30 Alcoholic cirrhosis of liver without ascites; F32.A Depression, unspecified; I95.9 Hypotension, unspecified; D53.9 Nutritional anemia, unspecified; E88.89 Other specified metabolic disorders; K21.9 Gastro-esophageal reflux disease without esophagitis; D69.59 Other secondary thrombocytopenia; D50.9 Iron deficiency anemia, unspecified; Y90.8 Blood alcohol level of 240 mg/100 ml or more; F17.210 Nicotine dependence, cigarettes, uncomplicated; Z88.5 Allergy status to narcotic agent; Z90.710 Acquired absence of both cervix and uterus; Z88.8 Allergy status to other drugs, medicaments and biological substances; Z79.899 Other long term (current) drug therapy; Z71.41 Alcohol abuse counseling and surveillance of alcoholic; Z86.711 Personal history of pulmonary embolism; Z98.1 Arthrodesis status; Z88.1 Allergy status to other antibiotic agents; Z79.01 Long term (current) use of anticoagulants; Z71.6 Tobacco abuse counseling
CPT/HCPCS: 31500; 31720; 36600; 51702; 71045; 76770; 80048; 80053; 80076; 81001; 82803; 82947; 83735; 85025; 85049; 85610; 87070; 87205; 93005; 93010; 94002; 94003; 94760; 94762; 96374; 99285-25; A9270; C1751; C9113; G0480; J0295; J0330; J1650; J2060; J2405; J2704; J3010; J3411; J3475; J3480; J7030; J7042; J7050

== ENCOUNTER 2021-08-20 15:45 | Inpatient (IN) | payer OTHER ==
[~2021-08-20] VITALS: Ht 170.2 cm; Wt 68.0 kg
[~2021-08-20 15:45] MED LIST changes: +ACYCLOVIR400 MG PO
[2021-08-20 16:39] LABS: Source, Urine Clean Catch
[2021-08-20 17:02] LABS: Appearance, Urine Clear (Clear); Bilirubin, Urine Neg (Neg); Blood, Urine 1+ (Neg); Color, Urine Yellow (P-Yellow); Glucose Qualitative, Urine Neg (Neg); Ketones, Urine 2+ (Neg); Leukocyte Esterase, Urine Neg (Neg); Nitrite, Urine Neg (Neg); Protein, Urine Neg (Neg); Specific Gravity, Urine 1.005 (1.003-1.022); Urobilinogen, Urine NORM (Normal)
[2021-08-20 17:09] LABS: BASOPHILS ABSOLUTE AUTO 0.02 K/mm3 (0.00-0.23); BASOPHILS PERCENT AUTO 0 % (0-2); EOSINOPHILS ABSOLUTE AUTO 0.03 K/mm3 (0.00-0.68); EOSINOPHILS PERCENT AUTO 1 % (0-6); Hematocrit 30.7 % (33.0-51.0); Hemoglobin 10.7 g/dL (11.5-16.0); IMMATURE GRAN ABSOLUTE AUTO 0.02 K/mm3 (0.00-0.10); IMMATURE GRAN PERCENT AUTO 0 % (0-1); LYMPHOCYTES ABSOLUTE AUTO 1.15 K/mm3 (0.84-5.20); LYMPHOCYTES PERCENT AUTO 22 % (21-46); MONOCYTES ABSOLUTE AUTO 0.56 K/mm3 (0.16-1.47); MONOCYTES PERCENT AUTO 11 % (4-13); Mean Corpuscular HGB Conc 34.9 g/dL (31.5-36.5); Mean Corpuscular Volume 106 fL (80-100); Mean Platelet Volume 9.6 fL (9.1-12.4); NEUTROPHILS ABSOLUTE AUTO 3.51 K/mm3 (1.96-9.15); NEUTROPHILS PERCENT AUTO 66 % (41-73); Platelet Count 71 K/mm3 (150-400); RDW Coefficient Variation 13.2 % (11.7-14.2); RDW Standard Deviation 50.3 fL (35.1-46.3); Red Blood Cell Count 2.89 M/mm3 (3.80-5.20); White Blood Cell Count 5.29 K/mm3 (4.00-11.30)
[2021-08-20 17:19] LABS: U Amphetamine Screen Not Detected; U Barbituate Screen Not Detected; U Benzodiazapine Screen DETECTED; U Buprenorphine Screen Not Detected; U Cannabinoids Screen Not Detected; U Cocaine Screen Not Detected; U Methadone Screen Not Detected; U Methamphetamine Screen Not Detected; U Opiates Screen Not Detected; U Oxycodone Screen Not Detected; U Phencyclidine Screen Not Detected; U Propoxyphene Screen Not Detected
[2021-08-20 17:35] LABS: Alanine Aminotransfer (ALT/SGP 64 U/L (12-78); Albumin, Blood 3.1 g/dL (3.4-5.0); Albumin/Globulin Ratio 0.8 (0.8-1.8); Alk Phos 172 U/L (50-136); Anion Gap 8 mmol/L (6-16); Aspartate Aminotrans (AST/SGOT 71 U/L (12-37); Bilirubin, Total 1.2 mg/dL (0.1-1.0); Blood Urea Nitrogen 3 mg/dL (8-24); Bun/Creatinine Ratio 7.2 (12.0-20.0); CO2, Blood 23 mmol/L (21-32); Calcium, Blood 9.3 mg/dL (8.5-10.1); Chloride, Blood 109 mmol/L (98-108); Creatinine, Blood 0.41 mg/dL (0.40-1.00); Globulin, Blood 3.8 g/dL (2.2-4.0); Glomerular Filtration Rate >60 (60-); Glucose, Blood 88 mg/dL (70-99); Potassium, Blood 3.3 mmol/L (3.5-5.5); Sodium, Blood 140 mmol/L (136-145)
[2021-08-20 17:36] LABS: White Blood Cells, Urine 0-2 /hpf (0-5)
[2021-08-20 17:38] LABS: Bacteria Rare /hpf; Squamous Epithelial Cells Few /hpf (Few)
[2021-08-20 17:46] LABS: Ethanol (Alcohol), Blood, Med 133 mg/dL; Salicylate <1.7 mg/dL (2.8-20.0)
[2021-08-20 17:47] LABS: Total Protein, Blood 6.9 g/dL (6.4-8.2)
[2021-08-20 18:00] LABS: Acetaminophen, Random <2.0 ug/mL (10.0-30.0)
[2021-08-20 18:31] LABS: International Normalized Ratio 1.09; Prothrombin Time Results 11.4 Sec (9.7-11.5)
--- NOTE | 2021-08-20 20:20 | NUR ---
PT ARRIVED TO ROOM VIA W/C W/MOTHER AT BEDSIDE. ARRIVED TO ROOM UPON ARRIVAL TO DISCUSS PLAN OF CARE. MOMENTS LATER PT'S MOTHER AND MD INFORMED ME PT WAS LEAVING AMA. SHE HAD ALREADY LEFT THE UNIT AND I NEVER HAD A CHANCE TO MEET OR ASSESS HER. PT'S MOM SIGNED AMA PAPERWORK STATING "SHE'S LONG GONE AND IS PROBABLY WAITING AT THE CAR". PHARMACEUTICAL SCIENTIST'S, RN DEEP AND MADE AWARE.
== END 2021-08-20 20:30 | disposition left against medical advice (07) | DRG 894 ==
LOC: ER 15:45 → MEDS 18:36
PROVIDERS: Emergency Medicine; ADMIT Internal Medicine
DX: F10.20 Alcohol dependence, uncomplicated (principal); F17.213 Nicotine dependence, cigarettes, with withdrawal; D50.9 Iron deficiency anemia, unspecified; F41.9 Anxiety disorder, unspecified; F32.A Depression, unspecified; K70.30 Alcoholic cirrhosis of liver without ascites; K76.0 Fatty (change of) liver, not elsewhere classified; R45.1 Restlessness and agitation; K21.9 Gastro-esophageal reflux disease without esophagitis; D69.59 Other secondary thrombocytopenia; Z71.6 Tobacco abuse counseling; Z90.710 Acquired absence of both cervix and uterus; Z88.1 Allergy status to other antibiotic agents; Z88.5 Allergy status to narcotic agent; Z88.8 Allergy status to other drugs, medicaments and biological substances; Z86.718 Personal history of other venous thrombosis and embolism; Z98.1 Arthrodesis status; Z90.89 Acquired absence of other organs; Z79.899 Other long term (current) drug therapy; X58.XXXA Exposure to other specified factors, initial encounter
CPT/HCPCS: 36415; 71045; 72100; 80053; 81001; 81025; 82140; 83690; 85025; 85610; 99285-25; A9270; G0480

== ENCOUNTER 2021-09-09 22:56 | Inpatient (IN) | payer OTHER ==
[~2021-09-09] VITALS: Ht 170.2 cm; Wt 69.2 kg
[2021-09-09 23:35] LABS: BASOPHILS ABSOLUTE AUTO 0.03 K/mm3 (0.00-0.23); BASOPHILS PERCENT AUTO 0 % (0-2); EOSINOPHILS ABSOLUTE AUTO 0.03 K/mm3 (0.00-0.68); EOSINOPHILS PERCENT AUTO 0 % (0-6); Hemoglobin 14.1 g/dL (11.5-16.0); IMMATURE GRAN ABSOLUTE AUTO 0.04 K/mm3 (0.00-0.10); IMMATURE GRAN PERCENT AUTO 1 % (0-1); LYMPHOCYTES ABSOLUTE AUTO 4.47 K/mm3 (0.84-5.20); LYMPHOCYTES PERCENT AUTO 62 % (21-46); MONOCYTES ABSOLUTE AUTO 0.37 K/mm3 (0.16-1.47); MONOCYTES PERCENT AUTO 5 % (4-13); Mean Corpuscular HGB 36.1 pg (26.0-34.0); Mean Corpuscular HGB Conc 34.4 g/dL (31.5-36.5); Mean Corpuscular Volume 105 fL (80-100); Mean Platelet Volume 9.7 fL (9.1-12.4); NEUTROPHILS ABSOLUTE AUTO 2.27 K/mm3 (1.96-9.15); NEUTROPHILS PERCENT AUTO 32 % (41-73); Platelet Count 137 K/mm3 (150-400); RDW Coefficient Variation 13.3 % (11.7-14.2); RDW Standard Deviation 51.2 fL (35.1-46.3); Red Blood Cell Count 3.91 M/mm3 (3.80-5.20); White Blood Cell Count 7.21 K/mm3 (4.00-11.30)
[2021-09-10 00:47] LABS: Ethanol (Alcohol), Blood, Med 455 mg/dL
[2021-09-10 00:48] LABS: Alanine Aminotransfer (ALT/SGP 91 U/L (12-78); Albumin, Blood 4.2 g/dL (3.4-5.0); Albumin/Globulin Ratio 1.1 (0.8-1.8); Alk Phos 255 U/L (50-136); Anion Gap 12 mmol/L (6-16); Aspartate Aminotrans (AST/SGOT 182 U/L (12-37); Bilirubin, Total 0.4 mg/dL (0.1-1.0); Blood Urea Nitrogen 4 mg/dL (8-24); Bun/Creatinine Ratio 7.6 (12.0-20.0); CO2, Blood 25 mmol/L (21-32); Calcium, Blood 9.3 mg/dL (8.5-10.1); Chloride, Blood 105 mmol/L (98-108); Creatinine, Blood 0.53 mg/dL (0.40-1.00); Globulin, Blood 3.7 g/dL (2.2-4.0); Glomerular Filtration Rate >60 (60-); Glucose, Blood 133 mg/dL (70-99); Potassium, Blood 3.9 mmol/L (3.5-5.5); Sodium, Blood 142 mmol/L (136-145); Total Protein, Blood 7.9 g/dL (6.4-8.2)
--- NOTE | 2021-09-10 06:06 | NUR ---
SHIFT SUMMARY TRANSFER FROM ED. WITNESSED ABSENCE SEIZURE SHORTLY AFTER ARRIVAL. NONE SINCE IV KEPPRA ADMINISTRATION. HR SR 80-90'S. BP STABLE, AFEBRILE. SATS OVER 97% ON RA. CIWA SCORE OF 19. PT C/O HEADACHE, TREMORS, NUMBNESS/TINGLING, HALLUCINATIONS, AND CONFUSION. AGITATION AT TIMES. UNSTEADY ON FEED, X1 ASSIST TO PIVOT TO BEDSIDE COMMODE. LESS WITHDRAWAL SYMPTOMS AFTER ATIVAN AND LIBRIUM. PLEASANT BUT SLEEPY THIS AM. BED ALARM ON, RESTING, WITH CALL ALARM AT SIDE. WILL CONTINUE TO MONITOR UNTIL REPORT GIVEN TO DAYSHIFT RN
--- NOTE | 2021-09-10 09:50 | NUR ---
MD NOTIFIED Pt c/o of generalized abd pain, no PRN pain meds or bowel regimen medication ordered. MD to order lactulose PO x1. Will continue to monitor.
[2021-09-10 11:49] LABS: BASOPHILS ABSOLUTE AUTO 0.02 K/mm3 (0.00-0.23); BASOPHILS PERCENT AUTO 0 % (0-2); EOSINOPHILS ABSOLUTE AUTO 0.03 K/mm3 (0.00-0.68); EOSINOPHILS PERCENT AUTO 1 % (0-6); Hematocrit 32.4 % (33.0-51.0); Hemoglobin 11.4 g/dL (11.5-16.0); IMMATURE GRAN ABSOLUTE AUTO 0.02 K/mm3 (0.00-0.10); IMMATURE GRAN PERCENT AUTO 0 % (0-1); LYMPHOCYTES ABSOLUTE AUTO 2.75 K/mm3 (0.84-5.20); LYMPHOCYTES PERCENT AUTO 43 % (21-46); MONOCYTES ABSOLUTE AUTO 0.53 K/mm3 (0.16-1.47); MONOCYTES PERCENT AUTO 8 % (4-13); Mean Corpuscular HGB 37.1 pg (26.0-34.0); Mean Corpuscular HGB Conc 35.2 g/dL (31.5-36.5); Mean Corpuscular Volume 106 fL (80-100); Mean Platelet Volume 9.8 fL (9.1-12.4); NEUTROPHILS PERCENT AUTO 47 % (41-73); Platelet Count 74 K/mm3 (150-400); RDW Coefficient Variation 13.3 % (11.7-14.2); Red Blood Cell Count 3.07 M/mm3 (3.80-5.20); White Blood Cell Count 6.35 K/mm3 (4.00-11.30)
[2021-09-10 12:06] LABS: Alanine Aminotransfer (ALT/SGP 73 U/L (12-78); Albumin, Blood 3.5 g/dL (3.4-5.0); Albumin/Globulin Ratio 1.3 (0.8-1.8); Alk Phos 195 U/L (50-136); Anion Gap 7 mmol/L (6-16); Aspartate Aminotrans (AST/SGOT 164 U/L (12-37); Bilirubin, Total 1.2 mg/dL (0.1-1.0); Blood Urea Nitrogen 7 mg/dL (8-24); Bun/Creatinine Ratio 13.9 (12.0-20.0); CO2, Blood 26 mmol/L (21-32); Calcium, Blood 8.5 mg/dL (8.5-10.1); Chloride, Blood 105 mmol/L (98-108); Globulin, Blood 2.7 g/dL (2.2-4.0); Glomerular Filtration Rate >60 (60-); Glucose, Blood 94 mg/dL (70-99); Potassium, Blood 4.1 mmol/L (3.5-5.5); Sodium, Blood 138 mmol/L (136-145); Total Protein, Blood 6.2 g/dL (6.4-8.2)
--- NOTE | 2021-09-10 18:44 | NUR ---
Shift Summary Pt remains A&Ox4. VSS. Afebrile. No c/o pain. AUO. No BM. Diet advanced- poor appetite. CIWA assessed per protocol- PRN Ativan and Librium administered per orders. Frequent rounds to ensure pt safety. Pt encouraged to reposition q2hrs and pressure points offloaded to prevent pressure ulcers, pt verbalized understanding. Pt in no apparent distress at this time. Will continue to monitor until transfer of care to oncoming RN.
[2021-09-11 04:27] LABS: BASOPHILS ABSOLUTE AUTO 0.01 K/mm3 (0.00-0.23); BASOPHILS PERCENT AUTO 0 % (0-2); EOSINOPHILS ABSOLUTE AUTO 0.02 K/mm3 (0.00-0.68); EOSINOPHILS PERCENT AUTO 1 % (0-6); Hematocrit 30.8 % (33.0-51.0); Hemoglobin 10.7 g/dL (11.5-16.0); IMMATURE GRAN PERCENT AUTO 0 % (0-1); LYMPHOCYTES ABSOLUTE AUTO 1.78 K/mm3 (0.84-5.20); LYMPHOCYTES PERCENT AUTO 58 % (21-46); MONOCYTES ABSOLUTE AUTO 0.28 K/mm3 (0.16-1.47); MONOCYTES PERCENT AUTO 9 % (4-13); Mean Corpuscular HGB 36.8 pg (26.0-34.0); Mean Corpuscular HGB Conc 34.7 g/dL (31.5-36.5); Mean Corpuscular Volume 106 fL (80-100); Mean Platelet Volume 10.3 fL (9.1-12.4); NEUTROPHILS PERCENT AUTO 32 % (41-73); Platelet Count 55 K/mm3 (150-400); RDW Coefficient Variation 13.2 % (11.7-14.2); Red Blood Cell Count 2.91 M/mm3 (3.80-5.20); White Blood Cell Count 3.09 K/mm3 (4.00-11.30)
--- NOTE | 2021-09-11 06:01 | NUR ---
SHIFT SUMMARY PT ALERT AND ORIENTED X4. CIWAS RANGING FROM 5-10. MEDICATED PER EMAR. NO HALLUCINATIONS OR SEIZURES. C/O HEADACHE, ANXIETY, TREMORS, SWEAT. WITHDRAWAL SYMPTOMS RELIEVED WITH ATIVAN AND LIBRIUM. BP STABLE. ON RA SATS OVER 95%. AFEBRILE. ASLEEP MOST OF NIGHT. PLEASANT AND COOPERATIVE TO CARE. IN BED SLEEPING WITH CALL ALARM AT SIDE. WILL CONTINUE TO MONITOR UNTIL REPORT GIVEN TO DAYSHIFT RN
--- NOTE | 2021-09-11 17:29 | NUR ---
Shift Summary Pt remains A&Ox4. CIWA assessed q4hrs- PRN Librium x1. VSS. No c/o pain. Afebrile. AUO. No BM. Poor appetite. Frequent rounds to ensure pt safety. Pt in no apparent distress at this time. Will continue to monitor until transfer of care to oncoming RN.
--- NOTE | 2021-09-11 22:36 | NUR ---
TRANSFER OF CARE: REPORT GIVEN TO CAROL PATTON ON MEDICAL FLOOR AT 2145. PATIENT TRANSFERRED INDEPENDENTLY FROM BED TO W/C AT 2200 AND WAS ACTIVE AND COHERENT. THIS RN TRANSFERRED PATIENT FROM ROOM TO MED FLOOR 345. PATIENT WAS TALKING WITH THIS RN UNTIL JUST OUTSIDE SCU DOORS WHEN PATIENT'S HEAD LOLLED BACK IF SHE HAD FALLEN ASLEEP. PATIENT WAS DIFFICULT TO AROUSE AND MINIMALLY RESPONSIVE TO COMMANDS UPON ENTRY TO ROOM. PATIENT WAS TRANSFERRED TO BED WITH FULL STAFF ASSIST.
--- NOTE | 2021-09-12 05:38 | NUR ---
SHIFT SUMMARY: PT IS A/OX4. SHE DID NOT HAVE ANY SEIZURE ACTIVITY UP ON THE FLOOR. SHE HAD A MOMENT OF FORGETFULLNESS WHEN THE NURSE WAS IN THE ROOM, BUT WAS EASILY REORIENTED. SHE HAS BEEN INDEPENDENT IN THE ROOM. VSS, RA, NO TELE. CIWAs HAVE SCORED 0-1. SHE HAS A POWERGLIDE IN HER PHILL. PRN MEDS (ATIVAN/LIBRIUM) ARE AVAILABLE FOR WITHDRAW OR SEIZURE ACTIVITY. CALL LIGHT IS WITHIN REACH AND WE'LL CONTINUE TO MONITOR.
[2021-09-12 05:41] LABS: BASOPHILS ABSOLUTE AUTO 0.01 K/mm3 (0.00-0.23); BASOPHILS PERCENT AUTO 0 % (0-2); EOSINOPHILS ABSOLUTE AUTO 0.06 K/mm3 (0.00-0.68); EOSINOPHILS PERCENT AUTO 2 % (0-6); Hemoglobin 10.2 g/dL (11.5-16.0); IMMATURE GRAN ABSOLUTE AUTO 0.01 K/mm3 (0.00-0.10); IMMATURE GRAN PERCENT AUTO 0 % (0-1); LYMPHOCYTES ABSOLUTE AUTO 1.84 K/mm3 (0.84-5.20); LYMPHOCYTES PERCENT AUTO 59 % (21-46); MONOCYTES ABSOLUTE AUTO 0.22 K/mm3 (0.16-1.47); MONOCYTES PERCENT AUTO 7 % (4-13); Mean Corpuscular HGB 36.6 pg (26.0-34.0); Mean Corpuscular Volume 108 fL (80-100); Mean Platelet Volume 10.4 fL (9.1-12.4); NEUTROPHILS ABSOLUTE AUTO 0.99 K/mm3 (1.96-9.15); NEUTROPHILS PERCENT AUTO 32 % (41-73); RDW Coefficient Variation 13.3 % (11.7-14.2); RDW Standard Deviation 52.8 fL (35.1-46.3); Red Blood Cell Count 2.79 M/mm3 (3.80-5.20); White Blood Cell Count 3.13 K/mm3 (4.00-11.30)
[2021-09-12 05:53] LABS: International Normalized Ratio 1.17; Platelet Count 47 K/mm3 (150-400); Prothrombin Time Results 12.2 Sec (9.7-11.5)
[2021-09-12 06:17] LABS: Alanine Aminotransfer (ALT/SGP 61 U/L (12-78); Albumin/Globulin Ratio 1.1 (0.8-1.8); Alk Phos 181 U/L (50-136); Anion Gap 7 mmol/L (6-16); Aspartate Aminotrans (AST/SGOT 112 U/L (12-37); Bilirubin, Total 1.1 mg/dL (0.1-1.0); Blood Urea Nitrogen 8 mg/dL (8-24); Bun/Creatinine Ratio 13.6 (12.0-20.0); CO2, Blood 23 mmol/L (21-32); Calcium, Blood 8.7 mg/dL (8.5-10.1); Chloride, Blood 108 mmol/L (98-108); Creatinine, Blood 0.59 mg/dL (0.40-1.00); Globulin, Blood 2.8 g/dL (2.2-4.0); Glomerular Filtration Rate >60 (60-); Glucose, Blood 75 mg/dL (70-99); Potassium, Blood 3.9 mmol/L (3.5-5.5); Sodium, Blood 138 mmol/L (136-145); Total Protein, Blood 5.8 g/dL (6.4-8.2)
== END 2021-09-12 11:33 | disposition home or self-care (01) | DRG 897 ==
LOC: ER 22:56 → PCU 09-10 02:08 → MEDS 09-11 22:15
PROVIDERS: Internal Medicine; Student in an Organized Health Care Education/Training Program; ADMIT Internal Medicine
DX: F10.239 Alcohol dependence with withdrawal, unspecified (principal); D61.818 Other pancytopenia; J21.9 Acute bronchiolitis, unspecified; D69.6 Thrombocytopenia, unspecified; F41.8 Other specified anxiety disorders; K21.9 Gastro-esophageal reflux disease without esophagitis; Z86.711 Personal history of pulmonary embolism; F41.9 Anxiety disorder, unspecified; F32.A Depression, unspecified; Z88.5 Allergy status to narcotic agent; Z88.8 Allergy status to other drugs, medicaments and biological substances; Z88.1 Allergy status to other antibiotic agents; Z98.890 Other specified postprocedural states
CPT/HCPCS: 36415; 80053; 83735; 85025; 85610; 93005; 93010; 96374; 96376; 99285-25; A9270; G0480; J1650; J1953; J2060; J2405; J3411; J3475; J7030; J7042

== ENCOUNTER 2021-10-06 17:35 | Emergency (ER) | payer OTHER ==
[~2021-10-06] VITALS: Ht 167.6 cm; Wt 59.0 kg
[2021-10-06 18:38] LABS: BASOPHILS PERCENT AUTO 1 % (0-2); EOSINOPHILS ABSOLUTE AUTO 0.02 K/mm3 (0.00-0.68); EOSINOPHILS PERCENT AUTO 0 % (0-6); Hematocrit 38.6 % (33.0-51.0); Hemoglobin 13.1 g/dL (11.5-16.0); IMMATURE GRAN ABSOLUTE AUTO 0.07 K/mm3 (0.00-0.10); IMMATURE GRAN PERCENT AUTO 1 % (0-1); LYMPHOCYTES ABSOLUTE AUTO 6.11 K/mm3 (0.84-5.20); LYMPHOCYTES PERCENT AUTO 55 % (21-46); MONOCYTES ABSOLUTE AUTO 0.43 K/mm3 (0.16-1.47); MONOCYTES PERCENT AUTO 4 % (4-13); Mean Corpuscular HGB 36.6 pg (26.0-34.0); Mean Corpuscular HGB Conc 33.9 g/dL (31.5-36.5); Mean Corpuscular Volume 108 fL (80-100); Mean Platelet Volume 9.6 fL (9.1-12.4); NEUTROPHILS ABSOLUTE AUTO 4.46 K/mm3 (1.96-9.15); NEUTROPHILS PERCENT AUTO 40 % (41-73); Platelet Count 132 K/mm3 (150-400); RDW Coefficient Variation 14.6 % (11.7-14.2); RDW Standard Deviation 58.8 fL (35.1-46.3); Red Blood Cell Count 3.58 M/mm3 (3.80-5.20); White Blood Cell Count 11.19 K/mm3 (4.00-11.30)
[2021-10-06 19:00] LABS: Albumin, Blood 3.9 g/dL (3.4-5.0); Bilirubin, Total 0.9 mg/dL (0.1-1.0); Bun/Creatinine Ratio 6.4 (12.0-20.0); Calcium, Blood 9.2 mg/dL (8.5-10.1); Creatinine, Blood 0.47 mg/dL (0.40-1.00); Globulin, Blood 3.8 g/dL (2.2-4.0); Potassium, Blood 3.7 mmol/L (3.5-5.5); Total Protein, Blood 7.7 g/dL (6.4-8.2)
[2021-10-06 20:44] LABS: Magnesium, Blood 1.8 mg/dL (1.6-2.4)
[2021-10-06] MEDS ORDERED: CHLO25 PO (22:00)
[2021-10-06] MEDS ORDERED: PROM25 PO (22:00)
== END 2021-10-06 22:25 | disposition home or self-care (01) ==
LOC: ER 17:35
PROVIDERS: Emergency Medicine
DX: F10.10 Alcohol abuse, uncomplicated (principal); R11.2 Nausea with vomiting, unspecified; K29.20 Alcoholic gastritis without bleeding; F17.210 Nicotine dependence, cigarettes, uncomplicated; F41.8 Other specified anxiety disorders; K21.9 Gastro-esophageal reflux disease without esophagitis; Z86.711 Personal history of pulmonary embolism
CPT/HCPCS: 36415; 80053; 83690; 83735; 85025; 96374; 96375; 99284-25; A9270; C9113; J2405; J2550; J7030

== ENCOUNTER 2021-11-23 12:45 | Inpatient (IN) | payer OTHER ==
[~2021-11-23] VITALS: Ht 167.6 cm; Wt 70.0 kg
[2021-11-23 14:41] LABS: BASOPHILS ABSOLUTE AUTO 0.05 K/mm3 (0.00-0.23); BASOPHILS PERCENT AUTO 1 % (0-2); EOSINOPHILS ABSOLUTE AUTO 0.04 K/mm3 (0.00-0.68); EOSINOPHILS PERCENT AUTO 0 % (0-6); Hemoglobin 14.4 g/dL (11.5-16.0); IMMATURE GRAN ABSOLUTE AUTO 0.07 K/mm3 (0.00-0.10); IMMATURE GRAN PERCENT AUTO 1 % (0-1); LYMPHOCYTES ABSOLUTE AUTO 2.28 K/mm3 (0.84-5.20); LYMPHOCYTES PERCENT AUTO 23 % (21-46); MONOCYTES ABSOLUTE AUTO 0.57 K/mm3 (0.16-1.47); MONOCYTES PERCENT AUTO 6 % (4-13); Mean Corpuscular HGB 37.5 pg (26.0-34.0); Mean Corpuscular HGB Conc 34.3 g/dL (31.5-36.5); Mean Corpuscular Volume 109 fL (80-100); NEUTROPHILS ABSOLUTE AUTO 6.98 K/mm3 (1.96-9.15); NEUTROPHILS PERCENT AUTO 70 % (41-73); Platelet Count 201 K/mm3 (150-400); RDW Coefficient Variation 13.8 % (11.7-14.2); RDW Standard Deviation 56.6 fL (35.1-46.3); Red Blood Cell Count 3.84 M/mm3 (3.80-5.20); White Blood Cell Count 9.99 K/mm3 (4.00-11.30)
[2021-11-23 15:12] LABS: Albumin/Globulin Ratio 1.1 (0.8-1.8); Bilirubin, Total 1.1 mg/dL (0.1-1.0); Bun/Creatinine Ratio 13.6 (12.0-20.0); Calcium, Blood 9.8 mg/dL (8.5-10.1); Creatinine, Blood 0.51 mg/dL (0.40-1.00); Globulin, Blood 3.6 g/dL (2.2-4.0); Potassium, Blood 4.9 mmol/L (3.5-5.5); Total Protein, Blood 7.6 g/dL (6.4-8.2)
[2021-11-23 17:05] LABS: Source, Urine Clean Catch
[2021-11-23 17:52] LABS: Appearance, Urine Hazy (Clear); Blood, Urine 1+ (Neg); Color, Urine Amber (P-Yellow); Glucose Qualitative, Urine Neg (Neg); Ketones, Urine 3+ (Neg); Leukocyte Esterase, Urine 1+ (Neg); Nitrite, Urine Neg (Neg); Protein, Urine 2+ (Neg); Specific Gravity, Urine 1.015 (1.003-1.022); Urobilinogen, Urine 1+ (Normal); pH, Urine 6.5 (5.0-8.0)
[2021-11-23 18:07] LABS: Bilirubin, Urine 1+ (Neg)
[2021-11-23 18:27] LABS: Bacteria Many /hpf; Red Blood Cells, Urine 0-2 /hpf (0-2); Squamous Epithelial Cells Mod /hpf (Few)
[2021-11-23 22:49] LABS: International Normalized Ratio 1.26
[2021-11-24] MEDS ORDERED: CYCL10 PO (01:46)
[2021-11-24] MEDS ORDERED: MELO7.5 PO (01:47)
[2021-11-24 04:45] LABS: Hematocrit 34.8 % (33.0-51.0); Hemoglobin 11.9 g/dL (11.5-16.0); Mean Corpuscular HGB 37.8 pg (26.0-34.0); Mean Corpuscular HGB Conc 34.2 g/dL (31.5-36.5); Mean Corpuscular Volume 111 fL (80-100); Platelet Count 90 K/mm3 (150-400); RDW Coefficient Variation 13.8 % (11.7-14.2); RDW Standard Deviation 56.1 fL (35.1-46.3); Red Blood Cell Count 3.15 M/mm3 (3.80-5.20); White Blood Cell Count 6.85 K/mm3 (4.00-11.30)
[2021-11-24 05:03] LABS: Albumin, Blood 3.1 g/dL (3.4-5.0); Albumin/Globulin Ratio 1.1 (0.8-1.8); Bilirubin, Total 1.8 mg/dL (0.1-1.0); Bun/Creatinine Ratio 21.7 (12.0-20.0); Creatinine, Blood 0.55 mg/dL (0.40-1.00); Globulin, Blood 2.7 g/dL (2.2-4.0); Total Protein, Blood 5.8 g/dL (6.4-8.2)
--- NOTE | 2021-11-24 05:09 | NUR ---
SHIFT SUMMARY: CONTINUED CIWA PROTOCOL, HIGHEST CIWA TONIGHT UP TO 12. PT PRESENTING WITH TREMEORS, NAUSEA, SWEATING, ANXIETY, HEADACHE. SIGNIFICANT IMPROVEMENT POST ADMINSTRATION IV ATIVAN. PAIN UP TO 8-9/10 ABDOMINAL- RELIEVED TO TOLERABLE LEVEL POST ADMINISTRATION OF IV FENTANYL. PT IS A/OX4, STANDBY ASSIST WHEN AMBULATING WITH IV POLE DUE TO TREMORS. PT REPORTS POST ADMINISTRATION OF MEDICATIONS SHE HAS HAD THE MOST RELIEF AND SLEEP SHES HAD IN A WEEK. NO EPISODES OF EMESIS TONIGHT. VITALS STABLE- SEIZURE PADS IN PLACE. BED IN LOW POSITION, CALL MOCK AND BELONGINGS IN REACH.
[2021-11-24 05:10] LABS: BAND PERCENT MAN 10 % (0-8); BASOPHILS ABSOLUTE MAN 0.06 K/mm3 (0.00-0.23); BASOPHILS PERCENT MAN 1 % (0-2); EOSINOPHILS ABSOLUTE MAN 0.06 K/mm3 (0.00-0.68); EOSINOPHILS PERCENT MAN 1 % (0-6); LYMPHOCYTES PERCENT MAN 41 % (21-46); MONOCYTES ABSOLUTE MAN 0.34 K/mm3 (0.16-1.47); MONOCYTES PERCENT MAN 5 % (4-13); NEUTROPHILS ABSOLUTE MAN 3.56 K/mm3 (1.96-9.15); SEG NEUTROPHILS PERCENT MAN 42 % (41-73); TOTAL CELLS COUNTED 100
--- NOTE | 2021-11-24 12:54 | NUR ---
PT IN BED SLEEPING SOUNDLY AT THIS TIME CIWA SCORE IS 0 NO SIGNS OF WITHDRAWL CURRENTLY.
--- NOTE | 2021-11-24 14:24 | NUR ---
CIWA SCORE 15- PT ALERT AND ORIENTED. PT HAD BEEN SLEEPING SOUNDLY ON ALL CARE ROUNDING. PT WOKE FROM SLEEP IN PAIN FROM HER PANCREATITIS, PT MEDICATED FOR PAIN WITH FENTANYL, MEDICATED FOR NAUSEA WITH IV REGLAN AND 50MG LIBRIUM FOR A CIWA SCORE OF 15, FOR SHAKES, HEADACHE, NAUSEA, LIGHT SENSITIVITY AND ANXIETY. PT WAS VERY NOTICABLY.
--- NOTE | 2021-11-24 18:42 | NUR ---
SHIFT SUMMARY- PT ALERT AND ORIENTED. CIWAS HAVE BEEN PERFORMED T/O THE SHIFT WITH A HIGH OF 15 AND LOW OF 5. SYMPTOMS SEEM TO BE WELL MANAGED WITH THE PO LIBRIUM, PT IS NPO FOR PANCREATITIS, SHE HAS HAD VERY FEW ICE CHIPS TODAY AMD SMALL SIPS OF WATER TO HELP HER TAKE HER MEDICATIONS. NAUSEA SEEMS WELL MANAGED THIS EVENING WITH IV REGLAN AND ZOFRAN. MEDICATED PRIOR TO SHIFT CHANGE FOR 11/19 PAIN WITH IV TORADOL, FOLLOW UP 5-10/20.
[2021-11-25 05:14] LABS: BASOPHILS ABSOLUTE AUTO 0.02 K/mm3 (0.00-0.23); BASOPHILS PERCENT AUTO 1 % (0-2); EOSINOPHILS ABSOLUTE AUTO 0.06 K/mm3 (0.00-0.68); EOSINOPHILS PERCENT AUTO 2 % (0-6); Hematocrit 29.5 % (33.0-51.0); Hemoglobin 10.1 g/dL (11.5-16.0); IMMATURE GRAN ABSOLUTE AUTO 0.01 K/mm3 (0.00-0.10); IMMATURE GRAN PERCENT AUTO 0 % (0-1); LYMPHOCYTES ABSOLUTE AUTO 1.93 K/mm3 (0.84-5.20); LYMPHOCYTES PERCENT AUTO 48 % (21-46); MONOCYTES ABSOLUTE AUTO 0.21 K/mm3 (0.16-1.47); MONOCYTES PERCENT AUTO 5 % (4-13); Mean Corpuscular HGB 38.5 pg (26.0-34.0); Mean Corpuscular HGB Conc 34.2 g/dL (31.5-36.5); Mean Corpuscular Volume 113 fL (80-100); Mean Platelet Volume 10.7 fL (9.1-12.4); NEUTROPHILS ABSOLUTE AUTO 1.82 K/mm3 (1.96-9.15); NEUTROPHILS PERCENT AUTO 45 % (41-73); Platelet Count 56 K/mm3 (150-400); RDW Coefficient Variation 13.5 % (11.7-14.2); RDW Standard Deviation 55.8 fL (35.1-46.3); Red Blood Cell Count 2.62 M/mm3 (3.80-5.20); White Blood Cell Count 4.05 K/mm3 (4.00-11.30)
[2021-11-25 05:39] LABS: Albumin, Blood 2.6 g/dL (3.4-5.0); Bilirubin, Total 1.2 mg/dL (0.1-1.0); Bun/Creatinine Ratio 19.6 (12.0-20.0); Calcium, Blood 7.1 mg/dL (8.5-10.1); Creatinine, Blood 0.51 mg/dL (0.40-1.00); Globulin, Blood 2.5 g/dL (2.2-4.0); Potassium, Blood 3.7 mmol/L (3.5-5.5); Total Protein, Blood 5.1 g/dL (6.4-8.2)
--- NOTE | 2021-11-25 17:03 | NUR ---
DAY SHIFT SUMMARY 45 YR OLD FEMALE PT WITH ACUTE ALCHOLIC PANCRATITIS, ON RA, A/O INDEPENDENT AND ABLE TO TAKE MEDS WHOLE. PT DIET CHANGED TO CLEAR LIQUIDS FROM NPO THIS SHIFT AND TOLLERATED WELL. ABBE'S PERFORMED THIS SHIFT. PT IS VERY PLEASANT AND COOPERATIVE WITH CARE. CALL LIGHT WITHIN REACH AND ABLE TO CALL APPROPRIATE.
[2021-11-26 05:29] LABS: BASOPHILS ABSOLUTE AUTO 0.01 K/mm3 (0.00-0.23); BASOPHILS PERCENT AUTO 0 % (0-2); EOSINOPHILS ABSOLUTE AUTO 0.04 K/mm3 (0.00-0.68); EOSINOPHILS PERCENT AUTO 1 % (0-6); Hematocrit 28.4 % (33.0-51.0); Hemoglobin 9.9 g/dL (11.5-16.0); IMMATURE GRAN ABSOLUTE AUTO 0.01 K/mm3 (0.00-0.10); IMMATURE GRAN PERCENT AUTO 0 % (0-1); LYMPHOCYTES ABSOLUTE AUTO 1.57 K/mm3 (0.84-5.20); LYMPHOCYTES PERCENT AUTO 46 % (21-46); MONOCYTES ABSOLUTE AUTO 0.21 K/mm3 (0.16-1.47); MONOCYTES PERCENT AUTO 6 % (4-13); Mean Corpuscular HGB 38.5 pg (26.0-34.0); Mean Corpuscular HGB Conc 34.9 g/dL (31.5-36.5); Mean Corpuscular Volume 111 fL (80-100); Mean Platelet Volume 11.1 fL (9.1-12.4); NEUTROPHILS ABSOLUTE AUTO 1.57 K/mm3 (1.96-9.15); NEUTROPHILS PERCENT AUTO 46 % (41-73); RDW Coefficient Variation 13.2 % (11.7-14.2); RDW Standard Deviation 53.2 fL (35.1-46.3); Red Blood Cell Count 2.57 M/mm3 (3.80-5.20); White Blood Cell Count 3.41 K/mm3 (4.00-11.30)
[2021-11-26 05:38] LABS: Platelet Count 47 K/mm3 (150-400)
[2021-11-26 05:46] LABS: Bun/Creatinine Ratio 13.2 (12.0-20.0); Calcium, Blood 7.2 mg/dL (8.5-10.1); Creatinine, Blood 0.38 mg/dL (0.40-1.00); Potassium, Blood 3.7 mmol/L (3.5-5.5)
[2021-11-26] MEDS ORDERED: CHLO25 PO (09:09)
[2021-11-26] MEDS ORDERED: TRAM50 PO (09:10)
--- NOTE | 2021-11-26 09:54 | NUR ---
DISCHARGE SUMMARY PT IV AND TELE REMOVED, DISCHARGE EDUCATION REVIEWED WITH AND SIGNED BY PT, MEDS FAXED TO PHARMACY AND HARD RX GIVEN TO PT WITH PACKET. PT BELONGINGS GATHERED AND TRANSPORTED ALONG WITH PT TO HER VEHICLE.
== END 2021-11-26 09:55 | disposition home or self-care (01) | DRG 439 ==
LOC: ER 12:45 → MEDS 21:16 → ER 23:16 → MEDS 23:18
PROVIDERS: Internal Medicine; Physician Assistant; Student in an Organized Health Care Education/Training Program; ADMIT Internal Medicine
PROC: HZ2ZZZZ Detoxification Services for Substance Abuse Treatment (ICD-10-PCS; principal; 2021-11-23)
DX: K85.20 Alcohol induced acute pancreatitis without necrosis or infection (principal); F10.239 Alcohol dependence with withdrawal, unspecified; K21.9 Gastro-esophageal reflux disease without esophagitis; F41.8 Other specified anxiety disorders; F17.210 Nicotine dependence, cigarettes, uncomplicated; D69.59 Other secondary thrombocytopenia; Z86.711 Personal history of pulmonary embolism; Z90.89 Acquired absence of other organs; Z90.710 Acquired absence of both cervix and uterus; Z98.890 Other specified postprocedural states; Z88.1 Allergy status to other antibiotic agents; Z88.5 Allergy status to narcotic agent; Z88.6 Allergy status to analgesic agent; Z88.8 Allergy status to other drugs, medicaments and biological substances; Z79.899 Other long term (current) drug therapy; Y90.3 Blood alcohol level of 60-79 mg/100 ml
CPT/HCPCS: 36415; 80048; 80053; 81001; 81025; 83690; 83735; 84100; 85025; 85610; 87077; 87086; 87186; 96365; 96375; 96376; 99285-25; A9270; G0480; J1200; J1885; J2060; J2405; J2765; J3010; J3411; J7030

== ENCOUNTER → 2022-03-15 | Outpatient (CLI) | payer OTHER | END | disposition home or self-care (01) | LOC: LAB SHORT 10:10 → LAB 10:10 | DX: N39.0 Urinary tract infection, site not specified (principal) | CPT/HCPCS: 87077; 87086; 87186 ==

== ENCOUNTER → 2022-09-30 | Outpatient (CLI) | payer OTHER | LOC: LAB 12:27 → LAB SHORT 12:27 | DX: N39.0 Urinary tract infection, site not specified (principal) | CPT/HCPCS: 87086 ==

== ENCOUNTER 2022-10-19 19:47 | Inpatient (IN) | payer OTHER ==
[~2022-10-19] VITALS: Ht 165.1 cm; Wt 69.7 kg
[2022-10-19 20:03] LABS: Base Excess Venous -3.7 mmol/L; Bicarbonate Venous 20.7 mmol/L (24.0-30.0); PCO2 Venous 45.1 mmHg (38-42); pH Blood Venous 7.31 (7.34-7.37)
[2022-10-19 20:12] LABS: BASOPHILS ABSOLUTE AUTO 0.04 K/mm3 (0.00-0.23); BASOPHILS PERCENT AUTO 1 % (0-2); EOSINOPHILS ABSOLUTE AUTO 0.01 K/mm3 (0.00-0.68); EOSINOPHILS PERCENT AUTO 0 % (0-6); Hematocrit 39.2 % (33.0-51.0); Hemoglobin 13.7 g/dL (11.5-16.0); Mean Corpuscular HGB 34.9 pg (26.0-34.0); Mean Corpuscular HGB Conc 34.9 g/dL (31.5-36.5); Mean Corpuscular Volume 100 fL (80-100); Mean Platelet Volume 9.4 fL (9.1-12.4); Platelet Count 186 K/mm3 (150-400); RDW Coefficient Variation 12.1 % (11.7-14.2); RDW Standard Deviation 45.1 fL (35.1-46.3); Red Blood Cell Count 3.92 M/mm3 (3.80-5.20); White Blood Cell Count 7.16 K/mm3 (4.00-11.30)
[2022-10-19 20:14] LABS: IMMATURE GRAN ABSOLUTE AUTO 0.04 K/mm3 (0.00-0.10); IMMATURE GRAN PERCENT AUTO 1 % (0-1); LYMPHOCYTES ABSOLUTE AUTO 4.37 K/mm3 (0.84-5.20); LYMPHOCYTES PERCENT AUTO 61 % (21-46); MONOCYTES ABSOLUTE AUTO 0.41 K/mm3 (0.16-1.47); MONOCYTES PERCENT AUTO 6 % (4-13); NEUTROPHILS ABSOLUTE AUTO 2.29 K/mm3 (1.96-9.15); NEUTROPHILS PERCENT AUTO 32 % (41-73)
[2022-10-19 20:21] LABS: Source, Urine Foley catheter
[2022-10-19 20:26] LABS: Bilirubin, Urine Neg (Neg); Blood, Urine Neg (Neg); Glucose Qualitative, Urine Neg (Neg); Ketones, Urine Neg (Neg); Leukocyte Esterase, Urine Neg (Neg); Nitrite, Urine Neg (Neg); Protein, Urine Neg (Neg); Specific Gravity, Urine 1.005 (1.003-1.022); Urobilinogen, Urine NORM (Normal)
[2022-10-19 20:29] LABS: Appearance, Urine Clear (Clear); Color, Urine Pale Yellow (P-Yellow)
[2022-10-19 20:41] LABS: U Amphetamine Screen Not Detected; U Barbituate Screen Not Detected; U Benzodiazapine Screen Not Detected; U Buprenorphine Screen Not Detected; U Cannabinoids Screen Not Detected; U Cocaine Screen Not Detected; U Methadone Screen Not Detected; U Methamphetamine Screen Not Detected; U Opiates Screen Not Detected; U Oxycodone Screen Not Detected; U Phencyclidine Screen Not Detected; U Propoxyphene Screen Not Detected
[2022-10-19 20:47] LABS: Salicylate 4.9 mg/dL (2.8-20.0)
[2022-10-19 20:48] LABS: Acetaminophen, Random <2.0 ug/mL (10.0-30.0); Alanine Aminotransfer (ALT/SGP 57 U/L (12-78); Albumin/Globulin Ratio 1.1 (0.8-1.8); Alk Phos 226 U/L (50-136); Anion Gap 10 mmol/L (6-16); Aspartate Aminotrans (AST/SGOT 38 U/L (12-37); Bilirubin, Total 0.4 mg/dL (0.1-1.0); Blood Urea Nitrogen 9 mg/dL (8-24); Bun/Creatinine Ratio 14.3 (12.0-20.0); CO2, Blood 22 mmol/L (21-32); Calcium, Blood 8.5 mg/dL (8.5-10.1); Chloride, Blood 106 mmol/L (98-108); Creatinine, Blood 0.63 mg/dL (0.40-1.00); Ethanol (Alcohol), Blood, Med 332 mg/dL; Globulin, Blood 3.5 g/dL (2.2-4.0); Glomerular Filtration Rate 111 (60-); Glucose, Blood 187 mg/dL (70-99); Sodium, Blood 138 mmol/L (136-145); Total Protein, Blood 7.5 g/dL (6.4-8.2)
[2022-10-19 23:00] VITALS: BP 91/56
[2022-10-19 23:17] LABS: Influenza A, PCR NEGATIVE (NEGATIVE); Influenza B, PCR NEGATIVE (NEGATIVE); Resp Syncytial Virus, PCR NEGATIVE (NEGATIVE); SARS-Cov-2 (COVID-19) PCR, MMC NEGATIVE (NEGATIVE)
[2022-10-19 23:30] VITALS: BP 94/59
[2022-10-19 23:45] VITALS: BP 111/69
[2022-10-20] VITALS (79 sets, daily range): BP systolic 93–147; BP diastolic 58–99
--- NOTE | 2022-10-20 | NUR ---
PT ADMITTED TO ROOM ICU 13 FROM ED, ARRIVING TO ROOM AT 2310. PT SLIDE TRANSFERRED TO BED FROM [facility]. PT INTUBATED AND PLACED TO VENT. PT ON LEVOPHED AT 20 MCG'S, AND PROPOFOL AT 25 MCG'S. THIS NEEDING TO BE INCREASED SECONDARY TO VERY POOR VENT COMPLIANCE. VASOPRESSIN ADDED TO IMPROVED BLOOD PRESSURES. IO TO RIGHT LOWER EXTREMITY REMOVED SECONDARY TO PT HAVING RIGHT IJ QUAD LUMEN AND IO NOT NEEDED. WILL REVIEW CHART AND PLAN OF CARE FOR THIS PT.
[2022-10-20 00:43] LABS: PCO2 Venous 34.9 mmHg (38-42); pH Blood Venous 7.34 (7.34-7.37)
[2022-10-20 00:44] LABS: Base Excess Venous -7.2 mmol/L; Bicarbonate Venous 18.9 mmol/L (24.0-30.0)
[2022-10-20] MEDS ORDERED: HYDCHL25 PO (00:49)
[2022-10-20] MEDS ORDERED: HYDHCL25 PO (00:51)
[2022-10-20] MEDS ORDERED: ACYCLOVIR400 MG PO (00:53)
--- NOTE | 2022-10-20 03:38 | NUR ---
ADMINISTERED 1 MG VERSED AND REQUIRED INCREASING PROPOFOL TO 70 MCG'S/KG/MIN SECONDARY TO PT'S VENT INTOLERANCE. PT'S THRASHING ABOUT BED HAS CALMED SOME. PT REMAINS WITHIN DIRECT OBSERVATION BY THIS RN FOR HER SAFETY.
[2022-10-20 04:53] LABS: BASOPHILS ABSOLUTE AUTO 0.02 K/mm3 (0.00-0.23); BASOPHILS PERCENT AUTO 0 % (0-2); EOSINOPHILS PERCENT AUTO 0 % (0-6); Hematocrit 30.2 % (33.0-51.0); Hemoglobin 10.5 g/dL (11.5-16.0); IMMATURE GRAN ABSOLUTE AUTO 0.08 K/mm3 (0.00-0.10); IMMATURE GRAN PERCENT AUTO 1 % (0-1); LYMPHOCYTES ABSOLUTE AUTO 2.04 K/mm3 (0.84-5.20); LYMPHOCYTES PERCENT AUTO 26 % (21-46); MONOCYTES ABSOLUTE AUTO 0.61 K/mm3 (0.16-1.47); MONOCYTES PERCENT AUTO 8 % (4-13); Mean Corpuscular HGB 34.9 pg (26.0-34.0); Mean Corpuscular HGB Conc 34.8 g/dL (31.5-36.5); Mean Corpuscular Volume 100 fL (80-100); Mean Platelet Volume 9.6 fL (9.1-12.4); NEUTROPHILS ABSOLUTE AUTO 5.03 K/mm3 (1.96-9.15); NEUTROPHILS PERCENT AUTO 65 % (41-73); Platelet Count 139 K/mm3 (150-400); RDW Coefficient Variation 12.1 % (11.7-14.2); RDW Standard Deviation 44.6 fL (35.1-46.3); Red Blood Cell Count 3.01 M/mm3 (3.80-5.20); White Blood Cell Count 7.78 K/mm3 (4.00-11.30)
[2022-10-20 05:12] LABS: Albumin, Blood 3.2 g/dL (3.4-5.0); Albumin/Globulin Ratio 1.2 (0.8-1.8); Bilirubin, Total 0.6 mg/dL (0.1-1.0); Bun/Creatinine Ratio 20.5 (12.0-20.0); Calcium, Blood 7.4 mg/dL (8.5-10.1); Creatinine, Blood 0.64 mg/dL (0.40-1.00); Globulin, Blood 2.7 g/dL (2.2-4.0); Magnesium, Blood 2.2 mg/dL (1.6-2.4); Total Protein, Blood 5.9 g/dL (6.4-8.2)
--- NOTE | 2022-10-20 06:30 | NUR ---
HAVE BEEN ABLE TO TITRATE LEVOPHED DRIP DOWN TO 10 MCG'S/MIN. HAS VASOPRESSIN AT 2.4 UNITS. BLOOD PRESSURES REMAIN WITH MAP > 60 WITH GOAL TO MAINTAIN > 65. PROPOFOL AT 70 MCG'S/KG/MIN. PT AWAKENS EASILY, AND BECOMES VERY AGITATED. ATTEMPTS AGGRESSIVELY TO GET AHOLD OF HER ETT. DR GUERRA HAS BEEN CONSULTED. WAS IN UNIT WHEN PT WAS KICKING HER LEGS ABOUT, TRYING TO SIT UPRIGHT, AND TRYING TO PULL AT HER ETT. ORDER RECEIVED FOR ATIVAN. 2 DOSES GIVEN. FIRST DOSE OF 2 MG HAD FAIR TO GOOD RESULTS FOR APPROX 1 HOUR. SECOND DOSE WAS 4 MG WHICH HAS GREATLY IMPROVED PT'S ENT TOLERANCE. WILL CONTINUE TO MONITOR PT, AND WILL REPORT OFF TO ONCOMING RN.
--- NOTE | 2022-10-20 07:00 | NUR ---
ASSUMPTION OF CARE PT IS INTUBATED WITH VENT SETTINGS AC/VC 16/400/5/30%. SHE IS RECEIVING PROPOFOL 65MCG/KG/MIN, LEVOPHED 10MCG/MIN, VASOPRESSIN AND LR 100ML/HR. SHE PULLS AGAINST WRIST RESTRAINTS AND REACHES FOR ETT AND ERRATICALLY MOVES LEGS. SHE DOES NOT FOLLOW COMMANDS AT THIS TIME. OGT TO LIS WITH LEE OUTPUT. TEMP GREENE PATENT AND DRAINING TO GRAVITY. SEE SHIFT ASSESSMENT.
--- NOTE | 2022-10-20 13:50 | NUR ---
UPDATE PT RECEIVING PROPOFOL 60MCG/KG/MIN. SHE IS OPENING HER EYES TO VERBAL COMMAND AND PULLING AGAINST RESTRAINTS AND MOVING LEGS. SHE CALMS WITH VERBAL COMMUNICATION. SHE ANSWERS A FEW QUESTIONS BY NODDING/SHAKING HEAD. EXPLAINED TO PT THAT SHE IS IN THE HOSPITAL. WHEN ASKED IF SHE KNOWS WHY SHE IS AT THE HOSPITAL SHE SHAKES HER HEAD "NO". SHE IS ABLE TO TUNG NUT GROWER WITH BOTH HANDS TO COMMAND AND WIGGLE TOES.
--- NOTE | 2022-10-20 15:09 | NUR ---
DISCUSSION WITH FAMILY HANY, PT'S MOTHER, AT BEDSIDE. SHE STS PT LIVES WITH HER MOTHER. THE PT HAS HAD MULTIPLE OVERDOSES OF MEDICATIONS SECONDARY TO CONSUMING ALCOHOL. MOTHER STS PT HAS BEEN ADMITTED SEVERAL TIMES AND HAS BEEN THROUGH MULTIPLE PROGRAMS TO ASSIST WITH ALCOHOL CESSATION. PT'S MOTHER STS SHE FOUND AN EMPTY GALLON BOTTLE AND A FIFTH OF VODKA WITH THE PILL BOTTLES. IT IS UNCERTAIN HOW MANY PILLS AND WHICH MEDICATIONS WERE TAKEN DUE TO SEVERAL BOTTLES OF CURRENT AND PRIOR PRESCRIPTION MEDICATIONS. PT'S MOTHER VERY UNDERSTANDING AND SUPPORTIVE. SHE VERBALIZES UNDERSTANDING OF SUICIDE RISK MONITORING POST-EXTUBATION.
--- NOTE | 2022-10-20 17:03 | NUR ---
SHIFT SUMMARY PT REMAINS INTUBATED WITH VENT SETTINGS AC/VC 16/400/5/30%. SHE IS RECEIVING PROPOFOL 50MCG/KG/MIN AND LR 100ML/HR. WITH PROPOFOL, PT OCCASIONALLY RESPONDS TO VERBAL STIMULI BY NODDING/SHAKING HEAD AND FOLLOWING SIMPLE COMMANDS. SINUS WITH PVCS ON MONITOR. RATE 70S. BP STABLE WITH MAP >65. LEVOPHED AND VASOPRESSIN OFF SINCE THIS MORNING. OGT TO LIS. ABDOMEN SOFT, BOWEL TONES HYPOACTIVE. GREENE PATENT AND DRAINING TO GRAVITY. MOTHER AT BEDSIDE THIS AFTERNOON.
--- NOTE | 2022-10-20 19:20 | NUR ---
ASSUMED CARE OF PT AT 1900. REPORT RECEIVED AT BEDSIDE. PT PRESENTS IN BED. INTUBATED. OFFGOING RN SUCTIONS. PT MOVES ABOUT IN BED AND RESISTS SUCTIONING. CALMS SOON AFTER PROCEDURE. WILL REVIEW CHART AND PLAN OF CARE FOR THIS PT.
[2022-10-21] VITALS (24 sets, daily range): BP systolic 115–150; BP diastolic 71–98
[2022-10-21 05:42] LABS: BASOPHILS ABSOLUTE AUTO 0.01 K/mm3 (0.00-0.23); BASOPHILS PERCENT AUTO 0 % (0-2); EOSINOPHILS ABSOLUTE AUTO 0.02 K/mm3 (0.00-0.68); EOSINOPHILS PERCENT AUTO 1 % (0-6); Hematocrit 27.1 % (33.0-51.0); Hemoglobin 9.5 g/dL (11.5-16.0); IMMATURE GRAN ABSOLUTE AUTO 0.02 K/mm3 (0.00-0.10); IMMATURE GRAN PERCENT AUTO 1 % (0-1); LYMPHOCYTES ABSOLUTE AUTO 1.45 K/mm3 (0.84-5.20); LYMPHOCYTES PERCENT AUTO 38 % (21-46); MONOCYTES ABSOLUTE AUTO 0.34 K/mm3 (0.16-1.47); MONOCYTES PERCENT AUTO 9 % (4-13); Mean Corpuscular HGB 35.4 pg (26.0-34.0); Mean Corpuscular HGB Conc 35.1 g/dL (31.5-36.5); Mean Corpuscular Volume 101 fL (80-100); Mean Platelet Volume 9.6 fL (9.1-12.4); NEUTROPHILS ABSOLUTE AUTO 1.96 K/mm3 (1.96-9.15); NEUTROPHILS PERCENT AUTO 52 % (41-73); Platelet Count 86 K/mm3 (150-400); RDW Coefficient Variation 11.9 % (11.7-14.2); RDW Standard Deviation 43.8 fL (35.1-46.3); Red Blood Cell Count 2.68 M/mm3 (3.80-5.20)
[2022-10-21 06:21] LABS: Albumin, Blood 2.8 g/dL (3.4-5.0); Bilirubin, Total 0.6 mg/dL (0.1-1.0); Bun/Creatinine Ratio 15.7 (12.0-20.0); Calcium, Blood 8.3 mg/dL (8.5-10.1); Creatinine, Blood 0.45 mg/dL (0.40-1.00); Globulin, Blood 2.8 g/dL (2.2-4.0); Magnesium, Blood 1.9 mg/dL (1.6-2.4); Phosphorus, Blood 1.6 mg/dL (2.5-4.9); Potassium, Blood 3.4 mmol/L (3.5-5.5); Total Protein, Blood 5.6 g/dL (6.4-8.2)
--- NOTE | 2022-10-21 06:30 | NUR ---
PT HAS MADE MULTIPLE ATTEMPTS TO GET AHOLD OF HER ETT. HAS MANAGED TWICE TO DISCONNECT CIRCUIT FROM ETT. SHE MOVES HERSELF DOWN IN BED AND WORKS HER WAY TOWARDS THE TUBE AND HER HAND. FULL BEDBATH DONE. PT ON 60 MCG'S PROPOFOL 4 MG ATIVAN TO HELP PROMOTE BEDBATH WITHOUT PT BECOMING OVERLY ANXIOUS. UNFORTUNATELY, PT BEGAN TO THRASH ABOUT BED, AND HIGHLY RESIST CARE. WITH TURNS, PT AGGRESSIVELY ATTEMPTS TO GET TO HER ETT. DR GUERRA AWARE, AND PLAN IS FOR POSSIBLE EXTUBATION SOMETIME THIS DAY. WILL CONTINUE TO MONITOR PT, AND WILL REPORT OFF TO ONCOMING RN.
--- NOTE | 2022-10-21 07:05 | NUR ---
ASSUMPTION OF CARE PT REMAINS INTUBATED WITH VENT SETTINGS AC/VC 16/400/5/30%. SHE IS RECEIVING PROPOFOL 60MCG/KG/MIN, TITRATED TO 50MCG/KG/MIN AND PLAN TO ATTEMPT SEDATION VACATION. SHE BEGINS TO COUGH AND PULL AGAINST RESTRAINTS WITH NOXIOUS STIMULI. SINUS RHTYHM ON MONITOR WITH RATE 70S, SBP 120S. OGT TO LIS. TEMP GREENE PATENT AND DRAINING TO GRAVITY. SEE SHIFT ASSESSMENT.
--- NOTE | 2022-10-21 10:43 | NUR ---
SEDATION VACATION PROPOFOL TITRATED DOWN THIS MORNING, SEE FLOWSHEET. PT BECOMING MORE AWAKE. SHE IS ABLE TO MAKE EYE CONTACT, NOD/SHAKE HEAD TO ANSWER QUESTIONS AND PULL AGAINST WRIST RESTRAINTS. PT FOLLOWS SOME SIMPLE COMMANDS BUT REMAINS RESTLESS, DIFFICULT TO REDIRECT, AND THRASHING IN BED. WHEN AGITATED SHE MOUTHS WORDS AND SITS UP IN BED. ATIVAN GIVEN PER EMAR BUT PT CONTINUES TO BE RESTLESS. ATTEMPTED SPONT MODE ON VENTILATOR TWICE WITH RT BUT PT UNABLE TO TOLERATE. PROPOFOL RESTARTED DUE TO CONCERN FOR ETT PROTECTION.
--- NOTE | 2022-10-21 11:30 | NUR ---
EXTUBATION SEDATION VACATION ATTEMPTED AGAIN. PT PLACED ON SPONT 8//30%. RR 12-18. PT TOLERATING WELL, FOLLOWING COMMANDS AND REMAINING CALM. DR GUERRA AT BEDSIDE AND APPROVAL FOR EXTUBATION. RT AT BEDSIDE AND EXTUBATED AT 1130. PT TOLERATED WELL. ON RA WITH SPO2 >95%. VSS AT THIS TIME. THIS RN TO STAY WITH PT FOR 1:1 MONITORING.
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
--- NOTE | 2022-10-21 16:46 | NUR ---
2MD HOLD PT PARTICIPATES IN TELEPSYCH CONSULT. PER RECOMMENDATIONS, PT PLACED ON 2MD HOLD. CIVIL RIGHTS READ, SIGNED AND COPY PROVIDED TO PT. PT VERBALIZES UNDERSTANDING. SHE IS CALM AND COOPERATIVE AT THIS TIME. MOTHER AND SISTER AT BEDSIDE. 1:[address]
--- NOTE | 2022-10-21 17:22 | NUR ---
SHIFT SUMMARY PT EXTUBATED TODAY AT 11:30, SEE PREVIOUS NOTE. SHE REMAINS ON RA WITH SPO2 >95%. SHE IS A&OX3, TEARFUL AT TIMES AND WITHDRAWN. LUNGS ARE CLEAR, DIMINISHED IN BASES. NSR ON MONTIOR WITH RATE 80S-100S. SBP 120S-140S. SHE HAS DECLINED PO INTAKE, CONTINUING TO ENCOURAGE. SHE HAS BEEN ASSISTED TO THE BEDSIDE COMMODE TWICE THIS AFTERNOON. NO BM. SHE HAS 2 PIV THAT ARE SALINE LOCKED. SHE IS CURRENTLY ON 2MD HOLD AND VERBALIZES UNDERSTANDING. BED IN LOW POSITION, 1:1 SITTER FOR SAFETY.
[2022-10-22] VITALS (11 sets, daily range): BP systolic 103–159; BP diastolic 82–104
[2022-10-22 03:30] LABS: BASOPHILS ABSOLUTE AUTO 0.02 K/mm3 (0.00-0.23); BASOPHILS PERCENT AUTO 1 % (0-2); EOSINOPHILS ABSOLUTE AUTO 0.02 K/mm3 (0.00-0.68); EOSINOPHILS PERCENT AUTO 1 % (0-6); Hematocrit 29.3 % (33.0-51.0); Hemoglobin 10.2 g/dL (11.5-16.0); IMMATURE GRAN ABSOLUTE AUTO 0.01 K/mm3 (0.00-0.10); IMMATURE GRAN PERCENT AUTO 0 % (0-1); LYMPHOCYTES ABSOLUTE AUTO 1.26 K/mm3 (0.84-5.20); LYMPHOCYTES PERCENT AUTO 44 % (21-46); MONOCYTES ABSOLUTE AUTO 0.28 K/mm3 (0.16-1.47); MONOCYTES PERCENT AUTO 10 % (4-13); Mean Corpuscular HGB 34.9 pg (26.0-34.0); Mean Corpuscular HGB Conc 34.8 g/dL (31.5-36.5); Mean Corpuscular Volume 100 fL (80-100); Mean Platelet Volume 9.6 fL (9.1-12.4); NEUTROPHILS ABSOLUTE AUTO 1.28 K/mm3 (1.96-9.15); NEUTROPHILS PERCENT AUTO 45 % (41-73); Platelet Count 81 K/mm3 (150-400); RDW Coefficient Variation 11.9 % (11.7-14.2); RDW Standard Deviation 43.3 fL (35.1-46.3); Red Blood Cell Count 2.92 M/mm3 (3.80-5.20); White Blood Cell Count 2.87 K/mm3 (4.00-11.30)
[2022-10-22 03:43] LABS: Bun/Creatinine Ratio 11.2 (12.0-20.0); Calcium, Blood 8.5 mg/dL (8.5-10.1); Creatinine, Blood 0.54 mg/dL (0.40-1.00); Magnesium, Blood 1.9 mg/dL (1.6-2.4); Phosphorus, Blood 3.8 mg/dL (2.5-4.9); Potassium, Blood 3.4 mmol/L (3.5-5.5)
--- NOTE | 2022-10-22 06:00 | NUR ---
PATIENT AOX3, CONFUSED TO SITUATION. DOES NOT HAVE ANY RECOLLECTION OF EVENTS LEADING TO HER HOSPITALIZATION. PATIENT DENIES CURRENTLY HAVING ANY SUICIDAL THOUGHTS OR PLANS. SR/ST WITH STABLE BP. ROOM AIR.
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
--- NOTE | 2022-10-22 11:55 | NUR ---
TRANSFER TO 224 PT TRANSFERRED VIA WHEELCHAIR AT THIS TIME. ALL BELONGINGS BROUGHT WITH PT'S MOTHER. 1:[address]
--- NOTE | 2022-10-22 17:17 | NUR ---
DISCHARGE SUMMARY S/P OVERDOSE AT HOME, A/OX4, VSS, TOLERATING PO, DENIES PAIN, PT SLEPT T/O MOST OF THE DAY, WAKES TO VERBAL STIMULI AND SPONTANEOUS EYE CONTACT WHEN AWAKE, USES CALL LIGHT APPROPRIATELY. DISCHARGE INSTRUCTIONS DISCUSSED WITH HER AND HER MOM INCLUDING HOME CARE, MEDICATIONS, AND FOLLOW UP APPOINTMENTS. PT HAD NO QUESTIONS AT TIME OF DISCHARGE AND APPEARED TO BE IN A GOOD MOOD. ESCORT OUT OFFERED BUT DECLINED. IV ACCESS REMOVED WITH NO DEVICES IN PLACE AT TIME OF DISCHARGE. PT LEFT AMBULATORY WITH HER MOM TO GO HOME.
== END 2022-10-22 17:16 | disposition home or self-care (01) | DRG 917 ==
LOC: ER 19:47 → ICUE 22:05 → SURS 10-22 12:01
PROVIDERS: Emergency Medicine; Internal Medicine Critical Care Medicine; ADMIT Student in an Organized Health Care Education/Training Program
PROC: 02HV33Z Insertion of Infusion Device into Superior Vena Cava, Percutaneous Approach (ICD-10-PCS; principal; 2022-10-19)
PROC: 3E033XZ Introduction of Vasopressor into Peripheral Vein, Percutaneous Approach (ICD-10-PCS; 2022-10-19)
PROC: 0DH673Z Insertion of Infusion Device into Stomach, Via Natural or Artificial Opening (ICD-10-PCS; 2022-10-20)
PROC: 5A1945Z Respiratory Ventilation, 24-96 Consecutive Hours (ICD-10-PCS; 2022-10-20)
PROC: HZ2ZZZZ Detoxification Services for Substance Abuse Treatment (ICD-10-PCS; 2022-10-20)
DX: T44.7X2A Poisoning by beta-adrenoreceptor antagonists, intentional self-harm, initial encounter (principal); J69.0 Pneumonitis due to inhalation of food and vomit; J96.00 Acute respiratory failure, unspecified whether with hypoxia or hypercapnia; E72.11 Homocystinuria; Z20.822 Contact with and (suspected) exposure to COVID-19; T42.4X2A Poisoning by benzodiazepines, intentional self-harm, initial encounter; I95.9 Hypotension, unspecified; F32.A Depression, unspecified; F41.9 Anxiety disorder, unspecified; F10.229 Alcohol dependence with intoxication, unspecified; K76.0 Fatty (change of) liver, not elsewhere classified; K21.9 Gastro-esophageal reflux disease without esophagitis; I10 Essential (primary) hypertension; F17.210 Nicotine dependence, cigarettes, uncomplicated; Y90.8 Blood alcohol level of 240 mg/100 ml or more; Z90.89 Acquired absence of other organs; Z88.1 Allergy status to other antibiotic agents; Z90.710 Acquired absence of both cervix and uterus; Z88.5 Allergy status to narcotic agent; Z88.8 Allergy status to other drugs, medicaments and biological substances; Z98.890 Other specified postprocedural states; Z86.711 Personal history of pulmonary embolism; Z79.899 Other long term (current) drug therapy; X58.XXXA Exposure to other specified factors, initial encounter
CPT/HCPCS: 0241U; 36415; 36556; 51702; 71045; 80048; 80053; 81003; 81025; 82330; 82803; 82947; 83735; 84100; 85025; 87070; 87205; 93005; 93010; 94003; 96365-59; 96366-59; 96368; 99291-25; A9270; C1751; C9113; G0480; J1650; J2060; J2250; J2370; J2704; J3411; J3475; J7030; J7060; J7120

== ENCOUNTER 2022-12-08 22:20 | Inpatient (IN) | payer OTHER ==
[~2022-12-08] VITALS: Ht 170.2 cm; Wt 68.4 kg
[~2022-12-08 22:20] MED LIST changes: +HYDCHL25 PO; +HYDHCL25 PO
[2022-12-08 22:47] LABS: BASOPHILS ABSOLUTE AUTO 0.03 K/mm3 (0.00-0.23); BASOPHILS PERCENT AUTO 1 % (0-2); EOSINOPHILS ABSOLUTE AUTO 0.03 K/mm3 (0.00-0.68); EOSINOPHILS PERCENT AUTO 1 % (0-6); Hematocrit 39.1 % (33.0-51.0); Hemoglobin 13.4 g/dL (11.5-16.0); IMMATURE GRAN ABSOLUTE AUTO 0.04 K/mm3 (0.00-0.10); IMMATURE GRAN PERCENT AUTO 1 % (0-1); LYMPHOCYTES ABSOLUTE AUTO 4.09 K/mm3 (0.84-5.20); LYMPHOCYTES PERCENT AUTO 64 % (21-46); MONOCYTES ABSOLUTE AUTO 0.34 K/mm3 (0.16-1.47); MONOCYTES PERCENT AUTO 5 % (4-13); Mean Corpuscular HGB 35.5 pg (26.0-34.0); Mean Corpuscular HGB Conc 34.3 g/dL (31.5-36.5); Mean Corpuscular Volume 104 fL (80-100); Mean Platelet Volume 8.9 fL (9.1-12.4); NEUTROPHILS ABSOLUTE AUTO 1.83 K/mm3 (1.96-9.15); NEUTROPHILS PERCENT AUTO 29 % (41-73); Platelet Count 189 K/mm3 (150-400); RDW Coefficient Variation 12.7 % (11.7-14.2); RDW Standard Deviation 48.4 fL (35.1-46.3); Red Blood Cell Count 3.77 M/mm3 (3.80-5.20); White Blood Cell Count 6.36 K/mm3 (4.00-11.30)
[2022-12-08 23:20] LABS: Free Thyroxine 0.92 ng/dL (0.70-1.60); Magnesium, Blood 1.8 mg/dL (1.6-2.4); Thyroid Stimulating Hormone 0.513 uIU/mL (0.360-4.800)
[2022-12-08 23:21] LABS: Acetaminophen, Random <2.0 ug/mL (10.0-30.0); Alanine Aminotransfer (ALT/SGP 36 U/L (12-78); Albumin, Blood 3.8 g/dL (3.4-5.0); Alk Phos 181 U/L (50-136); Anion Gap 10 mmol/L (6-16); Aspartate Aminotrans (AST/SGOT 29 U/L (12-37); Bilirubin, Total 0.1 mg/dL (0.1-1.0); Blood Urea Nitrogen 13 mg/dL (8-24); Bun/Creatinine Ratio 19.7 (12.0-20.0); CO2, Blood 22 mmol/L (21-32); Calcium, Blood 8.5 mg/dL (8.5-10.1); Chloride, Blood 115 mmol/L (98-108); Creatinine, Blood 0.66 mg/dL (0.40-1.00); Ethanol (Alcohol), Blood, Med 401 mg/dL; Globulin, Blood 3.7 g/dL (2.2-4.0); Glomerular Filtration Rate 110 (60-); Glucose, Blood 124 mg/dL (70-99); Potassium, Blood 3.9 mmol/L (3.5-5.5); Sodium, Blood 147 mmol/L (136-145); Total Protein, Blood 7.5 g/dL (6.4-8.2)
[2022-12-08 23:24] LABS: U Amphetamine Screen Not Detected; U Barbituate Screen Not Detected; U Benzodiazapine Screen Not Detected; U Buprenorphine Screen Not Detected; U Cannabinoids Screen Not Detected; U Cocaine Screen Not Detected; U Methadone Screen Not Detected; U Methamphetamine Screen Not Detected; U Opiates Screen DETECTED; U Oxycodone Screen Not Detected; U Phencyclidine Screen Not Detected; U Propoxyphene Screen Not Detected
[2022-12-08] MEDS ORDERED: CODEINE-GUAIFE120 M1 PO (23:32)
[2022-12-08] MEDS ORDERED: [UNRECOGNIZED DRUG - CODE] PO (23:32)
[2022-12-09] VITALS (76 sets, daily range): BP systolic 78–159; BP diastolic 53–110
[2022-12-09 00:12] LABS: PCO2 Arterial 30.3 mmHg (35-45); PO2 Arterial 103 mmHg (80-100); pH Blood Arterial 7.39 (7.35-7.45)
[2022-12-09 01:12] LABS: BASOPHILS ABSOLUTE AUTO 0.01 K/mm3 (0.00-0.23); BASOPHILS PERCENT AUTO 0 % (0-2); EOSINOPHILS ABSOLUTE AUTO 0.02 K/mm3 (0.00-0.68); EOSINOPHILS PERCENT AUTO 0 % (0-6); Hematocrit 36.1 % (33.0-51.0); Hemoglobin 12.5 g/dL (11.5-16.0); IMMATURE GRAN ABSOLUTE AUTO 0.03 K/mm3 (0.00-0.10); IMMATURE GRAN PERCENT AUTO 1 % (0-1); LYMPHOCYTES ABSOLUTE AUTO 3.12 K/mm3 (0.84-5.20); LYMPHOCYTES PERCENT AUTO 63 % (21-46); MONOCYTES ABSOLUTE AUTO 0.34 K/mm3 (0.16-1.47); MONOCYTES PERCENT AUTO 7 % (4-13); Mean Corpuscular HGB 35.9 pg (26.0-34.0); Mean Corpuscular HGB Conc 34.6 g/dL (31.5-36.5); Mean Corpuscular Volume 104 fL (80-100); Mean Platelet Volume 8.9 fL (9.1-12.4); NEUTROPHILS ABSOLUTE AUTO 1.44 K/mm3 (1.96-9.15); NEUTROPHILS PERCENT AUTO 29 % (41-73); Platelet Count 143 K/mm3 (150-400); RDW Coefficient Variation 12.8 % (11.7-14.2); RDW Standard Deviation 48.5 fL (35.1-46.3); Red Blood Cell Count 3.48 M/mm3 (3.80-5.20); White Blood Cell Count 4.96 K/mm3 (4.00-11.30)
[2022-12-09 01:30] LABS: Source, Urine Foley catheter
[2022-12-09 01:30] LABS: Albumin, Blood 3.6 g/dL (3.4-5.0); Bilirubin, Total 0.2 mg/dL (0.1-1.0); Bun/Creatinine Ratio 18.8 (12.0-20.0); Calcium, Blood 8.3 mg/dL (8.5-10.1); Creatinine, Blood 0.69 mg/dL (0.40-1.00); Globulin, Blood 3.5 g/dL (2.2-4.0); Potassium, Blood 3.7 mmol/L (3.5-5.5); Total Protein, Blood 7.1 g/dL (6.4-8.2)
[2022-12-09 01:39] LABS: Bilirubin, Urine Neg (Neg); Blood, Urine 1+ (Neg); Glucose Qualitative, Urine Neg (Neg); Ketones, Urine 1+ (Neg); Leukocyte Esterase, Urine Neg (Neg); Nitrite, Urine Neg (Neg); Protein, Urine 1+ (Neg); Urobilinogen, Urine NORM (Normal)
[2022-12-09 01:42] LABS: Appearance, Urine Clear (Clear); Color, Urine Yellow (P-Yellow)
[2022-12-09 02:01] LABS: Bacteria Not Seen /hpf; Red Blood Cells, Urine 0-2 /hpf (0-2); Renal Epithelial Few /hpf (0-Rare); Squamous Epithelial Cells Rare /hpf (Few); White Blood Cells, Urine 0-2 /hpf (0-5)
--- NOTE | 2022-12-09 06:46 | NUR ---
NOC SHIFT SUMMARY PT ARRIVED FROM ER AT 0023 VIA GURNEY ON A VENT ACCOMPANIED BY RT AND RN. TRANSFERRED TO ICU BED. MOTHER TO BEDSIDE, ADMISSION COMPLETED. SEDATED WITH PROPOFOL, REQUIRING HIGH DOSES TO MAINTAIN SEDATION. PRN FENTANLY ORDER RECIEVED AND GIVEN WITH GOOD ADJUNCT TO SEDATION. SR, BP SOFT R/T PROPOFOL TITRATIONS. VENT AC/VC+ 14/450/5/21%, TOLERATING SETTINGS WELL WITH MODERATE AMOUNT OF ORAL SECRETIONS. OGT TO LIS. GREENE IN PLACE, UO BORDERLINE. SKIN INTACT. PIV X4, RIGHT EJ, RIGHT FOOT, LEFT BREAST AND LEFT FOREARM. 1/2 NS AT 75 ML FOR 1 LITER. POISON CONTROL UPDATE GIVEN, NO CHANGES RECOMMENDED TO CURRENT COURSE OF CARE, CONTINUE SUPPORTIVE CARE AND MONITOR FOR QT CHANGES. RN TO CONTINUE TO FOLLOW.
[2022-12-09 09:19] LABS: Bun/Creatinine Ratio 19.6 (12.0-20.0); Calcium, Blood 8.6 mg/dL (8.5-10.1); Creatinine, Blood 0.56 mg/dL (0.40-1.00); Potassium, Blood 3.4 mmol/L (3.5-5.5)
--- NOTE | 2022-12-09 09:58 | NUR ---
JEWELRY 3 GOLD HOOP EARINGS FROM LT EAR, RING FROM LT RING FINGER, AND RING FROM RT RING FINGER REMOVED AND PLACED IN SPECIMEN CONTAINER LOCKED IN ROOM LOCK BOX.
--- NOTE | 2022-12-09 17:25 | NUR ---
SHIFT SUMMARY PATIENT REMAINS INTUBATED AND SEDATED. VENT SETTINGS 14/450/5/30% WITH SPO2 MID TO HIGH 90'S. PROPOFOL @ 75MCG/KG/MIN, PRECEDEX @ 1 MCG/KG/HR, 1/2NS @ 75ML/HR. TF STARTED TODAY JEVITY 1.2 FELICITAS @ 40 ML/HR VIA OGT. FENTANYL PRN INCREASED TO 100MCG Q1H PRN AND MEDICATED PER EMAR FOR AGITATION AND SEDATION PURPOSES. PATIENT REQUIRED ONE DOSE OF ATIVAN 4MG IV FOR INCREASED AGITATION AND ATTEMPTED SELF-EXTUBATION. GREENE PATENT AND DRAINED 240ML GREEN URINE WITH SEDIMENT TO GRAVITY. NO BM THIS SHIFT. PATIENT STILL OPENS EYES AND MOVES ALL EXTREMITIES, BUT NOT TO COMMAND. NO OTHER CHANGES DURING SHIFT.
[2022-12-10] VITALS (93 sets, daily range): BP systolic 94–167; BP diastolic 60–112
[2022-12-10 03:56] LABS: Hematocrit 33.3 % (33.0-51.0); Hemoglobin 11.7 g/dL (11.5-16.0); Mean Corpuscular HGB 36.1 pg (26.0-34.0); Mean Corpuscular HGB Conc 35.1 g/dL (31.5-36.5); Mean Corpuscular Volume 103 fL (80-100); Mean Platelet Volume 9.2 fL (9.1-12.4); Platelet Count 112 K/mm3 (150-400); RDW Coefficient Variation 12.4 % (11.7-14.2); RDW Standard Deviation 46.8 fL (35.1-46.3); Red Blood Cell Count 3.24 M/mm3 (3.80-5.20); White Blood Cell Count 4.36 K/mm3 (4.00-11.30)
[2022-12-10 04:14] LABS: Bun/Creatinine Ratio 23.3 (12.0-20.0); Calcium, Blood 8.7 mg/dL (8.5-10.1); Creatinine, Blood 0.64 mg/dL (0.40-1.00); Potassium, Blood 3.9 mmol/L (3.5-5.5)
--- NOTE | 2022-12-10 05:23 | NUR ---
NOC SHIFT SUMMARY SEDATED WITH PROPOFOL AND PRECEDEX, PRN FENTANYL GIVEN NEEDED TO ADJUNCT SEDATION AND FOR C/O PAIN. PT NODS APPROPRIATELY BUT BECOMES VERY RESTLESS WHEN SEDATION SLOWED OR STOPPED EVEN TEMPORARILY. SR, BP SLIGHTLY ELEVATED. AC/VC 14/500/5/30%. NO WEANING PLANNED THIS SHIFT PER DR. SNOWDEN. PLAN IS TO EXTUBATE TODAY AROUND 1000. PT WILL NEED SITTER AND WILL BE PLACED ON A HOLD WHEN EXTUBATED. OGT WITH JEVITY 1.2 INFUSING AT 40ML/HR (GOAL) WITH 30 ML H20 FLUSH EVERY 4 HOURS. TOLERATING WELL. GREENE IN PLACE, DARK URINE, GREEN WITH SEDIMENT, UO APPROX 20-25ML/HR. SKIN WITH SCATTERED BRUISING AND ABRASIONS. UNCHANGED. CHG BATH GIVEN. PIV X2, INFUSING AND FLUSHING. NO FAMILY AT BEDSIDE THIS SHIFT. HOURLY SAFETY ROUNDING COMPLETED. PT NOT AN IGNITION RISK WHILE INTUBATED AND SEDATED. NO IGNITION SOURCES PRESENT IN ROOM. CONTINUE TO MONITOR.
--- NOTE | 2022-12-10 14:04 | NUR ---
Upon receiving a referral for spiritual care, I visited the patient. PAtient is lying in bed and alert. Patient is intubated so communication is strained. When asked if the patient is holding up ok, she waffles her hand up and down. Patient nods her head affirmingly when asked if she would like a prayer said for her. I gladly provide prayer according to her listed Rastafarian Denominational gay. She tearful during the prayer but looks me in the eyes and nods "yes" and gives the thumbs up after the prayer. She mouths "thank you." I will continue to remain available to patient and family.
--- NOTE | 2022-12-10 15:06 | NUR ---
EXTUBATION PROPOFOL OFF AT 1336. PATIENT REMAINS ASLEEP AND NOT FOLLOWING COMMANDS OR BREATHING ON HER OWN. PRECEDEX OFF AT 1345. PATIENT REMAINS ASLEEP AND NOT FOLLOWING COMMANDS. PATIENT BEGAN OPENING EYES AND BREATHING ON HER OWN AT 1415. EXTUBATED AT 1420 AND 2L VIA NC PLACED ON PATIENT AT 1425 TO KEEP SPO2 GREATER THAN 90% PATIENT DOES NOT REMEMBER EVETNS LEADING UP TO HOSPITALIZATION AND IS NOT ORIENTED TO PLACE OR DATE. PATIENT IS TEARFUL AND APOLOGIZING TO STAFF. VSS STABLE POST EXTUBATION.
--- NOTE | 2022-12-10 15:40 | NUR ---
SEIZURE PATIENT WAS LAYING IN BED WITH EYES CLOSED WHEN PATIENT'S MOTHER REPORTED THAT THE PATIENT STATED SHE "FEELS WEIRD". UPON ARRIVAL TO BEDSIDE PATIENT WAS EXHIBITING SEIZURE ACTIVITY. DR. SNOWDEN TO BEDSIDE AND 2 MG ATIVAN IV X 1 THEN ATIVAN 4MG IV X 1. PATIENT IS NOW LAYING IN BED WITH EYES CLOSED QUIETLY WITH PATENT AIRWAY.
--- NOTE | 2022-12-10 16:00 | NUR ---
CARE ASSUMPTION/INTUBATION THIS RN ASSUMED CARE OF THE PT AND RECIEVED BEDSIDE SHIFTY REPORT FROM ALEM Forrest RN. JUST AFTER ASSSUMING CARE OF THE PT THIS RN WAS ASSESSING THE PT WHEN SHE AWOKE AND BEGAN HAVING A SEIZURE. PT WAS GIVEN 4MG ATIVAN PER DR. SNOWDEN W NO EFFECT. PT GIVEN SECOND DOSE OF 8MG ATIVAN W LITTLE TO MODERATE EFFECT. DR. SNOWDEN AT BEDSIDE ASSESSING THE PT AND MADE THE DECESION TO INTUBATE THE PT. PT INTUBATED W/O COMPLICATIONS, SEE PREVIOUS NOTES FOR DETAILS.
--- NOTE | 2022-12-10 16:24 | NUR ---
REINTUBATION TIME 1620... DR SNOWDEN AT HEAD OF BED. 60MG OF PROPOFOL IV PUSH AT 1623 50MG OF ROCURONEIUM IV PUSH AT 1623 PULSE 90 SAO2 AT 100% BP 155/119 ETT PLACED WITH GLIDESCOPE SIZE 7.5 AT 1625 22 AT TEETH, GOOD COLOR CHANGE VERBAL ORDER GIVE ANOTHER 80MG OF PROPOFOL IV PUSH NOW 1627. AUSCULATION PRESENT IN ALL LOBES.. CLEAR LUNG SOUNDS ASCULATED. X-RAY DO BE DONE TO CHECK ETT PLACEMENT. END INTUBATION TIME 1628
--- NOTE | 2022-12-10 18:52 | NUR ---
DAY SHIFT SUMMARY/UPDATE THIS RN ASSUMED CARE OF THE PT AT 1600 FROM ALEM Forrest RN. SEE PREVIOUS NOTES LEADING TO REINTUBATION. AFTER THE PT WAS INTUBATED SHE REMAINED CALM ON THE VENTILATOR UNTIL 1834 WHEN SHE BEGAN TO SIT UP IN BED COUGHING AND THEN HAD ANOTHER SEIZURE. PT WAS GIVEN 6MG ATIVAN AND SEIZURE SUBSIDED. DR. SNOWDEN NOTIFIED OF SEIZURE AND ORDER FOR KEPPRA WAS OBTAINED. DR. SNOWDEN CALLING PASSENGER INTERLINE CLERK ISSAC NOTIFYING HER THAT AFTER REVIEWING THE XRAY THE ET TUBE SHOULD BE ADVANCED 2CM, RT NOTIFIED BUT DUE TO RT SHIFT CHANGE THE ET TUBE HAS NOT BEEN ADVANCED AT THIS TIME. PT'S SPO2 >94% ON VENT 14/450/5.0 W 35% FIO2. PROPOFOL GTT RUNNING AT 60, PRECEDEX AT 1.0. BP WNL AND STABLE. MONITOR SHOWING SR 60'S. PT AFEBRILE W TEMP GREENE IN PLACE DRAINING GREEN URINE. WILL REPORT TO ONCOMING RN.
--- NOTE | 2022-12-10 20:27 | NUR ---
ASSUMED CARE OF PT AT 1915 BEDSIDE REPORT RECIEVED FROM CAROL DANIELS. PT WAS REINTUBATED 2 HOURS AFTER EXTUBATION TODAY TO PROTECT HER AIRWAY AFTER SEIZING MULTIPLE TIMES. CURRENTLY SEDATED WITH PRECEDEX AND PROPOFOL, HAS RECEIEVED MULTIPLE DOSES OF ATIVAN IVP, KEPPRA IVPB STARTED. SR, OCCASIONAL TRIGEMINAL PVC'S. BP ELEVATED AT 147/107. NO SITTER AT BEDSIDE PLANNED UNTIL PT ABLE TO BE EXTUBATED AND OFF SEDATION. VENT SETTINGS 14/450/5/35%. ETT ADVANCED 2 CM TO 24 @ TEETH PER MD ORDER. OGT CLAMPED, TF NOT RESUMED AFTER REINTUBATION. TEMP PROBE GREENE PATENT AND DRAINING DARK GREEN URINE. SKIN UNCHANGED, NO BREAKDOWN RELATED TO PRESSURE. PIV REJ SL, FLUSHES WELL. PIV LFA, INFUSING AND FLUSHING WELL. NO FAMILY AT BEDSIDE. MOTHER WENT HOME TO REST, WILL BE BACK IN AM PER REPORT. RN TO CONTINUE TO MONITOR.
[2022-12-11] VITALS (86 sets, daily range): BP systolic 84–180; BP diastolic 51–133
[2022-12-11 03:40] LABS: Hematocrit 31.7 % (33.0-51.0); Mean Corpuscular HGB Conc 34.7 g/dL (31.5-36.5); Mean Corpuscular Volume 101 fL (80-100); Mean Platelet Volume 9.6 fL (9.1-12.4); Platelet Count 116 K/mm3 (150-400); RDW Coefficient Variation 12.3 % (11.7-14.2); RDW Standard Deviation 45.4 fL (35.1-46.3); Red Blood Cell Count 3.14 M/mm3 (3.80-5.20); White Blood Cell Count 3.25 K/mm3 (4.00-11.30)
[2022-12-11 04:00] LABS: Bun/Creatinine Ratio 17.7 (12.0-20.0); Calcium, Blood 8.8 mg/dL (8.5-10.1); Creatinine, Blood 0.56 mg/dL (0.40-1.00); Magnesium, Blood 1.6 mg/dL (1.6-2.4); Phosphorus, Blood 3.8 mg/dL (2.5-4.9); Potassium, Blood 3.8 mmol/L (3.5-5.5)
--- NOTE | 2022-12-11 05:04 | NUR ---
NOC SHIFT SUMMARY NO SEIZURE ACTIVITY NOTED THIS SHIFT. MEDICATED WITH FENTANYL IVP X1 TO ADJUNCT SEDATION. CONTINUES ON PROPOFOL AND PRECEDEX. VENT SETTINGS UNCHANGED 14/450/5/30%, PT TOLERATING WELL, MINIMAL SECRETIONS FROM ETT. SR WITH OCCASIONAL TRIGEMINAL PVC'S. DIASTOLIC BP REMAINS ELEVATED AROUND 100. OGT CLAMPED. GREENE DRAINING DARK GREEN URINE. SKIN UNCHANGED, NO BREAKDOWN RELATED TO PRESSURE. PIV X2, BOTH FLUSH WELL. NO FAMILY AT BEDSIDE, UPDATED PT'S MOTHER EARLY IN SHIFT VIA PHONE. ALL QUESTIONS ANSWERED. RN TO CONTINUE TO MONITOR.
--- NOTE | 2022-12-11 07:25 | NUR ---
CARE ASSUMPTION DURING [facility] SHIFT REPORT WITH NEIL RN THE PT IS LYING SUPINE IN BED INTUBATED ON THE VENTILATOR. VENT SETTINGS ARE 14/450/5.0 W 30% FIO2. PT HAS PROPOFOL RUNNING AT 60, PRECEDEX RUNNING AT 1.0. PT APPEARS COMFORTABLE IN NO DISTRESS. BP ELEVATED 160'S/110'S. MONITOR SHOWING SR 60'S W OCCASIONAL PVC'S. PT HAS TEMP GREENE DRAINING CLEAR GREEN URINE.
--- NOTE | 2022-12-11 12:28 | NUR ---
Updated Dr Ragsdale with Assessment Findings at this time. She is reviewing his treatment plan.
--- NOTE | 2022-12-11 14:54 | NUR ---
Pt. is intubated and highly sedated. Pts. mother is present. Facilitated a life review with Pts. mother. Listen with empathy and a calming presence. Mother verbalized gratitude for the empathetic care Pt. has received, as well as the spiritual care visit. Will remain available to the Pt.
--- NOTE | 2022-12-11 16:10 | NUR ---
UPDATE AFTER RECIEVING ABED BATH THE PT WAS TURNED ONTO HER SIDE WHEN SHE VOMITITED A MODERATE AMOUNT OF BILE APPEARING LIQUID FDROM HER MOUTH. SUCTION WAS QUICKLY USED TO CLEAR RESIDULE EMSIS FROM THE PT'S MOUTH. PT'S SPO2 REMAIN AT 99% AT THIS TIME. DR. WOODS NOTIFIED. TF RATE DECREASED PER DR. WOODS AND PT MEDICATED FOR NAUSEA.
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
--- NOTE | 2022-12-11 17:40 | NUR ---
DAY SHIFT SUMMARY PT HAS REMAINED INTUBATED ON THE VENTILATOR ALL SHIFT W SETTINGS REMAINING THE SAME 14/450/5.0 W 30% FIO2. THE PT'S SEDATION HAS BEEN TURNED DOWN THIS SHIFT DUE W PROPOFOL GOING FROM 70MCG/KG/MIN TO 30 HOWEVER THE PT WILL HAVE A RASS OF -4 AND THEN W ANY STIMULUS SHE WILL THRASH IN BED ATTEMPTING TO SIT UP CAUSING HERSELF TO GAG AGAINST THE VENTILATOR. THE PT BECOMES VERY TACHYPNEIC DURING THESE EPISODES REQUIRING INCREASED SEDATION TO CALM DOWN. PROPOFOL CURRENTLY RUNNING AT 40MCG/KG/MIN. PRECEDEX RUNNING AT 1.0. PT HAS BEEN HYPERTENSIVE THIS SHIFT REQUIRING ONE DOSE OF HYDRALAZINE FOR SBP >170, BP IMPROVED THROUGHOUT THE DAY BUT HAS INCREASED THIS AFTERNOON W SBP IN THE 160'S. MONITOR SHOWING SR IN THE 60'S THIS SHIFT W OCCASIONAL PVC'S AND VERY BRIEF TRIGEMINAL PVC'S. PT ALSO HAS A FIRST DEGREE HEART BLOCK. PT HAD A BED BATH THIS SHIFT AND DURING THIS SHE HAD AN EPISODE OF EMESIS WHILE ON HER SIDE, SEE PREVIOUS NOTE FOR DETAILS. PT RESTARTED ON TUBE FEEDINGS THIS SHIFT BUT AT A REDUCED RATE AFTER THE PT VOMITTED. TF RUNNING AT 15ML/HR. PT'S GREENE PATENT AND DRAINED 650ML DARK GREEN URINE THIS SHIFT. PT'S MOTHER AT BEDSIDE AT THIS TIME. WILL REPORT TO ONCOMING RN.
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
--- NOTE | 2022-12-11 20:06 | NUR ---
CALL PLACED TO DR. WOODS RE: LOW BP PT RECEIVED HYDRALIZINE IV FOR ELEVATED SBP CAUSING LOWERED SBP IN THE 70-90'S. MAP IS CURRENTLY 64. 250ML NS BOLUS ORDERED BY MD. MEDINA TO CONTINUE TO MONITOR.
[2022-12-12] VITALS (95 sets, daily range): BP systolic 86–173; BP diastolic 54–115
[2022-12-12 03:40] LABS: BASOPHILS ABSOLUTE AUTO 0.02 K/mm3 (0.00-0.23); BASOPHILS PERCENT AUTO 0 % (0-2); EOSINOPHILS ABSOLUTE AUTO 0.08 K/mm3 (0.00-0.68); EOSINOPHILS PERCENT AUTO 2 % (0-6); Hematocrit 31.6 % (33.0-51.0); Hemoglobin 11.1 g/dL (11.5-16.0); IMMATURE GRAN ABSOLUTE AUTO 0.01 K/mm3 (0.00-0.10); IMMATURE GRAN PERCENT AUTO 0 % (0-1); LYMPHOCYTES ABSOLUTE AUTO 1.56 K/mm3 (0.84-5.20); LYMPHOCYTES PERCENT AUTO 31 % (21-46); MONOCYTES ABSOLUTE AUTO 0.28 K/mm3 (0.16-1.47); MONOCYTES PERCENT AUTO 6 % (4-13); Mean Corpuscular HGB 35.8 pg (26.0-34.0); Mean Corpuscular HGB Conc 35.1 g/dL (31.5-36.5); Mean Corpuscular Volume 102 fL (80-100); Mean Platelet Volume 9.7 fL (9.1-12.4); NEUTROPHILS ABSOLUTE AUTO 3.08 K/mm3 (1.96-9.15); NEUTROPHILS PERCENT AUTO 61 % (41-73); Platelet Count 114 K/mm3 (150-400); RDW Coefficient Variation 12.4 % (11.7-14.2); RDW Standard Deviation 46.6 fL (35.1-46.3); White Blood Cell Count 5.03 K/mm3 (4.00-11.30)
[2022-12-12 04:23] LABS: Albumin, Blood 2.8 g/dL (3.4-5.0); Albumin/Globulin Ratio 0.9 (0.8-1.8); Bilirubin, Total 0.6 mg/dL (0.1-1.0); Bun/Creatinine Ratio 20.6 (12.0-20.0); Calcium, Blood 8.5 mg/dL (8.5-10.1); Creatinine, Blood 0.54 mg/dL (0.40-1.00); Magnesium, Blood 1.4 mg/dL (1.6-2.4); Percent Saturation 20.2 % (15.0-50.0); Phosphorus, Blood 4.3 mg/dL (2.5-4.9); Potassium, Blood 3.7 mmol/L (3.5-5.5); Total Protein, Blood 5.8 g/dL (6.4-8.2)
--- NOTE | 2022-12-12 05:03 | NUR ---
END OF SHIFT SUMMARY PT RESTED WELL WITH SEDATION. ATIVAN IV GIVEN X1 TO ADJUNCT SEDATION. SR, BP WNL FOR PT, VENT SETTINGS: 14/450/5/30%, PT TOLERATED WELL. OGT WITH TF RUNNING AT 15 ML/HR, PT TOLERATING WELL WITH NO SIGNS OF VOMITING. NO BM THIS SHIFT. GREENE WITH DARK GREEN URINE, 1000 ML OUT. SKIN UNCHANGED. PIV X1 AND PG X1 BOTH FLUSH WELL. MOTHER UPDATED ON CONDITION VIA PHONE. HOURLY ROUNDING COMPLETED FOR SAFETY, NO IGNITION SOURCES IDENTIFIED, PT UNABLE TO ACCESS ANY BELONGINGS DUE TO HOLD. RN TO CONTINUE TO MONITOR.
--- NOTE | 2022-12-12 07:14 | NUR ---
Assumed care. Bedside report received from nightshift RN. Pt in bed, sedated and ventilated via ETT. Vent settings: 14/450/5/30%. Propofol infusing at 45 mcg/kg/min, precedex infusing at 1 mcg/kg/hr, NS TKO. OG tube in place, TF at 15 ml/hr. SWB restraints in place, Henry catheter in place, draining to gravity. No acute needs at time of report, will continue to monitor.
[2022-12-12 18:49] LABS: Source, Urine Foley catheter
[2022-12-12 18:54] LABS: Appearance, Urine Bloody (Clear); Bilirubin, Urine Neg (Neg); Blood, Urine 5+ (Neg); Color, Urine Red (P-Yellow); Glucose Qualitative, Urine Neg (Neg); Ketones, Urine 1+ (Neg); Leukocyte Esterase, Urine 1+ (Neg); Nitrite, Urine Pos (Neg); Protein, Urine 3+ (Neg); Specific Gravity, Urine 1.025 (1.003-1.022); Urobilinogen, Urine 1+ (Normal); pH, Urine 6.5 (5.0-8.0)
--- NOTE | 2022-12-12 19:00 | NUR ---
Shift summary. Pt remained in bed throughout shift, no changes to vent settings. Propofol infusing at 45 mcg/kg/min, precedex infusing at 1 mcg/kg/hr. No acute events this shift. See chart for details. Report given to nightshift RN.
[2022-12-12 19:08] LABS: Bacteria Many /hpf; Calcium Oxalate Crystals Few /hpf; Mucus Light (0-Heavy); Red Blood Cells, Urine TNTC /hpf (0-2); Squamous Epithelial Cells Few /hpf (Few)
[2022-12-13] VITALS (89 sets, daily range): BP systolic 94–176; BP diastolic 67–140
--- NOTE | 2022-12-13 06:08 | NUR ---
SHIFT SUMMARY: NO ACUTE CHANGES OVERNIGHT. PT REMAINS INTUBATED AND SEDATED WITH VENT SETTINGS AC/VC 14/450/5/30% AND PROPOFOL GTT @ 55 MCG AND PRECECEX GTT @ 1.2 MCG. PT TOLERATED VENT WELL THROUGHOUT THE NIGHT. PT RESPONDING TO PAIN STIMULI BUT IS NOT FOLLOWING DIRECTIONS AT THIS TIME. AT TIMES, PT BECOMES RESTLESS IN BED; PT MEDICATED PER EMAR AND CALMS DOWN. PT SR ON MONITOR WITH HR 60-70 AND SBP 140-150. HYPOACTIVE BOWEL SOUNDS IN ALL QUADRATNS; ABD SOFT, NON-TENDER. OGT IN PLACE AND PATENTL VHP INFUSING AT 25 MLS/HR WITH A GOAL RATE OF 50 MLS/HR/ PT HAS TEMP GREENE IN PLACE THAT IS DRAINING TO GRAVITY; DARK REDDISH-BROWN URINE OUTPUT. PT HAS NOT HAD A BOWEL MOVEMENT THIS SHIFT BUT BOWEL PROTOCOL INITIATED THIS SHIFT. PPP X 4, SKIN INTACT OVERALL. PT RECIEVED COMPLETED CHG BED BATH WTIH A COMPLETE LINEN CHANGE; TOLERATED WELL. HOURLY ROUNDING FOR IGNITION RISK COMPLETED. WILL CONTINUE TO MONITOR UNTIL ONCOMING RN ARRIVES.
[2022-12-13 07:00] LABS: Hematocrit 31.3 % (33.0-51.0); Hemoglobin 10.8 g/dL (11.5-16.0); Mean Corpuscular HGB 35.3 pg (26.0-34.0); Mean Corpuscular HGB Conc 34.5 g/dL (31.5-36.5); Mean Corpuscular Volume 102 fL (80-100); Mean Platelet Volume 9.9 fL (9.1-12.4); Platelet Count 108 K/mm3 (150-400); RDW Coefficient Variation 12.6 % (11.7-14.2); RDW Standard Deviation 47.3 fL (35.1-46.3); Red Blood Cell Count 3.06 M/mm3 (3.80-5.20); White Blood Cell Count 4.02 K/mm3 (4.00-11.30)
[2022-12-13 07:07] LABS: Albumin, Blood 2.7 g/dL (3.4-5.0); Albumin/Globulin Ratio 0.9 (0.8-1.8); Bilirubin, Total 0.6 mg/dL (0.1-1.0); Bun/Creatinine Ratio 21.4 (12.0-20.0); Calcium, Blood 8.2 mg/dL (8.5-10.1); Creatinine, Blood 0.52 mg/dL (0.40-1.00); Potassium, Blood 3.5 mmol/L (3.5-5.5); Total Protein, Blood 5.7 g/dL (6.4-8.2)
--- NOTE | 2022-12-13 18:47 | NUR ---
PT AGITATED AND ALARMING VENT; HIGH PEAKS/STACKING. PT MEDICATED PER PRIMARY CAROL Edmonds ATIVAN. PT'S MOTHER AT BEDSIDE.
--- NOTE | 2022-12-13 19:36 | NUR ---
CRYSTAL WAS ABLE TO BE TITRATED DOWN TO PROPOFOL OF 40MCG/KG AND GIVEN THE ATIVAN AND FENTANYL ADJUNCTS WITH GOOD RESULTS. SHE HAS BEEN TEARFUL WHEN LISTENING TO WHY SHE IS HERE AND WHAT HAS TRANSPIRED. TEARFUL WITH HER MOTHER. SHE CONTINUES WITH MINIMAL SECRETIONS, LOWER URINE OUTPUT AND TOLERATING TF. NO OTHER CHANGES.
--- NOTE | 2022-12-13 22:03 | NUR ---
ASSUMPTION OF CARE/ASSESSMENT: ASSUMED CARE OF PT AT 1900, REPORT RECIEVED FROM TINO MEDINA. PT REMAINS INTUBATED AND SEDATED WITH VENT SETTINGS AC/VC 14/450/5/35% AND PROPOFOL GTT @ 55 MCG, PRECEDEX GTT @ 1.2 MCG. PT IS RESTLESS IN BED AND ATTEMPTING TO SIT UP; PT MEDICATED WITH FENTANYL AND ATIVAN. PT OPENNING EYES TO VERBAL/PAIN STIMULI BUT IS NO FOLLOWING COMMANDS AT THIS TIME. LUNG SOUNDS ARE CLEAR WITH DIM BASES; MODERATE AMOUNT OF ORAL SECRETIONS. WHEN PT CALM SHE IS TOLERATING VENT BUT WHEN RESTLESS/AGGITATED PT VERY TACHYPNEIC INTO THE 30-40'S AND COUGHING FREQUENTLY. PT IN SR WITH HR 60-70'S AND SBP 150-160'S. PT HAS MILD ABD DISTENTION AND HYPOACTIVE BOWEL SOUNDS IN ALL QUADRANTS; OGT IN PLACE AND INFUSING VHP @ 50 MLS/HR (GOAL RATE). PT HAS TEMP GREENE IN THAT IS DRAINING TEA-COLORED URINE WITH SEDIMENTS NOTED; PT AFEBRILE AT THIS TIME. SKIN INTACT, COOL, PPP X 4. BED LOWERED, WILL CONTINUE TO MONITOR.
[2022-12-14] VITALS (93 sets, daily range): BP systolic 100–177; BP diastolic 47–143
--- NOTE | 2022-12-14 06:01 | NUR ---
SHIFT SUMMARY: NO ACUTE CHANGES THIS SHIFT. PT REMAINS INTUBATED AND SEDATED WITH VENT SETTINGS AC/VC 14/450/5/30% AND PROPOFOL GTT @ 50 MCG AND PRECEDEX GTT @ 1.2MCG. PT HAS BEEN RESTLESS ON AND OFF THROUGHOUT THE NIGHT, PRN MEDS PER EMAR TO HELP WITH VENT COMPLIANCE THIS SHIFT. PT HAD BED BATH COMPLETED. VSS THROUGHOUT THE NIGHT, ONE DOSE OF HYDRALAZINE GIVEN FOR HTN. HOURLY ROUNDING FOR IGNITION RISKS COMPLETED. BED LOWERED, WILL CONTINUE TO MONITOR UNTIL ONCOMING RN ARRIVES.
--- NOTE | 2022-12-14 08:07 | NUR ---
ASSUMED CARE OF CRYSTAL AT 0700, SHE HAS BEEN RESTLESS AND DIFFICULT TO REDIR- ECT. SHE HAS BEEN MEDICATED WITH ATIVAN AND VERBALLY ENCOURAGED, REORIENTED FREQUENTLY. CONTINUES ON PROPOFOL AND PRECEDEX GTTS
--- NOTE | 2022-12-14 10:32 | NUR ---
PT HAS CONTINUED TO BE RESTLESS AND ALL OVER THE BED. SHE NODS OR SHAKES HER HEAD WHEN "MOM VOICE" USED, BUT WILL NOT FOLLOW SIMPLE COMMANDS.
[2022-12-14 12:44] LABS: PCO2 Arterial 30.4 mmHg (35-45); PO2 Arterial 74.9 mmHg (80-100); pH Blood Arterial 7.46 (7.35-7.45)
--- NOTE | 2022-12-14 13:29 | NUR ---
PT CONTINUES TO BE ALL OVER THE BED, SHE IS RESTLESS AND NOT ABLE TO BE REDIRECTED. SHE CONTINUES ON THE PROPOFOL AND THE PRECEDEX, EFFORTS MADE TO TITRATE THE PROPOFOL AND PRECEDEX DOWN.
--- NOTE | 2022-12-14 13:45 | NUR ---
MIDAZOLAM DRIP STARTED AT 2 MCG PER RECOMMENDATION THAT IF VERSED IS NEEDED Q30" START THE DRIP. PT HAS RECEIVED 4 DOSES OF MIDAZOLAM PUSHES, SHE REMAINS ALL OVER THE PLACE, STILL TRYING TO KICK AT STAFF AND GET HER ARMS FREE. BREATHING IS TACHYPNEIC AND BECOMING MORE CONGESTED WITH HER COUGH.
--- NOTE | 2022-12-14 18:33 | NUR ---
CRYSTAL HAS BEEN AWAKE MOST OF THE SHIFT. SHE WILL SOMETIMES FOLLOW COMMANDS, SOMETIMES NOT. SHE IS ABLE TO NOD AND SHAKE HER HEAD ACCORDINGLY. SHE CONTINUES ON THE PRECEDEX @ 0.7MCG; PROPOFOL @ 30MCG/KG AND MIDAZOLAM @ 4MG/HR SHE HAS TOLERATED HER VHP @ 50ML/HR, BOWEL PROTOCOL HAS CONTINUED WITH PT AND SUPP. GREENE WITH GOOD URINE OUTPUT, REMAINS RED TINGED, BLOOD STREAKED. SHE CONTINUES TO BE ABLE TO SIT UPRIGHT IN BED AND VERBALLY REASSURANCE TO LAY BACK DOWN. SHE IS ABLE TO MOVE HER LOWER EXTREMETIES VERY WELL AND IS OFTEN REMINDED TO NOT KICK STAFF. HER LUNGS HAVE BEEN COARSE T/O TODAY AND SHE IS HAVING LARGE VOLUMES OF THICK TENACIOUS CLEAR ORAL SECRETIONS. HER TEMP MAX WAS 100.1 WITH TYLENOL GIVEN PT WITH GOOD RESULTS. HER PAIN HAS BEEN MORE DIFFICULT TO MANAGE WITH PUSHES OF FENTANYL AND A TRIAL OF TORADOL. EFFORTS TO REPOSITION FREQUENTLY EVEN WITH HER MOVEMENT. MOTHER HAS BEEN HERE AT BEDSIDE T/O THE AFTERNOON. CALMING AND REASSURING THE PATIENT.
--- NOTE | 2022-12-14 22:46 | NUR ---
ASSUMED CARE AT 1900 PT LAYING IN BED INTUBATED WITH VENT SETTINGS AC/VC+ 14/450/5/30%; SMALL AMOUNT OF SPUTUM FROM ETT. PT IS CHALLENGING TO SEDATE; SHE IS VERY RESTLESS, ATTEMPTING TO SELF EXTUBATE, KICKING AT STAFF, AND PUSHING AGAINST THE SIDE RAILS WITH HER FEET; ATTEMPTED TO REASURE PT AND REDIRECT HER WITHOUT SUCCESS; PROPOFOL TITRATED UP TO 50MCG/KG/MIN; PRECEDEX INFUSING AT 0.7MCG/KG/HR; VERSED GTT INCRWEASED TO 6MCG/HR; VERSED AND FENTANYL PUSH GIVEN TO HELP WITH THIS BEHAVIOR WITH NO RELIEF; SHE IS NOW IN 4 POINT SOFT RESTRAINTS; SHE IS SELECTIVE WITH ANSWERING Y/N QUESTIONS, SHE TRACKS, MAKES EYE CONTACT, AND WILL FOLLOW DIRECTIONS SELECTIVLY. AFEBRILE. HR 70'S. SBP 140-170'S. VHP INFUSING AT 50ML/HR (GOAL) WITH 30ML WATER FLUSHES Q4HR; NO BM SINCE ADMIT, SHE IS PASSING GAS NOW. GREENE IN [place]CE AND DRAINING TO GRAVITY. SEE SHIFT ASSESSMENT FOR FULL ASSESSMENT.
[2022-12-15] VITALS (64 sets, daily range): BP systolic 91–167; BP diastolic 50–148
--- NOTE | 2022-12-15 03:02 | NUR ---
UPDATE PT IS MORE COOPERATIVE WITH CARE. BLE RESTRAINTS REMOVED, CONT TO HAVE BUE RESTRAINTS ON.
--- NOTE | 2022-12-15 06:33 | NUR ---
END OF SHIFT SUMMARY NO ACUTE EVENTS SINCE LAST NOTE. PT CONT TO BE INTUBATED WITH VENT SETTINGS AC/VC+ 12/450/5/30%. RASS OF -2 NOW; PROPOFOL INFUSING AT 50MCG/KG/MIN; PRECEDEX INFUSING AT 0.7MCG/KG/HR; VERSED INFUSING AT 6MG/HR; NO PRN PUSHES SINCE BEGINNING OF SHIFT. AFEBRILE. HR 60-80'S. SBP 110-160'S. VHP INFUSING AT GOAL; ONLY SMALL SMEAR FOR BM. GREENE IN PLACE WITH NEIL URINE OUTPUT. WILL REPORT TO AM RN WHEN AVAILABLE.
--- NOTE | 2022-12-15 08:02 | NUR ---
ASSUMED CARE OF CRYSTAL AT 0700, BEDSIDE REPORT, PT IS SLEEPING QUIETLY BREATH- ING WITH THE VENTILATOR AT 12 RESPS/HOUR. IV PROPOFOL @ 50/PRECEDEX @ 0.7 AND MIDAZOLAM @ 6MG/HR. ORAL CARE AND CATH CARE COMPLETED WITHOUT A STIR. GREENE IRRIGATED WITH GOOD RETURN. PROPOFOL AND MIDAZ TURNED DOWN TO 25 AND 2 RESPEC- TIVELY. WILL ALLOW PT TO AWAKEN FOR TRIAL BREATHING.
--- NOTE | 2022-12-15 09:25 | NUR ---
Sitter/suicide precautions: Pt extubated and high risk suicide precautions implemented. 1:1 sitter at bedside for continous monitoring.
--- NOTE | 2022-12-15 09:52 | NUR ---
SUMMARY OF EXTUBATION: THE VERSED DRIP AND THE PROPOFOL WERE TURNED OFF, PT WAS PUT ON SPONTANEOUS. PT WAS OBEYING COMMANDS OF THE DOCTOR AND WAS BREATHING WELL, AT 0924 PT WAS EXTUBATED AND OROGASTRIC TUBE WAS REMOVED. PT WAS WITH GOOD COUGH AND GAG. SHE WAS FOLLOWING COMMANDS. GREENE CATHETER WAS REMOVED. PT WAS SHOWN HOW TO USE THE ORAL SUCTION. SHE WAS TEARFUL WHEN TOLD WHERE AND WHY SHE IS HERE. SHE IS EXPLAINING TO THAT SHE DOESN'T WANT TO KILL HERSELF, SHE JUST DRINKS TO EXCESS AND IT CAUSES HER PROBLEMS. PT IS NOW QUIETLY RESTING. PRECEDEX IS DOWN TO 0.4MCG
--- NOTE | 2022-12-15 10:44 | NUR ---
Psych eval conversation: Pt inquiring about leaving the hospital. Pt informed of circumstances regarding admission to the hospital, including suspicion for suicide attempt by alcohol intoxication. Pt states "you don't understand, my sons just got , I wasn't trying to kill myself". Pt informed that an evaluation by psychiatry would need to happen prior to discharge to ensure her safety. Pt agreeable. Offered for pt to be seen by telepsychiatry and explained the process. Pt states she prefers to wait a couple of days and see Dr. Cardenas in person on Saturday.
[2022-12-15 12:03] LABS: Hematocrit 34.7 % (33.0-51.0); Hemoglobin 12.1 g/dL (11.5-16.0); Mean Corpuscular HGB 35.8 pg (26.0-34.0); Mean Corpuscular HGB Conc 34.9 g/dL (31.5-36.5); Mean Corpuscular Volume 103 fL (80-100); Mean Platelet Volume 10.3 fL (9.1-12.4); Platelet Count 149 K/mm3 (150-400); RDW Coefficient Variation 12.3 % (11.7-14.2); RDW Standard Deviation 46.5 fL (35.1-46.3); Red Blood Cell Count 3.38 M/mm3 (3.80-5.20); White Blood Cell Count 5.55 K/mm3 (4.00-11.30)
[2022-12-15 12:08] LABS: Magnesium, Blood 1.8 mg/dL (1.6-2.4)
[2022-12-15 12:10] LABS: Bilirubin, Total 0.5 mg/dL (0.1-1.0); Bun/Creatinine Ratio 31.8 (12.0-20.0); Calcium, Blood 8.6 mg/dL (8.5-10.1); Creatinine, Blood 0.38 mg/dL (0.40-1.00); Globulin, Blood 3.1 g/dL (2.2-4.0); Potassium, Blood 4.3 mmol/L (3.5-5.5); Thyroid Stimulating Hormone 1.13 uIU/mL (0.360-4.800); Total Protein, Blood 6.1 g/dL (6.4-8.2)
--- NOTE | 2022-12-15 12:55 | NUR ---
CRYSTAL'S MOM CAME IN TO VISIT. CRYSTAL WAS DOING WELL UNTIL IT WAS MENTIONED THAT HER SON IS AWARE OF WHAT HAPPENED. SHE BECAME UPSET AND VERBALLY LASHING OUT AT HER MOTHER. HER MOTHER STEPPED OUT.
--- NOTE | 2022-12-15 15:04 | NUR ---
CRYSTAL HAS BEEN APPROPRIATE, REMORSEFUL, TEARFUL. SHE HAS BEEN ABLE TO MAKE HER NEEDS KNOWN, RECALLING PHONE NUMBERS OF FAMILY MEMBERS. THEN ABOUT 30" AGO SHE BEGAN SAYING THERE WERE BUGS AND WORMS ALL OVER. REPEATING HERSELF. ATIVAN GIVEN FOR SYMPTOM RELIEF. MOM AT BEDSIDE.
--- NOTE | 2022-12-15 15:53 | NUR ---
CRYSTAL WAS EXPERIENCING HALLUCINATIONS AND WAS TRYING TO CRAWL OUT OF BED TO GET TO THE "MONKEYS" TO HOLD THEM. ATIVAN 2MG IV GIVEN PER ORDERS. SHE CONTIN- UED TO HAVE EFFORTS OF CONVINCING US THAT THE MONKEYS WERE REAL AND THAT SHE NEEDED TO HOLD THEM. MOM WAS AT BEDSIDE, TALKING TO HER, SOOTHING HER. AFTER A FEW MOMENTS SHE BEGAN TO STARE OFF INTO SPACE. SHE WOULD NO LONGER ANSWER HER MOTHER, THIS LASTED A FEW MOMENTS AND THEN SHE FELL BACK AGAINST THE BED. EFFORTS TO ROUSE HER WERE UNSUCCESSFUL. SHE BEGAN TO HAVE A BLINK BUT REMAINED FLACCID WITH HER EXTREMETIES. SHE WAS ABLE TO COUGH AND "CLEAR" HER THROAT, BUT WASN'T ABLE TO GAG WHEN YANKAUER SUCTION PLACED IN HER MOUTH. STERNAL RUB, TRAPEZIOUS PINCH, TOENAIL GRASP ILLICIT NO RESPONSE. CALLED, ASKED FOR A CBG~116. SHE CONTINUES WITH NO RESPONSE OTHER THAN THE BLINK. SHE IS STILL PROTECTIVE OF HER EYES AND CLOSES HER EYELIDS. HERE NOW (155), SHE WAS PROTECTIVE OF HER FACE WITH THE LEFT ARM NOW.
--- NOTE | 2022-12-15 16:28 | NUR ---
CRYSTAL IS NOW MOVING HER EXTREMETIES, SHE IS SALIVATING AND REACHING UP WITH THE BLANKET TO WIPE HER MOUTH. SHE ANSWERED no TO HER MOTHER'S QUESTION. BUT IS CONTINUING TO STARE OFF.
--- NOTE | 2022-12-15 16:41 | NUR ---
CRYSTAL IS NOW SPEAKING WITH HER MOM, SHE TOLD HER MOTHER THAT SHE WAS AWARE OF WHAT WAS HAPPENING AND SHE COULDN'T MOVE OR RESPOND. SHE COMMENTED ON NOT HAVING TAKEN GABAPENTIN BEFORE, WHICH WE WERE DISCUSSING WHEN SHE WAS "OUT OF IT" FOR THE LAST HOUR.
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
--- NOTE | 2022-12-15 18:38 | NUR ---
CRYSTAL WAS EXTUBATED TO KS AT 0924 THIS AM. SHE HAS BEEN APPROPRIATE, ALERT AND COOPERATIVE FOR MOST OF THE DAY. SHE HAD THE EPISODE THIS AFTERNOON AFTER THE ATIVAN WAS GIVEN, SEE NOTES. SHE WENT TO CAT SCAN, TOLERATED WELL. SHE HAS BEEN LAUGHING AND ENGAGING WITH STAFF AND VISITORS. SHE THEN WAS VISITED BY HER S/O WHO SAID SOME THINGS TO HER THAT HAVE INCREASED HER HEART RATE AND HER BLOOD PRESSURE. SHE WAS MEDICATED WITH HYDRALAZINE FOR BP AND TORADOL FOR HER HEADACHE. SHE IS ABLE TO SWALLOW SOME WATER AND TOLERATED LIQUID ACETAMINOPHEN WITHOUT INCIDENT. SHE WAS C/O HER THROAT BEING RAW AND SORE. SHE STATED THAT AT HOME PRIOR TO HOSPITALIZATION THAT SHE HAS LONG HISTORY OF DIFFICULTY SWAL- LOWING R/T SOME CHOKING INCIDENTS WHEN SHE WAS A CHILD, SO SHE CHEWS HER MEDI- CATIONS. CONTINUING TO WORK ON HER SWALLOWING. SHE IS WITH HER MOTHER AND TRY- ING TO CALM HERSELF DOWN AT THIS TIME. OXYGEN SATS 94% ON ROOM AIR. NO DRIPS. IV TKO W/ ABX INFUSING.
--- NOTE | 2022-12-15 19:17 | NUR ---
SITTING OUTSIDE THE ROOM AND MOM ALERTS US TO A SEIZURE, IN ROOM PT IS SPRAWLED STIFFLY ACROSS THE BED, HEAD IS DIVERTED TO THE LEFT, EYES UPWARD, HANDS CONTRACTED, LEGS TIGHT, ATIVAN OBTAINED AND GIVEN, KEPPRA DOSE FROM TO- NIGHT STARTED EARLY, CALL TO JULIEN CUNNINGHAM,PROCESS DESIGN CHEMICAL ENGINEER COVERING IN HOUSE CAME TO SEE PT. HE ARRIVES PT IS COMING OUT AFTER 2ND DOSE OF ATIVAN. SEIZURE TIMED FROM [id number]. THE MANNER AT WHICH SHE WAS PRESENTING WAS JUST LIKE I HAVE SEEN IN THE LAST COUPLE OF DAYS WHILE ON THE VENTILATOR. MOM STATES SHE HAS NEVER HAD A SEIZURE LAST THIS LONG.
[2022-12-15 20:06] LABS: Magnesium, Blood 1.8 mg/dL (1.6-2.4); Prolactin 8.7 ng/mL
--- NOTE | 2022-12-15 21:00 | NUR ---
ASSUMED CARE AT 1900 AT SHIFT CHANGE PT WAS IN A 10 MINUTE SEIZURE LIKE EPISODE. HOSPITALIST JULIEN ARRIVED AT BEDSIDE AT THE END OF EPISODE, DR RODRIGUEZ CALLED AND ARRIVED AT BEDSIDE AFTER SEIZURE LIKE ACTIVITY ENDED. DURING EPISODE A TOTAL OF 4MG ATIVAN GIVEN. PT MOM HANY AT BEDSIDE. NOW THAT THE PATIENT CAN TALK TO STAFF SHE IS C/O A HEADACHE THAT "FEELS LIKE A MIGRAINE". DR RODRIGUEZ, THE PT, AND HER MOM DISCUSSED WHAT HER NORMAL MEDICATION REGIMENT IS AT HOME. NEW MEDS ADDED LIKE SEROQUEL, TRAMADOL, AND IBUPROFEN, METOPROLOL CHANGED TO 50MG BID. CONSULT MADE TO DR CALL WHO PROVIDED ORDERS FOR PROLACTIN AND INSTRUCTIONS TO VIDEO THE NEXT SEIZURE LIKE ACITIVTY AND SEND IT TO HIM. AFTER DR RODRIGUEZ LEFT BEDSIDE, TRAMADOL AND IBUPROFEN GIVEN FOR HER HEADACHE, SOME IMPROVEMENT NOTED AFTERWARDS. SHE IS A/O X4 AND COMMUNICATION HER NEEDS, SLOW TO RESPOND AT TIMES AND STATES THAT SHE FEELS LIKE SHE IS IN A "FOG"; SHE IS TEARFUL AT TIMES BUT SHE IS EASILY COMFORTED BY EITHER HER MOM OR STAFF. SPO2 >98% ON RA; OCCATIONAL COUGH THAT IS PROGRESSIVLY GETTING STRONGER. AFEBRILE. HR DURING EPISODE WAS 130-140'S, SLOWLY IT HAS COME DOWN TO HIGH 100'S. BP ELEVATED WITH SBP 150'S; SCHEDULED METOPROLOL GIVEN. SHE IS TOLERATING SIPS OF WATER WELL AND PO MEDS EITHER CRUSHED OR DISOLVED IN WATER. NO BM SINCE ADMISSION; PRN DOCUSATE NA GIVEN AND SHE IS PASSING GAS. SHE IS CONTIENENT OF URINE AND CAN AMBULATE TO TOILET IN ROOM WITH TWO PERSON ASSIST; SHE IS TREMULOUS AND UNSTEADY INDEPENDENTLY. CIWA 15. SALINE LOCKED. SEE SHIFT ASSESSMENT FOR FULL ASSESSMENT. HANY WENT HOME AROUND 2100. PT RESTING COMFORTABLY IN ROOM. SITTER AT DOORWAY.
[2022-12-16] VITALS (38 sets, daily range): BP systolic 120–163; BP diastolic 73–113
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
--- NOTE | 2022-12-16 04:25 | NUR ---
UPDATE MOST CURRENT CIWA 19, INCREASE IN AUDITORY HALLUCINATIONS. SHE IS CURRENTLY USING A TISSUE BOX A CELL PHONE AND "HAVING A CONVERSATION" WITH SOMEONE. NO DISTRESS AT THIS TIME. VITALS STABLE.
--- NOTE | 2022-12-16 06:37 | NUR ---
END OF SHIFT SUMMARY PT DID NOT SLEEP TONIGHT. SHE IS ALERT BUT DROWSY AND MOST OF THE TIME ORIENTED X4, WHEN HALLUCINATING SHE WILL FORGET WHERE SHE IS BUT IS EASILY REORIENTED; CIWA'S 15-19; CONT TO HAVE A HEADACHE, PRN'S AVAILABLE AND GIVEN WITH MINIMAL RELIEF. SPO2 >95% ON RA. AFEBRILE. HR 90-110'S. SBP 120-140'S. AMBULATING TO THE TOILET IN ROOM WITH A TWO PERSON ASSIST; PT STATED MILD BURNING NOTED WHILE URINATING. NO BM THIS SHIFT; INCREASE IN AMOUNT OF GAS PASSED. NO SEIZURE LIKE ACTIVITY THIS SHIFT. SITTER AT DOORWAY. WILL REPORT TO AM RN WHEN AVAILABLE.
[2022-12-16 07:36] LABS: BASOPHILS ABSOLUTE AUTO 0.01 K/mm3 (0.00-0.23); BASOPHILS PERCENT AUTO 0 % (0-2); EOSINOPHILS ABSOLUTE AUTO 0.03 K/mm3 (0.00-0.68); EOSINOPHILS PERCENT AUTO 1 % (0-6); Hematocrit 30.7 % (33.0-51.0); Hemoglobin 10.6 g/dL (11.5-16.0); IMMATURE GRAN ABSOLUTE AUTO 0.02 K/mm3 (0.00-0.10); IMMATURE GRAN PERCENT AUTO 1 % (0-1); LYMPHOCYTES ABSOLUTE AUTO 1.32 K/mm3 (0.84-5.20); LYMPHOCYTES PERCENT AUTO 39 % (21-46); MONOCYTES ABSOLUTE AUTO 0.44 K/mm3 (0.16-1.47); MONOCYTES PERCENT AUTO 13 % (4-13); Mean Corpuscular HGB 35.1 pg (26.0-34.0); Mean Corpuscular HGB Conc 34.5 g/dL (31.5-36.5); Mean Corpuscular Volume 102 fL (80-100); Mean Platelet Volume 9.3 fL (9.1-12.4); NEUTROPHILS ABSOLUTE AUTO 1.59 K/mm3 (1.96-9.15); NEUTROPHILS PERCENT AUTO 47 % (41-73); Platelet Count 128 K/mm3 (150-400); RDW Coefficient Variation 12.4 % (11.7-14.2); RDW Standard Deviation 46.8 fL (35.1-46.3); Red Blood Cell Count 3.02 M/mm3 (3.80-5.20); White Blood Cell Count 3.41 K/mm3 (4.00-11.30)
[2022-12-16 07:52] LABS: Bun/Creatinine Ratio 14.5 (12.0-20.0); Creatinine, Blood 0.48 mg/dL (0.40-1.00); Magnesium, Blood 1.7 mg/dL (1.6-2.4); Phosphorus, Blood 3.2 mg/dL (2.5-4.9); Potassium, Blood 3.6 mmol/L (3.5-5.5)
--- NOTE | 2022-12-16 10:03 | NUR ---
CRYSTAL IS WITHDRAWN AND VISIBLY WELL VERBALLY DEPRESSED, SHE IS VERY TIRED, SAYS SHE HASN'T SLEPT, HAS A TERRIBLE HEADACHE THAT NO MEDICATION SEEMS TO TOUCH, BP IS COMING DOWN, BEEN UP TO THE BR, GETTING READY FOR THE EEG AND CONTINUES TO HAVE THE HEADACHE. TEARFUL ON AND OFF, IRRITABLE WITH SITTER AT TIMES. COOPERATIVE WITH THIS NURSE.
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
--- NOTE | 2022-12-16 22:00 | NUR ---
ASSUMED CARE AT 1900 PT SITTING UP IN BED WATCHING TV AT SHIFT CHANGE. SHE IS IN MUCH BETTER SPIRITS TODAY; SHE IS SHOWING MORE EMOTION AND CONVERSING WITH STAFF HAPPILY; IMPROVEMENT NOTED IN DEXTERITY AND HAND-EYE COORDINATION; STILL MODERATLY UNSTEADY WHILE WALKING BUT ONLY NEEDS A ONE PERSON ASSIST. SPO2 >98% ON RA. AFEBRILE. HR 80'S. BP STABLE WITH SBP 120'S. NO BM SINCE ADMISSIONS; MILK OF MAG GIVEN THIS PM. SEE SHIFT ASSESSMENT FOR FULL ASSESSMENT.
[2022-12-17] VITALS (19 sets, daily range): BP systolic 67–165; BP diastolic 44–132
[2022-12-17 03:20] LABS: Hematocrit 31.9 % (33.0-51.0); Hemoglobin 10.9 g/dL (11.5-16.0); Mean Corpuscular HGB 35.6 pg (26.0-34.0); Mean Corpuscular HGB Conc 34.2 g/dL (31.5-36.5); Mean Corpuscular Volume 104 fL (80-100); Mean Platelet Volume 9.2 fL (9.1-12.4); Platelet Count 175 K/mm3 (150-400); RDW Coefficient Variation 12.2 % (11.7-14.2); RDW Standard Deviation 46.3 fL (35.1-46.3); Red Blood Cell Count 3.06 M/mm3 (3.80-5.20); White Blood Cell Count 4.11 K/mm3 (4.00-11.30)
[2022-12-17 03:42] LABS: Albumin, Blood 3.2 g/dL (3.4-5.0); Bilirubin, Total 0.4 mg/dL (0.1-1.0); Bun/Creatinine Ratio 18.5 (12.0-20.0); Calcium, Blood 9.2 mg/dL (8.5-10.1); Creatinine, Blood 0.49 mg/dL (0.40-1.00); Globulin, Blood 3.1 g/dL (2.2-4.0); Potassium, Blood 3.7 mmol/L (3.5-5.5); Total Protein, Blood 6.3 g/dL (6.4-8.2)
[2022-12-17 03:55] LABS: BAND PERCENT MAN 2 % (0-8); BASOPHILS ABSOLUTE MAN 0.04 K/mm3 (0.00-0.23); BASOPHILS PERCENT MAN 1 % (0-2); EOSINOPHILS ABSOLUTE MAN 0.12 K/mm3 (0.00-0.68); EOSINOPHILS PERCENT MAN 3 % (0-6); LYMPHOCYTES ABSOLUTE MAN 1.72 K/mm3 (0.84-5.20); LYMPHOCYTES PERCENT MAN 42 % (21-46); MONOCYTES ABSOLUTE MAN 0.65 K/mm3 (0.16-1.47); MONOCYTES PERCENT MAN 16 % (4-13); NEUTROPHILS ABSOLUTE MAN 1.56 K/mm3 (1.96-9.15); SEG NEUTROPHILS PERCENT MAN 36 % (41-73); TOTAL CELLS COUNTED 100
--- NOTE | 2022-12-17 06:50 | NUR ---
END OF SHIFT SUMMARY NO ACUTE EVENTS OVERNIGHT. SHE DID NOT SLEEP VERY MUCH AT ALL, MOSTLY JUST TOSSED AND TURNED. PRN MEDS GIVEN ONCE FOR CHRONIC NECK PAIN. CONT TO BE A/O X4 AND ABLE TO MAKE HER NEEDS KNOWN. AFEBRILE. HR 80-100'S. BP STABLE. PT FINALLY HAD A BM. AMBULATING BETTER TODAY THAN PREVIOUS DAY. SHE IS LOOKING FORWARD TO A SHOWER TODAY. WILL REPORT TO AM RN WHEN AVAIALBLE.
--- NOTE | 2022-12-17 08:55 | NUR ---
ASSUMED CARE: REPORT RECEIVED FROM ALEM Edmonds RN. ASSUMED CARE OF THIS PT AT APPROX 0700. ON ASSESSMENT, THE PT IS A&O, PLEASANT & COOPERATIVE. SHE CURRENTLY DENIES ANY SI & HAS A PLAN TO SEEK OUTPATIENT ETOH TREATMENT. SHE EXPRESSES HOPE & THE DESIRE TO STAY SOBER AFTER THIS INCIDENT. LS CLEAR T/O, PT ON RA W/ O2 SATS > 95%. MONITOR SHOWS SR W/ HR 70-90s, HTN W/ SCHEDULED AM MEDS PER EMAR. PT HAS NO GI/ COMPLAINTS, IS CONTINENT OF BOTH BOWEL & BLADDER. SKIN CONDITION OVERALL INTACT, SCATTERED AREAS OF ECCHYMOSIS T/O. PT REPOSITIONS SELF FOR COMFORT PRN & REQUESTS ASSISTANCE APPROPRIATELY. 1:1 SITTER AT BEDISDE FOR CONTINUED SI PRECAUTIONS. INVOLUNTARY HOLD EXPIRES TODAY AT 1700, THIS RN WILL CONTACT DR HERNANDEZ TO ENSURE THAT HE IS AWAKE OF THIS & WILL SEE THE PT PRIOR TO THAT TIME. WILL CONTINUE TO MONITOR & UPDATE NEEDED.
--- NOTE | 2022-12-17 13:14 | NUR ---
DR HERNANDEZ: PROVIDER AT BEDSIDE THIS AFTERNOON TO ASSESS PT. HE HAS DETERMINED THAT SHE DOES NOT NEED A 1:1 SITTER AT BEDSIDE ANY LONGER & HAS NO FURTHER NEED FOR SI PRECAUTIONS. HE HAS CONTACTED DR FERGUSON, THE ATTENDING HOSPITALIST, WHO WILL BE PLACING DISCHARGE ORDERS TO HOME.
[2022-12-17] MEDS ORDERED: AMOCLA875 PO (14:45)
--- NOTE | 2022-12-17 15:35 | NUR ---
DISCHARGE TO HOME: DISCHARGE HAS BEEN ORDERED BY DR FERGUSON. SCRIPTS CALLED TO [facility]. THE PT CONTINUES TO DENY SI, VSS. ALL MONITORS & POWERGLIDE REMOVED, PT ABLE TO DRESS HERSELF. DISCHARGE EDUCATION HAS BEEN REVIEWED W/ THE PT & HER MOM, HANY. SAFETY PLAN COMPLETED W/ LACIE, WATCH [employer]. RESOURCES PROVIDED FOR OUTPATIENT ETOH TREATMENT. THEY DENY FURTHER QUESTIONS. SHE HAS BEEN TAKEN OUT VIA WC AT APPROX 1525 BY THIS RN.
== END 2022-12-17 15:25 | disposition home or self-care (01) | DRG 917 ==
LOC: ER 22:20 → ICUE 23:52
PROVIDERS: Hospitalist; Internal Medicine; Internal Medicine Critical Care Medicine; Nurse Practitioner Acute Care; Student in an Organized Health Care Education/Training Program; ADMIT Internal Medicine
PROC: 5A1945Z Respiratory Ventilation, 24-96 Consecutive Hours (ICD-10-PCS; 2022-12-08)
PROC: 0BH17EZ Insertion of Endotracheal Airway into Trachea, Via Natural or Artificial Opening (ICD-10-PCS; 2022-12-08)
PROC: 4A133R1 Monitoring of Arterial Saturation, Peripheral, Percutaneous Approach (ICD-10-PCS; 2022-12-09)
PROC: 5A1945Z Respiratory Ventilation, 24-96 Consecutive Hours (ICD-10-PCS; principal; 2022-12-10)
PROC: 0BH17EZ Insertion of Endotracheal Airway into Trachea, Via Natural or Artificial Opening (ICD-10-PCS; 2022-12-10)
PROC: 0DH67UZ Insertion of Feeding Device into Stomach, Via Natural or Artificial Opening (ICD-10-PCS; 2022-12-10)
PROC: 0T9B70Z Drainage of Bladder with Drainage Device, Via Natural or Artificial Opening (ICD-10-PCS; 2022-12-12)
PROC: HZ2ZZZZ Detoxification Services for Substance Abuse Treatment (ICD-10-PCS; 2022-12-17)
DX: T51.92XA Toxic effect of unspecified alcohol, intentional self-harm, initial encounter (principal); G93.41 Metabolic encephalopathy; J96.00 Acute respiratory failure, unspecified whether with hypoxia or hypercapnia; J69.0 Pneumonitis due to inhalation of food and vomit; E72.11 Homocystinuria; F10.239 Alcohol dependence with withdrawal, unspecified; E87.0 Hyperosmolality and hypernatremia; E87.1 Hypo-osmolality and hyponatremia; K86.0 Alcohol-induced chronic pancreatitis; E87.6 Hypokalemia; K21.9 Gastro-esophageal reflux disease without esophagitis; F17.210 Nicotine dependence, cigarettes, uncomplicated; F41.8 Other specified anxiety disorders; R56.9 Unspecified convulsions; Y90.8 Blood alcohol level of 240 mg/100 ml or more; D64.9 Anemia, unspecified; E83.42 Hypomagnesemia; I95.9 Hypotension, unspecified; T38.80 Poisoning by, adverse effect of and underdosing of unspecified hormones and synthetic substitutes; D69.6 Thrombocytopenia, unspecified; K76.0 Fatty (change of) liver, not elsewhere classified; Z90.710 Acquired absence of both cervix and uterus; Z86.711 Personal history of pulmonary embolism; Z88.5 Allergy status to narcotic agent; Z88.8 Allergy status to other drugs, medicaments and biological substances; Z88.1 Allergy status to other antibiotic agents; Z79.899 Other long term (current) drug therapy; Z90.89 Acquired absence of other organs; Z98.1 Arthrodesis status; Z88.2 Allergy status to sulfonamides; Z79.890 Hormone replacement therapy; Z79.2 Long term (current) use of antibiotics
CPT/HCPCS: 31500; 36415; 36600; 51702; 70450; 71045; 80048; 80053; 81001; 81025; 82550; 82607; 82728; 82746; 82803; 82947; 83540; 83550; 83605; 83690; 83735; 83930; 84100; 84146; 84439; 84443; 85007; 85025; 85027; 87040; 87070; 87086; 87205; 93005; 93010; 94002; 94003; 94762; 95819; 96360-59; 99291-25; 99292; A9270; C1751; C9113; G0480; J0295; J0360; J1650; J1885; J1953; J2060; J2250; J2405; J2704; J3010; J3411; J3475; J7030; J7050

== ENCOUNTER 2023-03-10 17:40 | Emergency (ER) | payer OTHER ==
[~2023-03-10] VITALS: Ht 165.1 cm; Wt 68.0 kg
[~2023-03-10 17:40] MED LIST changes: +CODEINE-GUAIFE120 M1 PO; +[UNRECOGNIZED DRUG - CODE] PO
[2023-03-10 18:05] LABS: Calcium, Ionized (POC) 1.12 mmol/L (1.10-1.46); Chloride (POC) 109 mmol/L (98-108); Creatinine (POC) 1.1 mg/dL (0.6-1.0); Glucose (ISTAT POC) 120 mg/dL (70-99); Hemoglobin (POC) 13.6 g/dL (12.0-16.0); Potassium (POC) 4.4 mmol/L (3.5-5.5); Sodium (POC) 150 mmol/L (135-148); Total CO2 (POC) 31 mmol/L (21-32)
[2023-03-10 18:08] LABS: BASOPHILS ABSOLUTE AUTO 0.03 K/mm3 (0.00-0.23); BASOPHILS PERCENT AUTO 0 % (0-2); EOSINOPHILS ABSOLUTE AUTO 0.07 K/mm3 (0.00-0.68); EOSINOPHILS PERCENT AUTO 1 % (0-6); Hematocrit 40.1 % (33.0-51.0); Hemoglobin 13.5 g/dL (11.5-16.0); IMMATURE GRAN ABSOLUTE AUTO 0.03 K/mm3 (0.00-0.10); IMMATURE GRAN PERCENT AUTO 0 % (0-1); LYMPHOCYTES ABSOLUTE AUTO 4.46 K/mm3 (0.84-5.20); LYMPHOCYTES PERCENT AUTO 63 % (21-46); MONOCYTES ABSOLUTE AUTO 0.26 K/mm3 (0.16-1.47); MONOCYTES PERCENT AUTO 4 % (4-13); Mean Corpuscular HGB 34.5 pg (26.0-34.0); Mean Corpuscular HGB Conc 33.7 g/dL (31.5-36.5); Mean Corpuscular Volume 103 fL (80-100); Mean Platelet Volume 9.3 fL (9.1-12.4); NEUTROPHILS ABSOLUTE AUTO 2.26 K/mm3 (1.96-9.15); NEUTROPHILS PERCENT AUTO 32 % (41-73); Platelet Count 142 K/mm3 (150-400); RDW Coefficient Variation 12.7 % (11.7-14.2); RDW Standard Deviation 47.4 fL (35.1-46.3); Red Blood Cell Count 3.91 M/mm3 (3.80-5.20); White Blood Cell Count 7.11 K/mm3 (4.00-11.30)
[2023-03-10 18:32] LABS: Albumin, Blood 3.8 g/dL (3.4-5.0); Albumin/Globulin Ratio 1.1 (0.8-1.8); Bilirubin, Total 0.2 mg/dL (0.1-1.0); Creatinine, Blood 0.6 mg/dL (0.40-1.00); Globulin, Blood 3.5 g/dL (2.2-4.0); Potassium, Blood 4.4 mmol/L (3.5-5.5); Total Protein, Blood 7.3 g/dL (6.4-8.2)
[2023-03-10 23:11] LABS: U Amphetamine Screen Not Detected; U Barbituate Screen Not Detected; U Benzodiazapine Screen DETECTED; U Buprenorphine Screen Not Detected; U Cannabinoids Screen Not Detected; U Cocaine Screen Not Detected; U Methadone Screen Not Detected; U Methamphetamine Screen Not Detected; U Opiates Screen Not Detected; U Oxycodone Screen Not Detected; U Phencyclidine Screen Not Detected; U Propoxyphene Screen Not Detected
[2023-03-10 23:30] VITALS: BP 119/76
[2023-03-10] MEDS ORDERED: CHLO25 PO (23:36)
== END 2023-03-10 23:44 | disposition home or self-care (01) ==
LOC: ER 17:40
PROVIDERS: Student in an Organized Health Care Education/Training Program
DX: F10.129 Alcohol abuse with intoxication, unspecified (principal); Y90.8 Blood alcohol level of 240 mg/100 ml or more; E87.1 Hypo-osmolality and hyponatremia; F17.210 Nicotine dependence, cigarettes, uncomplicated; Z88.1 Allergy status to other antibiotic agents; Z88.2 Allergy status to sulfonamides; Z88.3 Allergy status to other anti-infective agents; Z88.5 Allergy status to narcotic agent; Z88.8 Allergy status to other drugs, medicaments and biological substances; Z79.899 Other long term (current) drug therapy
CPT/HCPCS: 80047; 80053; 82140; 83735; 85014; 85025; 93005; 93010; 96365; 96367; 96375; 99285-25; J2060; J3411; J7030

== ENCOUNTER 2023-05-06 00:47 | Observation (INO) | payer OTHER ==
[~2023-05-06] VITALS: Ht 167.6 cm; Wt 70.3 kg
[2023-05-06 01:19] LABS: BASOPHILS ABSOLUTE AUTO 0.04 K/mm3 (0.00-0.23); BASOPHILS PERCENT AUTO 1 % (0-2); EOSINOPHILS ABSOLUTE AUTO 0.06 K/mm3 (0.00-0.68); EOSINOPHILS PERCENT AUTO 1 % (0-6); Hematocrit 39.4 % (33.0-51.0); Hemoglobin 13.5 g/dL (11.5-16.0); Mean Corpuscular HGB 35.3 pg (26.0-34.0); Mean Corpuscular HGB Conc 34.3 g/dL (31.5-36.5); Mean Corpuscular Volume 103 fL (80-100); Platelet Count 211 K/mm3 (150-400); RDW Coefficient Variation 12.5 % (11.7-14.2); RDW Standard Deviation 47.3 fL (35.1-46.3); Red Blood Cell Count 3.82 M/mm3 (3.80-5.20)
[2023-05-06 01:25] LABS: IMMATURE GRAN ABSOLUTE AUTO 0.04 K/mm3 (0.00-0.10); IMMATURE GRAN PERCENT AUTO 1 % (0-1); LYMPHOCYTES ABSOLUTE AUTO 5.37 K/mm3 (0.84-5.20); LYMPHOCYTES PERCENT AUTO 62 % (21-46); MONOCYTES ABSOLUTE AUTO 0.48 K/mm3 (0.16-1.47); MONOCYTES PERCENT AUTO 6 % (4-13); NEUTROPHILS ABSOLUTE AUTO 2.61 K/mm3 (1.96-9.15); NEUTROPHILS PERCENT AUTO 30 % (41-73)
[2023-05-06 01:48] LABS: Prolactin 2.9 ng/mL; Salicylate 3.5 mg/dL (2.8-20.0)
[2023-05-06 01:52] LABS: Acetaminophen, Random <2.0 ug/mL (10.0-30.0); Alanine Aminotransfer (ALT/SGP 44 U/L (12-78); Albumin/Globulin Ratio 1.1 (0.8-1.8); Alk Phos 144 U/L (50-136); Anion Gap 3 mmol/L (6-16); Aspartate Aminotrans (AST/SGOT 31 U/L (12-37); Bilirubin, Total 0.2 mg/dL (0.1-1.0); Blood Urea Nitrogen 14 mg/dL (8-24); Bun/Creatinine Ratio 25.1 (12.0-20.0); CO2, Blood 27 mmol/L (21-32); Calcium, Blood 8.7 mg/dL (8.5-10.1); Chloride, Blood 117 mmol/L (98-108); Creatinine, Blood 0.56 mg/dL (0.40-1.00); Ethanol (Alcohol), Blood, Med 385 mg/dL; Globulin, Blood 3.7 g/dL (2.2-4.0); Glomerular Filtration Rate 114 (60-); Glucose, Blood 143 mg/dL (70-99); Potassium, Blood 4.3 mmol/L (3.5-5.5); Sodium, Blood 147 mmol/L (136-145); Total Protein, Blood 7.7 g/dL (6.4-8.2)
[2023-05-06 08:29] LABS: Influenza A, PCR NEGATIVE (NEGATIVE); Influenza B, PCR NEGATIVE (NEGATIVE); Resp Syncytial Virus, PCR NEGATIVE (NEGATIVE); SARS-Cov-2 (COVID-19) PCR, MMC NEGATIVE (NEGATIVE)
[2023-05-06] MEDS ORDERED: LOSA25 PO (13:40)
[2023-05-06 13:52] LABS: Source, Urine Clean Catch
[2023-05-06 13:58] LABS: Appearance, Urine Clear (Clear); Bilirubin, Urine Neg (Neg); Blood, Urine 2+ (Neg); Color, Urine Yellow (P-Yellow); Glucose Qualitative, Urine Neg (Neg); Ketones, Urine Neg (Neg); Leukocyte Esterase, Urine Neg (Neg); Nitrite, Urine Neg (Neg); Protein, Urine Neg (Neg); Urobilinogen, Urine NORM (Normal)
[2023-05-06 14:11] LABS: Bacteria Mod /hpf; Mucus Heavy (0-Heavy); Red Blood Cells, Urine 0-2 /hpf (0-2); Squamous Epithelial Cells Many /hpf (Few); White Blood Cells, Urine 0-2 /hpf (0-5)
[2023-05-06 14:13] LABS: Hyaline Casts 0-2 /lpf (0-2)
[2023-05-06 14:16] LABS: U Amphetamine Screen Not Detected; U Barbituate Screen Not Detected; U Benzodiazapine Screen DETECTED; U Buprenorphine Screen Not Detected; U Cannabinoids Screen Not Detected; U Cocaine Screen Not Detected; U Methadone Screen Not Detected; U Methamphetamine Screen Not Detected; U Opiates Screen Not Detected; U Oxycodone Screen Not Detected; U Phencyclidine Screen Not Detected
[2023-05-06 15:02] VITALS: BP 148/96
== END 2023-05-06 16:07 | disposition home or self-care (01) ==
LOC: ER 00:47 → EOR 01:42
PROVIDERS: ADMIT Student in an Organized Health Care Education/Training Program
DX: F32.A Depression, unspecified (principal); F10.129 Alcohol abuse with intoxication, unspecified; F17.210 Nicotine dependence, cigarettes, uncomplicated; Y90.8 Blood alcohol level of 240 mg/100 ml or more; S31.119A Laceration without foreign body of abdominal wall, unspecified quadrant without penetration into peritoneal cavity, initial encounter; S51.812A Laceration without foreign body of left forearm, initial encounter; S51.811A Laceration without foreign body of right forearm, initial encounter; X58.XXXA Exposure to other specified factors, initial encounter; R56.9 Unspecified convulsions; Z88.1 Allergy status to other antibiotic agents; Z88.2 Allergy status to sulfonamides; Z88.5 Allergy status to narcotic agent; Z79.899 Other long term (current) drug therapy
CPT/HCPCS: 0241U; 80053; 81001; 81025; 82947; 84146; 85025; 87086; 93005; 93010; 96372-59; 96374; 99285-25; A9270; G0378; G0480; J1630; J2060; J2310

== ENCOUNTER 2023-05-19 14:09 | Inpatient (IN) | payer BC, OTHER ==
[~2023-05-19] VITALS: Ht 162.6 cm; Wt 73.0 kg
[2023-05-19] VITALS (18 sets, daily range): BP systolic 109–145; BP diastolic 75–94
[~2023-05-19 14:09] MED LIST changes: +LOSA25 PO
[2023-05-19 14:35] LABS: Chloride (POC) 109 mmol/L (98-108); Creatinine (POC) 1.2 mg/dL (0.6-1.0); Glucose (ISTAT POC) 85 mg/dL (70-99); Potassium (POC) 4.1 mmol/L (3.5-5.5); Sodium (POC) 143 mmol/L (135-148); Total CO2 (POC) 22 mmol/L (21-32)
[2023-05-19 14:43] LABS: Source, Urine Foley catheter
[2023-05-19 14:49] LABS: Bilirubin, Urine Neg (Neg); Blood, Urine 1+ (Neg); Glucose Qualitative, Urine Neg (Neg); Ketones, Urine 1+ (Neg); Leukocyte Esterase, Urine Neg (Neg); Nitrite, Urine Neg (Neg); Protein, Urine 1+ (Neg); Urobilinogen, Urine NORM (Normal)
[2023-05-19 14:51] LABS: Hematocrit 43.3 % (33.0-51.0); Hemoglobin 14.7 g/dL (11.5-16.0); Mean Corpuscular HGB 34.8 pg (26.0-34.0); Mean Corpuscular HGB Conc 33.9 g/dL (31.5-36.5); Mean Corpuscular Volume 103 fL (80-100); Platelet Count 247 K/mm3 (150-400); RDW Coefficient Variation 12.6 % (11.7-14.2); Red Blood Cell Count 4.22 M/mm3 (3.80-5.20); White Blood Cell Count 10.18 K/mm3 (4.00-11.30)
[2023-05-19 14:52] LABS: PCO2 Arterial 43.6 mmHg (35-45); PO2 Arterial 155 mmHg (80-100); pH Blood Arterial 7.25 (7.35-7.45)
[2023-05-19 15:08] LABS: Appearance, Urine Clear (Clear); Color, Urine Pale Yellow (P-Yellow)
[2023-05-19 15:09] LABS: Bacteria Many /hpf; Red Blood Cells, Urine 0-2 /hpf (0-2); Squamous Epithelial Cells Mod /hpf (Few); White Blood Cells, Urine 0-2 /hpf (0-5)
[2023-05-19 15:11] LABS: Albumin, Blood 4.5 g/dL (3.4-5.0); Albumin/Globulin Ratio 1.3 (0.8-1.8); Bilirubin, Total 0.2 mg/dL (0.1-1.0); Bun/Creatinine Ratio 29.4 (12.0-20.0); Calcium, Blood 8.8 mg/dL (8.5-10.1); Creatinine, Blood 0.58 mg/dL (0.40-1.00); Globulin, Blood 3.5 g/dL (2.2-4.0); Potassium, Blood 4.1 mmol/L (3.5-5.5)
[2023-05-19 15:11] LABS: U Amphetamine Screen Not Detected; U Barbituate Screen Not Detected; U Benzodiazapine Screen DETECTED; U Buprenorphine Screen Not Detected; U Cannabinoids Screen Not Detected; U Cocaine Screen Not Detected; U Methadone Screen Not Detected; U Methamphetamine Screen Not Detected; U Opiates Screen Not Detected; U Oxycodone Screen Not Detected; U Phencyclidine Screen Not Detected
[2023-05-19 15:14] LABS: BAND PERCENT MAN 1 % (0-8); BASOPHILS PERCENT MAN 2 % (0-2); EOSINOPHILS PERCENT MAN 0 % (0-6); LYMPHOCYTES ABSOLUTE MAN 5.09 K/mm3 (0.84-5.20); LYMPHOCYTES PERCENT MAN 50 % (21-46); MONOCYTES PERCENT MAN 2 % (4-13); NEUTROPHILS ABSOLUTE MAN 4.68 K/mm3 (1.96-9.15); SEG NEUTROPHILS PERCENT MAN 45 % (41-73); TOTAL CELLS COUNTED 100
[2023-05-19 15:20] LABS: Salicylate 4.6 mg/dL (2.8-20.0); Thyroxine (T4) 6.4 ug/dL (4.8-13.9)
[2023-05-19 15:22] LABS: Thyroid Stimulating Hormone 0.663 uIU/mL (0.360-4.800)
[2023-05-19 15:27] LABS: Acetaminophen, Random <2.0 ug/mL (10.0-30.0)
[2023-05-19 15:39] LABS: Triiodothyronine, Free 2.29 pg/mL (2.18-3.98)
[2023-05-19] MEDS ORDERED: GABA100 PO (15:40)
[2023-05-19] MEDS ORDERED: ACYCLOVIR400 MG PO (15:40)
[2023-05-19] MEDS ORDERED: IBUP200 PO (15:41)
[2023-05-19] MEDS ORDERED: LOSARTAN POTASS25 M2 PO (17:43)
[2023-05-19 17:56] LABS: Magnesium, Blood 1.8 mg/dL (1.6-2.4); Phosphorus, Blood 2.5 mg/dL (2.5-4.9)
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
--- NOTE | 2023-05-19 20:59 | NUR ---
ASSUMPTION OF CARE BEDSIDE SHIFT REPORT RECEIVED FROM SUNDAY RN. PT RESTING IN BED, INTUBATED AND SEDATED. PROPOFOL INFUSING AT 60MCG/KG/MIN. PT RESPONSIVE TO NOXIOUS STIMULI. HR 100'S SIT, MAP >65. VENT SETTINGS AC/VC 16/380/5/30%, OXYGEN SATURATION >95%. OG TUBE IN PLACE SET TO LIS WITH LEE/PINK LIQUID OUTPUT. TEMP GREENE PATENT DRAINING YELLOW URINE TO GRAVITY. PIV TO LAC AND RAC. LR INFUSING AT 100MLS/HR. BED IN LOWEST POSITION, CARE CONTINUES.
[2023-05-20] VITALS (46 sets, daily range): BP systolic 115–161; BP diastolic 76–97
[2023-05-20 03:32] LABS: BASOPHILS ABSOLUTE AUTO 0.04 K/mm3 (0.00-0.23); BASOPHILS PERCENT AUTO 0 % (0-2); EOSINOPHILS ABSOLUTE AUTO 0.01 K/mm3 (0.00-0.68); EOSINOPHILS PERCENT AUTO 0 % (0-6); Hematocrit 39.5 % (33.0-51.0); Hemoglobin 13.3 g/dL (11.5-16.0); IMMATURE GRAN ABSOLUTE AUTO 0.06 K/mm3 (0.00-0.10); IMMATURE GRAN PERCENT AUTO 1 % (0-1); LYMPHOCYTES ABSOLUTE AUTO 4.11 K/mm3 (0.84-5.20); LYMPHOCYTES PERCENT AUTO 33 % (21-46); MONOCYTES ABSOLUTE AUTO 1.21 K/mm3 (0.16-1.47); MONOCYTES PERCENT AUTO 10 % (4-13); Mean Corpuscular HGB 34.7 pg (26.0-34.0); Mean Corpuscular HGB Conc 33.7 g/dL (31.5-36.5); Mean Corpuscular Volume 103 fL (80-100); Mean Platelet Volume 8.9 fL (9.1-12.4); NEUTROPHILS ABSOLUTE AUTO 6.98 K/mm3 (1.96-9.15); NEUTROPHILS PERCENT AUTO 56 % (41-73); Platelet Count 160 K/mm3 (150-400); RDW Coefficient Variation 12.6 % (11.7-14.2); RDW Standard Deviation 47.6 fL (35.1-46.3); Red Blood Cell Count 3.83 M/mm3 (3.80-5.20); White Blood Cell Count 12.41 K/mm3 (4.00-11.30)
[2023-05-20 03:42] LABS: PCO2 Arterial 33.4 mmHg (35-45); PO2 Arterial 84.5 mmHg (80-100); pH Blood Arterial 7.41 (7.35-7.45)
[2023-05-20 04:06] LABS: Albumin, Blood 3.7 g/dL (3.4-5.0); Albumin/Globulin Ratio 1.1 (0.8-1.8); Bilirubin, Total 0.4 mg/dL (0.1-1.0); Bun/Creatinine Ratio 29.7 (12.0-20.0); Calcium, Blood 8.4 mg/dL (8.5-10.1); Creatinine, Blood 0.54 mg/dL (0.40-1.00); Globulin, Blood 3.3 g/dL (2.2-4.0); Magnesium, Blood 1.7 mg/dL (1.6-2.4); Phosphorus, Blood 1.9 mg/dL (2.5-4.9); Potassium, Blood 4.1 mmol/L (3.5-5.5)
--- NOTE | 2023-05-20 05:37 | NUR ---
PT UPDATE CALLED AND SPOKE WITH DR. KAMLESH MITCHELL [facility], AWAITING ORDERS.
--- NOTE | 2023-05-20 05:47 | NUR ---
SHIFT SUMMARY PT RESTING IN BED CONTINUES TO BE INTUBATED AND SEDATED. PROPOFOL INFUSING AT 60MCG/KG/MIN, SEE FLOWSHEET FOR TITRATIONS. PT RESPONSIVE TO NOXIOUS STIMULI, PT OCCASIONALLY BECOMES TACHYPNIC, COUGHS AND GAGS ON ETT TUBE. PT WILL ALSO ATTEMPT TO REACH FOR ETT TUBE AND PULL AGAINST RESTRAINTS. MEDICATED WITH ATIVAN AND FENTANYL PER EMAR. HR 100-110'S SIT, MAP >65, SBP 130-150'S. VENT SETTINGS AC/VC 16/380/5/30%, OXYGEN SATURATION >95%. OG TUBE IN PLACE SET TO LIS, BOWEL TONES ACTIVE IN ALL 4 QUADRANTS. TEMP GREENE PATENT DRAINING TO GRAVITTY. PT HAD TMAX OF 100.6, FAN IN PLACE. PIV TO LAC AND RAC. LR INFUSING AT 100MLS/HR. BED IN LOWEST POSITION, CARE CONTINUES.
--- NOTE | 2023-05-20 18:58 | NUR ---
Shift summary. Pt continues intubated and sedated. OG tube in place, TF started this shift, VHP at 25 ml/hr currently, goal 45 ml/hr. PG placed in PHILL. Precedex added for additional sedation adjunct, infusing at 1 mcg/kg/hr. Propofol infusing at 70 mcg/kg/min. Henry catheter draining to gravity. Pt easily agitated even with sedation at high levels, will open eyes and pull at restraints/lines and attempt to self extubate. Precedex had good effect, pt much more calm. No other acute events this shift. Report given to nightshift RN.
--- NOTE | 2023-05-20 20:06 | NUR ---
ASSUMPTION OF CARE REPORT RECEIVED FROM SUNDAY MEDINA. PT RESTING IN BED, CONTINUES TO BE INTUBATED AND SEDATED. PROPOFOL INFUSING AT 70MCG/KG/MIN, PRECEDEX INFUSING AT 1MCG/KG/HR. PT WITHDRAWS FROM ORAL CARE AND IS RESPONSIVE TO NOXIOUS STIMULI. HR 60'S SINUS, MAP >65. VENT SETTINGS AC/VC 16/380/5/25%, OXYGEN SATURATION >95%. OG TUBE IN PLACE INFUSING VHP AT 25MLS/HR WITH 30ML Q4H FLUSH, PATIENT TOLERATING WELL. BOWEL TONES ACTIVE IN ALL FOUR QUADRANTS. TEMP GREENE PATENT DRAINING TO GRAVITY. PIV TO RAC AND LAC. POWERGLIDE IN PLACE TO PHILL. LR INFUSING AT 100MLS/HR. BED IN LOWEST POSITION, CARE CONTINUES.
[2023-05-21] VITALS (42 sets, daily range): BP systolic 104–188; BP diastolic 63–125
[2023-05-21 05:11] LABS: BASOPHILS ABSOLUTE AUTO 0.01 K/mm3 (0.00-0.23); BASOPHILS PERCENT AUTO 0 % (0-2); EOSINOPHILS ABSOLUTE AUTO 0.05 K/mm3 (0.00-0.68); EOSINOPHILS PERCENT AUTO 1 % (0-6); Hematocrit 31.9 % (33.0-51.0); Hemoglobin 11.1 g/dL (11.5-16.0); IMMATURE GRAN PERCENT AUTO 0 % (0-1); LYMPHOCYTES ABSOLUTE AUTO 1.77 K/mm3 (0.84-5.20); LYMPHOCYTES PERCENT AUTO 49 % (21-46); MONOCYTES ABSOLUTE AUTO 0.29 K/mm3 (0.16-1.47); MONOCYTES PERCENT AUTO 8 % (4-13); Mean Corpuscular HGB 34.6 pg (26.0-34.0); Mean Corpuscular HGB Conc 34.8 g/dL (31.5-36.5); Mean Corpuscular Volume 99 fL (80-100); Mean Platelet Volume 8.8 fL (9.1-12.4); NEUTROPHILS ABSOLUTE AUTO 1.47 K/mm3 (1.96-9.15); NEUTROPHILS PERCENT AUTO 41 % (41-73); Platelet Count 103 K/mm3 (150-400); RDW Coefficient Variation 11.9 % (11.7-14.2); RDW Standard Deviation 44.2 fL (35.1-46.3); Red Blood Cell Count 3.21 M/mm3 (3.80-5.20); White Blood Cell Count 3.59 K/mm3 (4.00-11.30)
[2023-05-21 05:41] LABS: Albumin, Blood 3.2 g/dL (3.4-5.0); Albumin/Globulin Ratio 1.1 (0.8-1.8); Bilirubin, Total 0.5 mg/dL (0.1-1.0); Bun/Creatinine Ratio 25.5 (12.0-20.0); Calcium, Blood 8.8 mg/dL (8.5-10.1); Creatinine, Blood 0.43 mg/dL (0.40-1.00); Globulin, Blood 2.9 g/dL (2.2-4.0); Magnesium, Blood 1.9 mg/dL (1.6-2.4); Phosphorus, Blood 1.4 mg/dL (2.5-4.9); Potassium, Blood 3.3 mmol/L (3.5-5.5); Total Protein, Blood 6.1 g/dL (6.4-8.2)
--- NOTE | 2023-05-21 05:44 | NUR ---
SHIFT SUMMARY PT RESTING IN BED, CONTINUES TO BE INTUBATED AND SEDATED. PROPOFOL INFUSING AT 50MCG/KG/MIN, PRECEDEX INFUSING AT 0.8MCG/KG/HR. UPON STIMULATION, PT OCCASIONALLY COUGHS AND GAGS ON ETT TUBE, PT PULLS AGAINST RESTRAINTS AND ATTEMPTS TO PULL AT LINES/TUBES. HR 60-70'S SINUS, MAP >65. SBP 130-180'S MEDICATED WITH HYDRALAZINE X 1 THIS SHIFT PER EMAR. VENT SETTINGS AC/VC 16/380/5/25%, OXYGEN SATURATION >95%. OG TUBE IN PLACE WITH VHP INFUSING AT GOAL RATE OF 45MLS/HR WITH 30ML Q4H FLUSH. BOWEL TONES ACTIVE IN ALL 4 QUADRANTS. PIV TO RAC AND LAC. POWERGLIDE TO PHILL INFUSING. NS INFUSING TKO. TEMP GREENE PATENT DRAINING TO GRAVITY. BED IN LOWEST POSITION, CARE CONTINUES.
--- NOTE | 2023-05-21 09:20 | NUR ---
0700 ASSUMED CARE OF PATIENT PT IS SEDATED ON PROP 50MCG AND PRECEDEX 0.8 WITH SUCTIONING SHE WAKES UP EASILY AND THEN BECOMES RESTLESS KICKING LEGS AND PULLING AT RESTRAINTS. SHE DOES SQUEEZE HAND WHEN ASKED APPROPRIATELY. PT HAS 2 PIV'S AND ONE POWERGLIDE TO RIGHT UPPER ARM. PT HAS TEMP GREENE IN PLACE. VS STABLE AT THIS TIME. RHYTHM NSR. AFEBRILE. VENT SETTINGS 16/380/5/25% RR RATE 22. CLEAR LUNGS T/O, SOFT ABD, BT POSITIVE X 4 QUAD. PATIENT HAS GOOD PULSES X 4 EXT.
--- NOTE | 2023-05-21 11:48 | NUR ---
Extubation/Behavior: Patient extubated at 1056 with this RN and Leonard RT. Extubated to RA without difficulty. VSS remain stable, no s/s of respiratory distress. Propofol gtt stopped prior to extubation, precedex gtt remained infusing at 0.8 mcg/kg/hr per Dr. Tolbert. Patient remained calm, until approx 1120hr. Patient then became very agitated, pulling IV's and cords, continually attempting to climb out of bed. Deny's SI, stating "im fine, just let me go". Multiple staff and Dr. Tolbert at bedside, continually keeping patient from climbing out of bed and providing verbal re-direction. Direction unsuccessful and 2mg prn ativan given per Dr. Tolbert. Patient then agreed to lie back and remain in bed. Will continue to monitor.
--- NOTE | 2023-05-21 16:14 | NUR ---
BELONGINGS PATIENT CONCERNED ABOUT HER PURSE. CALLED AND SPOKE WITH PATIENT'S NEXT OF KIN/MOTHER. MOTHER REPORTS THAT SHE HAS ALL PATIENT BELONGINGS-SHE WENT TO HOTEL TO PICK THEM UP; CAR, KEYS AND PURSE.
--- NOTE | 2023-05-21 18:08 | NUR ---
1700 ASSUMED BACK CARE OF PATIENT PATIENT HAD BEEN EXTUBATED TODAY AT 1030 AND RESTRAINTS REMOVED ABOUT 1230. HOWEVER PT BECAME FRUSTRATED AND ANGRY WITH STAFF AND SHE PULLED OUT TWO OF HER THREE IV'S. SHE HAS NOT BEEN ABLE TO COMPLETE HER KPHOS DUE TO POOR IV ACCESS. PRECEDEX IS HIGH 1.4 MCG/KG/HR. TO KEEP HER CALM AND NOT THRASH, HARM HERSELF OR OTHERS. RAMONA WAS DC'D THIS EVENING AT 1745. SHE HAD CLEAR YELLOW URINE OUT. SHE STILL NEEDS HER THIAMINE AND FOLIC ACID IV WELL. LINDSEY MEDINA IS WORKING TO PLACE A NEW IV AT THIS TIME. VS HAVE BEEN STABLE AND HER PULSE IS 68 SR BP STABLE AND RR ADEQUATE AT 20. LUNGS REMAINS CLEAR SINCE EXTUBATION. WILL CONTINUE CARE WITH SITTER AT BEDSIDE DUE TO HER 2MD HOLD AND SI ATTEMPT. ROOM HAS BEEN STRIPPED OUT BEFORE EXTUBATION TO HELP TO KEEP HER AND STAFF SAFE.
--- NOTE | 2023-05-21 21:16 | NUR ---
ASSUMPTION OF CARE: RECEIVED REPORT FROM ISSAC MEDINA. PT ALERT AND ORIENTED TO PERSON AND SELF. ABLE TO ANSWER SOME SIMPLE QUESTIONS. STATES THAT SHE IS STILL IN THE MOTEL AND NOT IN THE HOSPITAL. PT BECOMES ANGRY AND AGGITATED WITH STAFF. FREQUENTLY TRIES TO CRAWL OUT OF BED AND STATES THAT SHE NEEDS TO GET OUT OF HERE AND GO SEE HER MOTHER. PT DENIES ANY SUICIDAL IDEATION WHEN ASKED. PT FREQUENTLY TEARFUL AND STATES SHE HAS A LOT OF EMOTIONAL PAIN. PT ON RA WITH SPO2 >95%. DENIES SOB. DISPUTE RESOLUTION ANALYST IN PLACE, SBP 150'S. HR 80'S. DENIES CHEST PAIN OR PRESSURE. PT HAS NOT VOIDED YET THIS SHIFT. NO BM. PT REMOVED OWN POWERGLIDE FROM PHILL. POWERGLIDE TO OSCAR REMAINS INTACT AND INFUSING. PRECEDEX AT 1.2 MCG/KG/HR. 1:1 SITTER AT THE BEDSIDE.
[2023-05-22] VITALS (25 sets, daily range): BP systolic 114–170; BP diastolic 78–126
[2023-05-22 03:38] LABS: BASOPHILS ABSOLUTE AUTO 0.01 K/mm3 (0.00-0.23); BASOPHILS PERCENT AUTO 0 % (0-2); EOSINOPHILS ABSOLUTE AUTO 0.09 K/mm3 (0.00-0.68); EOSINOPHILS PERCENT AUTO 3 % (0-6); Hematocrit 31.1 % (33.0-51.0); Hemoglobin 11.2 g/dL (11.5-16.0); IMMATURE GRAN ABSOLUTE AUTO 0.02 K/mm3 (0.00-0.10); IMMATURE GRAN PERCENT AUTO 1 % (0-1); LYMPHOCYTES ABSOLUTE AUTO 1.65 K/mm3 (0.84-5.20); LYMPHOCYTES PERCENT AUTO 45 % (21-46); MONOCYTES ABSOLUTE AUTO 0.32 K/mm3 (0.16-1.47); MONOCYTES PERCENT AUTO 9 % (4-13); Mean Corpuscular HGB 35.3 pg (26.0-34.0); Mean Corpuscular Volume 98 fL (80-100); Mean Platelet Volume 9.3 fL (9.1-12.4); NEUTROPHILS ABSOLUTE AUTO 1.57 K/mm3 (1.96-9.15); NEUTROPHILS PERCENT AUTO 43 % (41-73); Platelet Count 89 K/mm3 (150-400); RDW Coefficient Variation 11.9 % (11.7-14.2); RDW Standard Deviation 43.1 fL (35.1-46.3); Red Blood Cell Count 3.17 M/mm3 (3.80-5.20); White Blood Cell Count 3.66 K/mm3 (4.00-11.30)
[2023-05-22 04:12] LABS: Albumin, Blood 3.3 g/dL (3.4-5.0); Albumin/Globulin Ratio 0.9 (0.8-1.8); Bilirubin, Total 0.9 mg/dL (0.1-1.0); Bun/Creatinine Ratio 15.7 (12.0-20.0); Calcium, Blood 9.1 mg/dL (8.5-10.1); Creatinine, Blood 0.38 mg/dL (0.40-1.00); Globulin, Blood 3.5 g/dL (2.2-4.0); Magnesium, Blood 1.7 mg/dL (1.6-2.4); Phosphorus, Blood 3.8 mg/dL (2.5-4.9); Potassium, Blood 3.3 mmol/L (3.5-5.5); Total Protein, Blood 6.8 g/dL (6.4-8.2)
--- NOTE | 2023-05-22 06:15 | NUR ---
SHIFT SUMMARY: PT REMAINS ALERT AND ORIENTED TO PERSON AND SELF. ABLE TO ANSWER SOME SIMPLE QUESTIONS. PT CONFUSED AT TIMES AND BECOMES VERY AGGITATED. PT MAKES FREQUENT COMMENTS ABOUT WANTING TO LEAVE AND WANTING TO CALL HER MOM. PT EDUCATED ON BEING ON A HOLD AND THAT SHE HAD ALREADY TALKED TO HER MOM. PT BECOMES VERY UPSET AND STATES THAT WE ARE HOLDING HER AGAINST HER WILL AND THAT THE ICU STAFF IS "FRAUDULENT AND INCOMPETENT". PT REMAINS ON RA T/O THE SHIFT WITH SPO2 >95%. DENIES SOB. PT DENIES PAIN ANYWHERE AT THIS TIME. PT ABLE TO REST OFF AND ON T/O THE SHIFT. AUTOMOTIVE REPAIR TECHNICIAN IN PLACE, HR 80'S. SBP 140'S-160'S. PT DENIES CHEST PAIN OR PRESSURE. CIWA 14 T/O THE SHIFT, MEDICATED PER JUL. PRECEDEX INFUSING AT 1.4 MCG/KG/HR. POWERGLIDE TO OSCAR, PATENT AND INFUSING. PT PULLED POWERGLIDE IN PHILL, STATED SHE NO LONGER NEEDED IT. PT MOTHER CALLED THIS SHIFT FOR AN UPDATE. 1:1 SITTER REMAINS AT BEDSIDE. PT DENIES SUICIDAL IDEATION T/O THE SHIFT. PT ABLE TO VOID YELLOW URINE IN BSC, WITH ASSIST. NO BM THIS SHIFT. BED LOW AND LOCKED.
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
--- NOTE | 2023-05-22 18:26 | NUR ---
SHIFT SUMMARY PT HAS BEEN ALERT AND ORIENTED THROUGHOUT THE DAY. SHE HAS BEEN CALM AND COOPERATIVE WITH CARE. SHE HAD INTERMITTENT EPISODES OF ANXIETY AND TEARFUL AT TIMES. CIWA SCORES 2-7. 2MD HOLD AND 1:1 SITTER DISCONTINUED THIS AFTERNOON. SHE HAS BEEN TACHYCARDIC AND HYPERTENSIVE, HOME MEDICATION REGIMEN STARTED. SHE IS A STANDBY ASSIST TO THE TOILET. MOTHER AT BEDSIDE THIS EVENING. BED IN LOW POSITION, CALL LIGHT WITHIN REACH.
--- NOTE | 2023-05-22 21:09 | NUR ---
ASSUMPTION OF CARE: PT ALERT AND ORIENTED TO TIME, PERSON, PLACE AND SITUATION. ABLE TO ANSWER QUESTIONS AND MAKE NEEDS KNOWN. PT PLEASANT AND COOPERATIVE WITH CARE. PT VERY TEARFUL AT TIMES AND STATES "I FEEL BAD FOR HOW I ACTED YESTERDAY". PT ON RA WITH SPO2 >95%. DENIES SOB. LUNG SOUNDS CLEAR. PHOTOENGRAVING PRINTER IN PLACE, SR WITH HR 80'S. SBP 150'S. TOLERATING PO INTAKE WELL. PT ENDORSES PAIN IN HER HEAD AND NECK AND STATES IT IS A CHRONIC PAIN. MEDICATED PER EMAR WITH RELIEF. PT ABLE TO AMBULATE IN ROOM INDEPENDENTLY. POWERGLIDE TO LEFT UPPER ARM CURRENTLY PATENT AND INFUSING. VOIDING YELLOW URINE. NO BM YET THIS SHIFT. CIWA SCORE 4. CALL LIGHT IN REACH, BED LOW AND LOCKED.
[2023-05-23] VITALS (10 sets, daily range): BP systolic 118–156; BP diastolic 85–105
[2023-05-23 04:08] LABS: Bun/Creatinine Ratio 25.8 (12.0-20.0); Calcium, Blood 9.6 mg/dL (8.5-10.1); Creatinine, Blood 0.5 mg/dL (0.40-1.00); Magnesium, Blood 1.7 mg/dL (1.6-2.4); Phosphorus, Blood 4.3 mg/dL (2.5-4.9); Potassium, Blood 3.7 mmol/L (3.5-5.5)
--- NOTE | 2023-05-23 06:09 | NUR ---
SHIFT SUMMARY: NO ACUTE CHANGES T/O THE SHIFT. PT REMAINS ALERT AND ORIENTED X4. ABLE TO ANSWER QESTIONS AND MAKE NEEDS KNOWN. PT REMAINS CALM AND COOPERATIVE T/O THE SHIFT. PT ABLE TO SLEEP ON AND OFF T/O THE NIGHT. PT HAD FREQUENT REPORTS OF PAIN IN HEAD/NECK WHICH SHE STATES IS CHRONIC. MEDICATED PER MAR WITH RELIEF. POWERGLIDE TO OSCAR, PATENT AND SALINE LOCKED. PT ABLE TO AMBULATE IN ROOM INDEPENDENTLY AND POSITION SELF IN BED. VOIDING YELLOW URINE T/O THE SHIFT. NO BM THIS SHIFT. BED LOW AND LOCKED, CALL LIGHT IN REACH.
--- NOTE | 2023-05-23 07:00 | NUR ---
ASSUMPTION OF CARE PT IS ALERT AND ORIENTED WITH PLEASANT AFFECT. SHE IS HOPING TO BE DISCHARGED TODAY. PT C/O HEADACHE, DENIES OTHER SYMPTOMS. BED IN LOW POSITION, CALL LIGHT WITHIN REACH.
--- NOTE | 2023-05-23 09:30 | NUR ---
UPDATE PLAN FOR PT TO BE DISCHARGED. CARDIOLOGY ASSOCIATE IN ROOM ASSISTING WITH SAFETY PLAN. PT CALLED MOTHER HANY FOR CLOTHING AND RIDE HOME.
--- NOTE | 2023-05-23 10:25 | NUR ---
DISCHARGE DISCHARGE INSTRUCTIONS PROVIDED TO PT. PT STS SHE WILL REACH OUT TO PREVIOUS AA SPONSOR FOR SUPPORT AND FOLLOW UP WITH AA. PT VERBALIZES UNDERSTANDING OF INSTRUCTIONS. MOTHER HANY PROVIDED PT CLOTHING. PT AMBULATED OUT OF DEPARTMENT WITH STEADY GAIT AT 10:22.
== END 2023-05-23 10:22 | disposition home or self-care (01) | DRG 917 ==
LOC: ER 14:09 → ICUE 14:10 → ER 14:10 → ICUE 15:58
PROVIDERS: Internal Medicine Critical Care Medicine; Student in an Organized Health Care Education/Training Program; ADMIT Hospitalist
PROC: 5A1935Z Respiratory Ventilation, Less than 24 Consecutive Hours (ICD-10-PCS; principal; 2023-05-19)
PROC: 0BH17EZ Insertion of Endotracheal Airway into Trachea, Via Natural or Artificial Opening (ICD-10-PCS; 2023-05-19)
DX: T51.92XA Toxic effect of unspecified alcohol, intentional self-harm, initial encounter (principal); G92.8 Other toxic encephalopathy; J96.01 Acute respiratory failure with hypoxia; N39.0 Urinary tract infection, site not specified; E72.11 Homocystinuria; F10.239 Alcohol dependence with withdrawal, unspecified; T46.5X2A Poisoning by other antihypertensive drugs, intentional self-harm, initial encounter; T48.1X2A Poisoning by skeletal muscle relaxants [neuromuscular blocking agents], intentional self-harm, initial encounter; T44.7X2A Poisoning by beta-adrenoreceptor antagonists, intentional self-harm, initial encounter; T37.5X2A Poisoning by antiviral drugs, intentional self-harm, initial encounter; T42.6X2A Poisoning by other antiepileptic and sedative-hypnotic drugs, intentional self-harm, initial encounter; T39.392A Poisoning by other nonsteroidal anti-inflammatory drugs [NSAID], intentional self-harm, initial encounter; Y90.8 Blood alcohol level of 240 mg/100 ml or more; F17.210 Nicotine dependence, cigarettes, uncomplicated; F41.9 Anxiety disorder, unspecified; F32.A Depression, unspecified; K21.9 Gastro-esophageal reflux disease without esophagitis; Z86.711 Personal history of pulmonary embolism; Z88.1 Allergy status to other antibiotic agents; Z88.2 Allergy status to sulfonamides; Z88.5 Allergy status to narcotic agent; Z79.899 Other long term (current) drug therapy; Z88.8 Allergy status to other drugs, medicaments and biological substances; Z90.710 Acquired absence of both cervix and uterus; Z90.89 Acquired absence of other organs; Z98.1 Arthrodesis status
CPT/HCPCS: 31500; 36415; 36600; 51702; 70450; 71045; 80047; 80048; 80053; 81001; 81025; 82010; 82140; 82150; 82803; 82947; 83605; 83690; 83735; 84100; 84436; 84443; 84481; 84484; 85014; 85025; 87077; 87086; 87186; 93005; 93010; 94002; 94003; 94760; 94762; 99291-25; 99292; A9270; C1751; C1894; G0480; J0360; J1650; J1953; J2060; J2250; J2704; J3010; J3411; J3475; J3480; J7030; J7050; J7060; J7120

== ENCOUNTER 2023-06-01 18:18 | Observation (INO) | payer BC, OTHER ==
[~2023-06-01] VITALS: Ht 177.8 cm; Wt 68.0 kg
[~2023-06-01 18:18] MED LIST changes: +GABA100 PO; +IBUP200 PO; +LOSARTAN POTASS25 M2 PO
[2023-06-01 18:43] LABS: Source, Urine Straight Cath
[2023-06-01 18:49] LABS: Appearance, Urine Clear (Clear); Bilirubin, Urine Neg (Neg); Blood, Urine Neg (Neg); Glucose Qualitative, Urine Neg (Neg); Ketones, Urine Neg (Neg); Leukocyte Esterase, Urine Neg (Neg); Nitrite, Urine Neg (Neg); Protein, Urine Neg (Neg); Urobilinogen, Urine NORM (Normal)
[2023-06-01 18:52] LABS: Color, Urine Pale Yellow (P-Yellow)
[2023-06-01 18:56] LABS: Hematocrit 40.7 % (33.0-51.0); Hemoglobin 13.9 g/dL (11.5-16.0); Mean Corpuscular HGB 34.9 pg (26.0-34.0); Mean Corpuscular HGB Conc 34.2 g/dL (31.5-36.5); Mean Corpuscular Volume 102 fL (80-100); Mean Platelet Volume 8.9 fL (9.1-12.4); Platelet Count 230 K/mm3 (150-400); RDW Coefficient Variation 12.6 % (11.7-14.2); RDW Standard Deviation 47.8 fL (35.1-46.3); Red Blood Cell Count 3.98 M/mm3 (3.80-5.20); White Blood Cell Count 11.94 K/mm3 (4.00-11.30)
[2023-06-01 18:59] LABS: U Amphetamine Screen Not Detected; U Barbituate Screen Not Detected; U Benzodiazapine Screen DETECTED; U Buprenorphine Screen Not Detected; U Cannabinoids Screen Not Detected; U Cocaine Screen Not Detected; U Methadone Screen Not Detected; U Methamphetamine Screen Not Detected; U Opiates Screen DETECTED; U Oxycodone Screen Not Detected; U Phencyclidine Screen Not Detected
[2023-06-01 19:18] LABS: BAND PERCENT MAN 1 % (0-8); BASOPHILS ABSOLUTE MAN 0.11 K/mm3 (0.00-0.23); BASOPHILS PERCENT MAN 1 % (0-2); EOSINOPHILS PERCENT MAN 0 % (0-6); LYMPHOCYTES % ATYPICAL MANUAL 1 % (0-0); LYMPHOCYTES PERCENT MAN 61 % (21-46); MONOCYTES ABSOLUTE MAN 0.47 K/mm3 (0.16-1.47); MONOCYTES PERCENT MAN 4 % (4-13); NEUTROPHILS ABSOLUTE MAN 3.94 K/mm3 (1.96-9.15); SEG NEUTROPHILS PERCENT MAN 32 % (41-73); TOTAL CELLS COUNTED 100
[2023-06-01 19:36] LABS: Alanine Aminotransfer (ALT/SGP 42 U/L (12-78); Albumin, Blood 4.1 g/dL (3.4-5.0); Albumin/Globulin Ratio 1.2 (0.8-1.8); Alk Phos 142 U/L (50-136); Anion Gap 8 mmol/L (6-16); Aspartate Aminotrans (AST/SGOT 38 U/L (12-37); Bilirubin, Total 0.2 mg/dL (0.1-1.0); Blood Urea Nitrogen 10 mg/dL (8-24); Bun/Creatinine Ratio 19.7 (12.0-20.0); CO2, Blood 24 mmol/L (21-32); Calcium, Blood 9.1 mg/dL (8.5-10.1); Chloride, Blood 115 mmol/L (98-108); Creatinine, Blood 0.51 mg/dL (0.40-1.00); Ethanol (Alcohol), Blood, Med 436 mg/dL; Globulin, Blood 3.4 g/dL (2.2-4.0); Glomerular Filtration Rate 117 (60-); Glucose, Blood 127 mg/dL (70-99); Potassium, Blood 5.1 mmol/L (3.5-5.5); Sodium, Blood 147 mmol/L (136-145); Total Protein, Blood 7.5 g/dL (6.4-8.2)
[2023-06-01 19:37] LABS: Acetaminophen, Random <2.0 ug/mL (10.0-30.0)
[2023-06-01 20:51] LABS: Influenza A, PCR NEGATIVE (NEGATIVE); Influenza B, PCR NEGATIVE (NEGATIVE); Resp Syncytial Virus, PCR NEGATIVE (NEGATIVE); SARS-Cov-2 (COVID-19) PCR, MMC NEGATIVE (NEGATIVE)
[2023-06-01 21:31] VITALS: BP 123/78
[2023-06-01] MEDS ORDERED: CHLO25 PO (22:07)
== END 2023-06-01 22:15 | disposition home or self-care (01) ==
LOC: ER 18:18 → EOR 18:19
PROVIDERS: ADMIT Emergency Medicine
DX: F10.129 Alcohol abuse with intoxication, unspecified (principal); F17.210 Nicotine dependence, cigarettes, uncomplicated; Z88.5 Allergy status to narcotic agent; Z88.8 Allergy status to other drugs, medicaments and biological substances; Z88.2 Allergy status to sulfonamides
CPT/HCPCS: 0241U; 80053; 81003; 81025; 85025; 93005; 93010; 96372; 99285-25; G0378; G0480; J1790

== ENCOUNTER 2023-06-06 19:05 | Inpatient (IN) | payer BC, OTHER ==
[~2023-06-06] VITALS: Ht 172.7 cm; Wt 72.1 kg
[2023-06-06 19:28] LABS: Base Excess Venous -5.1 mmol/L; Bicarbonate Venous 20.2 mmol/L (24.0-30.0); PCO2 Venous 44.9 mmHg (38-42); pH Blood Venous 7.29 (7.34-7.37)
[2023-06-06 19:30] LABS: Hematocrit 40.7 % (33.0-51.0); Hemoglobin 13.5 g/dL (11.5-16.0); Mean Corpuscular HGB 34.4 pg (26.0-34.0); Mean Corpuscular HGB Conc 33.2 g/dL (31.5-36.5); Mean Corpuscular Volume 104 fL (80-100); Mean Platelet Volume 8.8 fL (9.1-12.4); Platelet Count 182 K/mm3 (150-400); RDW Coefficient Variation 13.1 % (11.7-14.2); RDW Standard Deviation 49.6 fL (35.1-46.3); Red Blood Cell Count 3.92 M/mm3 (3.80-5.20); White Blood Cell Count 8.75 K/mm3 (4.00-11.30)
[2023-06-06 19:50] LABS: BASOPHILS PERCENT MAN 0 % (0-2); EOSINOPHILS PERCENT MAN 0 % (0-6); LYMPHOCYTES % ATYPICAL MANUAL 2 % (0-0); LYMPHOCYTES PERCENT MAN 70 % (21-46); MONOCYTES ABSOLUTE MAN 0.17 K/mm3 (0.16-1.47); MONOCYTES PERCENT MAN 2 % (4-13); NEUTROPHILS ABSOLUTE MAN 2.27 K/mm3 (1.96-9.15); SEG NEUTROPHILS PERCENT MAN 26 % (41-73); TOTAL CELLS COUNTED 100
[2023-06-06 19:51] LABS: Magnesium, Blood 1.8 mg/dL (1.6-2.4)
[2023-06-06 20:06] LABS: Source, Urine Foley catheter
[2023-06-06 20:10] LABS: Bilirubin, Urine Neg (Neg); Blood, Urine 1+ (Neg); Glucose Qualitative, Urine Neg (Neg); Ketones, Urine Neg (Neg); Leukocyte Esterase, Urine Neg (Neg); Nitrite, Urine Neg (Neg); Protein, Urine 1+ (Neg); Urobilinogen, Urine NORM (Normal)
[2023-06-06 20:11] LABS: Albumin, Blood 3.8 g/dL (3.4-5.0); Albumin/Globulin Ratio 1.2 (0.8-1.8); Bilirubin, Total 0.3 mg/dL (0.1-1.0); Calcium, Blood 8.5 mg/dL (8.5-10.1); Creatinine, Blood 0.56 mg/dL (0.40-1.00); Globulin, Blood 3.3 g/dL (2.2-4.0); Potassium, Blood 3.6 mmol/L (3.5-5.5); Total Protein, Blood 7.1 g/dL (6.4-8.2)
[2023-06-06 20:15] LABS: Appearance, Urine Clear (Clear); Color, Urine Yellow (P-Yellow)
[2023-06-06 20:17] LABS: Bacteria Not Seen /hpf; Red Blood Cells, Urine 0-2 /hpf (0-2); Squamous Epithelial Cells Not Seen /hpf (Few); White Blood Cells, Urine Not Seen /hpf (0-5)
[2023-06-06 20:20] LABS: U Amphetamine Screen Not Detected; U Barbituate Screen Not Detected; U Benzodiazapine Screen DETECTED; U Buprenorphine Screen Not Detected; U Cannabinoids Screen Not Detected; U Cocaine Screen Not Detected; U Methadone Screen Not Detected; U Methamphetamine Screen Not Detected; U Opiates Screen Not Detected; U Oxycodone Screen Not Detected; U Phencyclidine Screen Not Detected
[2023-06-06] MEDS ORDERED: AMOX-CLAV 875-1 EAC2 PO (22:05)
[2023-06-06 22:45] VITALS: BP 139/84
[2023-06-06 23:00] VITALS: BP 132/82
[2023-06-06 23:15] VITALS: BP 130/77
--- NOTE | 2023-06-06 23:30 | NUR ---
ARRIVAL TO ICU PT ARRIVED TO ICU 11 AT 2230 VIA ED BED AND TRANSFERED OVER TO ICU BED VIA SLIDE SHEET. SHE IS AGITATED WITH RASS OF +2; SHE IS RESPONSIVE TO VERBAL STIMULI AND WILL ANSWER Y/N QUESTIONS OCCATIONALLY; PROPOFOL INFUSING AT 90MCG/KG/MIN UPON ARRIVAL TO ICU AND TITRATED DOWN TO 70MCG/KG/MIN AFTER STARTING VERSED GTT; VERSED TITRATED UP TO 4MG/HR. AFEBRILE. VENT SETTINGS AC/VC 16/450/5/35%; SMALL AMOUT OF THICK RED SECREATIONS FROM ETT. HR 90-100. SBP 100-120'S; MAP >65. OG TO LIS. GREENE IN PLACE AND DRAINING TO GRAVITY. SMALL LACERATIONS NOTED TO RT UPPER LEG; KNEES AND ELBOWS MOTTLED. POWERGLIDE PLACED AFTER SHE ARRIVED. LR INFUSING AT 150ML/HR. SEE ADMISSION ASSESSMENT FOR FULL ASSESSMENT. PT MOTHER HANY AT [facility] FOR 15-30 MIN AFTER PT ARRIVED. HANY STATES THAT THE PATIENT "CUTS HERSELF" WHEN SHE HAS BEEN DRINKING. HANY ALSO MENTIONED THAT TOMORROW (06/07/23) PT WAS TO BE ADMITTED TO A [facility] ON THE [facility]. HANY SAID THAT SHE WOULD CALL THEM IN THE AM TO VARIFY THAT SHE STILL HAS BED AT THAT FACILITY. HANY VARIFIED PT MEDICATIONS AND STATES THAT NOTHING HAS CHANGED SINCE PT LAST ADMIT EARLIER THIS MONTH.
[2023-06-06] MEDS ORDERED: AMOX-CLAV 875-1 EAC1 PO (23:31)
[2023-06-06 23:45] VITALS: BP 130/85
[2023-06-07] VITALS (47 sets, daily range): BP systolic 75–163; BP diastolic 48–96
[2023-06-07 04:19] LABS: BASOPHILS ABSOLUTE AUTO 0.03 K/mm3 (0.00-0.23); BASOPHILS PERCENT AUTO 0 % (0-2); EOSINOPHILS ABSOLUTE AUTO 0.02 K/mm3 (0.00-0.68); EOSINOPHILS PERCENT AUTO 0 % (0-6); Hemoglobin 11.3 g/dL (11.5-16.0); IMMATURE GRAN ABSOLUTE AUTO 0.03 K/mm3 (0.00-0.10); IMMATURE GRAN PERCENT AUTO 0 % (0-1); LYMPHOCYTES ABSOLUTE AUTO 5.23 K/mm3 (0.84-5.20); LYMPHOCYTES PERCENT AUTO 46 % (21-46); MONOCYTES ABSOLUTE AUTO 0.66 K/mm3 (0.16-1.47); MONOCYTES PERCENT AUTO 6 % (4-13); Mean Corpuscular HGB 34.8 pg (26.0-34.0); Mean Corpuscular HGB Conc 34.2 g/dL (31.5-36.5); Mean Corpuscular Volume 102 fL (80-100); Mean Platelet Volume 8.6 fL (9.1-12.4); NEUTROPHILS ABSOLUTE AUTO 5.29 K/mm3 (1.96-9.15); NEUTROPHILS PERCENT AUTO 47 % (41-73); Platelet Count 130 K/mm3 (150-400); RDW Coefficient Variation 13.1 % (11.7-14.2); RDW Standard Deviation 48.9 fL (35.1-46.3); Red Blood Cell Count 3.25 M/mm3 (3.80-5.20); White Blood Cell Count 11.26 K/mm3 (4.00-11.30)
[2023-06-07 04:48] LABS: Albumin, Blood 3.3 g/dL (3.4-5.0); Albumin/Globulin Ratio 1.2 (0.8-1.8); Bilirubin, Total 0.4 mg/dL (0.1-1.0); Bun/Creatinine Ratio 17.5 (12.0-20.0); Calcium, Blood 7.9 mg/dL (8.5-10.1); Creatinine, Blood 0.57 mg/dL (0.40-1.00); Globulin, Blood 2.8 g/dL (2.2-4.0); Magnesium, Blood 2.4 mg/dL (1.6-2.4); Potassium, Blood 3.4 mmol/L (3.5-5.5); Total Protein, Blood 6.1 g/dL (6.4-8.2)
--- NOTE | 2023-06-07 06:26 | NUR ---
END OF SHIFT SUMMARY NO ACUTE EVENTS SINCE ARRIVAL TO ICU. SHE IS SEDATED WITH PROPOFOL INFUSING AT 50MCG/KG/MIN AND VERSED INFUSING AT 5MG/HR; SHE IS ABLE TO FOLLOW DIRECTIONS, OPENS EYES TO VERBAL STIMULI, AND TRYS TO TALK AROUND THE ETT; SHE IS REDIRECTABLE AND UNDERSTANDING OF RESTRAINTS. FENTANYL GIVEN ONCE FOR PAIN. VENT SETTINGS AC/VC 16/450/5/35%; SCANT AMOUNT OF RED ETT SECREATIONS AND RED ORAL SECREATIONS. AFEBRILE. HR 100-125. SBP 100-130'S. OG TO LIS WITH 50ML OUTPUT. GREENE IN PLACE AND DRAINING TO GRAVITY. MOTTLING IMPROVED, SKIN IS NOW PINK AND WARM. LR INFUSING AT 150ML/HR. WILL REPORT TO AM RN WHEN AVAILABLE.
--- NOTE | 2023-06-07 08:20 | NUR ---
VERSED GTT INCREASED D/T PT RESTLESS, WIDE EYED, REACHING FOR ETT, AND HR ELEVATED. PT IS REDIRECTABLE AND FOLLOWS COMMANDS BUT WILL PURPOSEFULLY REACH FOR ETT IF ABLE.
--- NOTE | 2023-06-07 12:00 | NUR ---
PT WAKES EASILY. WILL FOLLOW COMMANDS BUT GETS AGITATED EASILY AND STARTS FORCEFULLY COUGHING UNCONTROLLABLY. TITRATING SEDATION. DR. SNOWDEN WANTS TO START PRECEDEX AND SLOWLY WEAN OFF OF VERSED IF POSSIBLE.
--- NOTE | 2023-06-07 16:15 | NUR ---
SUMMARY OF EVENTS PT GETS AGITATED EASILY. STARTS FORCEFULLY COUGHING AND SITS UP REACHING FOR ETT. AT SOME POINT TODAY PT COUGHED SO HARD THE ETT CUFF WOULD NO LONGER HOLD AIR. DR. SNOWDEN AT BEDSIDE ATTEMPTED TUBE EXCHANGE WITHOUT SUCCESS, THEN TRIED REINTUBATING WITH NEW ETT WITHOUT SUCCESS. RT BAGGING PT TO MAINTAIN SPO2. ANESTHESIA AND ER CALLED. DR. BLANCO AT BEDSIDE AND ABLE TO GET PT REINTUBATED (1523) WITH 7.0 TUBE AT 24CM @ TEETH. DURING PROCEDURE PT RECEIVED 4MG OF ATIVAN AND 50MG OF ROCURONIUM (1511), ON TOP OF ALREADY BEING ON PROPOFOL AND PRECEDEX FOR SEDATION. AFTER INTUBATION NEW OG TUBE WAS PLACED AND BOTH CONFIRMED WITH XRAY BY DR. SNOWDEN.
--- NOTE | 2023-06-07 23:01 | NUR ---
ASSUMED CARE AT 1900 PT LAYING IN BED INTUBATED WITH VENT SETTINGS AC/VC 16/450/5/35%; SMALL-MODERATE AMOUNT OF THICK RED SECREATIONS FROM ETT. SHE IS SEDATED WITH PROPOFOL INFUSING AT 50MCG/KG/MIN AND PRECEDEX INFUSING AT 1MCG/KG/HR; RASS -2; SHE OPENS HER EYES AND TRYS TO FOLLOW DIRECTIONS AND ANSWER Y/N QUESTIONS. AFEBRILE. HR 70-80'S. SBP 120-140'S. VHP INFUSING AT 20ML/HR (GOAL) WITH 30ML WATER FLUSHES Q4HR. GREENE IN PLACE AND DRAINING TO GRAVITY. BICARB INFUSING AT 100ML/HR. SEE SHIFT ASSESSMENT FOR FULL ASSESSMENT.
[2023-06-08] VITALS (25 sets, daily range): BP systolic 137–179; BP diastolic 94–108
[2023-06-08 04:57] LABS: Hematocrit 30.3 % (33.0-51.0); Hemoglobin 10.5 g/dL (11.5-16.0); Mean Corpuscular HGB Conc 34.7 g/dL (31.5-36.5); Mean Corpuscular Volume 101 fL (80-100); Mean Platelet Volume 9.3 fL (9.1-12.4); Platelet Count 91 K/mm3 (150-400); RDW Coefficient Variation 12.6 % (11.7-14.2); RDW Standard Deviation 46.8 fL (35.1-46.3); White Blood Cell Count 4.29 K/mm3 (4.00-11.30)
[2023-06-08 05:16] LABS: Albumin/Globulin Ratio 0.9 (0.8-1.8); Bilirubin, Total 1.1 mg/dL (0.1-1.0); Calcium, Blood 8.8 mg/dL (8.5-10.1); Creatinine, Blood 0.58 mg/dL (0.40-1.00); Globulin, Blood 3.2 g/dL (2.2-4.0); Phosphorus, Blood 1.6 mg/dL (2.5-4.9); Potassium, Blood 3.3 mmol/L (3.5-5.5); Total Protein, Blood 6.2 g/dL (6.4-8.2)
[2023-06-08 05:34] LABS: BAND PERCENT MAN 17 % (0-8); BASOPHILS PERCENT MAN 0 % (0-2); EOSINOPHILS PERCENT MAN 0 % (0-6); LYMPHOCYTES ABSOLUTE MAN 1.63 K/mm3 (0.84-5.20); LYMPHOCYTES PERCENT MAN 38 % (21-46); MONOCYTES ABSOLUTE MAN 0.38 K/mm3 (0.16-1.47); MONOCYTES PERCENT MAN 9 % (4-13); NEUTROPHILS ABSOLUTE MAN 2.27 K/mm3 (1.96-9.15); SEG NEUTROPHILS PERCENT MAN 36 % (41-73); TOTAL CELLS COUNTED 100
--- NOTE | 2023-06-08 06:37 | NUR ---
END OF SHIFT SUMMARY NO ACUTE EVENTS OVERNIGHT. SHE CONT TO BE INTUBATED WITH VENT SETTINGS AC/VC 16/450/5/35%; SMALL-MODERATE AMOUNT OF THICK SECREATIONS FROM ETT. SEDATED WITH PROPOFOL INFUSING AT 50MCG/KG/MIN AND PRECEDEX AT 0.6MCG/KG/HR; RASS -2 NOW. AFEBRILE. HR 60-70'S. SBP 140-160. VHP INFUSING VIA OG AT 20ML/HR. GREENE IN PLACE AND DRAINING TO GRAVITY. CALL MADE TO DR PINK REGARDING AM LABS POTASSIUM AND PHOS, NEW ORDERS PROVIDED TO REPLACE. WILL REPORT TO AM RN WHEN AVAILABLE.
[2023-06-08 09:14] LABS: Source, Urine Foley catheter
[2023-06-08 09:52] LABS: Appearance, Urine Clear (Clear); Bilirubin, Urine Neg (Neg); Blood, Urine Neg (Neg); Color, Urine Yellow (P-Yellow); Glucose Qualitative, Urine Neg (Neg); Ketones, Urine Neg (Neg); Leukocyte Esterase, Urine Neg (Neg); Nitrite, Urine Neg (Neg); Protein, Urine Neg (Neg); Urobilinogen, Urine 1+ (Normal)
--- NOTE | 2023-06-08 18:28 | NUR ---
SUMMARY PT INTUBATED AND SEDATED WITH PROPOFOL AND PRECEDEX. THIS AM AT SHIFT CHANGE PT BECAME RESTLESS/AGITATED AND REQUIRED INCREASE IN PRECEDEX AND DOSE OF ATIVAN. PT WAKES UP TRYING TO TALK AROUND ETT AND SITTING UP REACHING FOR ETT. THIS EVENING PT DID THE SAME AND WAS LESS DIRECTABLE THAN PREVIOUS. ATIVAN AND FENTANYL GIVEN. PT DID NOD YES TO PAIN. PT WILL GRAB ETT IF SHE HAS THE CHANCE AND IS A DIFFICULT INTUBATION. SPOKE WITH DR. SNOWDEN ABOUT INCREASED BP TODAY AND GET A LITTLE DIAPHORETIC AROUND HER NOSE AT TIMES. IT IS POSSIBLE PT IS STARTING TO GO INTO WITHDRAWLS. BP MEDS RESTARTED PER OG TUBE TODAY. NO OTHER CHANGES TODAY.
--- NOTE | 2023-06-08 19:00 | NUR ---
ASSUMPTION OF CARE RECEIVED INTO CARE, BEDSIDE REPORT GIVEN BY DAY RN. INFUSIONS CHECKED WITH MAR. PT INTUBATED AND SEDATED WITH PROP AND PRECEDEX, BILAT WRIST RESTRAINTS. RESPONSIVE TO VERBAL STIMULI. SYNCHRONOUS WITH CURRENT VENT SETTINGS. VSS. IN NSR. NO CONCERNS AT THIS TIME. SEE SHIFT ASSESSMENT.
[2023-06-09] VITALS (33 sets, daily range): BP systolic 114–184; BP diastolic 76–113
[2023-06-09 04:16] LABS: Albumin, Blood 2.8 g/dL (3.4-5.0); Albumin/Globulin Ratio 0.8 (0.8-1.8); Bilirubin, Total 0.8 mg/dL (0.1-1.0); Bun/Creatinine Ratio 26.2 (12.0-20.0); Calcium, Blood 8.5 mg/dL (8.5-10.1); Creatinine, Blood 0.5 mg/dL (0.40-1.00); Globulin, Blood 3.3 g/dL (2.2-4.0); Potassium, Blood 3.4 mmol/L (3.5-5.5); Total Protein, Blood 6.1 g/dL (6.4-8.2)
--- NOTE | 2023-06-09 06:10 | NUR ---
SHIFT SUMMARY SEDATED ON PROP 50 AND PRECEDEX 1.4 THROUGHOUT NIGHT. REQUIRED ATIVAN AND FENT PRN PER EMAR FOR PAIN/RESTLESSNESS & AGGITATION. RASS -3/-2, ABLE TO FOLLOW COMMANDS, ANSWERS YES/NO TO SIMPLE QUESTIONS, OPENS EYES TO VERBAL STIMULI. WILL WAKE SUDDENLY AND LOCALIZE TOWARDS ETT, BILAT SWR IN PLACE. REMAINED IN SR WITH 1 DEGREE BLOCK, MAINTAINING MAP >70. SYNCHRONOUS WITH VENT SETTINGS, ACVC 39C259/5. LARGE AMOUNT LEE SECRETIONS. OG IN PLACE WITH TF AT GOAL. GREENE INSITU URINE TURNING GREEN IN COLOUR. FULL BED BATH DONE. MOM PHONED, UPDATE PROVIDED. NO CONCERNS AT THIS TIME.
--- NOTE | 2023-06-09 18:22 | NUR ---
SUMMARY PT INTUBATED AND SEDATED WITH PROPOFOL AND PRECEDEX, ATIVAN FOR WITHDRAWL SYMPTOMS. PT GETS DIAPHORETIC AT TIMES AND RESTLESS. WILL SIT UP AND TRY TO PULL AT ETT. MOM AT BEDSIDE MOST OF THE DAY AND PT WILL NOD YES OR NO TO HER QUESTIONS. HAS BEEN HYPERTENSIVE TODAY. SPOKE WITH DR. SNOWDEN A COUPLE TIMES T/O THE DAY ABOUT THIS ISSUE. NEW ORDERS FOR NORVASC, THEN LATER AN EXTRA DOSE OF ATIVAN IN THOUGHTS THAT IT IS DUE TO WITHDRAWLS, ALSO GAVE FENTANYL BECAUSE PT NODS YES TO PAIN IN THROAT. DOSE OF METOPROLOL AND LOSARTAN SCHEDULED TONIGHT. HAD AN EPISODE THIS AM WHERE SHE STARTED FORCEFULLY COUGHING AND VOMITED BILE AROUND ETT. STOPPED TUBE FEED AND NOTIFIED DR. SNOWDEN. RESTARTED TUBE FEED THIS AFTERNOON WITHOUT ISSUE. STEROID STARTED TODAY FOR SWELLING IN THROAT. NO OTHER CHANGES THIS SHIFT.
--- NOTE | 2023-06-09 20:05 | NUR ---
ASSUMPTION OF CARE RECEIVED INTO CARE, REPORT GIVEN BY DAY RN. INFUSIONS CHECKED WITH EMAR. PT HAS BILAT WRIST RESTRAINTS ON. SEDATED AND VENTILATED. SYNCHRONOUS WITH CURRENT VENT SETTINGS. VSS. APPEARS COMFORTABLE. NO CONCERNS AT THIS TIME.
[2023-06-10] VITALS (29 sets, daily range): BP systolic 118–183; BP diastolic 78–112
[2023-06-10 04:01] LABS: Hematocrit 31.8 % (33.0-51.0); Hemoglobin 11.3 g/dL (11.5-16.0); Mean Corpuscular HGB 35.1 pg (26.0-34.0); Mean Corpuscular HGB Conc 35.5 g/dL (31.5-36.5); Mean Corpuscular Volume 99 fL (80-100); Mean Platelet Volume 9.8 fL (9.1-12.4); Platelet Count 83 K/mm3 (150-400); RDW Coefficient Variation 12.1 % (11.7-14.2); RDW Standard Deviation 43.8 fL (35.1-46.3); Red Blood Cell Count 3.22 M/mm3 (3.80-5.20); White Blood Cell Count 3.64 K/mm3 (4.00-11.30)
[2023-06-10 04:55] LABS: Percent Saturation 17.1 % (15.0-50.0)
[2023-06-10 04:56] LABS: Bun/Creatinine Ratio 47.1 (12.0-20.0); Calcium, Blood 9.1 mg/dL (8.5-10.1); Creatinine, Blood 0.43 mg/dL (0.40-1.00)
[2023-06-10 05:02] LABS: BAND PERCENT MAN 23 % (0-8); BASOPHILS PERCENT MAN 0 % (0-2); EOSINOPHILS PERCENT MAN 0 % (0-6); LYMPHOCYTES ABSOLUTE MAN 0.54 K/mm3 (0.84-5.20); LYMPHOCYTES PERCENT MAN 15 % (21-46); METAMYELOCYTE ABSOLUTE MAN 0.03 K/mm3 (0.00-0.00); METAMYELOCYTE PERCENT MAN 1 % (0-0); MONOCYTES ABSOLUTE MAN 0.14 K/mm3 (0.16-1.47); MONOCYTES PERCENT MAN 4 % (4-13); NEUTROPHILS ABSOLUTE MAN 2.91 K/mm3 (1.96-9.15); SEG NEUTROPHILS PERCENT MAN 57 % (41-73); TOTAL CELLS COUNTED 100
[2023-06-10 05:21] LABS: Magnesium, Blood 1.7 mg/dL (1.6-2.4); Phosphorus, Blood 3.1 mg/dL (2.5-4.9)
--- NOTE | 2023-06-10 06:30 | NUR ---
SHIFT SUMMARY INTUBATED AND SEDATED WITH PROP AT 50, PRECEDEX AT 1.4. REQUIRED 2 DOSES OF ATIVAN AND ONE OF FENTANYL PER EMAR. ANSWERS YES/NO QUESTIONS. FOLLOWS COMMANDS. GETS RESTLESS OFF/ON LOCALIZING TOWARDS ETT/KICKING LEGS/ SITTING UP IN BED. REMAINS IN SR WITH A FIRST DEGREE BLOCK AND FREQUENT PVCS. BP STABLE. SYNCHRONOUS WITH VENT ON ACVC 38H016/5/35%. LARGE AMOUNT LEE/YELLOW SECRETIONS. TF INFUSING AT GOAL RATE. GREENE DRAINING ADEQUATE AMOUNT. MOM PHONED AT , UPDATE PROVIDED. NO CONCERNS AT THIS TIME.
--- NOTE | 2023-06-10 08:05 | NUR ---
ASSUMED CARE: REPORT RECEIVED FROM JUAN Forrest RN. ASSUMED CARE OF THIS PT AT APPROX 0700. ON ASSESSMENT, THE PT IS AGITATED; MOVING SELF DOWN IN BED & ATTEMPTING TO REACH FOR/ PULL AT ETT. PROPOFOL HAS BEEN TITRATED UP TO 55 MCG/KG/MIN & PT HAS RESPONDED WELL W/ DECREASED AGITATION. PRECEDEX ALSO INFUSING AT 1.4 MCG/KG/HR. LS COARSE, CLEAR AFTER ETT SUCTIONING. VENT SETTINGS: AC/VC 16/450/5/35% W/ O2 SATS > 92%. MONITOR SHOWS SR W/ HR 60s, OCCASIONAL PVCs, BP STABLE. OGT IN PLACE W/ TUBE FEEDS INFUSING AT GOAL RATE OF 20 ML/HR, ABD IS MODERATELY DISTENDED, SOFT TO PALPATION. HYPOACTIVE BT x4. GREENE PATENT/ DRAINING DARK YELLOW-NEIL URINE W/ MOD AMNTS SEDIMENT NOTED - IN PLACE FOR CRITICAL I&O MONITORING. SKIN CONDITION OVERALL INTACT, Q2H REPOSITIONING TO MAINTAIN SKIN INTEGRITY. WILL CONTINUE TO MONITOR & UPDATE NEEDED.
--- NOTE | 2023-06-10 08:20 | NUR ---
DR RODRIGUEZ: PROVIDER AT BEDSIDE TO EVAL PT THIS AM. HE WOULD LIKE TO KEEP HER COMFORTABLY SEDATED W/ RASS -3/-4 THE PT BECOMES EASILY AGITATED & ATTEMPTS TO REMOVE ETT WHEN AWAKE. USE PRN ADJUNCTS INSTEAD OF INCREASING PROPOFOL OR PRECEDEX IF POSSIBLE. PLAN FOR NECK CT THIS AM R/T CONTINUED SWELLING OF NECK & DIFFICULT INTUBATION. DISCUSSED PT's DECREASING PLT COUNT, PROVIDER STS OKAY TO GIVE LOVENOX.
--- NOTE | 2023-06-10 14:57 | NUR ---
CUFF LEAK TEST: RT RAHEEM, AT BEDSIDE TO COMPLETE CUFF LEAK TEST PER DR RODRIGUEZ. PT HAS EASILY AUDIBLE AIR FLOW & GURGLING AROUND ETT W/ CUFF DEFLATED. WILL NOTIFY PROVIDER.
--- NOTE | 2023-06-10 17:34 | NUR ---
SHIFT SUMMARY: NO ACUTE CHANGES SINCE PRIOR UPDATES. ATTEMPTS MADE BY THIS RN TO TITRATE DOWN PT's SEDATION & USE PRN ATIVAN/ FENTANYL. THE PT HAS QUICKLY AWOKEN & REACHED FOR HER ETT DESPITE BILAT SOFT WRIST RESTRAINTS IN PLACE. SEDATION HAS BEEN TITRATED BACK TO PRIOR SETTINGS. LS CLEAR, VENT SETTIGNS: AC/VC 16/450/5/35% W/ O2 SATS > 92%. MOD AMNTS THICK LEE-YELLOW SPUTUM SUCTIONED THROUGH ETT. COPIOUS AMNTS SALIVA SUCTIONED ORALLY. MONITOR SHOWS SR W/ FHB, HR 50-70s, BP STABLE - HR & BP INCREASED W/ ANXIETY/ AGITATION. BT HYPOACTIVE, TUBE FEEDS INFUSING AT GOAL RATE OF 20 ML/HR, NO BM THIS SHIFT. GREENE PATENT/ DRAINING DARK YELLOW URINE W/ MOD AMNTS SEDIMENT NOTED IN TUBING. SKIN CONDITION OVERALL INTACT, Q2H REPOSITIONING TO MAINTAIN SKIN INTEGRITY. WILL CONTINUE TO MONITOR & REPORT OFF TO ONCOMING RN.
--- NOTE | 2023-06-10 19:15 | NUR ---
ASSUMPTION OF CARE RECEIVED INTO CARE, BEDSIDE REPORT GIVEN BY DAY RN. PT REMAINS RESTRAINED AND SEDATED ON 60 PROP AND 1.4 PRECEDEX. SYNCHRONOUS WITH CURRENT VENT SETTINGS. BRADYCARDIC AND HYPERTENSIVE. GREENE AND OG INSITU. NO CONCERNS AT THIS TIME. SEE SHIFT ASSESSMENT.
[2023-06-11] VITALS (39 sets, daily range): BP systolic 120–189; BP diastolic 75–122
--- NOTE | 2023-06-11 02:26 | NUR ---
RESTLESSNESS/AGGITATION AT 0100 PT WOKE SUDDENLY, TRYING TO SIT UP IN BED, LIFTING HIPS OFF BED, PULLING RESTRAINTS. ATIVAN GIVEN PER EMAR. ATIVAN NOT EFFECTIVE, CONTINUED TO BE RESTLESS/AGGITATED, ASYNCHRONOUS WITH VENT, PROPOFOL INCREASED PER EMAR/FLOWSHEET. STARTED TO SETTLE RASS +1/0, THEN INCREASED RESTLESSNESS, KICKING LEGS, LOCALIZING TOWARDS ETT. REPOSITIONED. VERBAL SUPPORT PROVIDED. FOLLOWS SOME COMMANDS. CONTINUED TO TRY SIT UP IN BED, KICKING LEGS. HYPERTENSIVE 186/104. ATIVAN AND FENT GIVEN PER EMAR TO TRY SETTLE.
--- NOTE | 2023-06-11 06:14 | NUR ---
SHIFT SUMMARY SEDATED WITH PROP AND PRECEDEX, REQUIRING PRN ATIVAN AND FENTANYL FOR RESTLESSNESS/AGGITATION. FOLLOWS COMMANDS SOMETIMES, WILL ANSWER SOME YES/NO QUESTIONS. RESTRAINED WITH BILAT SOFT WRIST RESTRAINTS. THROUGHOUT NIGHT REQUIRED INCREASE IN PROPOFOL DUE TO INCREASED AGGITATION/PULLING AT RESTRAINTS/KICKING LEGS AND ATIVAN NOT BEING EFFECTIVE AT THAT TIME. METOPROLO HELD DUE TO HEART RATE IN 50S. BECAME HYPERTENSIVE UP TO A SBP 185, ORDER OBTAINED FOR HYDRALAZINE AND GIVEN PER EMAR WITH GOOD EFFECT. ASYNCHRONOUS WITH VENT AT TIMES, ACVC 26X805/5/35%. LEE/YELLOW MUCOUS BEING SUCTIONED. TF INFUSING AT GOAL, NO VOMITING. GREENE DRAINING WELL. IV PLACED TO LEFT FOREARM THEN BECAME INTERSTITIAL, SECOND IV INSERTED TO RIGHT FOREARM. NO CONCERNS AT THIS TIME. APPEARS COMFORTABLE.
--- NOTE | 2023-06-11 07:07 | NUR ---
PROVIDER AT BEDSIDE DR CAT AT BEDSIDE TO ASSESS. PLAN TO EXTUBATE. PROPOFOL AND PRECEDEX WEANED PER HIS VERBAL ORDER, SEE FLOWSHEET.
[2023-06-11 08:12] LABS: BASOPHILS ABSOLUTE AUTO 0.03 K/mm3 (0.00-0.23); BASOPHILS PERCENT AUTO 0 % (0-2); EOSINOPHILS ABSOLUTE AUTO 0.01 K/mm3 (0.00-0.68); EOSINOPHILS PERCENT AUTO 0 % (0-6); IMMATURE GRAN ABSOLUTE AUTO 0.09 K/mm3 (0.00-0.10); IMMATURE GRAN PERCENT AUTO 1 % (0-1); LYMPHOCYTES ABSOLUTE AUTO 2.16 K/mm3 (0.84-5.20); LYMPHOCYTES PERCENT AUTO 31 % (21-46); MONOCYTES ABSOLUTE AUTO 0.38 K/mm3 (0.16-1.47); MONOCYTES PERCENT AUTO 6 % (4-13); Mean Corpuscular HGB 34.7 pg (26.0-34.0); Mean Corpuscular HGB Conc 35.3 g/dL (31.5-36.5); Mean Corpuscular Volume 98 fL (80-100); NEUTROPHILS ABSOLUTE AUTO 4.27 K/mm3 (1.96-9.15); NEUTROPHILS PERCENT AUTO 62 % (41-73); NRBC ABSOLUTE 0.02 K/mm3 (0.00-0.02); NRBC Auto 0.3 /100 WBC (0.0-0.2); Platelet Count 103 K/mm3 (150-400); RDW Coefficient Variation 12.3 % (11.7-14.2); Red Blood Cell Count 3.46 M/mm3 (3.80-5.20); White Blood Cell Count 6.94 K/mm3 (4.00-11.30)
[2023-06-11 08:29] LABS: Bun/Creatinine Ratio 38.3 (12.0-20.0); Calcium, Blood 9.4 mg/dL (8.5-10.1); Creatinine, Blood 0.47 mg/dL (0.40-1.00); Phosphorus, Blood 2.5 mg/dL (2.5-4.9); Potassium, Blood 4.3 mmol/L (3.5-5.5)
--- NOTE | 2023-06-11 11:05 | NUR ---
SHIFT ASSESSMENT BEDSIDE REPORT RECEIVED FROM [facility] NURSE. PT INITIALLY INTUBATED AND SEDATED WITH PROPOFOL AND PRECEDEX. DR. RODRIGUEZ AT BEDSIDE AROUND 0730 WITH PLANS TO EXTUBATE. PROPOFOL AND PRECEDEX TITRATED DOWN, PT DID WELL WITH SBT, EXTUBATED TO 3LPM O2 VIA NC @ 0815. OGT REMOVED. PT ALERT TO PERSON, PLACE, AND FAMILY, FOLLOWING COMMANDS. PT HAVING MOMENTS OF ANXIETY AND HALLUCINATIONS, STATES SHE SEES SPIDERS, PHYSICIAN AT BEDSIDE DURING ONE OF HER BOUTS, MEDICATED c PRN ATIVAN WITH ADEQUATE RELIEF. GREENE CATH PATENT, DRAINING TO GRAVITY. VSS.
--- NOTE | 2023-06-11 17:57 | NUR ---
SHIFT SUMMARY PT A&OX4, HAVING BRIEF MOMENTS OF DISORIENTATION BUT REDIRECTABLE. BECOMING QUITE ANXIOUS AT TIMES, MEDICATING WITH PRN ATIVAN. PT HYPERTENSIVE AND TACHYCARDIC THIS AFTERNOON, ONE TIME DOSE OF METOPROLOL AND HYDRALYZINE GIVEN. BEDSIDE SWALLOW EVAL PERFORMED, TOLERATING WATER AND SNACKS WELL. AMBULATING TO BEDSIDE COMMODE WITH 1-PERSON SBA. NO BM.
--- NOTE | 2023-06-11 19:49 | NUR ---
ASSUMED CARE PT IS A&O X3-4; PT ABLE TO ANSWER ORIENTATION QUESTIONS APPROPRIATELY, BUT APPEARS TO HAVE DIFFICULTY MAINTAINING FOCUS. ANXIOUS AND CRYING UPON FIRST INTERACTION. THERAPEUTIC COMMUNICATION GIVEN AND ANXIETY TREATED PER EMAR. PT STATES THAT SHE SEE'S "SOMETIMES THERE'S FLASHING LIGHTS IN THE CEILING". PT IS RESTING QUIETLY AT THIS TIME.
[2023-06-12] VITALS (16 sets, daily range): BP systolic 120–179; BP diastolic 73–116
--- NOTE | 2023-06-12 06:11 | NUR ---
SHIFT SUMMARY PT RESTLESS T/O NIGHT W/ ANXIETY AND AGITATION. THERAPEUTIC COMMUNICATION AND TREATING PER EMAR TO HELP PT RELAX. PT HAS NOT COMPLAINED OF PAIN SINCE TREATING PER EMAR EARLIER IN SHIFT. PT AMBULATES WELL TO BEDSIDE COMMODE. BED ALARM ON AND IN LOW POSITION D/T PT ATTEMPTING TO GET OUT OF BED BY SELF. THIS AM PT WAS FOUND SITTING ON FLOOR UNDERNEATH ROOM TABLE. PT STATES SHE DID NOT FALL, BUT CRAWLED OUT OF BED TO HIDE D/T FEAR OF "SOMEONE BAD OUTSIDE". PT TOLD THIS RN THAT SHE HAS BEEN COMMUNICATING W/ MOTHER AND THAT MOTHER IS "FREAKING OUT" ABOUT A SHERRIF REPORT THAT MOTHER WAS READING ABOUT. NO OTHER ACUTE EVENTS OVERNIGHT.
[2023-06-12 08:59] LABS: BASOPHILS ABSOLUTE AUTO 0.05 K/mm3 (0.00-0.23); BASOPHILS PERCENT AUTO 1 % (0-2); EOSINOPHILS ABSOLUTE AUTO 0.02 K/mm3 (0.00-0.68); EOSINOPHILS PERCENT AUTO 0 % (0-6); Hematocrit 33.9 % (33.0-51.0); Hemoglobin 11.7 g/dL (11.5-16.0); IMMATURE GRAN ABSOLUTE AUTO 0.17 K/mm3 (0.00-0.10); IMMATURE GRAN PERCENT AUTO 2 % (0-1); LYMPHOCYTES ABSOLUTE AUTO 2.77 K/mm3 (0.84-5.20); LYMPHOCYTES PERCENT AUTO 39 % (21-46); MONOCYTES ABSOLUTE AUTO 0.99 K/mm3 (0.16-1.47); MONOCYTES PERCENT AUTO 14 % (4-13); Mean Corpuscular HGB 34.4 pg (26.0-34.0); Mean Corpuscular HGB Conc 34.5 g/dL (31.5-36.5); Mean Corpuscular Volume 100 fL (80-100); Mean Platelet Volume 9.3 fL (9.1-12.4); NEUTROPHILS ABSOLUTE AUTO 3.13 K/mm3 (1.96-9.15); NEUTROPHILS PERCENT AUTO 44 % (41-73); Platelet Count 115 K/mm3 (150-400); RDW Coefficient Variation 12.6 % (11.7-14.2); White Blood Cell Count 7.13 K/mm3 (4.00-11.30)
[2023-06-12 09:24] LABS: Bun/Creatinine Ratio 22.2 (12.0-20.0); Calcium, Blood 9.2 mg/dL (8.5-10.1); Creatinine, Blood 0.5 mg/dL (0.40-1.00); Potassium, Blood 2.9 mmol/L (3.5-5.5)
--- NOTE | 2023-06-12 17:21 | NUR ---
SUMMARY PT A/O X4 TODAY. ANXIOUS AT TIMES BUT PLEASANT AND COOPERATIVE WITH CARE. HYDROXYZINE STARTED FOR ANXIETY. DR. HERNANDEZ CONSULTED AND MEDS CHANGED PER HIS RECOMMENDATIONS. OOB TO CHAIR AND TO BSC. STANDBY ASSIST, STILL A LITTLE WEAK ON FEET. CARE MANAGEMENT SENT REFERRAL PACKET TO OUTPAT[facility] THAT PT WAS SUPPOSED TO GO TO PRIOR TO ADMIT. TOMORROW WE SHOULD KNOW IF THEY HAVE A BED FOR HER. PO POTASSIUM REPLACEMENT, LABS TO BE REDRAWN TONIGHT. THIS EVENING PT NOTICED 2 BLISTERS ON THE BACK ON L HAND. ALMOST LOOK LIKE BLOOD BLISTERS AND PT STATES THEY ARE ITCHY. PT ALSO STATES THROAT FEELS A BIT SWOLLEN. DR. RODRIGUEZ TO BEDSIDE. ASSESSED THROAT AND BLISTERS, WENT OVER MEDICATIONS. INSTRUCTED TO KEEP AN EYE ON IT, NO OTHER ORDERS. SITTING UP IN CHAIR NOW, NO SIGN OF DISTRESS.
--- NOTE | 2023-06-12 19:25 | NUR ---
ASSUMPTION OF CARE RECEIVED INTO CARE, REPORT GIVEN BY DAY RN. PT AWAKE AND ALERT, INDEP TO TOILET TO VOID. VSS. IN NSR. PT ASKING FOR BEDTIME MEDS EARLY, WILL PROVIDE. NO OTHER VOICED CONCERNS. CALL MOCK IN REACH.
[2023-06-13] VITALS: BP 135/90
[2023-06-13 04:00] VITALS: BP 151/91
--- NOTE | 2023-06-13 06:02 | NUR ---
SHIFT SUMMARY ALERT AND OREINTED. CONSISTENT HEADACHE THROUGHOUT NIGHT, ORDER OBTAINED FOR OXYCODONE, GIVEN PER EMAR. INDEP TO TOILET TO VOID. REMAINED IN NSR W FIRST DEGREE BLOCK HR 70-100, SBP 130-150S. DENIES N/V. MAG REPLACED. NO VOICED CONCERNS AT THIS TIME. CALL MOCK IN REACH.
[2023-06-13 08:00] VITALS: BP 169/124
[2023-06-13 08:38] LABS: BASOPHILS ABSOLUTE AUTO 0.04 K/mm3 (0.00-0.23); BASOPHILS PERCENT AUTO 1 % (0-2); EOSINOPHILS ABSOLUTE AUTO 0.06 K/mm3 (0.00-0.68); EOSINOPHILS PERCENT AUTO 1 % (0-6); Hemoglobin 12.6 g/dL (11.5-16.0); IMMATURE GRAN ABSOLUTE AUTO 0.14 K/mm3 (0.00-0.10); IMMATURE GRAN PERCENT AUTO 2 % (0-1); LYMPHOCYTES ABSOLUTE AUTO 3.25 K/mm3 (0.84-5.20); LYMPHOCYTES PERCENT AUTO 50 % (21-46); MONOCYTES ABSOLUTE AUTO 0.82 K/mm3 (0.16-1.47); MONOCYTES PERCENT AUTO 13 % (4-13); Mean Corpuscular HGB 34.4 pg (26.0-34.0); Mean Corpuscular Volume 98 fL (80-100); Mean Platelet Volume 9.2 fL (9.1-12.4); NEUTROPHILS ABSOLUTE AUTO 2.26 K/mm3 (1.96-9.15); NEUTROPHILS PERCENT AUTO 34 % (41-73); Platelet Count 144 K/mm3 (150-400); RDW Coefficient Variation 12.3 % (11.7-14.2); RDW Standard Deviation 44.7 fL (35.1-46.3); Red Blood Cell Count 3.66 M/mm3 (3.80-5.20); White Blood Cell Count 6.57 K/mm3 (4.00-11.30)
[2023-06-13 08:55] LABS: Bun/Creatinine Ratio 23.6 (12.0-20.0); Calcium, Blood 8.9 mg/dL (8.5-10.1); Creatinine, Blood 0.51 mg/dL (0.40-1.00); Potassium, Blood 3.6 mmol/L (3.5-5.5)
[2023-06-13] MEDS ORDERED: MELATONIN10 M5 PO (10:51)
[2023-06-13] MEDS ORDERED: MULTI-VITAMIN1 EAC2 PO (10:52)
[2023-06-13] MEDS ORDERED: B-1100 M1 PO (10:53)
[2023-06-13] MEDS ORDERED: VISBIOME 112.51 EACH PO (10:53)
--- NOTE | 2023-06-13 11:14 | NUR ---
PT A/O X4, AMB INDEP IN ROOM. PLEASANT AND COOPERATIVE WITH CARE. PT BEING DISCHARGED TODAY AND WILL BE GOING TO [facility], SHE ALREADY HAS A BED THERE. MOM IS AT BEDSIDE FOR DISCHARGE INSTRUCTIONS AND SHE IS DRIVING PT STRAIGHT THERE. PT TAKEN OUT VIA W/C, NO SIGN OF DISTRESS SHE LEAVES THE UNIT.
== END 2023-06-13 11:30 | disposition home or self-care (01) | DRG 896 ==
LOC: ER 19:05 → ICUE 21:06
PROVIDERS: Internal Medicine; Nurse Practitioner Acute Care; Student in an Organized Health Care Education/Training Program; ADMIT Internal Medicine
PROC: 5A1955Z Respiratory Ventilation, Greater than 96 Consecutive Hours (ICD-10-PCS; principal; 2023-06-06)
PROC: 0BH17EZ Insertion of Endotracheal Airway into Trachea, Via Natural or Artificial Opening (ICD-10-PCS; 2023-06-06)
PROC: 0T9B70Z Drainage of Bladder with Drainage Device, Via Natural or Artificial Opening (ICD-10-PCS; 2023-06-06)
PROC: HZ2ZZZZ Detoxification Services for Substance Abuse Treatment (ICD-10-PCS; 2023-06-06)
PROC: 0DH67UZ Insertion of Feeding Device into Stomach, Via Natural or Artificial Opening (ICD-10-PCS; 2023-06-08)
DX: F10.239 Alcohol dependence with withdrawal, unspecified (principal); G93.41 Metabolic encephalopathy; J96.01 Acute respiratory failure with hypoxia; J69.0 Pneumonitis due to inhalation of food and vomit; J96.02 Acute respiratory failure with hypercapnia; E87.4 Mixed disorder of acid-base balance; J98.11 Atelectasis; E87.1 Hypo-osmolality and hyponatremia; E87.0 Hyperosmolality and hypernatremia; F10.229 Alcohol dependence with intoxication, unspecified; Y90.8 Blood alcohol level of 240 mg/100 ml or more; F17.210 Nicotine dependence, cigarettes, uncomplicated; F32.A Depression, unspecified; E87.6 Hypokalemia; R56.9 Unspecified convulsions; G89.29 Other chronic pain; E83.39 Other disorders of phosphorus metabolism; D69.6 Thrombocytopenia, unspecified; F41.9 Anxiety disorder, unspecified; K21.9 Gastro-esophageal reflux disease without esophagitis; G47.00 Insomnia, unspecified; D63.8 Anemia in other chronic diseases classified elsewhere; Z86.711 Personal history of pulmonary embolism; Z90.710 Acquired absence of both cervix and uterus; Z88.8 Allergy status to other drugs, medicaments and biological substances; Z88.5 Allergy status to narcotic agent; Z88.1 Allergy status to other antibiotic agents; Z88.2 Allergy status to sulfonamides; Z79.899 Other long term (current) drug therapy; Z87.19 Personal history of other diseases of the digestive system; Z98.1 Arthrodesis status; Z90.89 Acquired absence of other organs; Z79.2 Long term (current) use of antibiotics; Z11.52 Encounter for screening for COVID-19
CPT/HCPCS: 31500; 36415; 51702; 70450; 70491; 71045; 80048; 80053; 81001; 81003; 82607; 82728; 82746; 82803; 82947; 83540; 83550; 83735; 84100; 84132; 84145; 84146; 84484; 84703; 85025; 93005; 93010; 94002; 94003; 94640; 94664; 94762; 96374-59; 99285-25; A9270; C1751; C9113; J0295; J0360; J1650; J2060; J2250; J2405; J2704; J2920; J3010; J3411; J3475; J3480; J7030; J7050; J7060; J7070; J7120; Q9967

== ENCOUNTER → 2024-01-29 | Outpatient (CLI) | payer BC, OTHER ==
[~2024-01-29] MED LIST changes: +AMOX-CLAV 875-1 EAC1 PO; +AMOX-CLAV 875-1 EAC2 PO; +MELATONIN10 M5 PO; +MULTI-VITAMIN1 EAC2 PO; +VISBIOME 112.51 EACH PO
== END ==
LOC: LAB 17:18 → LAB SHORT 17:18
DX: R39.15 Urgency of urination (principal)
CPT/HCPCS: 87077; 87086; 87186

== ENCOUNTER → 2024-02-04 | Outpatient (CLI) | payer BC, OTHER ==
[2024-02-04 12:28] LABS: BASOPHILS ABSOLUTE AUTO 0.02 K/mm3 (0.00-0.23); BASOPHILS PERCENT AUTO 0 % (0-2); EOSINOPHILS ABSOLUTE AUTO 0.07 K/mm3 (0.00-0.68); EOSINOPHILS PERCENT AUTO 1 % (0-6); Hematocrit 38.5 % (33.0-51.0); Hemoglobin 13.3 g/dL (11.5-16.0); IMMATURE GRAN ABSOLUTE AUTO 0.01 K/mm3 (0.00-0.10); IMMATURE GRAN PERCENT AUTO 0 % (0-1); LYMPHOCYTES ABSOLUTE AUTO 2.56 K/mm3 (0.84-5.20); LYMPHOCYTES PERCENT AUTO 47 % (21-46); MONOCYTES ABSOLUTE AUTO 0.45 K/mm3 (0.16-1.47); MONOCYTES PERCENT AUTO 8 % (4-13); Mean Corpuscular HGB Conc 34.5 g/dL (31.5-36.5); Mean Corpuscular Volume 101 fL (80-100); Mean Platelet Volume 9.6 fL (9.1-12.4); NEUTROPHILS ABSOLUTE AUTO 2.34 K/mm3 (1.96-9.15); NEUTROPHILS PERCENT AUTO 43 % (41-73); Platelet Count 168 K/mm3 (150-400); RDW Coefficient Variation 12.3 % (11.7-14.2); RDW Standard Deviation 45.7 fL (35.1-46.3); White Blood Cell Count 5.45 K/mm3 (4.00-11.30)
[2024-02-04 12:43] LABS: Albumin, Blood 4.1 g/dL (3.4-5.0); Albumin/Globulin Ratio 1.2 (0.8-1.8); Bilirubin, Total 0.4 mg/dL (0.1-1.0); Bun/Creatinine Ratio 26.2 (12.0-20.0); Calcium, Blood 10.1 mg/dL (8.5-10.1); Creatinine, Blood 0.69 mg/dL (0.40-1.00); Globulin, Blood 3.4 g/dL (2.2-4.0); Potassium, Blood 4.5 mmol/L (3.5-5.5); Total Protein, Blood 7.5 g/dL (6.4-8.2)
== END | disposition home or self-care (01) ==
LOC: LAB 11:41 → LAB SHORT 11:41
PROVIDERS: Physician Assistant
DX: M54.9 Dorsalgia, unspecified (principal); R30.0 Dysuria; R10.9 Unspecified abdominal pain
CPT/HCPCS: 80053; 85025

== ENCOUNTER → 2024-02-12 | Outpatient (CLI) | payer BC | LOC: LAB 18:08 → LAB SHORT 18:08 | DX: R30.0 Dysuria (principal) | CPT/HCPCS: 87077; 87086; 87186 ==

== ENCOUNTER → 2024-04-14 | Outpatient (CLI) | payer BC, OTHER | LOC: LAB SHORT 17:27 → LAB 17:27 | DX: N39.0 Urinary tract infection, site not specified (principal); R31.9 Hematuria, unspecified; B37.9 Candidiasis, unspecified; T36.95XA Adverse effect of unspecified systemic antibiotic, initial encounter | CPT/HCPCS: 87077; 87086; 87186 ==

== ENCOUNTER 2025-02-04 07:17 | Day surgery (SDC) | payer BC, OTHER ==
[~2025-02-04] VITALS: Ht 167.6 cm; Wt 76.0 kg
[~2025-02-04 07:17] MED LIST changes: +ACYC400 PO; +ALBU2.5V5 INH
[2025-02-04] MEDS ORDERED: Midazolam HCL 1 MG/ML 5MLVIAL ONE ×2 (08:53→09:32)
[2025-02-04] MEDS ORDERED: FentaNYL Citrate 50 MCG/ML 2 ML Injection ONE ×2 (09:14→09:28)
[2025-02-04] MEDS ORDERED: ePHEDrine Sulfate 50 MG/ML 1ML Injection ONE (09:16)
[2025-02-04 10:20] VITALS: BP 108/81
== END 2025-02-04 10:27 | disposition home or self-care (01) ==
LOC: ORSCSDS 07:17
PROVIDERS: Internal Medicine Gastroenterology
PROC: 0DBN8ZX Excision of Sigmoid Colon, Via Natural or Artificial Opening Endoscopic, Diagnostic (ICD-10-PCS; principal; 2025-02-04 08:45)
PROC: 0DBK8ZX Excision of Ascending Colon, Via Natural or Artificial Opening Endoscopic, Diagnostic (ICD-10-PCS; principal; 2025-02-04 08:45)
PROC: 0DJ08ZZ Inspection of Upper Intestinal Tract, Via Natural or Artificial Opening Endoscopic (ICD-10-PCS; principal; 2025-02-04 08:45)
DX: R13.10 Dysphagia, unspecified (principal); K20.90 Esophagitis, unspecified without bleeding; Z12.11 Encounter for screening for malignant neoplasm of colon; K63.5 Polyp of colon; D12.2 Benign neoplasm of ascending colon; F10.20 Alcohol dependence, uncomplicated; K76.0 Fatty (change of) liver, not elsewhere classified; F41.9 Anxiety disorder, unspecified; Z79.899 Other long term (current) drug therapy; F17.210 Nicotine dependence, cigarettes, uncomplicated
CPT/HCPCS: 82947; 88305; J2250; J2704; J3010; J7120